=== PATIENT | female | born 1965 | race Caucasian/White ===

== ENCOUNTER → 2018-06-19 11:35 | Outpatient (CLI) | payer OTHER, SELFPAY ==
--- NOTE | 2018-06-19 | DI.MG.S_ITS ---
BILATERAL DIGITAL SCREENING MAMMOGRAM 3D/2D WITH CAD: 06/19/2018 CLINICAL: Routine screening. Comparison is made to exams dated: 01/18/2017 mammogram, 04/05/2014 mammogram, and 12/24/2006 mammogram - [facility]. The tissue of both breasts is heterogeneously dense. This may lower the sensitivity of mammography. Current study was also evaluated with a Computer Aided Detection (CAD) system. There are a grouped heterogeneous calcifications in the right breast at 12 o'clock middle depth. No other significant masses, calcifications, or other findings are seen in either breast. IMPRESSION: INCOMPLETE: NEEDS ADDITIONAL IMAGING EVALUATION The grouped heterogeneous calcifications in the right breast are indeterminate. Mediolateral and spot magnification views are recommended. This exam was interpreted at Station ID: [id number]. NOTE: For mammograms, a report in lay terms will be sent to the patient. Approximately 15% of breast malignancies will not be visualized mammographically. In the management of a palpable breast mass, a negative mammogram must not discourage biopsy of a clinically suspicious lesion. Electronically Signed By: Norris saab/faizan:06/19/2018 17:47:03 letter sent: Additional Imaging Needed ACR BI-RADS Category 0: Incomplete 3340F
== END ==
PROVIDERS: Family Provider Internal Medicine; PCP Internal Medicine; Visit Provider Internal Medicine
DX: Z12.31 Encounter for screening mammogram for malignant neoplasm of breast (principal)
CPT/HCPCS: 77063; 77067

== ENCOUNTER → 2018-06-25 14:35 | Outpatient (CLI) | payer OTHER, SELFPAY ==
--- NOTE | 2018-06-25 | DI.MG.S_ITS ---
UNILATERAL RIGHT DIGITAL DIAGNOSTIC MAMMOGRAM 3D/2D WITH ADDITIONAL VIEWS: 06/25/2018 CLINICAL: Additional evaluation requested from prior study. Comparison is made to exams dated: 06/19/2018 mammogram, 01/18/2017 mammogram, and 04/05/2014 mammogram - [facility]. The tissue of right breast is heterogeneously dense. This may lower the sensitivity of mammography. There are a grouped heterogeneous calcifications in the right breast at 11 o'clock middle depth. No other significant masses or calcifications are seen in the breast. IMPRESSION: SUSPICIOUS OF MALIGNANCY The grouped heterogeneous calcifications in the right breast are at a low suspicion for malignancy. A stereotactic biopsy is recommended. This result was discussed with the patient by Dr. Chong Caba at the time of the exam. This exam was interpreted at Station ID: [id number]. NOTE: For mammograms, a report in lay terms will be sent to the patient. Approximately 15% of breast malignancies will not be visualized mammographically. In the management of a palpable breast mass, a negative mammogram must not discourage biopsy of a clinically suspicious lesion. Electronically Signed By: Sunshine peter/:06/25/2018 15:11:05 letter sent: Biopsy Required ACR BI-RADS Category 4a: Suspicious abnormality - low suspicion for malignancy 3344F
== END ==
PROVIDERS: Family Provider Internal Medicine; PCP Internal Medicine; Visit Provider Internal Medicine
DX: R92.1 Mammographic calcification found on diagnostic imaging of breast (principal)
CPT/HCPCS: 77065; G0279

== ENCOUNTER → 2018-07-29 09:05 | Outpatient (CLI) | payer OTHER, SELFPAY ==
--- NOTE | 2018-07-29 09:09 | DI.MRI.S_ITS ---
BREAST MRI OF BOTH BREASTS: 07/29/2018 CLINICAL: Breast cancer. PROCEDURE: MR BREAST BI WO/W CON INDICATIONS: Biopsy proven breast cancer TECHNIQUE: The patient was placed prone in a dedicated breast imaging coil. Precontrast axial STIR and 3D FLASH without fat saturation sequences were obtained. Both before and after bolus injection of contrast, sequential 1-minute axial 3D FLASH with fat saturation sequences for 3 time points, with subtraction images and maximum intensity projections (MIP's) generated. Delayed sagittal FLASH images with fat saturation were also obtained. Computer-aided detection, including computer algorithm analysis of MRI image data for lesion detection and characterization, pharmacokinetic analysis, with further physician review for interpretation, was performed. COMPARISON: [facility], , MM SPECIAL VIEW RT, 06/25/2018, 15:04. FINDINGS: Image quality: Excellent. There is moderate background parenchymal enhancement. Right breast: There is a lobulated enhancing mass within the right breast at 11:00 at a middle depth which measures 1.5 x 1.5 x 1.4 cm in diameter and corresponds with the biopsy proven neoplasm. This mass demonstrates predominantly rapid initial rise and predominantly persistent and plateau delayed phase kinetics. An ill-defined area of non-masslike enhancement is present approximately 1 cm inferior and 1 cm lateral to the biopsy proven mass (series 14, image 49 and series 12, image 73). This area of non-masslike enhancement is subthreshold for kinetic analysis. An enhancing reniform mass is present within the right axilla which likely represents a small intramammary node (series 12, image 79 and series 14, image 41). Slightly superior to this at the level of the previously biopsied mass is an enhancing 4 mm diameter nodule which may represent a small node; however the expected fatty hilum is not visualized (series 12, image 88 and series 14, image 43). Left breast: No suspicious mass lesions or enhancement are visualized within the left breast. Miscellaneous: With the exception of the aforementioned questionable subcentimeter lymph nodes in the upper-outer quadrant of the right breast, there are no abnormal right or left axillary lymph nodes. No intramammary adenopathy. Limited visualization of the heart, lungs, mediastinum, and upper abdomen are unremarkable. IMPRESSION: KNOWN BIOPSY PROVEN MALIGNANCY 1. Biopsy proven mass at 11:00 at a middle depth as described above. 2. Questionable subcentimeter satellite lesion versus intramammary lymph node within the upper-outer quadrant of the right breast. The expected fatty hilum is not visualized which may be due to small size. If further characterization is warranted, second look ultrasound could be used. 3. Area of non-masslike enhancement approximately 1 cm inferior and 1 cm lateral to the index mass lesion as described above which is below threshold for kinetic analysis. This may represent the biopsy track of the stereotactic guided biopsy. Alternatively, this may represent mild enhancement of normal fibroglandular tissue. However, extension of the index lesion or satellite lesion could be considered in the differential diagnosis. This lesion is not conspicuous enough to biopsy under MR guidance. If further characterization is warranted, second look ultrasound could be used. Alterntively, 6 month follow-up could be used to ensure stability or resolution. m was interpreted at Station ID: [id number]. Electronically Signed By: Sunshine Kerr M.D. lk/:07/29/2018 16:02:31 ACR BI-RADS Category 6: Known biopsy proven malignancy 3346F
== END ==
PROVIDERS: PCP Internal Medicine; Visit Provider Surgery
DX: C50.411 Malignant neoplasm of upper-outer quadrant of right female breast (principal)
CPT/HCPCS: 77049; A9579

== ENCOUNTER 2018-08-05 06:41 | Day surgery (SDC) | payer OTHER, SELFPAY ==
[2018-07-30 14:48] VITALS: BMI 24.1
[2018-08-05] VITALS (12 sets, daily range): BP systolic 92–115; BP diastolic 47–72; PULSE 63–79; RESP 8–16; TEMP 36.3–37; O2SAT 97–99; BMI 23.1
--- NOTE | 2018-08-05 | DI.NM.S_ITS ---
PROCEDURE: NM SENTINEL NODE W IMAGING RADIOPHARMACEUTICAL: 0.5-1.0 mCi Millipore filtered Tc-99m sulfur colloid. INDICATIONS: RIGHT BREAST CANCER TECHNIQUE: The area around the nipple was prepped and draped in a sterile fashion. Tc-99m sulfur colloid was injected intra-dermally in the outer edge of the areola in the right breast. Images were obtained subsequently. A body contour outline was obtained. FINDINGS: There is/are multiple lymph node(s) in the ipsilateral axilla IMPRESSION: Administration of radiotracer into the right breast periareolar region for intra-operative sentinel lymph node localization. Dictated by: Dylan Matos M.D. on 08/05/2018 at 10:11 Approved by: Dylan Matos M.D. on 08/05/2018 at 10:12
--- NOTE | 2018-08-05 | PATH_ITS ---
[facility] Accession Number: [id number] . 01 Material submitted: . PART A: RIGHT SENTINEL NODE PART B: RIGHT BREAST . 01 Diagnosis: A. Right Gladys Lymph Node, Excisional Biopsy: 1 lymph node, negative for malignancy (0/1). . B. Right Breast, Mastectomy: Invasive (ductal) carcinoma, with micropapillary features, grade 3 of 3 (Cely combined histologic grade, total score 8/9): - Tumor size (invasive component): 1.8 cm, by gross measurement. - Nuclear pleomorphism: High. (3/3) - Mitotic rate: Intermediate. (2/3) - Tubular differentiation: Little or none. (3/3) - Ductal carcinoma in situ (DCIS): i. Present. - Nuclear grade: High. - Necrosis: Present (comedo). ii. Extent: Present within tissue slices 18-22, and slice 24, spanning approximately 2.8 cm. - Calcifications: Present (in association with invasive carcinoma, DCIS, and benign breast tissue). - Lymphatic invasion: Not identified. - Resection margins: i. Invasive carcinoma: Negative; 0.5 cm from the posterior margin, 0.9 cm from the anterior margin, and more than 1 cm from the remaining margins. ii. DCIS: Negative; 0.4 cm from the postero-superior margin, 0.9 cm from the anterior margin, and more than 1 cm from the remaining margins. - Prognostic markers repeated on this mastectomy specimen: i. Estrogen receptor: Negative (0% tumor cells positive, positive internal controls). Progesterone receptor: Negative (0% tumor cells positive, positive internal controls). HER-2: Equivocal for protein overexpression (2+) by immunohistochemistry; FISH is pending and results will be reported in an addendum. - Regional lymph node status: 1 intramammary lymph node, negative for malignancy (0/1). - Additional findings: i. Portion of skin and nipple/areola complex: Negative. Skeletal muscle: Not present. Biopsy site: Present. - Other findings: Fibrocystic change including usual ductal hyperplasia, columnar cell change/hyperplasia, adenosis and microcysts. - Pathologic stage: pT1c pN0(sn). - See comment. MRV/08/11/2018 . 01 Comment: Her-2 status by immunohistochemistry: Approximately 30 single-amplified carcinoma cells (staining intensity of 3+, <5%) are intermingled without clustering among non-amplified cells of tumor. These cells with strong (3+) Her2 positivity are histologically indistinguishable from the majority of surrounding Her2 negative cells. While this pattern may be considered Her2 heterogeneous by some, there is no clustering or 'mosaicism' that is typically described in heterogeneity for Her2, hence, we prefer to describe this pattern as equivocal. These areas will be assessed separately by FISH studies, and results will be reported in an addendum. . The intramammary lymph node is identified in slice 28 (out of 30, with slice 30 being the most lateral slice), measures about 5 mm, and likely corresponds to the subcentimeter lesion in the upper outer quadrant identified on MRI. . Stromal tumor infiltrating lymphocytes are less than 50% (about 10%). . 01 Electronically signed: . Cyn Edge MD, Pathologist NPI- [id number] . 01 Gross description: . (A) Received in formalin, labeled right sentinel node, is a piece of pale yellow adipose tissue (2.6 x 1.4 x 0.4 cm) containing one lymph node (1.1 x 0.6 x 0.3 cm). The lymph node is trisected and entirely submitted in cassette A1. (B) Received in formalin, labeled right breast, suture long lateral, short superior, is a right breast (346 grams, 3.2 cm AP, 14.8 cm SI, 13.7 cm ML) partially covered by the nipple areolar complex (4.9 cm SI, 3.3 cm ML). No obvious axillary tail is identified. The specimen is oriented with two black sutures (long-lateral, short-superior). No localization wire is present. The specimen is serially sectioned ML into 30 slices with the medial and lateral resection margins as slices #1 and #30, respectively. The breast tissue is fibrofatty and contains a martini-white, solid firm, irregular mass (1.8 x 1.5 x 1.5 cm) involving slices #18-#21. The exact dimensions of the mass are difficult to identify due to the surrounding dense fibrous tissue. The mass is 0.9 cm from the anterior, 1.0 cm from the posterior, 2.0 cm from the superior, 10.2 cm from the inferior, 7.5 cm from the medial, and 4.3 cm from the lateral resection margins. No other nodules, masses or lesions are identified. The nipple areolar complex is riley-pink and unremarkable. A portion of skin is present and is unremarkable. A biopsy marker was identified in slice #21 within the mass. Ink code: purple-anterior; black-posterior; blue-superior; green-inferior; yellow-medial; orange-lateral. Section code: (B1) nipple; (B2) skin, distribution sales representative; (B3) slice #1, medial resection margin, distribution sales representative perpendicular section; (B4, B5) slice #11, fibrous areas, distribution sales representative; (B6, B7) slice #12, fibrous areas, distribution sales representative; (B8, B9) slice #13, fibrous areas, distribution sales representative; (B10-B11) slice #14, fibrous areas, distribution sales representative; (B12, B13) slice #15, fibrous areas, distribution sales representative; (B14, B15) slice #16, fibrous areas, distribution sales representative; (B16-B18) slice #17, tissue adjacent to mass, distribution sales representative; (B19-B21) slice #18, mass, distribution sales representative submitted SI; (B22) slice #19, mass to anterior margin (B23) slice #19, mass, distribution sales representative, to posterior margin; (B24) slice #20, mass to anterior margin ; (B25) slice #21, mass to anterior margin, (B26) slice #21, mass, tissue involving the biopsy marker; (B27-B29) slice #22, tissue adjacent to mass, fibrous areas, distribution sales representative; (B30, B31) slice #23, fibrous areas, distribution sales representative; (B32, B33) slice #24, fibrous areas, distribution sales representative; (B34, B35) slice #25, fibrous areas, distribution sales representative; (B36, B37) slice #26, fibrous areas, distribution sales representative; (B38) slice #27, fibrous area, distribution sales representative; (B39) slice #28, firm tissue, distribution sales representative; (B40) slice #30, lateral resection margin, distribution sales representative perpendicular sections. Note: Approximate total fixation time in formalin - 30 hours 30 minutes calculated using a collection date of 08/05/2018 with no collection time given. ([id number]) /MRV . 01 Microscopic: . - Areas of concern for lymphovascular invasion on block B22 are present. A panel of immunostains is performed in order to exclude lymphovascular invasion. P63 and D2-40 immunostains with appropriately staining external controls are performed, and are negative around invasive carcinoma; only p63 is positive around the areas of concern, without co-staining of D2-40, in support of no evidence of lymphovascular invasion. . - Micropapillary features are present, and immunohistochemical stains are performed on blocks B22 and B25 in order to confirm these histopathologic features. RICHARD is performed on blocks B22 and B25 with appropriately staining external control; RICHARD variably stains the cytoplasm of the invasive carcinoma, without the inside-out pattern; despite this immunophenotype, the morphologic features (uniform size pink nests with retraction artifact and mild polarization of nuclei) support the presence of focal micropapillary features. . - Prognostic makers on the main tumor are repeated on block B23 given the small size of lesional tissue on the biopsy and the high-grade morphology of the tumor. The external controls stain appropriately. The invasive carcinoma stains as follows: * Estrogen receptor: Negative (0% tumor cells staining; internal controls are positive; DCIS is also negative). * Progesterone receptor: Negative (0% tumor cells staining; internal controls are positive; DCIS is also negative). * Her-2 status: 2+, equivocal for protein overexpression by immunohistochemistry. Approximately 30 single-amplified cells (staining intensity of 3+, <5%) are intermingled without clustering among non-amplified cells of tumor. (DCIS is strongly positive, 3+ staining). . - Within some slides of the case, tumor is seen touching wispy black-inked edges; after careful examination of these slides, review of the gross specimen, and discussion of the posterior margin and associated MRI findings with Dr. Ballard on 08/11/2018 at 10:30 am, it is concluded that these findings do not represent true margin, and that the final margin is negative for carcinoma and DCIS. . - For future testing, good distribution sales representative blocks of tumor: B22 and B23. . The scoring criteria for breast biomarkers by immunohistochemistry is based on the current ASCO/CAP guidelines (Leon et al, Arch Pathol Lab Med 2010: 134(6): 907-922 / Marilia Weller al, Arch Pathol Lab Med 2014: 138(2): 241-256). Deparaffinized sections of formalin fixed tissue (along with appropriate positive controls) are incubated with the above antibody(s). Using the automated Sweeny stainer, tissue is incubated with the designated antibody which is then localized by a non-biotin, dual polymer detection system. The external controls are reviewed for appropriate reactivity and found to be adequate. Results on the target cell population are indicated above. These tests have not been validated on decalcified tissue. * This test was developed and its performance characteristics determined by [employer]. It has not been cleared or approved by the U.S. Food and Drug Administration. The FDA has determined that such clearance or approval is not necessary. This test is used for clinical purposes. It should not be regarded as investigational or for research. . 01 Pathologist provided ICD-10: C50.411 . 01 CPT . 454863, N59168, V37499, 918193 Performed at: 01 [facility] [address] [place] [address], [place], [place] [id number] MD Edenilson Russell MD Phone: [phone]
--- NOTE | 2018-08-05 07:51 | SUR.PREOP ---
OR proceedure changed , spoke with Dr Ballard and radiology to confirm. Pt still to have the node mapping and then return to [facility].
[2018-08-05] MEDS: LACTATED RINGERS 1,000 ML 42 ML IV (08:55)
[2018-08-05] MEDS: SCOPOLAMINE 1 PATCH TOP (10:15)
[2018-08-05] MEDS: ACETAMINOPHEN IV 1,000 MG/100 ML VIAL 400 MG IV (11:15)
[2018-08-05] MEDS: CEFAZOLIN VIAL 3 GM in SODIUM CHLORIDE 0.9% 100 ML 200 ML IV (11:15)
[2018-08-05] MEDS: LIDOCAINE 1% W/EPI INJ 20 ML INJ (11:28)
[2018-08-05] MEDS: BUPIVACAINE 0.5% (PF) VIAL 30 ML INJ (11:31)
--- NOTE | 2018-08-05 12:27 | PM.PREOP ---
Pre-operative Note Interval Note History & Physical reviewed/Exam performed by Physician: Yes Changes to H&P: Yes H&P completed within 30 days and has changed as indicated here:: Patient has decided she would prefer to have a mastectomy. We discussed this at length. We will continue with plans for sentinel node biopsy and will cancel the lumpectomy in favor of a skin sparing right breast mastectomy.
--- NOTE | 2018-08-05 12:28 | PM.OP.1 ---
Operative Date/Time/Diagnoses Date of procedure: 08/05/18 Time of procedure: 12:28 Pre-op diagnosis: Right breast cancer Post-op diagnosis: same Procedure & Clinicians Procedure: Right breast skin sparing mastectomy and sentinel node biopsy Same procedure as scheduled: Yes Indications: Biopsy-proven right breast cancer Surgeon: Kacy Ballard Click Yes if Unassisted: Yes Anesthesia Type: General (Dr. Kam) Operative Notes Findings: 1. A single sentinel node with a 10 sec count greater than 11,900. 2. Background in the axilla approximately 10 3. Background in the room of 0 4. No visually close margins. All skin viable at the close of the case Closure Type: primary Specimen(s): other (1. Right axillary sentinel node, 2. Right breast marked for orientation) Applied: drain(s) (Nineteen Albanian Solomon drain in the inframammary pocket on the right) Estimated Blood Loss (mL): 100 Blood products transfused: none Procedure in detail: After obtaining informed consent, the patient was brought to the operating room and placed in the supine position on the operating table. Following successful induction of general endotracheal anesthesia, appropriate padding of all bony prominences, and placement of appropriate monitors, the right chest and axilla were prepped and draped in the standard surgical fashion. A timeout was held per SCOAP protocol. Following injection of a mixture of local anesthetics into the axillary fold on the right side, an incision was created and carried down through the skin and subcutaneous tissue to enter the axillary fat pad below. The sentinel node was identified with the help of the navigator. All afferent and efferent lymphatics and vasculature were ligated. The sentinel node was then liberated from the surrounding structures. It was noted to have a 10 second count of 11,992. The background in the axilla was less than 10 and background in the room was 0. The wound was carefully checked for hemostasis and aspirated free of all fluid and particulate matter. It was closed in 2 layers with Vicryl and Monocryl suture. An elliptical incision was fashioned to include only the nipple areola complex on the right side. Thin tissue flaps were then created superiorly, medially, inferiorly, and laterally by using traction and counter-traction to carefully define and then separate the subcutaneous tissue from the breast tissue on the left side. Judicious use of sharp dissection and Bovie cautery developed these planes. Dissection was continued superiorly to a level just inferior to the right clavicle, medially to the sternum, inferiorly to the inframammary fold, and laterally to the latissimus. The breast was then removed from the chest wall in a medial to lateral fashion. The wound was then checked for hemostasis and irrigated copiously with warm water. The breast was passed from the table after marking it with a short stitch superior and a long stitch lateral. A 19 Albanian Solomon drain was placed in the inferior pocket and brought out in the inferior medial position. This was sewn into place with a nylon suture. The remaining breast incision was closed in 2 layers with Vicryl and Monocryl sutures. Complications: none Condition: stable Disposition: PACU Plan for aftercare: 1. Discharge to home 2. Follow up with me in my office in 1 week
[2018-08-05] MEDS: fentaNYL 100 MCG/2 ML INJ 50 MCG IV ×2 (12:53→13:11)
--- NOTE | 2018-08-05 13:07 | SUR.PHASEI ---
Pt arrived to PACU, with oral airway, d/c'ed on arrival to unit by dr romo. VS remain stable site c/d/i, with ice and binder. Pain trweated with fentanyl.
--- NOTE | 2018-08-05 13:23 | SUR.PHASEI ---
Prescriptions x 3 given to to fill.
[2018-08-05] MEDS: OXYCODONE IR 5 MG TABLET PO (14:08)
--- NOTE | 2018-08-05 14:23 | SUR.PHASEII ---
and daughter brought in, d/c instructions discussed, pt medicated with oxycodone. Dressing and drain remained c/d/i.
--- NOTE | 2018-08-05 14:29 | SUR.PHASEII ---
Reported off to CAROLEE Daley
--- NOTE | 2018-08-05 14:48 | SUR.PHASEII ---
pt dressed self with sba from pt daughters. pt alert and orientated. pt denies any pain/discomfort at that time. pt drain secure and draining red blood. breast binder in place. pt taken out to car via wc and transferred herself into car without any difficultly.
== END 2018-08-05 14:42 | disposition home or self-care (01) ==
PROVIDERS: PCP Internal Medicine; Visit Provider Surgery
PROC: 0HTT0ZZ Resection of Right Breast, Open Approach (ICD-10-PCS; CPT 19303; principal; 2018-08-05 10:30)
DX: C50.411 Malignant neoplasm of upper-outer quadrant of right female breast (principal)
CPT/HCPCS: 19303; 38500; 78195; A9541; J0131; J0690; J1100; J2250; J2405; J2704; J3010

== ENCOUNTER 2018-08-26 08:12 | Day surgery (SDC) | payer OTHER, SELFPAY ==
[2018-08-21 11:39] VITALS: BMI 22.6
[2018-08-26] VITALS (8 sets, daily range): BP systolic 95–111; BP diastolic 47–72; PULSE 70–98; RESP 10–16; TEMP 36.4–36.8; O2SAT 97–100; BMI 22.6
--- NOTE | 2018-08-26 | DI.RAD.S_ITS ---
PROCEDURE: XR CHEST 1V INDICATIONS: PORT PLACEMENT TECHNIQUE: One view of the chest was acquired. COMPARISON: None. FINDINGS: Surgical changes and devices: Left chest wall Port-A-Cath tip is in SVC. Surgical clips are noted in right axilla. Lungs and pleura: Lungs are clear. No pleural effusions or pneumothorax. Mediastinum: Mediastinal contours appear normal. Heart size is mildly enlarged. Bones and chest wall: No suspicious bony lesions. Overlying soft tissues appear unremarkable. IMPRESSION: Left chest wall Port-A-Cath tip is in SVC. No acute cardiopulmonary pathology. Dictated by: Korey Redmond M.D. on 08/26/2018 at 10:57 Approved by: Korey Redmond M.D. on 08/26/2018 at 10:58
[2018-08-26] MEDS: LACTATED RINGERS 1,000 ML 42 ML IV ×2 (08:45→10:40)
[2018-08-26] MEDS: CEFAZOLIN 2 GM/100 ML FROZ.PIGGY IV (09:56)
[2018-08-26] MEDS: LIDOCAINE 1% W/EPI INJ 20 ML INJ (10:21)
[2018-08-26] MEDS: BUPIVACAINE 0.5% (PF) VIAL 30 ML INJ (10:21)
[2018-08-26] MEDS: SODIUM CHLORIDE 0.9% FLUSH 10 ML IV (10:22)
--- NOTE | 2018-08-26 10:24 | SUR.OPER ---
Supine on padded OR bed, head on pillow, left arm padded and tucked at side, legs uncrossed, safety belt at thigh, tape over blanket over lower legs .
--- NOTE | 2018-08-26 10:32 | PM.PREOP ---
Pre-operative Note Interval Note History & Physical reviewed/Exam performed by Physician: Yes Changes to H&P: No
--- NOTE | 2018-08-26 10:34 | P.OP_ITS ---
Operative Date/Time/Diagnoses Date of procedure: 08/26/18 Time of procedure: 10:32 Pre-op diagnosis: Right breast cancer Post-op diagnosis: same Procedure & Clinicians Procedure: Left subclavian PowerPort placement Same procedure as scheduled: Yes Indications: Right breast cancer Surgeon: Kacy Ballard Anesthesia Type: General (Dr. Tompkins) Operative Notes Findings: Power port in good position in the superior vena cava Closure Type: primary Specimen(s): none sent Prosthetic devices, grafts, tissues, transplants, or devices: Low-profile power port Estimated Blood Loss (mL): 5 Procedure in detail: After obtaining informed consent, the patient was brought to the operating room and placed in the supine position on the operating table. Following successful induction of general endotracheal anesthesia, appropriate padding of all bony prominences, and placement of appropriate monitors, the left chest was prepped and draped in a standard surgical fashion. A timeout was held per SCOAP protocol. A mixture of local anesthetics was infiltrated in the deltopectoral groove on the left side. The right subclavian vein was accessed via the Seldinger technique and a wire was gently placed into the vein. Fluoroscopy was used to verify position of the wire in the subclavian vein. We next created a pocket of approximately 2 cm inferior to the access site of the vein. This was checked for size and found to fit the port nicely. The included tunneling device was used to place the tubing and the pocket connecting it to the access site of the subclavian vein. The tubing was trimmed to an appropriate length and connected to the Port-A-Cath. The Port-A-Cath was sewn into place in the pocket using interrupted Prolene sutures. The pocket was closed in 2 layers. The dilator and introducer were then gently passed over the wire and into the subclavian vein. The wire and dilator were removed leaving only the introducer. The tubing was then placed in the introducer and the introducer removed per package dye stand loader's directions. The port was then flushed with saline solution and found to be functional and in good position. It was then hep-locked with 2000 units of heparin. The incision was closed in 2 layers with Vicryl and Monocryl sutures. Dermabond was applied to the skin. All sponge, needle, and instrument counts were correct at the conclusion of the case. Patient was allowed to awaken from anesthesia and taken to the post-anesthesia care unit in good condition. Complications: none Condition: stable Disposition: PACU Plan for aftercare: 1. Discharge to home 2. The port is ready for use
--- NOTE | 2018-08-26 10:53 | SUR.PHASEI ---
stable pacu stay. no nausea no pain, umb l arm, dr solano aware. +cms, extremety warm.
--- NOTE | 2018-08-26 11:33 | SUR.PHASEI ---
stable to opd.
--- NOTE | 2018-08-26 11:36 | SUR.PHASEII ---
awaiting dr solano to complete paperwork, d/c instructions discussed with both, both voiced an understanding.
--- NOTE | 2018-08-26 12:08 | SUR.PHASEII ---
pt left with paperwork, when ready and left in stable condition. l chest c/d/i.
== END 2018-08-26 11:50 | disposition home or self-care (01) ==
PROVIDERS: PCP Internal Medicine; Visit Provider Surgery
PROC: (CPT 36561; principal; 2018-08-26 09:15)
DX: C50.911 Malignant neoplasm of unspecified site of right female breast (principal); Z45.2 Encounter for adjustment and management of vascular access device
CPT/HCPCS: 36561; 71045; 76000; C1788; J0690; J1100; J1644; J2250; J2405; J2704; J3010

== ENCOUNTER → 2019-07-27 11:07 | Outpatient (CLI) | payer OTHER, SELFPAY ==
--- NOTE | 2019-07-27 | DI.MG.S_ITS ---
UNILATERAL LEFT DIGITAL SCREENING MAMMOGRAM 3D/2D WITH CAD POST MASTECTOMY: 07/27/2019 CLINICAL: Routine screening. Personal history of right breast cancer. Comparison is made to exams dated: 06/19/2018 mammogram and 01/18/2017 mammogram - [facility]. The tissue of left breast is heterogeneously dense. This may lower the sensitivity of mammography. Current study was also evaluated with a Computer Aided Detection (CAD) system. No significant masses, calcifications, or other findings are seen in the breast. There has been no significant interval change. IMPRESSION: NEGATIVE There is no mammographic evidence of malignancy. A 1 year screening mammogram is recommended. This exam was interpreted at Station ID: [id number]. NOTE: For mammograms, a report in lay terms will be sent to the patient. Approximately 15% of breast malignancies will not be visualized mammographically. In the management of a palpable breast mass, a negative mammogram must not discourage biopsy of a clinically suspicious lesion. Electronically Signed By: Norris saab/faizan:07/27/2019 18:59:26 copy to: Flaco Billy letter sent: Normal Exam ACR BI-RADS Category 1: Negative 3341F
== END ==
PROVIDERS: PCP Internal Medicine; Referring Provider Internal Medicine; Visit Provider Internal Medicine
DX: Z12.31 Encounter for screening mammogram for malignant neoplasm of breast (principal); Z85.3 Personal history of malignant neoplasm of breast
CPT/HCPCS: 77063; 77067

== ENCOUNTER → 2020-04-04 11:22 | Outpatient (CLI) | payer OTHER, SELFPAY ==
[2020-04-04 14:04] LABS: COVID19 -Nasal RAPID Negative (Negative)
== END ==
PROVIDERS: PCP Internal Medicine; Visit Provider Physician Assistant
DX: Z11.59 Encounter for screening for other viral diseases (principal)
CPT/HCPCS: 87635

== ENCOUNTER 2020-04-06 07:59 | Day surgery (SDC) | payer OTHER, SELFPAY ==
[2020-04-06] VITALS (8 sets, daily range): BP systolic 90–117; BP diastolic 52–78; PULSE 63–82; RESP 8–16; TEMP 36–36.8; O2SAT 97–100; BMI 22.8
--- NOTE | 2020-04-06 | PATH_ITS ---
[facility] Accession Number: [id number] . 01 Material submitted: . body - GASTRITIS . 01 Clinical history: . A: GASTRITIS R/O HP . 02 Diagnosis: Stomach, Biopsies: Gastric antral mucosa with minimal chronic inflammation. Negative for Helicobacter organisms by immunohistochemistry. Negative for intestinal metaplasia. Negative for dysplasia or malignancy. MRV 04/11/2020 1513 Local . 02 Electronically signed: . Maurizio Elizabeth MD, PhD, Pathologist NPI- [id number] . 01 Gross description: . GASTRITIS: Received in formalin are 2 fragment(s) of riley, soft tissue measuring 0.3 x 0.2 x 0.1 cm to 0.3 x 0.3 x 0.1 cm submitted entirely in 1 cassette(s) /QBJ 04/07/2020 0718 Local . 02 Microscopic: . An immunohistochemical stain was performed to evaluate for Helicobacter organisms and is negative. The control stain showed appropriate reactivity. . * This test was developed and its performance characteristics determined by [facility]. It has not been cleared or approved by the U.S. Food and Drug Administration. The FDA has determined that such clearance or approval is not necessary. This test is used for clinical purposes. It should not be regarded as investigational or for research. . . 02 Pathologist provided ICD-10: K29.70 . 02 CPT . 387558, A12189 Performed at: 01 [facility] [address] [facility], [place], [place] [id number] MD Edenilson Russell MD Phone: [phone] Performed at: 02 [facility] [place] [address] [place], [place] [id number] MD Chloe Jensen MD Phone: [phone]
[2020-04-06] MEDS: SODIUM CHLORIDE 0.9% 1,000 ML 200 ML IV (08:24)
--- NOTE | 2020-04-06 08:30 | PM.HP.1 ---
History of Present Illness History of Present Illness Date Patient Seen: 04/06/20 Chief complaint: SDC Narrative: GE reflux with nocturnal cough rule out esophagitis Patient History Medical History (Updated 08/20/18 @ 14:14 by Kacy Ballard MD) Breast cancer, right (~06/2018) Chicken pox Depression, (~1993) Eczema Surgical History (Updated 08/21/18 @ 11:46 by Migdalia Griggs RN) Anesthesia Hx of right mastectomy (08/05/18) Status post tubal ligation (~1995) Family & Social History Family History Brother Age: 77 Parkinson's disease Father Lung cancer Mother Brain cancer Sister No problems noted. Social History: household members spouse Tobacco & Substance use: Smoking Status Never smoker alcohol intake frequency holiday/special occasion Substance Use Type does not use Meds Home Medications and Allergies Home Medications Medication Instructions Recorded Confirmed Type sertaconazole 2 % topical cream 1 applictn TOP BID #60 gram 10/18/17 04/06/20 Rx meloxicam 15 mg tablet 15 mg PO DAILY #30 tab 02/10/18 04/06/20 Rx omeprazole 20 mg PO DAILY 04/06/20 04/06/20 History Allergies Allergy/AdvReac Type Severity Reaction Status Date / Time morphine AdvReac Severe Hypotension Verified 04/06/20 08:08 latex AdvReac Mild Rash Verified 04/06/20 08:08 narcotics Allergy Severe Hypotension Uncoded 04/06/20 08:08 Exam Vital Signs (past 8 hours): - 04/06/20 08:16 Temperature 97.2 F L Pulse Rate 82 Respiratory Rate 16 Blood Pressure 117/78 Pulse Oximetry 98 Oxygen Delivery Method Room Air Narrative Exam Narrative: Oropharynx free of lesions Chest clear to auscultation percussion Cardiac exam reveals no S3 or murmur Assessment & Plan Assessment & Plan narrative: Nocturnal cough associated with GE reflux. Rule out esophagitis. Risks, benefits, alternatives for EGD been explained. Further recommendations will follow the results of the study.
--- NOTE | 2020-04-06 09:01 | PM.OP.ENDO ---
Operative Date/Time/Diagnoses Date of procedure: 04/06/20 Pre-op diagnosis: See indication and findings Procedure & Clinicians Study performed: EGD Same procedure as scheduled: Yes Indications: Nocturnal cough and GE reflux rule out esophagitis Surgeon: Guera Mello Procedure Notes Procedure in detail: After informed consent was obtained the patient was placed in left lateral decubitus position. The video upper scope placed into the oropharynx and with the help swallowed in the esophagus. The esophagus stomach and duodenum were carefully examined. On withdrawal, retroflexed view the GE junction was performed. The scope was removed. The patient tolerated procedure well. Blood loss none Complications none Sedation Total sedation time 10 minutes Versed 4 mg fentanyl 100 micro g IV titration Findings 1. Normal esophagus with the exception of a somewhat gaping lower esophageal sphincter. 2. Streaky erythema in the pre-pyloric region biopsies taken to rule out Helicobacter 3. Normal duodenal bulb and sweep Patient will be set up for [employer] monitoring off medication at her convenience.
[2020-04-06] MEDS: fentaNYL 250 MCG/5 ML INJ IV (09:06)
[2020-04-06] MEDS: MIDAZOLAM 5 MG/5 ML VIAL IV (09:06)
== END 2020-04-06 10:20 | disposition home or self-care (01) ==
PROVIDERS: PCP Internal Medicine; Referring Provider Internal Medicine; Visit Provider Internal Medicine Gastroenterology
PROC: 0DJ08ZZ Inspection of Upper Intestinal Tract, Via Natural or Artificial Opening Endoscopic (ICD-10-PCS; CPT 43235; principal; 2020-04-06 09:00)
DX: K21.9 Gastro-esophageal reflux disease without esophagitis (principal); R05 Cough; K29.50 Unspecified chronic gastritis without bleeding
CPT/HCPCS: 43239; J2250; J3010

== ENCOUNTER → 2020-05-28 13:20 | Outpatient (CLI) | payer OTHER, SELFPAY ==
[2020-05-28 14:51] LABS: COVID19 -Nasal RAPID Negative (Negative)
== END ==
PROVIDERS: PCP Internal Medicine; Visit Provider Nurse Practitioner
DX: Z20.822 Contact with and (suspected) exposure to COVID-19 (principal)
CPT/HCPCS: 87635

== ENCOUNTER → 2020-09-06 10:45 | Outpatient (CLI) | payer OTHER, SELFPAY ==
--- NOTE | 2020-09-06 | DI.MG.S_ITS ---
UNILATERAL LEFT DIGITAL SCREENING MAMMOGRAM 3D/2D WITH CAD POST MASTECTOMY: 09/06/2020 CLINICAL: Routine screening. Personal history of right breast cancer. Comparison is made to exams dated: 07/27/2019 mammogram, 06/19/2018 mammogram, and 01/18/2017 mammogram - [facility]. The tissue of left breast is heterogeneously dense. This may lower the sensitivity of mammography. Current study was also evaluated with a Computer Aided Detection (CAD) system. No significant masses, calcifications, or other findings are seen in the breast. There has been no significant interval change. IMPRESSION: NEGATIVE There is no mammographic evidence of malignancy. A 1 year screening mammogram is recommended. This exam was interpreted at Station ID: [id number]. NOTE: For mammograms, a report in lay terms will be sent to the patient. Approximately 15% of breast malignancies will not be visualized mammographically. In the management of a palpable breast mass, a negative mammogram must not discourage biopsy of a clinically suspicious lesion. Electronically Signed By: Raul carrera/fazian:09/06/2020 11:18:57 copy to: Flaco Billy letter sent: Normal Exam ACR BI-RADS Category 1: Negative 3341F
== END ==
PROVIDERS: PCP Internal Medicine; Referring Provider Internal Medicine; Visit Provider Internal Medicine
DX: Z12.31 Encounter for screening mammogram for malignant neoplasm of breast (principal); Z85.3 Personal history of malignant neoplasm of breast
CPT/HCPCS: 77063; 77067

== ENCOUNTER → 2020-11-14 16:39 | Outpatient (CLI) | payer OTHER, SELFPAY ==
[2020-11-14 17:40] LABS: Add Manual Diff / Slide Review NO; Basophils Absolute Auto 100 /uL (0-100); Basophils Percent Auto 1.6 % (0-2); Eosinophils Absolute Auto 300 /uL (0-450); Eosinophils Percent Auto 5.5 % (2-4); Hemoglobin 12.7 g/dL (12.0-16.0); Lymphocytes Absolute Auto 1400 /uL (1100-4500); Lymphocytes Percent Auto 26.7 % (25-40); Mean Corpuscular HGB Conc 33.4 % (30-36); Mean Corpuscular Volume 95.9 fL (80-100); Monocytes Absolute Auto 600 /uL (0-900); Monocytes Percent Auto 11.7 % (3-14); Neutrophils Absolute Auto 2900 /uL (1500-7000); Neutrophils Percent Auto 54.5 % (50-75); Platelet Count 240 X10^3/uL (150-400); Red Blood Cell Count 3.97 X10^6/uL (4.0-5.2); Red Cell Distribution Width 14.5 % (11.6-14.8); White Blood Cell Count 5.3 X10^3/uL (4.5-11.0)
== END ==
PROVIDERS: PCP Internal Medicine; Referring Provider Internal Medicine; Visit Provider Internal Medicine
DX: R59.0 Localized enlarged lymph nodes (principal)
CPT/HCPCS: 36415; 85025

== ENCOUNTER → 2020-12-12 10:42 | Outpatient (CLI) | payer OTHER, SELFPAY ==
--- NOTE | 2020-12-12 | DI.US.S_ITS ---
PROCEDURE: US ABDOMEN LIMITED INDICATIONS: RIGHT GROIN LUMP TECHNIQUE: Real-time focused scanning was performed of the abdomen, with image documentation. COMPARISON: None. FINDINGS: 5.9 x 1.0 x 2.1 centimeter lymph node corresponds to palpable lump in the right groin. No fluid collections identified in the right groin. No soft tissue edema identified in the right groin. IMPRESSION: Enlarged right groin lymph node which could be reactive or neoplastic. Dictated by: Belkis Jackson MD, PhD on 12/12/2020 at 11:59 Approved by: Belkis Jackson MD, PhD on 12/12/2020 at 12:00
== END ==
PROVIDERS: PCP Internal Medicine; Referring Provider Internal Medicine; Visit Provider Internal Medicine
DX: R59.0 Localized enlarged lymph nodes (principal)
CPT/HCPCS: 76705

== ENCOUNTER → 2020-12-30 08:59 | Outpatient (CLI) | payer OTHER, SELFPAY ==
--- NOTE | 2020-12-30 | PATH_ITS ---
[facility] Accession Number: [id number] . 01 Material submitted: . lymph node - RIGHT GROIN LYMPHNODE . 01 Diagnosis: Lymph Node, Right Groin, Core Biopsies: Non-caseating granulomatous lymphadenitis, see Microscopic Description and comment. [facility] 01/06/2021 1451 Local . 01 Comment: While non-caseating granulomatous lymphadenitis is present, core biopsy tissue is a limited sample type. To completely rule out the possibility of a lymphoproliferative disorder, excisional biopsy tissue is needed. Please correlate with clinical and radiologic suspicion, if any, to determine a need for additional tissue procurement. . The clinical history of painful acute onset groin node was given. These findings do correlate. . As part of ongoing senior software quality engineer, this case was also reviewed by hematopathologist, Dr. Kianna Brito, who agrees with the interpretation. . 01 Electronically signed: . Pennie Stratton MD, Pathologist NPI- [id number] . 01 Gross description: . The specimen is received in formalin, labeled right lymph node, and consists of multiple riley-pink cores of soft tissue ranging from 0.2 cm to 0.6 cm in length by 0.1 cm in diameter. The specimen is entirely submitted in cassette A1. ([id number]) /[facility] 12/31/2020 1621 Local . 01 Microscopic: . H/E levels demonstrate fragments of core biopsy material comprising unremarkable soft tissue and lymphoid tissue. The lymphoid tissue demonstrates a somewhat follicular pattern without lars germinal centers noted. Focal loose non-caseating granulomata are seen with multinucleated giant cells. There is no evidence of a large, atypical or immature appearing lymphoid population. There is no evidence of increased apoptotic or mitotic activity, sclerosing banding, eosinophilia, pigmentation or non-lymphoid cells. There is no evidence of foreign bodies and no polarizable material is noted. In order to more fully characterize this process, special stains and immunohistochemical stains were indicated and were performed on block A1. The controls reacted appropriately. . FINDINGS: AFB special stain: No evidence of mycobacterial organisms. GMS special stain: No evidence of fungal elements. CD3: Small T lymphocytes scattered throughout. No large or atypical cells noted (membranous/strong). CD5: Small T lymphocytes scattered throughout. No large or atypical cells noted. Pattern mirrors CD3 (membranous/strong). CD10: Negative. CD20: B lymphocytes present (CD3 and CD20 staining pattern highlights normal lymphocyte distribution). CD21: Focally positive, highlighting follicular dendritic cells (cytoplasmic/strong). BCL2: No germinal center present to interpret. BCL6: No germinal center present to interpret. MACIE (panepithelial marker): Negative. This result supports the absence of metastatic carcinoma. Proliferation marker Ki-67: Positive, less than 10% (nuclear/strong). . INTERPRETATION: There is no evidence of mycobacteria or fungal elements. No evidence of aberrant T- or B-cell population. No evidence of metastatic carcinoma. . . * This test was developed and its performance characteristics determined by [facility]. It has not been cleared or approved by the U.S. Food and Drug Administration. The FDA has determined that such clearance or approval is not necessary. This test is used for clinical purposes. It should not be regarded as investigational or for research. . 01 Pathologist provided ICD-10: R59.0 . 01 CPT . 273186, 528586, 532994, Q14067, S55948 Performed at: 01 [facility] [address] [place] [address] [address], [place], [place] [id number] MD Edenilson Russell MD Phone: [phone]
--- NOTE | 2020-12-30 | DI.US.S_ITS ---
PROCEDURE: US BIOPSY LYMPH NODE INDICATIONS: RIGHT GROIN LYMPHADENOPATHY TECHNIQUE: The indications, alternatives, benefits, risks, and complications of the procedure were explained to the patient. Written informed consent was obtained and placed in the chart. Real-time sonography was utilized to choose the site for percutaneous lymph node sampling. The skin was prepped and draped in the usual sterile fashion. 1% lidocaine was infiltrated down to the site of interest. A coaxial needle was then advanced into the site of interest under direct sonographic visualization. A biopsy apparatus was then utilized, and core biopsies were obtained. The needle was then withdrawn; a bandage was applied to the biopsy site. COMPARISON: None. FINDINGS: Biopsy site(s): Enlarged right inguinal lymph node Needle: Visuu biopsy needle set. Number of passes: 6 Medications: 1% lidocaine for local anaesthesia. Complications: None. IMPRESSION: Successful ultrasound-guided right inguinal lymph node biopsy, with pathology results pending. Dictated by: Dylan Matos M.D. on 12/30/2020 at 11:06 Approved by: Dylan Matos M.D. on 12/30/2020 at 11:06
== END ==
PROVIDERS: PCP Internal Medicine; Referring Provider Internal Medicine; Visit Provider Internal Medicine
DX: I88.9 Nonspecific lymphadenitis, unspecified (principal)
CPT/HCPCS: 10005; 38505; 76942

== ENCOUNTER → 2021-05-01 10:54 | Outpatient (CLI) | payer OTHER, SELFPAY ==
[2021-05-01 15:05] LABS: COVID19 -Nasal RAPID Negative (Negative)
== END ==
PROVIDERS: PCP Internal Medicine; Visit Provider Nurse Practitioner Family
DX: Z20.822 Contact with and (suspected) exposure to COVID-19 (principal)
CPT/HCPCS: 87635

== ENCOUNTER → 2021-09-08 14:52 | Outpatient (CLI) | payer OTHER, SELFPAY ==
--- NOTE | 2021-09-08 | DI.MG.S_ITS ---
UNILATERAL LEFT DIGITAL SCREENING MAMMOGRAM 3D/2D WITH CAD: 09/08/2021 CLINICAL: Routine screening. Personal history of right breast cancer. Comparison is made to exams dated: 07/27/2019 mammogram, 06/25/2018 mammogram, 06/19/2018 mammogram, and 01/18/2017 mammogram - [facility]. The tissue of left breast is heterogeneously dense. This may lower the sensitivity of mammography. Current study was also evaluated with a Computer Aided Detection (CAD) system. There are new grouped fine punctate calcifications in the left breast at 11 o'clock middle depth. No other significant masses or calcifications are seen in the breast. IMPRESSION: INCOMPLETE: NEEDS ADDITIONAL IMAGING EVALUATION The new grouped fine punctate calcifications in the left breast are indeterminate. Mediolateral, spot magnification, and additional views are recommended. This exam was interpreted at Station ID: [id number]. NOTE: For mammograms, a report in lay terms will be sent to the patient. Approximately 15% of breast malignancies will not be visualized mammographically. In the management of a palpable breast mass, a negative mammogram must not discourage biopsy of a clinically suspicious lesion. Electronically Signed By: Edenilson thrasher/faizan:09/08/2021 16:40:50 copy to: Flaco Billy letter sent: Additional Imaging Needed ACR BI-RADS Category 0: Incomplete 3340F
== END ==
PROVIDERS: PCP Internal Medicine; Referring Provider Internal Medicine; Visit Provider Internal Medicine
DX: Z12.31 Encounter for screening mammogram for malignant neoplasm of breast (principal); Z85.3 Personal history of malignant neoplasm of breast
CPT/HCPCS: 77063; 77067

== ENCOUNTER → 2021-10-13 15:42 | Outpatient (CLI) | payer OTHER, SELFPAY ==
--- NOTE | 2021-10-13 | DI.MRI.S_ITS ---
PROCEDURE: MR HEAD/BRAIN WO/W CON INDICATIONS: 56-year-old female with breast cancer TECHNIQUE: Noncontrast axial T1 spin echo, axial T2 fast spin echo, sagittal and axial FLAIR, coronal T2 fast spin echo, axial gradient echo, axial diffusion and ADC through the brain. After the administration of contrast, axial and coronal 3D VIBE or T1 spin echo with fat saturation through the brain. COMPARISON: None. FINDINGS: Image quality: Excellent. CSF Spaces: Basal cisterns are patent. No extra-axial fluid collections. Ventricles are normal in size and shape. Brain: No midline shift. No intracranial bleeds or masses. No abnormal intracranial enhancement. The brainstem appears normal. Diffusion-weighted images demonstrate no acute ischemic insults. No chronic ischemic insults. Normal intravascular flow voids are present. Skull and face: Calvarial marrow is normal in signal. Orbits appear normal. Unilateral right intra-ocular lens replacement Sinuses: Small left maxillary sinus retention cyst. IMPRESSION: Unremarkable MRI of the brain without evidence metastatic disease Approved by: Jack Caraballo M.D. on 10/13/2021 at 16:54
== END ==
PROVIDERS: PCP Internal Medicine; Referring Provider Internal Medicine Hematology & Oncology; Visit Provider Internal Medicine Hematology & Oncology
DX: C50.619 Malignant neoplasm of axillary tail of unspecified female breast (principal)
CPT/HCPCS: 70553; A9579

== ENCOUNTER 2021-11-22 14:39 | Inpatient (IN) | payer OTHER, SELFPAY ==
[2021-11-22 14:47] VITALS: BP 115/57; PULSE 117; RESP 18; TEMP 38.9; O2SAT 96; BMI 21.9
--- NOTE | 2021-11-22 14:56 | DI.RAD.S_ITS ---
PROCEDURE: XR CHEST 1V INDICATIONS: suspected sepsis TECHNIQUE: One view of the chest was acquired. COMPARISON: [facility], CR, XR CHEST 1V, 08/26/2018, 10:33. FINDINGS: Surgical changes and devices: Left chest wall Port-A-Cath tip is in SVC. Surgical clips also noted in right breast and right axilla. Lungs and pleura: Lungs are clear. No pleural effusions or pneumothorax. Mediastinum: Mediastinal contours appear normal. Heart size is normal. Bones and chest wall: No suspicious bony lesions. Overlying soft tissues appear unremarkable. IMPRESSION: No acute cardiopulmonary pathology. Dictated by: Korey Redmond M.D. on 11/22/2021 at 16:03 Approved by: Korey Redmond M.D. on 11/22/2021 at 16:03
--- NOTE | 2021-11-22 16:04 | ED.FEVER ---
HPI - Fever General Chief Complaint: Fever Stated Complaint: Fever post chemo treatment, rash on face Time Seen by Provider: 11/22/21 15:33 Source: patient Mode of arrival: Wheelchair History of Present Illness HPI Narrative: Patient here for fever. Patient had chemotherapy November 15. Is on her 2nd cycle. No known sick contacts. Is COVID vaccinated. Home COVID negative. Denies any urinary complaints. Has diffuse lesions on the skin including around the nose and around the buttocks. Does have a med port. No cough cold or congestion. No vomiting or diarrhea. Took ibuprofen this afternoon. Took Tylenol this morning. Patient in no distress at this time. Related Data Home Medications Medication Instructions Recorded Confirmed lorazepam 0.5 mg tablet 1 tab PO PRN PRN Anxiety 11/22/21 11/22/21 ondansetron HCl 4 mg tablet 1 tab PO PRN PRN Nausea 11/22/21 11/22/21 Allergies Allergy/AdvReac Type Severity Reaction Status Date / Time latex Allergy Mild Rash Verified 11/25/21 11:03 morphine Allergy Mild Hypotension Verified 11/25/21 11:03 narcotics AdvReac Mild Hypotension Uncoded 11/25/21 11:03 Review of Systems Review of Systems Narrative: GENERAL: Positive for chills, fatigue, malaise, fever, negative for sweats. HEENT: Denies sinus pain, ear pain, sore throat RESPIRATORY: Denies dyspnea, cough CARDIOVASCULAR: Denies chest pain, palpitations GASTROINTESTINAL: Denies nausea, vomiting, abdominal pain : Denies dysuria, frequency, hematuria MUSCULOSKELETAL: denies muscle or bony pain SKIN: Positive for rash, positive for skin lesions NEUROLOGIC: Denies weakness, numbness ROS Unobtainable: All systems reviewed & are unremarkable except as noted in HPI and below Patient History Medical History Breast cancer, right (~06/2018) Chicken pox Depression, (~1993) Eczema Surgical History Anesthesia Hx of right mastectomy (08/05/18) Status post tubal ligation (~1995) Family History Brother Age: 78 Parkinson's disease Father Lung cancer Mother Brain cancer Sister No problems noted. Social History household members: spouse Smoking Status: Never smoker alcohol intake: current Smoking Status: Never smoker alcohol intake frequency: holidays/special occasions only Substance Use Type: does not use Exam Narrative Exam Narrative: GENERAL: in no distress, not toxic not dyspneic HEAD: Normocephalic. EYES: Pupils equal round No scleral icterus. ENT: Mucous membranes moist. NECK: Trachea midline. CARDIOVASCULAR: Regular rate and rhythm without murmurs RESPIRATORY: Clear to auscultation. Breath sounds equal bilaterally. No wheezes, rales, or rhonchi. GASTROINTESTINAL: Abdomen soft, non-tender EXTREMITIES: No gross deformities. BACK: No flank tenderness. NEURO: AOx4. SKIN: Warm and dry. Small punctate dried lesions on the left and right nostrils. No oozing. There is small surrounding erythema. Has central black core to them. PSYCH: Not anxious, is cooperative Initial Vital Signs Initial Vital Signs: Vital Signs Temperature 102.0 F H 11/22/21 14:47 Pulse Rate 117 H 11/22/21 14:47 Respiratory Rate 18 11/22/21 14:47 Blood Pressure 115/57 L 11/22/21 14:47 Pulse Oximetry 96 11/22/21 14:47 Oxygen Delivery Method 11/22/21 14:47 Course Course Course Narrative: EKG noted on arrival. However will repeat after fever control. There are no beds at [facility]. Patient's oncology group is there and they have not been able to transfer patients for over weeks. Due to post pandemic and labor shortages. There are no beds available at many hospitals. Will need to look for other hospital resources. Including [facility] Orders Ordered: Acetaminophen (Acetaminophen 325 Mg Tablet) 650 mg PO Q6HR DEION Last Admin: 11/30/21 00:06 Dose: 650 mg Documented By: Admin: 11/29/21 17:13 Dose: 650 mg Documented By: Admin: 11/29/21 11:28 Dose: 650 mg Documented By: Admin: 11/29/21 05:55 Dose: 650 mg Documented By: Admin: 11/28/21 23:57 Dose: 650 mg Documented By: Admin: 11/28/21 18:06 Dose: 650 mg Documented By: Admin: 11/28/21 12:12 Dose: 650 mg Documented By: Admin: 11/28/21 06:54 Dose: Not Given Documented By: MS(2) Admin: 11/27/21 23:39 Dose: Not Given Documented By: MS(2) Admin: 11/27/21 17:56 Dose: 650 mg Documented By: Admin: 11/27/21 11:35 Dose: 650 mg Documented By: Admin: 11/27/21 05:08 Dose: Not Given Documented By: MS(2) Admin: 11/27/21 02:06 Dose: Not Given Documented By: MS(2) Admin: 11/26/21 18:22 Dose: Not Given Documented By: Admin: 11/26/21 12:09 Dose: Not Given Documented By: Admin: 11/26/21 08:34 Dose: 650 mg Documented By: Admin: 11/26/21 05:56 Dose: 650 mg Documented By: Admin: 11/26/21 00:01 Dose: 650 mg Documented By: Admin: 11/25/21 18:03 Dose: 650 mg Documented By: Admin: 11/25/21 12:21 Dose: 650 mg Documented By: Admin: 11/25/21 05:57 Dose: 650 mg Documented By: Admin: 11/24/21 23:30 Dose: 650 mg Documented By: Admin: 11/24/21 18:33 Dose: 650 mg Documented By: Admin: 11/24/21 12:30 Dose: 650 mg Documented By: Admin: 11/24/21 06:16 Dose: 650 mg Documented By: Admin: 11/24/21 01:00 Dose: 650 mg Documented By: Admin: 11/23/21 17:43 Dose: 650 mg Documented By: Admin: 11/23/21 11:34 Dose: 650 mg Documented By: Admin: 11/23/21 06:40 Dose: 650 mg Documented By: Admin: 11/22/21 23:47 Dose: 650 mg Documented By: GARY Al Hydrox/Mg Hydrox/Simethicone (Mag Hydrox/Alum/Simeth 30 Ml Udc) 30 ml PO Q6HR PRN PRN Reason: Dyspepsia Benzocaine (Benzocaine/Menthol 1 Adriana Pkt) 1 each PO Q1HR PRN PRN Reason: Cough Benzonatate (Benzonatate 100 Mg Capsule) 100 mg PO TID PRN PRN Reason: Cough Last Admin: 11/29/21 19:43 Dose: 100 mg Documented By: Admin: 11/29/21 05:59 Dose: 100 mg Documented By: Admin: 11/28/21 16:13 Dose: 100 mg Documented By: Admin: 11/27/21 22:22 Dose: 100 mg Documented By: MS(2) Admin: 11/26/21 22:15 Dose: 100 mg Documented By: MS(2) Admin: 11/25/21 22:06 Dose: 100 mg Documented By: XIOMARA Bisacodyl (Bisacodyl 5 Mg Tablet) 10 mg PO BID COUNTS INCLUDE 234 BEDS AT THE [facility] Last Admin: 11/29/21 20:34 Dose: Not Given Documented By: Admin: 11/29/21 09:42 Dose: Not Given Documented By: Admin: 11/28/21 20:46 Dose: Not Given Documented By: Admin: 11/28/21 08:13 Dose: Not Given Documented By: Admin: 11/27/21 21:15 Dose: Not Given Documented By: MS(2) Admin: 11/27/21 09:42 Dose: Not Given Documented By: Admin: 11/26/21 20:35 Dose: Not Given Documented By: Admin: 11/26/21 12:01 Dose: Not Given Documented By: Admin: 11/25/21 20:06 Dose: Not Given Documented By: Admin: 11/25/21 08:22 Dose: Not Given Documented By: Admin: 11/24/21 20:39 Dose: 10 mg Documented By: GARY Enoxaparin Sodium (Enoxaparin 40 Mg/0.4 Ml Syringe) 40 mg SUBCUT DAILY COUNTS INCLUDE 234 BEDS AT THE [facility] Last Admin: 11/29/21 09:42 Dose: Not Given Documented By: Admin: 11/28/21 09:34 Dose: 40 mg Documented By: Guaifenesin (Guaifenesin Solution 100 Mg/5 Ml Udc) 100 mg PO Q2HR PRN PRN Reason: Cough Last Admin: 11/29/21 22:02 Dose: 100 mg Documented By: MONIQUE Heparin Sodium (Porcine) (Heparin 500 Unit/5 Ml Port Flush) 500 unit IV PRN PRN PRN Reason: Flush Heparin Sodium (Porcine) (Heparin 500 Unit/5 Ml Port Flush) 500 unit IV BID COUNTS INCLUDE 234 BEDS AT THE [facility] Last Admin: 11/25/21 09:13 Dose: Not Given Documented By: CEW Sodium Chloride (Normal Saline 0.9%) 250 mls @ 21 mls/hr IV Q24H PRN PRN Reason: Flush Last Admin: 11/26/21 18:25 Dose: 21 mls/hr Documented By: GÉNESIS Ibuprofen (Ibuprofen 600 Mg Tablet) 600 mg PO Q6HR PRN PRN Reason: Fever/Mild Pain (1-3) Ketorolac Tromethamine (Ketorolac 30 Mg/Ml Vial) 30 mg IV Q6H COUNTS INCLUDE 234 BEDS AT THE [facility] Stop: 12/03/21 15:41 Last Admin: 11/30/21 03:21 Dose: Not Given Documented By: Admin: 11/29/21 22:05 Dose: Not Given Documented By: Admin: 11/29/21 16:42 Dose: Not Given Documented By: Admin: 11/29/21 09:44 Dose: Not Given Documented By: Admin: 11/29/21 03:19 Dose: 30 mg Documented By: Admin: 11/28/21 21:38 Dose: 30 mg Documented By: Admin: 11/28/21 16:08 Dose: 30 mg Documented By: GÉNESIS Lorazepam (Lorazepam 0.5 Mg Tablet) 0.5 mg PO BEDTIME PRN PRN Reason: Sleep Last Admin: 11/27/21 22:22 Dose: 0.5 mg Documented By: MS(2) Admin: 11/27/21 00:06 Dose: 0.5 mg Documented By: MS(2) Magnesium Hydroxide (Magnesium Hydroxide 30 Ml Udc) 30 ml PO DAILY PRN PRN Reason: Constipation Nystatin (Nystatin Cream 30 Gm) 1 applic TOP BID COUNTS INCLUDE 234 BEDS AT THE [facility] Last Admin: 11/29/21 22:05 Dose: 1 applic Documented By: Admin: 11/29/21 09:42 Dose: 1 applic Documented By: Admin: 11/28/21 20:46 Dose: 1 applic Documented By: Admin: 11/28/21 08:13 Dose: Not Given Documented By: Admin: 11/27/21 22:44 Dose: Not Given Documented By: CHICA) Admin: 11/27/21 10:00 Dose: Not Given Documented By: Admin: 11/26/21 20:35 Dose: 1 applic Documented By: Admin: 11/26/21 08:33 Dose: 1 applic Documented By: Admin: 11/25/21 20:57 Dose: 1 applic Documented By: Admin: 11/25/21 10:12 Dose: 1 applic Documented By: Admin: 11/24/21 15:13 Dose: 1 applic Documented By: TRENT Ondansetron HCl (Ondansetron 4 Mg Odt) 4 mg PO Q8HR PRN PRN Reason: Nausea And Vomiting Last Admin: 11/23/21 19:59 Dose: 4 mg Documented By: Admin: 11/22/21 20:11 Dose: 4 mg Documented By: GARY Pantoprazole Sodium (Pantoprazole Dr 20 Mg Tablet) 20 mg PO 0600 DEION Last Admin: 11/29/21 05:58 Dose: 20 mg Documented By: Admin: 11/28/21 05:18 Dose: 20 mg Documented By: CHICA) Admin: 11/27/21 09:48 Dose: 20 mg Documented By: Admin: 11/26/21 08:33 Dose: 20 mg Documented By: Admin: 11/26/21 05:56 Dose: 20 mg Documented By: Admin: 11/25/21 05:57 Dose: 20 mg Documented By: Admin: 11/24/21 06:16 Dose: 20 mg Documented By: Admin: 11/23/21 06:40 Dose: 20 mg Documented By: GARY Phenyleph/Shark Oil/Min Oil/Petrol (Phenyleph/Mineral Oil/Petrolat 57 Gm Oint) 1 applic CA PRN PRN PRN Reason: anal pain Sodium Chloride (Sodium Chloride 0.9% Flush) 10 ml IV PRN PRN PRN Reason: Flush Last Admin: 11/29/21 03:20 Dose: 10 ml Documented By: Admin: 11/29/21 01:59 Dose: 10 ml Documented By: Admin: 11/28/21 21:38 Dose: 10 ml Documented By: Admin: 11/28/21 05:18 Dose: 10 ml Documented By: CHICA) Admin: 11/26/21 12:22 Dose: 10 ml Documented By: GÉNESIS Sodium Chloride (Sodium Chloride Nasal [place]) 1 spray NASAL PRN PRN PRN Reason: Congestion Last Admin: 11/24/21 15:13 Dose: 1 spray Documented By: TRENT Zolpidem Tartrate (Zolpidem 5 Mg Tablet) 5 mg PO BEDTIME PRN PRN Reason: Sleep Last Admin: 11/29/21 22:04 Dose: 5 mg Documented By: MONIQUE Discontinued Medications Acetaminophen (Acetaminophen 325 Mg Tablet) 650 mg PO NOW ONE Stop: 11/22/21 16:00 Last Admin: 11/22/21 16:08 Dose: 650 mg Documented By: JASMIN Albuterol (Albuterol 2.5 Mg/3 Ml Neb (Adult)) 2.5 mg INH [id number] COUNTS INCLUDE 234 BEDS AT THE [facility] Last Admin: 11/27/21 11:54 Dose: 2.5 mg Documented By: DEMETRIA Calcium Carbonate (Calcium Carbonate 600 Mg Tablet) 600 mg PO NOW ONE Stop: 11/24/21 14:57 Last Admin: 11/24/21 16:48 Dose: 600 mg Documented By: DELORIS Doxycycline Hyclate (Doxycycline Hyclate 100 Mg Tablet) 100 mg PO NOW ONE Stop: 11/29/21 13:51 Last Admin: 11/29/21 14:51 Dose: 100 mg Documented By: PILAR Fentanyl (Fentanyl 100 Mcg/2 Ml Inj) 5 mcg IV NOW ONE Stop: 11/29/21 14:16 Last Admin: 11/29/21 14:50 Dose: 5 mcg Documented By: PILAR Fentanyl (Fentanyl 100 Mcg/2 Ml Inj) 10 mcg IV 2000 ONE Stop: 11/29/21 20:01 Last Admin: 11/29/21 19:43 Dose: 10 mcg Documented By: MONIQUE Filgrastim (Filgrastim-Aafi 480 Mcg/0.8 Ml Syringe) 480 mcg SUBCUT NOW ONE Stop: 11/22/21 18:01 Last Admin: 11/22/21 18:17 Dose: 480 mcg Documented By: URSULA Filgrastim (Filgrastim-Aafi 480 Mcg/0.8 Ml Syringe) 480 mcg SUBCUT NOW ONE Stop: 11/23/21 18:01 Last Admin: 11/23/21 17:44 Dose: 480 mcg Documented By: JAVAD Filgrastim (Filgrastim-Aafi 300 Mcg/0.5 Ml Syringe) 300 mcg SUBCUT NOW ONE Stop: 11/24/21 16:16 Last Admin: 11/24/21 16:50 Dose: 300 mcg Documented By: DELORIS Filgrastim (Filgrastim-Aafi 300 Mcg/0.5 Ml Syringe) 300 mcg SUBCUT NOW ONE Stop: 11/25/21 14:01 Last Admin: 11/25/21 15:57 Dose: 300 mcg Documented By: TRENT Filgrastim (Filgrastim-Aafi 300 Mcg/0.5 Ml Syringe) 300 mcg SUBCUT NOW ONE Stop: 11/26/21 13:46 Last Admin: 11/26/21 13:51 Dose: 300 mcg Documented By: GÉNESIS Fluconazole (Fluconazole 100 Mg Tablet) 150 mg PO NOW ONE Stop: 11/24/21 14:56 Last Admin: 11/24/21 16:48 Dose: 150 mg Documented By: DELORIS Sodium Chloride (Normal Saline 0.9%) 1,000 mls @ 1,000 mls/hr IV BOLUS ONE Stop: 11/22/21 16:59 Last Infusion: 11/22/21 17:50 Dose: 0 mls/hr Documented By: Admin: 11/22/21 16:08 Dose: 1,000 mls/hr Documented By: JASMIN Cefepime HCl 2 gm/ Sodium (Chloride) 100 mls @ 200 mls/hr IV Q8H DEION Last Admin: 11/28/21 10:40 Dose: 200 mls/hr Documented By: Infusion: 11/28/21 01:59 Dose: 0 mls/hr Documented By: MS(2) Admin: 11/28/21 01:29 Dose: 200 mls/hr Documented By: MS(2) Infusion: 11/27/21 18:27 Dose: 0 mls/hr Documented By: MS(2) Admin: 11/27/21 17:57 Dose: 200 mls/hr Documented By: Infusion: 11/27/21 11:57 Dose: 200 mls/hr Documented By: Admin: 11/27/21 11:27 Dose: 200 mls/hr Documented By: Infusion: 11/27/21 02:37 Dose: 0 mls/hr Documented By: MS(2) Admin: 11/27/21 02:07 Dose: 200 mls/hr Documented By: MS(2) Infusion: 11/26/21 21:04 Dose: 200 mls/hr Documented By: MS(2) Admin: 11/26/21 20:34 Dose: 200 mls/hr Documented By: Infusion: 11/26/21 12:50 Dose: 200 mls/hr Documented By: Admin: 11/26/21 12:20 Dose: 200 mls/hr Documented By: Infusion: 11/26/21 02:35 Dose: 0 mls/hr Documented By: Admin: 11/26/21 02:05 Dose: 200 mls/hr Documented By: Infusion: 11/25/21 19:35 Dose: 0 mls/hr Documented By: Admin: 11/25/21 19:01 Dose: 200 mls/hr Documented By: Infusion: 11/25/21 11:50 Dose: 200 mls/hr Documented By: Admin: 11/25/21 11:18 Dose: 200 mls/hr Documented By: Infusion: 11/25/21 02:20 Dose: 200 mls/hr Documented By: Admin: 11/25/21 01:50 Dose: 200 mls/hr Documented By: Infusion: 11/24/21 19:16 Dose: 200 mls/hr Documented By: Admin: 11/24/21 18:46 Dose: 200 mls/hr Documented By: Infusion: 11/24/21 16:59 Dose: 0 mls/hr Documented By: Admin: 11/24/21 11:28 Dose: 200 mls/hr Documented By: Infusion: 11/24/21 01:30 Dose: 0 mls/hr Documented By: Admin: 11/24/21 01:00 Dose: 200 mls/hr Documented By: Infusion: 11/23/21 20:15 Dose: 0 mls/hr Documented By: Admin: 11/23/21 17:43 Dose: 200 mls/hr Documented By: Infusion: 11/23/21 11:34 Dose: 0 mls/hr Documented By: Admin: 11/23/21 10:44 Dose: 200 mls/hr Documented By: Infusion: 11/23/21 06:45 Dose: 0 mls/hr Documented By: Admin: 11/23/21 03:51 Dose: 200 mls/hr Documented By: Infusion: 11/22/21 18:38 Dose: 0 mls/hr Documented By: Infusion: 11/22/21 18:38 Dose: 0 mls/hr Documented By: Admin: 11/22/21 17:51 Dose: 200 mls/hr Documented By: JASMIN Vancomycin HCl/Dextrose (Vancomycin) 1,500 mg in 300 mls @ 200 mls/hr IV NOW ONE Stop: 11/22/21 19:44 Last Infusion: 11/22/21 23:07 Dose: 0 mls/hr Documented By: Admin: 11/22/21 20:10 Dose: 200 mls/hr Documented By: GARY Vancomycin HCl (Vancomycin) 1,250 mg in 250 mls @ 250 mls/hr IV Q12H COUNTS INCLUDE 234 BEDS AT THE [facility] Last Infusion: 11/23/21 10:00 Dose: 0 mls/hr Documented By: Admin: 11/23/21 08:32 Dose: 250 mls/hr Documented By: JAVAD Sodium Chloride (Normal Saline 0.9%) 1,000 mls @ 100 mls/hr IV BOLUS ONE Stop: 11/23/21 05:49 Last Infusion: 11/23/21 06:45 Dose: 0 mls/hr Documented By: Admin: 11/22/21 20:11 Dose: 100 mls/hr Documented By: GARY Vancomycin HCl (Vancomycin) 1,000 mg in 200 mls @ 200 mls/hr IV Q12H COUNTS INCLUDE 234 BEDS AT [facility] Last Admin: 11/24/21 09:38 Dose: 200 mls/hr Documented By: Infusion: 11/23/21 21:00 Dose: 0 mls/hr Documented By: Admin: 11/23/21 20:00 Dose: 200 mls/hr Documented By: XIOMARA Vancomycin HCl (Vancomycin) 1,000 mg in 200 mls @ 200 mls/hr IV Q8H COUNTS INCLUDE 234 BEDS AT [facility] Last Infusion: 11/25/21 10:35 Dose: 200 mls/hr Documented By: Admin: 11/25/21 09:34 Dose: 200 mls/hr Documented By: Infusion: 11/25/21 01:39 Dose: 200 mls/hr Documented By: Admin: 11/25/21 00:39 Dose: 200 mls/hr Documented By: Infusion: 11/24/21 18:31 Dose: 0 mls/hr Documented By: Admin: 11/24/21 16:49 Dose: 200 mls/hr Documented By: DELORIS Calcium Gluconate 4.65 meq/ (Sodium Chloride) 60 mls @ 180 mls/hr IV NOW ONE Stop: 11/25/21 11:19 Last Infusion: 11/25/21 12:45 Dose: 180 mls/hr Documented By: Infusion: 11/25/21 12:40 Dose: 180 mls/hr Documented By: Admin: 11/25/21 12:21 Dose: 180 mls/hr Documented By: TRENT Vancomycin HCl (Vancomycin) 1,250 mg in 250 mls @ 250 mls/hr IV Q8H DEION Last Infusion: 11/28/21 10:44 Dose: 0 mls/hr Documented By: Admin: 11/28/21 09:34 Dose: 250 mls/hr Documented By: Infusion: 11/28/21 01:18 Dose: 0 mls/hr Documented By: MS(2) Admin: 11/28/21 00:18 Dose: 250 mls/hr Documented By: MS(2) Infusion: 11/27/21 18:43 Dose: 0 mls/hr Documented By: MS(2) Admin: 11/27/21 17:43 Dose: 250 mls/hr Documented By: Infusion: 11/27/21 10:57 Dose: 250 mls/hr Documented By: Admin: 11/27/21 09:57 Dose: 250 mls/hr Documented By: Infusion: 11/27/21 01:54 Dose: 0 mls/hr Documented By: Admin: 11/27/21 00:06 Dose: 250 mls/hr Documented By: MS(2) Infusion: 11/26/21 19:13 Dose: 0 mls/hr Documented By: MS(2) Admin: 11/26/21 18:13 Dose: 250 mls/hr Documented By: Infusion: 11/26/21 09:32 Dose: 250 mls/hr Documented By: Admin: 11/26/21 08:32 Dose: 250 mls/hr Documented By: Infusion: 11/26/21 01:01 Dose: 0 mls/hr Documented By: Admin: 11/26/21 00:01 Dose: 250 mls/hr Documented By: Infusion: 11/25/21 19:05 Dose: 0 mls/hr Documented By: Admin: 11/25/21 18:04 Dose: 250 mls/hr Documented By: TRENT Calcium Gluconate 9.3 meq/ (Sodium Chloride) 70 mls @ 140 mls/hr IV NOW ONE Stop: 11/26/21 14:01 Last Admin: 11/26/21 13:50 Dose: 140 mls/hr Documented By: GÉNESIS Doxycycline Hyclate 100 mg/ (Sodium Chloride) 100 mls @ 100 mls/hr IV Q12H COUNTS INCLUDE 234 BEDS AT THE [facility] Last Infusion: 11/29/21 14:59 Dose: 100 mls/hr Documented By: Admin: 11/29/21 13:21 Dose: 100 mls/hr Documented By: Infusion: 11/29/21 03:20 Dose: 0 mls/hr Documented By: Admin: 11/29/21 01:58 Dose: 100 mls/hr Documented By: Infusion: 11/28/21 19:20 Dose: 0 mls/hr Documented By: Admin: 11/28/21 15:09 Dose: 100 mls/hr Documented By: Infusion: 11/28/21 03:06 Dose: 100 mls/hr Documented By: Admin: 11/28/21 02:06 Dose: 100 mls/hr Documented By: MS(2) Infusion: 11/27/21 15:31 Dose: 100 mls/hr Documented By: MS(2) Admin: 11/27/21 14:31 Dose: 100 mls/hr Documented By: JOY Ibuprofen (Ibuprofen 600 Mg Tablet) 600 mg PO Q6HR PRN PRN Reason: Fever/Mild Pain (1-3) Last Admin: 11/28/21 05:18 Dose: 600 mg Documented By: MS(2) Admin: 11/27/21 22:21 Dose: 600 mg Documented By: MS(2) Admin: 11/27/21 00:06 Dose: 600 mg Documented By: MS(2) Admin: 11/26/21 18:25 Dose: 600 mg Documented By: Admin: 11/26/21 12:21 Dose: 600 mg Documented By: GÉNESIS Potassium Chloride (Potassium Chloride 20 Meq Tab) 40 meq PO NOW ONE Stop: 11/26/21 08:19 Last Admin: 11/26/21 08:38 Dose: 40 meq Documented By: DAISY Potassium Chloride (Potassium Chloride 20 Meq Tab) 40 meq PO NOW ONE Stop: 11/27/21 08:48 Last Admin: 11/27/21 09:47 Dose: 40 meq Documented By: JOY Tramadol HCl (Tramadol 50 Mg Tablet) 50 mg PO Q4H PRN PRN Reason: Pain, Moderate (4-6) Last Admin: 11/25/21 22:02 Dose: 50 mg Documented By: Admin: 11/25/21 15:57 Dose: 50 mg Documented By: Admin: 11/24/21 23:34 Dose: 50 mg Documented By: Admin: 11/23/21 19:59 Dose: 50 mg Documented By: XIOMARA Vancomycin HCl (Vancomycin Trough) 1 request MISC 0730 ONE Stop: 11/24/21 07:31 Last Admin: 11/24/21 09:39 Dose: Not Given Documented By: TRENT Vancomycin HCl (Vancomycin Peak) 1 request MISC 1000 ONE Stop: 11/24/21 10:01 Last Admin: 11/24/21 12:31 Dose: Not Given Documented By: TRENT Vancomycin HCl (Vancomycin Trough) 1 request MISC NOW ONE Stop: 11/25/21 08:31 Last Admin: 11/25/21 09:13 Dose: Not Given Documented By: TRENT Vancomycin HCl (Vancomycin Peak) 1 request MISC NOW ONE Stop: 11/25/21 11:01 Last Admin: 11/25/21 12:21 Dose: Not Given Documented By: TRENT Vancomycin HCl (Vancomycin Trough) 1 request MISC 1630 DEION Stop: 11/26/21 16:31 Last Admin: 11/26/21 17:04 Dose: 1 request Documented By: GÉNESIS Vancomycin HCl (Vancomycin Peak) 1 request MISC 1800 DEION Stop: 11/26/21 19:01 Last Admin: 11/26/21 20:45 Dose: 1 request Documented By: (2) Reevaluation(s) Reevaluation #1: Updated patient and results of laboratory studies and needing admission for neutropenic fever. Time: 16:45 Consultations Consultation #1: Spoke with [facility] infectious Disease Dr. Caraballo, recommends starting cefepime 2 g every 8 hours as well as pharmacy dosing for vancomycin Time: 17:01 Consultation #2: Spoke with Dr. Welsh, [facility]. Patient can stay here provided we have Neupogen or equivalent to start. I did speak with inpatient pharmacy and they do have equivalent Time: 17:27 Consultation #3: Spoke with primary care mobile application development lead, Dr. Jo, he will admit patient Time: 17:55 Vital Signs Vital signs: Vital Signs - 8 hr 11/22/21 14:47 11/22/21 16:08 11/22/21 16:50 Temperature 102.0 F H 102 F H 99.0 F Pulse Rate 117 H Respiratory Rate 18 Blood Pressure 115/57 L Pulse Oximetry 96 Oxygen Delivery Method Room Air MDM - Fever Differential Diagnosis Differential diagnosis: Likely fever of unknown origin, community acquired pneumonia, pyelonephritis, viral infection, sepsis, influenza and other (Neutropenic fever) Lab Data Result diagrams: 11/29/21 05:30 11/28/21 07:15 Labs: Lab Results 11/22/21 11/22/21 11/22/21 Range/Units 15:50 15:50 15:50 WBC 0.0 L* (4.5-11.0) X10^3/uL RBC 3.87 L (4.0-5.2) X10^6/uL Hgb 12.2 (12.0-16.0) g/dL Hct 34.3 L (36-46) % MCV 88.6 (80-100) fL MCH 31.5 (26-34) PG MCHC 35.5 (30-36) % RDW 12.5 (11.6-14.8) % Plt Count 5 L* (150-400) X10^3/uL Neut % (Auto) Not Reportable Lymph % (Auto) Not Reportable [place] % (Auto) Not Reportable Eos % (Auto) Not Reportable Baso % (Auto) Not Reportable Lymph # (Auto) Not Reportable [place] # (Auto) Not Reportable Baso # (Auto) Not Reportable Total Counted Cancelled Seg Neutrophils % Cancelled Band Neutrophils % Cancelled Lymphocytes % (Manual) Cancelled Atypical Lymphs % Cancelled Monocytes % (Manual) Cancelled Eosinophils % (Manual) Cancelled Basophils % (Manual) Cancelled Metamyelocytes % Cancelled Myelocytes % Cancelled Promyelocytes % Cancelled Blast Cells % Cancelled Neutrophils # (Manual) Cancelled Differential Comment Cancelled Plasma Cells Cancelled WBC Morphology Comment RBC Morphology Normal morphology Sodium 134 L (137-145) mmol/L Potassium 3.8 (3.4-5.1) mmol/L Chloride 105 (98-107) mmol/L Carbon Dioxide 25 (22-32) mmol/L BUN 12 (7-17) mg/dL Creatinine 0.72 (0.52-1.04) mg/dL Estimated GFR > 60 (>60) mL/min BUN/Creatinine Ratio 16.7 (6-22) Glucose 132 H (70-100) mg/dL Lactate < 0.5 L (0.7-2.1) mmol/L Calcium 7.8 L (8.4-10.2) mg/dL Total Bilirubin 0.5 (0.2-1.3) mg/dL AST 49 H (14-36) IU/L ALT 45 H (<35) IU/L Alkaline Phosphatase 68 (38-126) U/L Total Protein 6.0 L (6.3-8.2) g/dL Albumin 3.4 L (3.5-5.0) g/dL Globulin 2.6 (1.7-4.1) g/dL Albumin/Globulin Ratio 1.3 (1.0-2.8) Lipase 42 (23-300) U/L Procalcitonin 0.32 (<0.5) ng/mL A. baumannii (PCR) (Not Detect) Chlamy pneumoniae PCR (Not Detect) Adenovirus (PCR) (Not Detect) B. pertussis DNA (PCR) (Not Detecte) B.parapertussis DNA PCR (Not Detecte) Lien albicans (PCR) (Not Detect) C. glabrata (PCR) (Not Detect) C. krusei (PCR) (Not Detect) C. parapsilosis (PCR) (Not Detect) C. tropicalis (PCR) (Not Detect) Coronavirus OC43 (PCR) (Not Detect) Coronavirus HKU1 (PCR) (Not Detect) Coronavirus 229E (PCR) (Not Detect) SARS-CoV-2 (PCR) (Not Detecte) Coronavirus NL63 (PCR) (Not Detect) Enterobacteriac sp PCR (Not Detect) E. cloacae complex PCR (Not Detect) Enterococcus sp PCR (Not Detect) E. coli (PCR) (Not Detect) H. influenzae (PCR) (Not Detect) Human Metapneumovir PCR (Not Detect) Influenza Type A (PCR) (Not Detect) Influenza Type B (PCR) (Not Detect) Klebsiella oxytoca PCR (Not Detect) Klebsiella pneumoniae (Not Detect) List. monocytogenes PCR (Not Detect) M. pneumoniae (PCR) (Not Detect) N. meningitidis (PCR) (Not Detect) Parainfluenza 1 (PCR) (Not Detect) Parainfluenza 2 (PCR) (Not Detect) Parainfluenza 3 (PCR) (Not Detect) Parainfluenza 4 (PCR) (Not Detect) Proteus species (PCR) (Not Detect) RSV (PCR) (Not Detect) Entero/Rhino (PCR) (Not Detect) Serratia marcescens PCR (Not Detect) Staphylococcus sp PCR (Not Detect) Staph aureus (PCR) (Not Detect) mecA-Methicil Res Gene (Not Detect) Streptococcus sp PCR (Not Detect) Group A Strep (PCR) (Not Detect) Strep agalactiae (PCR) (Not Detect) Strep pneumoniae (PCR) (Not Detect) P. aeruginosa (PCR) (Not Detect) Dave/B-Vanco Res Genes KPC-Carbap Res Gene PCR 11/22/21 11/22/21 Range/Units 15:50 15:55 WBC (4.5-11.0) X10^3/uL RBC (4.0-5.2) X10^6/uL Hgb (12.0-16.0) g/dL Hct (36-46) % MCV (80-100) fL MCH (26-34) PG MCHC (30-36) % RDW (11.6-14.8) % Plt Count (150-400) X10^3/uL Neut % (Auto) Lymph % (Auto) [place] % (Auto) Eos % (Auto) Baso % (Auto) Lymph # (Auto) [place] # (Auto) Baso # (Auto) Total Counted Seg Neutrophils % Band Neutrophils % Lymphocytes % (Manual) Atypical Lymphs % Monocytes % (Manual) Eosinophils % (Manual) Basophils % (Manual) Metamyelocytes % Myelocytes % Promyelocytes % Blast Cells % Neutrophils # (Manual) Differential Comment Plasma Cells WBC Morphology Comment RBC Morphology Sodium (137-145) mmol/L Potassium (3.4-5.1) mmol/L Chloride (98-107) mmol/L Carbon Dioxide (22-32) mmol/L BUN (7-17) mg/dL Creatinine (0.52-1.04) mg/dL Estimated GFR (>60) mL/min BUN/Creatinine Ratio (6-22) Glucose (70-100) mg/dL Lactate (0.7-2.1) mmol/L Calcium (8.4-10.2) mg/dL Total Bilirubin (0.2-1.3) mg/dL AST (14-36) IU/L ALT (<35) IU/L Alkaline Phosphatase (38-126) U/L Total Protein (6.3-8.2) g/dL Albumin (3.5-5.0) g/dL Globulin (1.7-4.1) g/dL Albumin/Globulin Ratio (1.0-2.8) Lipase (23-300) U/L Procalcitonin (<0.5) ng/mL A. baumannii (PCR) Not detected (Not Detect) Chlamy pneumoniae PCR Not detected (Not Detect) Adenovirus (PCR) Not detected (Not Detect) B. pertussis DNA (PCR) Not detected (Not Detecte) B.parapertussis DNA PCR Not detected (Not Detecte) Lien albicans (PCR) Not detected (Not Detect) C. glabrata (PCR) Not detected (Not Detect) C. krusei (PCR) Not detected (Not Detect) C. parapsilosis (PCR) Not detected (Not Detect) C. tropicalis (PCR) Not detected (Not Detect) Coronavirus OC43 (PCR) Not detected (Not Detect) Coronavirus HKU1 (PCR) Not detected (Not Detect) Coronavirus 229E (PCR) Not detected (Not Detect) SARS-CoV-2 (PCR) Not detected (Not Detecte) Coronavirus NL63 (PCR) Not detected (Not Detect) Enterobacteriac sp PCR Not detected (Not Detect) E. cloacae complex PCR Not detected (Not Detect) Enterococcus sp PCR Not detected (Not Detect) E. coli (PCR) Not detected (Not Detect) H. influenzae (PCR) Not detected (Not Detect) Human Metapneumovir PCR Not detected (Not Detect) Influenza Type A (PCR) Not detected (Not Detect) Influenza Type B (PCR) Not detected (Not Detect) Klebsiella oxytoca PCR Not detected (Not Detect) Klebsiella pneumoniae Not detected (Not Detect) List. monocytogenes PCR Not detected (Not Detect) M. pneumoniae (PCR) Not detected (Not Detect) N. meningitidis (PCR) Not detected (Not Detect) Parainfluenza 1 (PCR) Not detected (Not Detect) Parainfluenza 2 (PCR) Not detected (Not Detect) Parainfluenza 3 (PCR) Not detected (Not Detect) Parainfluenza 4 (PCR) Not detected (Not Detect) Proteus species (PCR) Not detected (Not Detect) RSV (PCR) Not detected (Not Detect) Entero/Rhino (PCR) Not detected (Not Detect) Serratia marcescens PCR Not detected (Not Detect) Staphylococcus sp PCR Detected H (Not Detect) Staph aureus (PCR) Detected H (Not Detect) mecA-Methicil Res Gene Not detected (Not Detect) Streptococcus sp PCR Not detected (Not Detect) Group A Strep (PCR) Not detected (Not Detect) Strep agalactiae (PCR) Not detected (Not Detect) Strep pneumoniae (PCR) Not detected (Not Detect) P. aeruginosa (PCR) Not detected (Not Detect) Dave/B-Vanco Res Genes Not Reportable KPC-Carbap Res Gene PCR Not Reportable Imaging Data Chest x-ray: Radiologist's Impression: [address] [address] XRay Report Signed Patient: Dorys Newell MR#: [id number] : 1965 Acct:[id number] Age/Sex: 56 / F Date of Service: 11/22/21 Loc: ED Accession Number: [id number] ?? Procedure: XR chest 1V Ordering Provider: Sandeep Kay MD PROCEDURE:? XR CHEST 1V ? INDICATIONS:? suspected sepsis ? TECHNIQUE:? One view of the chest was acquired.? ? COMPARISON:? [facility], CR, XR CHEST 1V, 08/26/2018, 10:33. ? FINDINGS:? ? Surgical changes and devices:? Left chest wall Port-A-Cath tip is in SVC.? Surgical clips also noted in right breast and right axilla. ? Lungs and pleura:? Lungs are clear.? No pleural effusions or pneumothorax.? ? Mediastinum:? Mediastinal contours appear normal.? Heart size is normal.? ? Bones and chest wall:? No suspicious bony lesions.? Overlying soft tissues appear unremarkable.? ? IMPRESSION:? No acute cardiopulmonary pathology. ? ? Dictated by: Korey Redmond M.D. on 11/22/2021 at 16:03 ? ? Approved by: Korey Redmond M.D. on 11/22/2021 at 16:03 ? ECG Data Interpretation: Atrial flutter versus sinus tach, rate 113. There are P-waves present. MDM Narrative Medical decision making narrative: Appropriate for admission for neutropenic fever. I have reviewed with oncology as well as Infectious Disease. Primary care provider admits here. Patient understands and agrees for admit. Pharmacy will do dosing for cefepime as well as vancomycin as well as Neupogen equivalent Discharge Plan Departure Patient Disposition: Admitted As Inpatient Clinical Impression: Fever and neutropenia Admit Date/Time: 11/22/21 18:32 Admit Provider: Maximilian Jo
[2021-11-22 16:08] VITALS: TEMP 38.8
[2021-11-22] MEDS: SODIUM CHLORIDE 0.9% 1,000 ML 1000 ML IV (16:08)
[2021-11-22] MEDS: ACETAMINOPHEN 325 MG TABLET 650 MG PO ×2 (16:08→23:47)
[2021-11-22 16:12] LABS: Hematocrit 34.3 % (36-46); Hemoglobin 12.2 g/dL (12.0-16.0); Mean Corpuscular HGB Conc 35.5 % (30-36); Mean Corpuscular Hemoglobin 31.5 PG (26-34); Mean Corpuscular Volume 88.6 fL (80-100); Red Blood Cell Count 3.87 X10^6/uL (4.0-5.2); Red Cell Distribution Width 12.5 % (11.6-14.8)
[2021-11-22 16:17] LABS: Platelet Count 5 X10^3/uL (150-400)
[2021-11-22 16:19] LABS: Add Manual Diff / Slide Review YES
[2021-11-22 16:23] LABS: Alanine Aminotransferase 45 IU/L (<35); Albumin 3.4 g/dL (3.5-5.0); Albumin Globulin Ratio 1.3 (1.0-2.8); Alkaline Phosphatase 68 U/L (38-126); Aspartate Aminotransferase 49 IU/L (14-36); BUN Creatinine Ratio 16.7 (6-22); Bilirubin Total 0.5 mg/dL (0.2-1.3); Blood Urea Nitrogen 12 mg/dL (7-17); Calcium 7.8 mg/dL (8.4-10.2); Carbon Dioxide 25 mmol/L (22-32); Chloride 105 mmol/L (98-107); Estimated Glomerular Filt Rate > 60 mL/min (>60); Globulin 2.6 g/dL (1.7-4.1); Glucose 132 mg/dL (70-100); HEMOLYSIS < 15 (0-50); Lactate (Lactic Acid) < 0.5 mmol/L (0.7-2.1); Lipase 42 U/L (23-300); Potassium 3.8 mmol/L (3.4-5.1); Sodium 134 mmol/L (137-145)
[2021-11-22 16:38] LABS: Procalcitonin 0.32 ng/mL (<0.5)
[2021-11-22 16:50] VITALS: TEMP 37.2
[2021-11-22 16:58] LABS: RBC Morphology Normal Morphology
[2021-11-22 17:25] LABS: Adenovirus Not Detected (Not Detect); B. parapertussis Not Detected (Not Detecte); Bordetella pertussis Not Detected (Not Detecte); Chlamydophila pneumoniae Not Detected (Not Detect); Coronavirus 229E Not Detected (Not Detect); Coronavirus HKU1 Not Detected (Not Detect); Coronavirus NL 63 Not Detected (Not Detect); Coronavirus OC43 Not Detected (Not Detect); Human Metapneumovirus Not Detected (Not Detect); Human Rhinovirus/Enterovirus Not Detected (Not Detect); Influenza A Not Detected (Not Detect); Influenza B Not Detected (Not Detect); Mycoplasma pneumoniae Not Detected (Not Detect); Parainfluenza Virus 1 Not Detected (Not Detect); Parainfluenza Virus 2 Not Detected (Not Detect); Parainfluenza Virus 3 Not Detected (Not Detect); Parainfluenza Virus 4 Not Detected (Not Detect); Respiratory Syncytial Virus Not Detected (Not Detect); SARS- CoV-2 Not Detected (Not Detecte)
[2021-11-22] MEDS: CEFEPIME 2 GM in SODIUM CHLORIDE 0.9% 100 ML IV (17:51)
[2021-11-22] MEDS: FILGRASTIM-AAFI 480 MCG/0.8 ML SYRINGE SUBCUT (18:17)
--- NOTE | 2021-11-22 19:29 | PM.HP.1 ---
History of Present Illness History of Present Illness Date Patient Seen: 11/22/21 Time Patient Seen: 19:31 Date of Onset of Symptoms: 11/20/21 Chief complaint: Fever post chemo treatment, rash on face Narrative: Patient is a 56-year-old female well known to our clinic patient of Barbara Jo. Patient was diagnosed previously with invasive ductal carcinoma right breast. She had treatment and recently had recurrence. Metastatic breast cancer. Patient has received her 2nd dose of treatment chemotherapy on the . Apparently she had a low white count at that time was given Neupogen or some equivalent. And had repeated the next day. She had been feeling tired but otherwise okay until 0 day before yesterday when she maybe had a little runny nose little cough nothing major than yesterday distant feel well and today woke up with fever. She has had no cough no shortness of breath no chest pain no headaches no visual symptoms she has been cold and shaky but otherwise no change in bowel movements or urinary complaints. Patient has noticed that her right nasal near ease has been erythematous shows those had a rash on the left side of her face and anal area. But no other changes. She is otherwise just feeling run down. Presented to the emergency room. Found to have white count of 0 and a low platelet count. Past medical history is significant for breast cancer invasive on right side status post treatment, GERD, stress reactions. Past surgical history right mastectomy 2018, tubal ligation 1995, Father 78 lung cancer, mother 68 brain cancer, 4 siblings 1 with suicide with 3 children nonsmoker occasional alcohol Patient History Medical History Breast cancer, right (~06/2018) Chicken pox Depression, (~1993) Eczema Surgical History Anesthesia Hx of right mastectomy (08/05/18) Status post tubal ligation (~1995) Family & Social History Family History Brother Age: 78 Parkinson's disease Father Lung cancer Mother Brain cancer Sister No problems noted. Social History: household members spouse Safety & Behavioral: Feels Safe in Current Yes Environment Been Physically Hurt or No Threatened By a Person Tobacco & Substance use: Smoking Status Never smoker alcohol intake frequency holiday/special occasion Substance Use Type does not use Meds Home Medications and Allergies Home Medications Medication Instructions Recorded Confirmed Type meloxicam 15 mg tablet 15 mg PO DAILY #30 tabs 02/10/18 04/06/20 Rx omeprazole 20 mg tablet,delayed 20 mg PO DAILY 04/06/20 04/06/20 History release Allergies Allergy/AdvReac Type Severity Reaction Status Date / Time morphine AdvReac Severe Hypotension Verified 11/22/21 14:57 latex AdvReac Mild Rash Verified 11/22/21 14:57 narcotics Allergy Severe Hypotension Uncoded 11/22/21 14:57 Review of Systems Review of Systems Narrative: See above pertinent negatives and positives as above Exam Vital Signs (past 8 hours): - 11/22/21 14:47 11/22/21 16:08 11/22/21 16:50 Temperature 102.0 F H 102 F H 99.0 F Pulse Rate 117 H Respiratory Rate 18 Blood Pressure 115/57 L Pulse Oximetry 96 Oxygen Delivery Method Room Air Oxygen Delivery Method Room Air Narrative Exam Narrative: Alert fatigued-appearing female in no acute distress. Mucous membranes moist. Neck supple without adenopathy lungs are clear. Heart is elevated rate rate at 110s but regular. Abdomen is benign. Extremities without cyanosis clubbing edema. Extremities without cyanosis clubbing edema. Skin shows right face right nares with a purplish 1 cm area along with the left facial area. Anal area is mildly erythematous but no mass. Mildly tender. No evidence of abscess Objective Labs Result Diagrams: 11/22/21 15:50 11/22/21 15:50 Labs: Laboratory Results - last 24 hr 11/22/21 11/22/21 11/22/21 15:50 15:50 15:50 WBC 0.0 L* RBC 3.87 L Hgb 12.2 Hct 34.3 L MCV 88.6 MCH 31.5 MCHC 35.5 RDW 12.5 Plt Count 5 L* Neut % (Auto) Not Reportable Lymph % (Auto) Not Reportable [place] % (Auto) Not Reportable Eos % (Auto) Not Reportable Baso % (Auto) Not Reportable Lymph # (Auto) Not Reportable [place] # (Auto) Not Reportable Baso # (Auto) Not Reportable Total Counted Cancelled Seg Neutrophils % Cancelled Band Neutrophils % Cancelled Lymphocytes % (Manual) Cancelled Atypical Lymphs % Cancelled Monocytes % (Manual) Cancelled Eosinophils % (Manual) Cancelled Basophils % (Manual) Cancelled Metamyelocytes % Cancelled Myelocytes % Cancelled Promyelocytes % Cancelled Blast Cells % Cancelled Neutrophils # (Manual) Cancelled Differential Comment Cancelled Plasma Cells Cancelled WBC Morphology Comment RBC Morphology Normal morphology Sodium 134 L Potassium 3.8 Chloride 105 Carbon Dioxide 25 BUN 12 Creatinine 0.72 Estimated GFR > 60 BUN/Creatinine Ratio 16.7 Glucose 132 H Lactate < 0.5 L Calcium 7.8 L Total Bilirubin 0.5 AST 49 H ALT 45 H Alkaline Phosphatase 68 Total Protein 6.0 L Albumin 3.4 L Globulin 2.6 Albumin/Globulin Ratio 1.3 Lipase 42 Procalcitonin 0.32 Chlamy pneumoniae PCR Adenovirus (PCR) B. pertussis DNA (PCR) B.parapertussis DNA PCR Coronavirus OC43 (PCR) Coronavirus HKU1 (PCR) Coronavirus 229E (PCR) SARS-CoV-2 (PCR) Coronavirus NL63 (PCR) Human Metapneumovir PCR Influenza Type A (PCR) Influenza Type B (PCR) M. pneumoniae (PCR) Parainfluenza 1 (PCR) Parainfluenza 2 (PCR) Parainfluenza 3 (PCR) Parainfluenza 4 (PCR) RSV (PCR) Entero/Rhino (PCR) 11/22/21 15:55 WBC RBC Hgb Hct MCV MCH MCHC RDW Plt Count Neut % (Auto) Lymph % (Auto) [place] % (Auto) Eos % (Auto) Baso % (Auto) Lymph # (Auto) [place] # (Auto) Baso # (Auto) Total Counted Seg Neutrophils % Band Neutrophils % Lymphocytes % (Manual) Atypical Lymphs % Monocytes % (Manual) Eosinophils % (Manual) Basophils % (Manual) Metamyelocytes % Myelocytes % Promyelocytes % Blast Cells % Neutrophils # (Manual) Differential Comment Plasma Cells WBC Morphology Comment RBC Morphology Sodium Potassium Chloride Carbon Dioxide BUN Creatinine Estimated GFR BUN/Creatinine Ratio Glucose Lactate Calcium Total Bilirubin AST ALT Alkaline Phosphatase Total Protein Albumin Globulin Albumin/Globulin Ratio Lipase Procalcitonin Chlamy pneumoniae PCR Not detected Adenovirus (PCR) Not detected B. pertussis DNA (PCR) Not detected B.parapertussis DNA PCR Not detected Coronavirus OC43 (PCR) Not detected Coronavirus HKU1 (PCR) Not detected Coronavirus 229E (PCR) Not detected SARS-CoV-2 (PCR) Not detected Coronavirus NL63 (PCR) Not detected Human Metapneumovir PCR Not detected Influenza Type A (PCR) Not detected Influenza Type B (PCR) Not detected M. pneumoniae (PCR) Not detected Parainfluenza 1 (PCR) Not detected Parainfluenza 2 (PCR) Not detected Parainfluenza 3 (PCR) Not detected Parainfluenza 4 (PCR) Not detected RSV (PCR) Not detected Entero/Rhino (PCR) Not detected Assessment & Plan Assessment & Plan narrative: Neutropenic fever. Discussed with Dr. Caraballo at [facility]. Will begin vancomycin and cefepime. Will watch closely but certainly clinically alone fever has no other evidence of sepsis. Seems to be stable. Will follow. No obvious source at this time. Except for skin. Neutropenia. Patient received 1st dose of Neupogen look like. Will be doing it every 24 hours. Reassess white count in the morning. Thrombocytopenia. Probably secondary to her chemo. Will replace tonight recheck tomorrow discussed with Dr. Welsh will keep platelets hopefully above 10,000. Metastatic breast cancer. Stable at this time. In treatment Code status full at this time. We discussed this still going to think it through. DVT prophylaxis. Mechanical. Low platelets not a candidate for Lovenox. GI prophylaxis on omeprazole. Disposition. Will be here until white count elevates hopefully that is soon. Will continue to address. Time Spent With Patient Critical Care time: I spent a total of [] minutes of critical care time on this patient's care today; this time is exclusive of procedural time.
[2021-11-22 19:50] VITALS: O2SAT 98
[2021-11-22 20:00] VITALS: BP 101/45; PULSE 130; RESP 17; TEMP 39.8; O2SAT 97
[2021-11-22 20:08] VITALS: BMI 21.9
[2021-11-22] MEDS: VANCOMYCIN 1,500 MG/300 ML PIGGYBACK 200 MG IV (20:10)
[2021-11-22] MEDS: SODIUM CHLORIDE 0.9% 1,000 ML 100 ML IV (20:11)
[2021-11-22] MEDS: ONDANSETRON 4 MG ODT PO (20:11)
[2021-11-22 23:50] VITALS: O2SAT 96
[2021-11-23] VITALS (11 sets, daily range): BP systolic 85–133; BP diastolic 40–61; PULSE 102–126; RESP 16–22; TEMP 37.7–39.8; O2SAT 93–98
[2021-11-23] MEDS: CEFEPIME 2 GM in SODIUM CHLORIDE 0.9% 100 ML IV ×3 (03:51→17:43)
[2021-11-23 04:13] LABS: Enterococcus species Not Detected (Not Detect); Listeria monocytogenes Not Detected (Not Detect); Staphylococcus species Detected (Not Detect)
[2021-11-23 04:14] LABS: Acinetobacter baumannii Not Detected (Not Detect); Candida albicans Not Detected (Not Detect); Candida glabrata Not Detected (Not Detect); Candida krusei Not Detected (Not Detect); Candida parapsilosis Not Detected (Not Detect); Candida tropicalis Not Detected (Not Detect); E. coli Not Detected (Not Detect); Enterobacter cloacae complex Not Detected (Not Detect); Enterobacteriaceae species Not Detected (Not Detect); Haemophilus influenzae Not Detected (Not Detect); Methicillin-resistant gene Not Detected (Not Detect); Neisseria meningitidis Not Detected (Not Detect); Proteus species Not Detected (Not Detect); Pseudomonas aeruginosa Not Detected (Not Detect); Serratia marcescens Not Detected (Not Detect); Streptococcus agalactiae (Gr B Not Detected (Not Detect); Streptococcus pneumonia Not Detected (Not Detect); Streptococcus pyogenes (Gr A) Not Detected (Not Detect); Streptococcus species Not Detected (Not Detect)
[2021-11-23 04:23] LABS: Alanine Aminotransferase 92 IU/L (<35); Albumin 2.9 g/dL (3.5-5.0); Albumin Globulin Ratio 1.2 (1.0-2.8); Alkaline Phosphatase 82 U/L (38-126); Aspartate Aminotransferase 121 IU/L (14-36); BUN Creatinine Ratio 16.7 (6-22); Bilirubin Total 0.7 mg/dL (0.2-1.3); Blood Urea Nitrogen 15 mg/dL (7-17); Calcium 6.8 mg/dL (8.4-10.2); Carbon Dioxide 21 mmol/L (22-32); Chloride 108 mmol/L (98-107); Estimated Glomerular Filt Rate > 60 mL/min (>60); Globulin 2.5 g/dL (1.7-4.1); Glucose 112 mg/dL (70-100); HEMOLYSIS < 15 (0-50); Potassium 3.7 mmol/L (3.4-5.1); Sodium 135 mmol/L (137-145); Total Protein 5.4 g/dL (6.3-8.2)
[2021-11-23 04:27] LABS: Hematocrit 22.8 % (36-46); Hemoglobin 8.1 g/dL (12.0-16.0); Mean Corpuscular HGB Conc 35.5 % (30-36); Mean Corpuscular Hemoglobin 31.3 PG (26-34); Red Blood Cell Count 2.58 X10^6/uL (4.0-5.2); Red Cell Distribution Width 12.2 % (11.6-14.8)
[2021-11-23 04:32] LABS: White Blood Cell Count 0.1 X10^3/uL (4.5-11.0)
[2021-11-23 04:33] LABS: Platelet Count 38 X10^3/uL (150-400)
[2021-11-23] MEDS: PANTOPRAZOLE DR 20 MG TABLET PO (06:40)
[2021-11-23] MEDS: ACETAMINOPHEN 325 MG TABLET 650 MG PO ×3 (06:40→17:43)
[2021-11-23] MEDS: VANCOMYCIN 1,250 MG/250 ML PIGGYBACK 250 MG IV (08:32)
[2021-11-23 10:28] LABS: Hemoglobin 7.7 g/dL (12.0-16.0); Mean Corpuscular HGB Conc 35.1 % (30-36); Mean Corpuscular Hemoglobin 31.3 PG (26-34); Red Blood Cell Count 2.47 X10^6/uL (4.0-5.2)
[2021-11-23 10:32] LABS: Platelet Count 31 X10^3/uL (150-400); White Blood Cell Count 0.1 X10^3/uL (4.5-11.0)
[2021-11-23 10:33] LABS: Add Manual Diff / Slide Review YES
[2021-11-23 10:38] LABS: Platelet Estimate Decreased on smear
--- NOTE | 2021-11-23 13:37 | PM.PN.1 ---
Subjective Subjective Date Patient Seen: 11/23/21 Time Patient Seen: 13:38 Interval history: Patient seen in follow-up of low white count. Fever. Maybe feeling slightly better today. Still very tired. Feels like her nose is better and her anal area is better. Has no new changes or complaints. Exam Vital Signs (past 8 hours): - 11/23/21 07:00 11/23/21 10:22 11/23/21 11:00 Temperature 100.7 F H Pulse Rate 108 H Respiratory Rate 22 Blood Pressure 99/51 L Pulse Oximetry 93 Oxygen Delivery Method Room Air Room Air Oxygen Flow Rate 0 Oxygen Delivery Method Room Air Oxygen Flow Rate 0 Narrative Exam Narrative: Alert female no acute distress. Nose with decreased erythema and decreased swelling. Left cheek with improved lesion. Objective Labs Result Diagrams: 11/23/21 09:45 11/23/21 03:50 Labs: Laboratory Results - last 24 hr 11/22/21 11/22/21 11/22/21 15:50 15:50 15:50 WBC 0.0 L* RBC 3.87 L Hgb 12.2 Hct 34.3 L MCV 88.6 MCH 31.5 MCHC 35.5 RDW 12.5 Plt Count 5 L* Neut % (Auto) Not Reportable Lymph % (Auto) Not Reportable [place] % (Auto) Not Reportable Eos % (Auto) Not Reportable Baso % (Auto) Not Reportable Neut # (Auto) Lymph # (Auto) Not Reportable [place] # (Auto) Not Reportable Eos # (Auto) Baso # (Auto) Not Reportable Total Counted Cancelled Seg Neutrophils % Cancelled Band Neutrophils % Cancelled Lymphocytes % (Manual) Cancelled Atypical Lymphs % Cancelled Monocytes % (Manual) Cancelled Eosinophils % (Manual) Cancelled Basophils % (Manual) Cancelled Metamyelocytes % Cancelled Myelocytes % Cancelled Promyelocytes % Cancelled Blast Cells % Cancelled Neutrophils # (Manual) Cancelled Differential Comment Cancelled Plasma Cells Cancelled WBC Morphology Comment Platelet Estimate RBC Morphology Normal morphology Sodium 134 L Potassium 3.8 Chloride 105 Carbon Dioxide 25 BUN 12 Creatinine 0.72 Estimated GFR > 60 BUN/Creatinine Ratio 16.7 Glucose 132 H Lactate < 0.5 L Calcium 7.8 L Total Bilirubin 0.5 AST 49 H ALT 45 H Alkaline Phosphatase 68 Total Protein 6.0 L Albumin 3.4 L Globulin 2.6 Albumin/Globulin Ratio 1.3 Lipase 42 Procalcitonin 0.32 A. baumannii (PCR) Chlamy pneumoniae PCR Adenovirus (PCR) B. pertussis DNA (PCR) B.parapertussis DNA PCR Lien albicans (PCR) C. glabrata (PCR) C. krusei (PCR) C. parapsilosis (PCR) C. tropicalis (PCR) Coronavirus OC43 (PCR) Coronavirus HKU1 (PCR) Coronavirus 229E (PCR) SARS-CoV-2 (PCR) Coronavirus NL63 (PCR) Enterobacteriac sp PCR E. cloacae complex PCR Enterococcus sp PCR E. coli (PCR) H. influenzae (PCR) Human Metapneumovir PCR Influenza Type A (PCR) Influenza Type B (PCR) Klebsiella oxytoca PCR Klebsiella pneumoniae List. monocytogenes PCR M. pneumoniae (PCR) N. meningitidis (PCR) Parainfluenza 1 (PCR) Parainfluenza 2 (PCR) Parainfluenza 3 (PCR) Parainfluenza 4 (PCR) Proteus species (PCR) RSV (PCR) Entero/Rhino (PCR) Serratia marcescens PCR Staphylococcus sp PCR Staph aureus (PCR) mecA-Methicil Res Gene Streptococcus sp PCR Group A Strep (PCR) Strep agalactiae (PCR) Strep pneumoniae (PCR) P. aeruginosa (PCR) Dave/B-Vanco Res Genes KPC-Carbap Res Gene PCR Blood Type 11/22/21 11/22/21 11/22/21 15:50 15:55 20:30 WBC RBC Hgb Hct MCV MCH MCHC RDW Plt Count Neut % (Auto) Lymph % (Auto) [place] % (Auto) Eos % (Auto) Baso % (Auto) Neut # (Auto) Lymph # (Auto) [place] # (Auto) Eos # (Auto) Baso # (Auto) Total Counted Seg Neutrophils % Band Neutrophils % Lymphocytes % (Manual) Atypical Lymphs % Monocytes % (Manual) Eosinophils % (Manual) Basophils % (Manual) Metamyelocytes % Myelocytes % Promyelocytes % Blast Cells % Neutrophils # (Manual) Differential Comment Plasma Cells WBC Morphology Comment Platelet Estimate RBC Morphology Sodium Potassium Chloride Carbon Dioxide BUN Creatinine Estimated GFR BUN/Creatinine Ratio Glucose Lactate Calcium Total Bilirubin AST ALT Alkaline Phosphatase Total Protein Albumin Globulin Albumin/Globulin Ratio Lipase Procalcitonin A. baumannii (PCR) Not detected Chlamy pneumoniae PCR Not detected Adenovirus (PCR) Not detected B. pertussis DNA (PCR) Not detected B.parapertussis DNA PCR Not detected Lien albicans (PCR) Not detected C. glabrata (PCR) Not detected C. krusei (PCR) Not detected C. parapsilosis (PCR) Not detected C. tropicalis (PCR) Not detected Coronavirus OC43 (PCR) Not detected Coronavirus HKU1 (PCR) Not detected Coronavirus 229E (PCR) Not detected SARS-CoV-2 (PCR) Not detected Coronavirus NL63 (PCR) Not detected Enterobacteriac sp PCR Not detected E. cloacae complex PCR Not detected Enterococcus sp PCR Not detected E. coli (PCR) Not detected H. influenzae (PCR) Not detected Human Metapneumovir PCR Not detected Influenza Type A (PCR) Not detected Influenza Type B (PCR) Not detected Klebsiella oxytoca PCR Not detected Klebsiella pneumoniae Not detected List. monocytogenes PCR Not detected M. pneumoniae (PCR) Not detected N. meningitidis (PCR) Not detected Parainfluenza 1 (PCR) Not detected Parainfluenza 2 (PCR) Not detected Parainfluenza 3 (PCR) Not detected Parainfluenza 4 (PCR) Not detected Proteus species (PCR) Not detected RSV (PCR) Not detected Entero/Rhino (PCR) Not detected Serratia marcescens PCR Not detected Staphylococcus sp PCR Detected H Staph aureus (PCR) Detected H mecA-Methicil Res Gene Not detected Streptococcus sp PCR Not detected Group A Strep (PCR) Not detected Strep agalactiae (PCR) Not detected Strep pneumoniae (PCR) Not detected P. aeruginosa (PCR) Not detected Dave/B-Vanco Res Genes Not Reportable KPC-Carbap Res Gene PCR Not Reportable Blood Type O Positive 11/23/21 11/23/21 11/23/21 03:50 03:50 09:45 WBC 0.1 L* D 0.1 L* RBC 2.58 L 2.47 L Hgb 8.1 L 7.7 L Hct 22.8 L 22.0 L MCV 88.0 89.0 MCH 31.3 31.3 MCHC 35.5 35.1 RDW 12.2 12.0 Plt Count 38 L 31 L* Neut % (Auto) Cancelled Not Reportable Lymph % (Auto) Cancelled Not Reportable [place] % (Auto) Cancelled Not Reportable Eos % (Auto) Cancelled Not Reportable Baso % (Auto) Cancelled Not Reportable Neut # (Auto) Cancelled Lymph # (Auto) Cancelled Not Reportable [place] # (Auto) Cancelled Not Reportable Eos # (Auto) Cancelled Baso # (Auto) Cancelled Not Reportable Total Counted Cancelled Seg Neutrophils % Cancelled Band Neutrophils % Cancelled Lymphocytes % (Manual) Cancelled Atypical Lymphs % Cancelled Monocytes % (Manual) Cancelled Eosinophils % (Manual) Cancelled Basophils % (Manual) Cancelled Metamyelocytes % Cancelled Myelocytes % Cancelled Promyelocytes % Cancelled Blast Cells % Cancelled Neutrophils # (Manual) Cancelled Differential Comment Cancelled Plasma Cells Cancelled WBC Morphology Comment Platelet Estimate Decreased on smear RBC Morphology Not Reportable Sodium 135 L Potassium 3.7 Chloride 108 H Carbon Dioxide 21 L BUN 15 Creatinine 0.90 Estimated GFR > 60 BUN/Creatinine Ratio 16.7 Glucose 112 H Lactate Calcium 6.8 L Total Bilirubin 0.7 AST 121 H ALT 92 H Alkaline Phosphatase 82 Total Protein 5.4 L Albumin 2.9 L Globulin 2.5 Albumin/Globulin Ratio 1.2 Lipase Procalcitonin A. baumannii (PCR) Chlamy pneumoniae PCR Adenovirus (PCR) B. pertussis DNA (PCR) B.parapertussis DNA PCR Lien albicans (PCR) C. glabrata (PCR) C. krusei (PCR) C. parapsilosis (PCR) C. tropicalis (PCR) Coronavirus OC43 (PCR) Coronavirus HKU1 (PCR) Coronavirus 229E (PCR) SARS-CoV-2 (PCR) Coronavirus NL63 (PCR) Enterobacteriac sp PCR E. cloacae complex PCR Enterococcus sp PCR E. coli (PCR) H. influenzae (PCR) Human Metapneumovir PCR Influenza Type A (PCR) Influenza Type B (PCR) Klebsiella oxytoca PCR Klebsiella pneumoniae List. monocytogenes PCR M. pneumoniae (PCR) N. meningitidis (PCR) Parainfluenza 1 (PCR) Parainfluenza 2 (PCR) Parainfluenza 3 (PCR) Parainfluenza 4 (PCR) Proteus species (PCR) RSV (PCR) Entero/Rhino (PCR) Serratia marcescens PCR Staphylococcus sp PCR Staph aureus (PCR) mecA-Methicil Res Gene Streptococcus sp PCR Group A Strep (PCR) Strep agalactiae (PCR) Strep pneumoniae (PCR) P. aeruginosa (PCR) Dave/B-Vanco Res Genes KPC-Carbap Res Gene PCR Blood Type [facility] Medical History Breast cancer, right (~06/2018) Chicken pox Depression, (~1993) Eczema Surgical History Anesthesia Hx of right mastectomy (08/05/18) Status post tubal ligation (~1995) Family History Brother Age: 78 Parkinson's disease Father Lung cancer Mother Brain cancer Sister No problems noted. Social History household members: spouse Smoking Status: Never smoker alcohol intake: current Assessment & Plan Assessment & Plan narrative: Neutropenic fever. Culture still pending. Continue vancomycin and cefepime. Clinically maybe slightly better. But otherwise not a lot of change. I think her nose and her cheeks show improved lesions. Otherwise no change follow-up CBC tomorrow. Hopefully fever curve continues to improve in cultures are negative. Neutropenia. Slightly better. Will continue Neupogen like medication and re-evaluate in a.m.. Hopefully we can get her above 1 in the next 48 hours. Thrombocytopenia status post chemo with improvement after replacement. Recheck tomorrow but no further need for treatment unless she gets below 10,000. Anemia. Secondary to bone marrow suppression. Significant decreased I think mostly because of dilution. But will continue fluids. She gets below 20 would give blood. Code status full. Metastatic breast cancer stable at this time. GI prophylaxis on pantoprazole. Disposition. Will continue to follow with antibiotics. Certainly I doubt will go home tomorrow. Discussed with . 30 minute spent with family her nurses Time Spent With Patient Critical Care time: I spent a total of [] minutes of critical care time on this patient's care today; this time is exclusive of procedural time. Quality VTE Deep Vein Thrombosis/Pulmonary Embolism Present on Admission: No
--- NOTE | 2021-11-23 13:50 | CM.DANOTE ---
DCP Assessment: Payor: [place] PCP: Barbara Jo MD PT is a 56 y.o. F who was admitted to the floor for neutropenia and fevers. Blood cultures are pending and pt is currently on abx. Pt is under Dr. Ann care. Pt has a history of breast cancer. Pt is currently on vancomycin and cefepime. MD anticipates pt could be discharged saturday 11/25. Pt is currently under treatment at [facility]. DCP met with pt this afternoon. Pt up in bed and watching TV. DCP introduced herself and role. Pt states that she is independent and currently lives with her spouse, Gabriel, in a two story house. Pt states that she currently drives POV and denies any DME use. Pt states that she is under the care of Flaco Billy MD Oncology @ [facility]. Pt states that she recieved her last chemo dose on 11/15. Pt states that the MD states she could potentially get discharged on Saturday. Pt denies any needs at this time. DCP identifies no needs at this time. White board updated and instructed to call with any questions. P: Pt to continue abx treatment. Anticipated discharge on saturday 11/25. Once patient is deemed medically stable, pt to discharge home via spouse POV. Mckenna Kapadia RN/SHA Discharge Planning/Care Management CM Discharge Assessment Start: 11/23/21 13:30 Freq: Status: Active Protocol: Document 11/23/21 13:31 TAMMY (Rec: 11/23/21 13:31 TAMMY [id number]) Discharge Planning Assessment Assigned [employer] Mckenna Kapadia RN/SHA Advance Directives? No History Provided By Patient,Medical Record Prior Living Arrangements House Household Members spouse Type of transporation used prior to Drives own vehicle admit Independent with ADL's Yes Is patient alert and oriented? Yes Discharge Plan Home Referrals Initiated None needed Additional Comment At this time Review Status In Process Please Provide Date Initial DC 11/23/21 Assessment Was Performed Next Review Type Continued Stay Review
[2021-11-23] MEDS: FILGRASTIM-AAFI 480 MCG/0.8 ML SYRINGE SUBCUT (17:44)
--- NOTE | 2021-11-23 18:58 | PC.NURSE ---
Dr. Jo updated on CBC this AM after results received. Also came in and assessed patient after this.
[2021-11-23] MEDS: ONDANSETRON 4 MG ODT PO (19:59)
[2021-11-23] MEDS: TRAMADOL 50 MG TABLET PO (19:59)
[2021-11-23] MEDS: VANCOMYCIN 1,000 MG/200 ML PIGGYBACK 200 MG IV (20:00)
[2021-11-24] VITALS (10 sets, daily range): BP systolic 95–110; BP diastolic 53–64; PULSE 98–114; RESP 17–22; TEMP 37.2–39.1; O2SAT 92–99
[2021-11-24] MEDS: ACETAMINOPHEN 325 MG TABLET 650 MG PO ×5 (01:00→23:30)
[2021-11-24] MEDS: CEFEPIME 2 GM in SODIUM CHLORIDE 0.9% 100 ML IV ×3 (01:00→18:46)
[2021-11-24 04:36] LABS: Hematocrit 22.3 % (36-46); Hemoglobin 7.9 g/dL (12.0-16.0); Mean Corpuscular HGB Conc 35.5 % (30-36); Mean Corpuscular Hemoglobin 31.4 PG (26-34); Mean Corpuscular Volume 88.3 fL (80-100); Red Blood Cell Count 2.52 X10^6/uL (4.0-5.2); Red Cell Distribution Width 12.3 % (11.6-14.8)
[2021-11-24 04:39] LABS: Blood Urea Nitrogen 18 mg/dL (7-17); Calcium 6.5 mg/dL (8.4-10.2); Carbon Dioxide 22 mmol/L (22-32); Chloride 109 mmol/L (98-107); Estimated Glomerular Filt Rate > 60 mL/min (>60); Glucose 99 mg/dL (70-100); HEMOLYSIS < 15 (0-50); Potassium 3.6 mmol/L (3.4-5.1); Sodium 135 mmol/L (137-145)
[2021-11-24 04:49] LABS: Add Manual Diff / Slide Review YES
[2021-11-24 04:50] LABS: White Blood Cell Count 0.2 X10^3/uL (4.5-11.0)
[2021-11-24 04:51] LABS: Platelet Count 24 X10^3/uL (150-400)
[2021-11-24 05:34] LABS: Platelet Estimate Decreased on smear
[2021-11-24 05:35] LABS: RBC Morphology Normal Morphology
[2021-11-24] MEDS: PANTOPRAZOLE DR 20 MG TABLET PO (06:16)
--- NOTE | 2021-11-24 08:41 | P.PN_ITS ---
Subjective Subjective Date Patient Seen: 11/24/21 Time Patient Seen: 08:45 Interval history: CC: fever feeling ok this morning fevers are coming down somewhat WBCs are coming up somewhat hgb is stable notes continued perianal rash it is more burning than itching very annoying stay the course Exam Vital Signs (past 8 hours): - 11/24/21 01:00 11/24/21 04:00 11/24/21 04:00 Temperature 100.3 F H 100.5 F H Pulse Rate 106 H Respiratory Rate 22 Blood Pressure 95/57 L Pulse Oximetry 92 92 Oxygen Delivery Method Room Air Oxygen Flow Rate 0 0 Oxygen Delivery Method Room Air Oxygen Flow Rate 0 Narrative Exam Narrative: slender laying in bed Const General: cooperative, comfortable and well developed HENME Head: normal to inspection, normocephalic and atraumatic Resp Auscultation: clear to auscultation bilaterally Cardio Rate: regular rate Rhythm: regular rhythm GI Other: soft nontender nondistended Back/Spine/Pelvis Other: beefy perianal rash looks like could be fungal Neuro General: patient alert, patient awake, patient oriented x3 and CN's II-XI intact bilaterally Extrem General: normal to inspection, full ROM and no pedal edema Psych Appearance: grossly normal Mental Status: mental status grossly normal Objective Labs Result Diagrams: 11/24/21 04:10 11/24/21 04:10 Labs: Laboratory Results - last 24 hr 11/23/21 11/24/21 11/24/21 09:45 04:10 04:10 WBC 0.1 L* 0.2 L* D RBC 2.47 L 2.52 L Hgb 7.7 L 7.9 L Hct 22.0 L 22.3 L MCV 89.0 88.3 MCH 31.3 31.4 MCHC 35.1 35.5 RDW 12.0 12.3 Plt Count 31 L* 24 L* Neut % (Auto) Not Reportable [employer] Ac[employer] Manager Lymph % (Auto) Not Reportable Not Reportable [place] % (Auto) Not Reportable Not Reportable Eos % (Auto) Not Reportable Not Reportable Baso % (Auto) Not Reportable Not Reportable Lymph # (Auto) Not Reportable Not Reportable [place] # (Auto) Not Reportable Not Reportable Baso # (Auto) Not Reportable Not Reportable Total Counted Cancelled Not Reportable Seg Neutrophils % Cancelled Band Neutrophils % Cancelled Lymphocytes % (Manual) Cancelled Atypical Lymphs % Cancelled Monocytes % (Manual) Cancelled Eosinophils % (Manual) Cancelled Basophils % (Manual) Cancelled Metamyelocytes % Cancelled Myelocytes % Cancelled Promyelocytes % Cancelled Blast Cells % Cancelled Neutrophils # (Manual) Cancelled Differential Comment Cancelled Plasma Cells Cancelled WBC Morphology Comment Platelet Estimate Decreased on smear Decreased on smear RBC Morphology Not Reportable Normal morphology Sodium 135 L Potassium 3.6 Chloride 109 H Carbon Dioxide 22 BUN 18 H Creatinine 0.90 Estimated GFR > 60 BUN/Creatinine Ratio 20.0 Glucose 99 Calcium 6.5 L PFSH Medical History Breast cancer, right (~06/2018) Chicken pox Depression, (~1993) Eczema Surgical History Anesthesia Hx of right mastectomy (08/05/18) Status post tubal ligation (~1995) Family History Brother Age: 78 Parkinson's disease Father Lung cancer Mother Brain cancer Sister No problems noted. Social History household members: spouse Smoking Status: Never smoker alcohol intake: current Assessment & Plan Assessment & Plan narrative: #Neutropenic fever:? preliminary blood culture growing staph aureus, se nsitivities still pending.? Continue vancomycin and cefepime.? Fever curve looking like improvement, trend and follow cultures #Neutropenia:? Continue Neupogen, goal WBC is 1k #Thrombocytopenia: s/p chemo with improvement after transfusion. Continue to trend, goal is to keep above 10k. scheduled dulcolax. #Anemia:? 2/2 bone marrow suppression and dilution.? trend and transfuse for h&h below 7 or 20. #Metastatic breast cancer, recurrent: s/p completion of 2 rounds of chemo on this recurrence, once recovered from this she plans to return and resume chemo at half dose. stable at this time.? #hypocalcemia: replete po and recheck in am #perianal rash: suspect fungal, will tx with topical and systemic GI prophylaxis: pantoprazole.? PCP: Barbara Jo Dispo: continue abx for neutropenic fever Time Spent With Patient Critical Care time: I spent a total of [] minutes of critical care time on this patient's care today ; this time is exclusive of procedural time. Quality VTE Deep Vein Thrombosis/Pulmonary Embolism Present on Admission: No
[2021-11-24] MEDS: VANCOMYCIN 1,000 MG/200 ML PIGGYBACK 200 MG IV ×2 (09:38→16:49)
[2021-11-24 10:00] LABS: Vancomycin Trough 5.6 ug/mL (10-20)
[2021-11-24 12:26] LABS: Vancomycin Peak 21.1 ug/mL (20-40)
[2021-11-24] MEDS: SODIUM CHLORIDE NASAL SPRAY 1 SPRAY NASAL (15:13)
[2021-11-24] MEDS: NYSTATIN CREAM 30 GM 1 APPLIC TOP (15:13)
[2021-11-24] MEDS: FLUCONAZOLE 100 MG TABLET 150 MG PO (16:48)
[2021-11-24] MEDS: CALCIUM CARBONATE 600 MG TABLET PO (16:48)
[2021-11-24] MEDS: FILGRASTIM-AAFI 300 MCG/0.5 ML SYRINGE SUBCUT (16:50)
[2021-11-24] MEDS: BISACODYL 5 MG TABLET 10 MG PO (20:39)
[2021-11-24] MEDS: TRAMADOL 50 MG TABLET PO (23:34)
[2021-11-25] VITALS (10 sets, daily range): BP systolic 99–126; BP diastolic 59–75; PULSE 93–115; RESP 18–20; TEMP 36.2–37.8; O2SAT 91–96
[2021-11-25] MEDS: VANCOMYCIN 1,000 MG/200 ML PIGGYBACK 200 MG IV ×2 (00:39→09:34)
[2021-11-25] MEDS: CEFEPIME 2 GM in SODIUM CHLORIDE 0.9% 100 ML IV ×3 (01:50→19:01)
[2021-11-25] MEDS: PANTOPRAZOLE DR 20 MG TABLET PO (05:57)
[2021-11-25] MEDS: ACETAMINOPHEN 325 MG TABLET 650 MG PO ×3 (05:57→18:03)
[2021-11-25 06:17] LABS: Hematocrit 23.5 % (36-46); Hemoglobin 8.3 g/dL (12.0-16.0); Mean Corpuscular HGB Conc 35.5 % (30-36); Mean Corpuscular Hemoglobin 31.3 PG (26-34); Mean Corpuscular Volume 88.2 fL (80-100); Red Blood Cell Count 2.66 X10^6/uL (4.0-5.2); Red Cell Distribution Width 12.5 % (11.6-14.8)
[2021-11-25 06:22] LABS: Alanine Aminotransferase 73 IU/L (<35); Alkaline Phosphatase 125 U/L (38-126); Aspartate Aminotransferase 50 IU/L (14-36); BUN Creatinine Ratio 22.7 (6-22); Bilirubin Total 0.9 mg/dL (0.2-1.3); Blood Urea Nitrogen 17 mg/dL (7-17); Calcium 6.7 mg/dL (8.4-10.2); Carbon Dioxide 21 mmol/L (22-32); Chloride 108 mmol/L (98-107); Estimated Glomerular Filt Rate > 60 mL/min (>60); Globulin 3.1 g/dL (1.7-4.1); Glucose 108 mg/dL (70-100); HEMOLYSIS < 15 (0-50); Sodium 135 mmol/L (137-145); Total Protein 6.1 g/dL (6.3-8.2)
[2021-11-25 06:23] LABS: Platelet Count 23 X10^3/uL (150-400); White Blood Cell Count 0.3 X10^3/uL (4.5-11.0)
[2021-11-25 06:24] LABS: Add Manual Diff / Slide Review YES
[2021-11-25 06:34] LABS: Platelet Estimate Decreased on smear
[2021-11-25 06:56] LABS: RBC Morphology Normal Morphology
[2021-11-25 09:09] LABS: Vancomycin Trough 10.6 ug/mL (10-20)
[2021-11-25] MEDS: NYSTATIN CREAM 30 GM 1 APPLIC TOP ×2 (10:12→20:57)
--- NOTE | 2021-11-25 10:43 | DI.RAD.S_ITS ---
PROCEDURE: XR CHEST 1V INDICATIONS: increased WOB in neutropenic TECHNIQUE: One view of the chest was acquired. COMPARISON: [facility], CR, XR CHEST 1V, 11/22/2021, 15:11. FINDINGS: Surgical changes and devices: Left chest wall port is seen with intact leads. Lungs and pleura: Diffuse bilateral perihilar airspace opacities with patchy areas of consolidation. No pneumothorax or pleural effusion. Mediastinum: Mediastinal contours appear normal. Heart size is normal. Bones and chest wall: No suspicious bony lesions. Overlying soft tissues appear unremarkable. IMPRESSION: Diffuse bilateral perihilar airspace opacities with patchy areas of consolidation most consistent with a diffuse atypical infectious process. Dictated by: Rob Todd M.D. on 11/25/2021 at 10:07 Approved by: Rob Todd M.D. on 11/25/2021 at 10:08
--- NOTE | 2021-11-25 11:13 | PM.PN.1 ---
Subjective Subjective Date Patient Seen: 11/25/21 Time Patient Seen: 11:00 Interval history: new increased WOB and tachycardia, CXR shows possible nonspecific/atypical infectious process fever curve overall improving appetite still so-so checking flu/covid replacing Ca and continuing daily dosing of filgrastim, WBC numbers slowly improving Exam Vital Signs (past 8 hours): - 11/25/21 05:00 11/25/21 06:00 11/25/21 08:00 Temperature 98.1 F 98.9 F Pulse Rate 93 H 109 H Respiratory Rate 18 18 Blood Pressure 99/59 L 102/60 Pulse Oximetry 92 96 92 Oxygen Delivery Method Room Air Oxygen Flow Rate 2 2 11/25/21 08:30 Temperature Pulse Rate Respiratory Rate Blood Pressure Pulse Oximetry 93 Oxygen Delivery Method Nasal Cannula Oxygen Flow Rate 2 Oxygen Delivery Method Nasal Cannula Oxygen Flow Rate 2 Narrative Exam Narrative: laying in bed breathing hard Const General: cooperative, in distress and ill appearing HENMT Nose: other (stable lesion on R side) Eyes General: appearance normal, both eyes and all related structures Resp Other: breathing heavy and fast, grossly clear to auscultation Cardio Other: tachycardic, S1/S2 GI Other: soft nontender nondistended Skin Other: scattered bruising evident not spreading Neuro General: patient alert, patient awake, patient oriented x3, moves all extremities and no focal motor deficits Extrem General: normal to inspection and full ROM Psych Appearance: grossly normal Mental Status: mental status grossly normal Speech and Movement: speech and movement normal Mood: congruent mood Objective Labs Result Diagrams: 11/25/21 06:00 11/25/21 06:00 Labs: Laboratory Results - last 24 hr 11/22/21 11/24/21 11/25/21 15:50 10:00 06:00 WBC 0.3 L* RBC 2.66 L Hgb 8.3 L Hct 23.5 L MCV 88.2 MCH 31.3 MCHC 35.5 RDW 12.5 Plt Count 23 L* Neut % (Auto) Not Reportable Lymph % (Auto) Not Reportable [place] % (Auto) Not Reportable Eos % (Auto) Not Reportable Baso % (Auto) Not Reportable Lymph # (Auto) Not Reportable [place] # (Auto) Not Reportable Baso # (Auto) Not Reportable Total Counted Not Reportable WBC Morphology Comment Platelet Estimate Decreased on smear RBC Morphology Normal morphology Sodium Potassium Chloride Carbon Dioxide BUN Creatinine Estimated GFR BUN/Creatinine Ratio Glucose Calcium Total Bilirubin AST ALT Alkaline Phosphatase Total Protein Albumin Globulin Albumin/Globulin Ratio Vancomycin Peak 21.1 Vancomycin Trough A. baumannii (PCR) Not detected Lien albicans (PCR) Not detected C. glabrata (PCR) Not detected C. krusei (PCR) Not detected C. parapsilosis (PCR) Not detected C. tropicalis (PCR) Not detected Enterobacteriac sp PCR Not detected E. cloacae complex PCR Not detected Enterococcus sp PCR Not detected E. coli (PCR) Not detected H. influenzae (PCR) Not detected Klebsiella oxytoca PCR Not detected Klebsiella pneumoniae Not detected List. monocytogenes PCR Not detected N. meningitidis (PCR) Not detected Proteus species (PCR) Not detected Serratia marcescens PCR Not detected Staphylococcus sp PCR Detected H Staph aureus (PCR) Detected H mecA-Methicil Res Gene Not detected Streptococcus sp PCR Not detected Group A Strep (PCR) Not detected Strep agalactiae (PCR) Not detected Strep pneumoniae (PCR) Not detected P. aeruginosa (PCR) Not detected 11/25/21 11/25/21 06:00 08:05 WBC RBC Hgb Hct MCV MCH MCHC RDW Plt Count Neut % (Auto) Lymph % (Auto) [place] % (Auto) Eos % (Auto) Baso % (Auto) Lymph # (Auto) [place] # (Auto) Baso # (Auto) Total Counted WBC Morphology Comment Platelet Estimate RBC Morphology Sodium 135 L Potassium 4.0 Chloride 108 H Carbon Dioxide 21 L BUN 17 Creatinine 0.75 Estimated GFR > 60 BUN/Creatinine Ratio 22.7 H Glucose 108 H Calcium 6.7 L Total Bilirubin 0.9 AST 50 H ALT 73 H Alkaline Phosphatase 125 Total Protein 6.1 L Albumin 3.0 L Globulin 3.1 Albumin/Globulin Ratio 1.0 Vancomycin Peak Vancomycin Trough 10.6 A. baumannii (PCR) Lien albicans (PCR) C. glabrata (PCR) C. krusei (PCR) C. parapsilosis (PCR) C. tropicalis (PCR) Enterobacteriac sp PCR E. cloacae complex PCR Enterococcus sp PCR E. coli (PCR) H. influenzae (PCR) Klebsiella oxytoca PCR Klebsiella pneumoniae List. monocytogenes PCR N. meningitidis (PCR) Proteus species (PCR) Serratia marcescens PCR Staphylococcus sp PCR Staph aureus (PCR) mecA-Methicil Res Gene Streptococcus sp PCR Group A Strep (PCR) Strep agalactiae (PCR) Strep pneumoniae (PCR) P. aeruginosa (PCR) PFSH Medical History Breast cancer, right (~06/2018) Chicken pox Depression, (~1993) Eczema Surgical History Anesthesia Hx of right mastectomy (08/05/18) Status post tubal ligation (~1995) Family History Brother Age: 78 Parkinson's disease Father Lung cancer Mother Brain cancer Sister No problems noted. Social History household members: spouse Smoking Status: Never smoker alcohol intake: current Assessment & Plan Assessment & Plan narrative: #Neutropenic fever:? preliminary blood culture growing staph aureus, matta sensitive.? Continue vancomycin and cefepime.? Fever curve looking like improvement, trend and follow cultures #New SOB: suspect viral process, pt has been getting abx and even antifungals, checking CXR/swabs for Covid/flu #Neutropenia:? slow improvement 0.1/day, continue filgrastim, goal WBC is 1k #Thrombocytopenia: s/p chemo with improvement after transfusion. Continue to trend, goal is to keep above 10k. schedule dulcolax avoid straining. #Anemia:? 2/2 bone marrow suppression and dilution.? trend and transfuse for h&h below 7 or 20. #Metastatic breast cancer, recurrent: s/p completion of 2 rounds of chemo on this recurrence, once recovered from this she plans to return and resume chemo at half dose. stable at this time.? #hypocalcemia: still low s/p po repletion, will replete IV today #perianal rash: suspect fungal, continue tx with topical and systemic GI prophylaxis: pantoprazole.? PCP: Barbara Jo Dispo: continue abx for neutropenic fever, checking viral swabs will f/u accordingly Time Spent With Patient Critical Care time: I spent a total of [] minutes of critical care time on this patient's care today; this time is exclusive of procedural time. Quality VTE Deep Vein Thrombosis/Pulmonary Embolism Present on Admission: No
[2021-11-25] MEDS: CALCIUM GLUCONATE 4.65 MEQ in SODIUM CHLORIDE 0.9% 50 ML 180 MEQ IV (12:21)
[2021-11-25 13:14] LABS: Influenza A - CEPHEID Flu A NEGATIVE (NEGATIVE); Influenza B - CEPHEID Flu B NEGATIVE (NEGATIVE)
[2021-11-25 13:19] LABS: COVID-19 CEPHEID PCR (VTM/NP) Negative (Negative)
[2021-11-25 13:36] LABS: Vancomycin Peak 27.6 ug/mL (20-40)
[2021-11-25] MEDS: FILGRASTIM-AAFI 300 MCG/0.5 ML SYRINGE SUBCUT (15:57)
[2021-11-25] MEDS: TRAMADOL 50 MG TABLET PO ×2 (15:57→22:02)
[2021-11-25] MEDS: VANCOMYCIN 1,250 MG/250 ML PIGGYBACK 250 MG IV (18:04)
[2021-11-25] MEDS: BENZONATATE 100 MG CAPSULE PO (22:06)
[2021-11-26] VITALS (7 sets, daily range): BP systolic 95–109; BP diastolic 57–74; PULSE 94–116; RESP 21–28; TEMP 36.3–38.3; O2SAT 90–98
[2021-11-26] MEDS: ACETAMINOPHEN 325 MG TABLET 650 MG PO ×3 (00:01→08:34)
[2021-11-26] MEDS: VANCOMYCIN 1,250 MG/250 ML PIGGYBACK 250 MG IV ×3 (00:01→18:13)
[2021-11-26] MEDS: CEFEPIME 2 GM in SODIUM CHLORIDE 0.9% 100 ML IV ×3 (02:05→20:34)
--- NOTE | 2021-11-26 03:15 | PC.NURSE ---
~0300 patient woke up to use restroom. Patient pale, diaphoretic, and had labored breathing. Sheet Cutter checked temperature and it was 97.3, however her SPO2 was 87% on 4L NC. Sheet Cutter suggested patient to cough and deep breathe. Saturations came up to 89%. Lungs sound slightly coarse, overall clear on auscultation. RN placed patient on 5L NC with humidification. Educated patient on incentive spirometry use and focusing on slow deep breaths.
[2021-11-26] MEDS: PANTOPRAZOLE DR 20 MG TABLET PO ×2 (05:56→08:33)
[2021-11-26 06:20] LABS: Hematocrit 21.8 % (36-46); Hemoglobin 7.8 g/dL (12.0-16.0); Mean Corpuscular Hemoglobin 31.4 PG (26-34); Mean Corpuscular Volume 87.4 fL (80-100); Platelet Count 43 X10^3/uL (150-400); Red Blood Cell Count 2.49 X10^6/uL (4.0-5.2); Red Cell Distribution Width 12.8 % (11.6-14.8)
[2021-11-26 06:26] LABS: Alanine Aminotransferase 56 IU/L (<35); Albumin 2.6 g/dL (3.5-5.0); Albumin Globulin Ratio 0.9 (1.0-2.8); Alkaline Phosphatase 123 U/L (38-126); Aspartate Aminotransferase 39 IU/L (14-36); Blood Urea Nitrogen 15 mg/dL (7-17); Calcium 6.6 mg/dL (8.4-10.2); Carbon Dioxide 21 mmol/L (22-32); Chloride 108 mmol/L (98-107); Estimated Glomerular Filt Rate > 60 mL/min (>60); Globulin 2.8 g/dL (1.7-4.1); Glucose 109 mg/dL (70-100); HEMOLYSIS < 15 (0-50); Potassium 3.4 mmol/L (3.4-5.1); Sodium 134 mmol/L (137-145); Total Protein 5.4 g/dL (6.3-8.2)
[2021-11-26 06:30] LABS: Add Manual Diff / Slide Review YES
[2021-11-26 06:32] LABS: White Blood Cell Count 0.8 X10^3/uL (4.5-11.0)
[2021-11-26 07:31] LABS: Neutrophils Absolute Manual 320 /uL (3000-5900); Total Cells Counted 50
[2021-11-26 07:32] LABS: Platelet Estimate Decreased on smear
[2021-11-26] MEDS: NYSTATIN CREAM 30 GM 1 APPLIC TOP ×2 (08:33→20:35)
[2021-11-26] MEDS: POTASSIUM CHLORIDE 20 MEQ TAB 40 MEQ PO (08:38)
--- NOTE | 2021-11-26 10:54 | PM.PN.1 ---
Subjective Subjective Date Patient Seen: 11/26/21 Time Patient Seen: 10:54 Interval history: CC: shortness of breath WBCs picking up Calcium still low despite supplementation IV breathing still a problem Exam Vital Signs (past 8 hours): - 11/26/21 03:11 11/26/21 04:00 11/26/21 04:00 Temperature 97.3 F L 98.1 F Pulse Rate 116 H 104 H Respiratory Rate 22 22 Blood Pressure 95/57 L Pulse Oximetry 90 L 92 92 Oxygen Delivery Method Nasal Cannula Humidification Oxygen Flow Rate 5 5 5 11/26/21 09:00 11/26/21 09:00 11/26/21 09:00 Temperature 99.0 F Pulse Rate 101 H Respiratory Rate 28 H Blood Pressure 101/58 L Pulse Oximetry 98 98 Oxygen Delivery Method Nasal Cannula Nasal Cannula Oxygen Flow Rate 4 4 Oxygen Delivery Method Nasal Cannula Oxygen Flow Rate 4 Narrative Exam Narrative: tired laying in bed Const General: cooperative, comfortable, well developed and ill appearing HENME Head: normal to inspection Chest Other: port in place Resp Other: shallow breaths easily triggered dry coughing jags sounds mostly clear on auscultation some mild bibasilar crackles Cardio Other: regular rate S1/S2 GI Other: soft nontender nondistended Skin General: ecchymosis Other: stable R nasal lesion Neuro General: patient alert, patient awake and patient oriented x3 Extrem General: full ROM and no pedal edema Psych Appearance: grossly normal Objective Labs Result Diagrams: 11/26/21 06:00 11/26/21 06:00 Labs: Laboratory Results - last 24 hr 11/25/21 11/25/21 11/26/21 11:35 11:42 06:00 WBC 0.8 L* D RBC 2.49 L Hgb 7.8 L Hct 21.8 L MCV 87.4 MCH 31.4 MCHC 36.0 RDW 12.8 Plt Count 43 L Neut % (Auto) Not Reportable Lymph % (Auto) Not Reportable [place] % (Auto) Not Reportable Eos % (Auto) Not Reportable Baso % (Auto) Not Reportable Lymph # (Auto) Not Reportable [place] # (Auto) Not Reportable Baso # (Auto) Not Reportable Total Counted 50 Seg Neutrophils % 14.0 L Band Neutrophils % 26.0 H Lymphocytes % (Manual) 54.0 H Monocytes % (Manual) 4.0 Eosinophils % (Manual) 2.0 Neutrophils # (Manual) 320 L Platelet Estimate Decreased on smear RBC Morphology See below Sodium Potassium Chloride Carbon Dioxide BUN Creatinine Estimated GFR BUN/Creatinine Ratio Glucose Calcium Total Bilirubin AST ALT Alkaline Phosphatase Total Protein Albumin Globulin Albumin/Globulin Ratio Vancomycin Peak 27.6 SARS-CoV-2 (PCR) Negative Influenza A (RT-PCR) Flu a negative Influenza B (RT-PCR) Flu b negative 11/26/21 06:00 WBC RBC Hgb Hct MCV MCH MCHC RDW Plt Count Neut % (Auto) Lymph % (Auto) [place] % (Auto) Eos % (Auto) Baso % (Auto) Lymph # (Auto) [place] # (Auto) Baso # (Auto) Total Counted Seg Neutrophils % Band Neutrophils % Lymphocytes % (Manual) Monocytes % (Manual) Eosinophils % (Manual) Neutrophils # (Manual) Platelet Estimate RBC Morphology Sodium 134 L Potassium 3.4 Chloride 108 H Carbon Dioxide 21 L BUN 15 Creatinine 0.75 Estimated GFR > 60 BUN/Creatinine Ratio 20.0 Glucose 109 H Calcium 6.6 L Total Bilirubin 1.0 AST 39 H ALT 56 H Alkaline Phosphatase 123 Total Protein 5.4 L Albumin 2.6 L Globulin 2.8 Albumin/Globulin Ratio 0.9 L Vancomycin Peak SARS-CoV-2 (PCR) Influenza A (RT-PCR) Influenza B (RT-PCR) [facility] Medical History Breast cancer, right (~06/2018) Chicken pox Depression, (~1993) Eczema Surgical History Anesthesia Hx of right mastectomy (08/05/18) Status post tubal ligation (~1995) Family History Brother Age: 78 Parkinson's disease Father Lung cancer Mother Brain cancer Sister No problems noted. Social History household members: spouse Smoking Status: Never smoker alcohol intake: current Assessment & Plan Assessment & Plan narrative: #Neutropenic fever:? preliminary blood culture growing staph aureus, matta sensitive.? Continue vancomycin and cefepime for broad coverage. #staph aureus becteremia, pansensitive - as above #SOB: suspect viral process, pt has been getting abx and even antifungals, CXR wnl, covid/flu negative #Neutropenia:? up to 0.8 today, good progress, continue filgrastim, goal WBC is 1k for discharge #Thrombocytopenia: s/p chemo with improvement after transfusion. Continue to trend, goal is to keep above 10k. schedule dulcolax avoid straining. good improvement in numbers noted today #Anemia:? 2/2 bone marrow suppression and dilution.?stable but low. trend and transfuse for h&h below 7 or 20. #Metastatic breast cancer, recurrent: s/p completion of 2 rounds of chemo on this recurrence, once recovered from this she plans to return and resume chemo at half dose. stable at this time.? #hypocalcemia: still low s/p po and iv repletion, will replete IV today #perianal rash: suspect fungal, continue tx with topical and systemic GI prophylaxis: pantoprazole.? PCP: Barbara Jo Dispo: continue abx for neutropenic fever, checking viral swabs will f/u accordingly Time Spent With Patient Critical Care time: I spent a total of [] minutes of critical care time on this patient's care today; this time is exclusive of procedural time. Quality VTE Deep Vein Thrombosis/Pulmonary Embolism Present on Admission: No
[2021-11-26] MEDS: IBUPROFEN 600 MG TABLET PO ×2 (12:21→18:25)
[2021-11-26] MEDS: SODIUM CHLORIDE 0.9% FLUSH 10 ML IV (12:22)
--- NOTE | 2021-11-26 12:32 | CM.DPC ---
DCP Cont: Pt currently on vancomycin and cefepime for treatment of staph bacteria. Pt has been increasingly having shortness of breath. CXR was ordered and is WNL. Pt still neutropenic and the goal is for her WBC to reach 1k at discharge. Pt struggling with hypocalcemia and replacements are on board. Pt currently on neutropenic precautions. No needs identified for discharge planning at this time. DCP will continue to monitor. Mckenna Kapadia RN/KERRYP
[2021-11-26] MEDS: CALCIUM GLUCONATE 9.3 MEQ in SODIUM CHLORIDE 0.9% 50 ML 140 MEQ IV (13:50)
[2021-11-26] MEDS: FILGRASTIM-AAFI 300 MCG/0.5 ML SYRINGE SUBCUT (13:51)
[2021-11-26] MEDS: VANCOMYCIN TROUGH 1 REQUEST MISC (17:04)
[2021-11-26 17:33] LABS: Vancomycin Trough 14.9 ug/mL (10-20)
[2021-11-26] MEDS: SODIUM CHLORIDE 0.9% 250 ML 21 ML IV (18:25)
[2021-11-26] MEDS: VANCOMYCIN PEAK 1 REQUEST MISC (20:45)
[2021-11-26 21:33] LABS: Vancomycin Peak 30.6 ug/mL (20-40)
[2021-11-26] MEDS: BENZONATATE 100 MG CAPSULE PO (22:15)
[2021-11-27] VITALS (13 sets, daily range): BP systolic 97–117; BP diastolic 57–68; PULSE 94–106; RESP 18–26; TEMP 36.2–37.2; O2SAT 92–96
[2021-11-27] MEDS: LORazepam 0.5 MG TABLET PO ×2 (00:06→22:22)
[2021-11-27] MEDS: VANCOMYCIN 1,250 MG/250 ML PIGGYBACK 250 MG IV ×3 (00:06→17:43)
[2021-11-27] MEDS: IBUPROFEN 600 MG TABLET PO ×2 (00:06→22:21)
[2021-11-27] MEDS: CEFEPIME 2 GM in SODIUM CHLORIDE 0.9% 100 ML IV ×3 (02:07→17:57)
--- NOTE | 2021-11-27 03:18 | PC.NURSE ---
Pt still having difficulty clearing her secretions, yanci she was seating on the side of the bed c/o sob, lungs are diminished throughout, pt desating to the upper 80's. pt takes lorazepam 0.5 mg po as needed at home. Called Dr. Claude pete and received an order for it. pt also received Tesalon pearls to help with cough. Pt has been resting since then. Pt decline histopathology technician consult however she would benefit from counseling due to current situation.
[2021-11-27 05:52] LABS: Alanine Aminotransferase 38 IU/L (<35); Albumin 2.4 g/dL (3.5-5.0); Albumin Globulin Ratio 0.9 (1.0-2.8); Alkaline Phosphatase 150 U/L (38-126); Aspartate Aminotransferase 31 IU/L (14-36); BUN Creatinine Ratio 22.1 (6-22); Bilirubin Total 0.8 mg/dL (0.2-1.3); Blood Urea Nitrogen 17 mg/dL (7-17); Calcium 7.2 mg/dL (8.4-10.2); Carbon Dioxide 22 mmol/L (22-32); Chloride 108 mmol/L (98-107); Estimated Glomerular Filt Rate > 60 mL/min (>60); Globulin 2.7 g/dL (1.7-4.1); Glucose 121 mg/dL (70-100); HEMOLYSIS < 15 (0-50); Potassium 3.5 mmol/L (3.4-5.1); Sodium 135 mmol/L (137-145); Total Protein 5.1 g/dL (6.3-8.2)
[2021-11-27 06:42] LABS: Add Manual Diff / Slide Review NO; Basophils Absolute Auto 0 /uL (0-100); Basophils Percent Auto 0.2 % (0-2); Eosinophils Absolute Auto 0 /uL (0-450); Eosinophils Percent Auto 0.7 % (2-4); Hematocrit 23.6 % (36-46); Hemoglobin 8.4 g/dL (12.0-16.0); Lymphocytes Absolute Auto 600 /uL (1100-4500); Lymphocytes Percent Auto 18.3 % (25-40); Mean Corpuscular HGB Conc 35.6 % (30-36); Mean Corpuscular Hemoglobin 31.1 PG (26-34); Mean Corpuscular Volume 87.5 fL (80-100); Monocytes Absolute Auto 200 /uL (0-900); Monocytes Percent Auto 6.5 % (3-14); Neutrophils Absolute Auto 2300 /uL (1500-7000); Neutrophils Percent Auto 74.3 % (50-75); Platelet Count 69 X10^3/uL (150-400); Red Blood Cell Count 2.69 X10^6/uL (4.0-5.2); White Blood Cell Count 3.1 X10^3/uL (4.5-11.0)
--- NOTE | 2021-11-27 08:26 | P.PN_ITS ---
Subjective Subjective Date Patient Seen: 11/27/21 Time Patient Seen: 08:27 Interval history: Patient overall still quite fatigued. Really not feeling a ton better. Still having heaviness with her breathing. No other change. No on 2 L of oxygen. Exam Vital Signs (past 8 hours): - 11/27/21 05:31 11/27/21 05:33 11/27/21 08:22 Temperature 98 F Pulse Rate 101 H Respiratory Rate 26 H Blood Pressure 97/57 L Pulse Oximetry 93 93 93 Oxygen Delivery Method Nasal Cannula Nasal Cannula Oxygen Flow Rate 1.5 1.5 3 Oxygen Delivery Method Nasal Cannula Oxygen Flow Rate 3 Narrative Exam Narrative: Alert fatigued female in no acute distress Mucous membranes moist. Neck supple without adenopathy. Lungs with basilar crackles right side with rhonchi and crackles diffuse Objective Labs Result Diagrams: 11/27/21 05:25 11/27/21 05:25 Labs: Laboratory Results - last 24 hr 11/26/21 11/26/21 11/27/21 16:40 20:56 05:25 WBC 3.1 L D RBC 2.69 L Hgb 8.4 L Hct 23.6 L MCV 87.5 MCH 31.1 MCHC 35.6 RDW 13.0 Plt Count 69 L Neut % (Auto) 74.3 Lymph % (Auto) 18.3 L [place] % (Auto) 6.5 Eos % (Auto) 0.7 L Baso % (Auto) 0.2 Neut # (Auto) 2300 Lymph # (Auto) 600 L [place] # (Auto) 200 Eos # (Auto) 0 Baso # (Auto) 0 Sodium Potassium Chloride Carbon Dioxide BUN Creatinine Estimated GFR BUN/Creatinine Ratio Glucose Calcium Total Bilirubin AST ALT Alkaline Phosphatase Total Protein Albumin Globulin Albumin/Globulin Ratio Vancomycin Peak 30.6 Vancomycin Trough 14.9 11/27/21 05:25 WBC RBC Hgb Hct MCV MCH MCHC RDW Plt Count Neut % (Auto) Lymph % (Auto) [place] % (Auto) Eos % (Auto) Baso % (Auto) Neut # (Auto) Lymph # (Auto) [place] # (Auto) Eos # (Auto) Baso # (Auto) Sodium 135 L Potassium 3.5 Chloride 108 H Carbon Dioxide 22 BUN 17 Creatinine 0.77 Estimated GFR > 60 BUN/Creatinine Ratio 22.1 H Glucose 121 H Calcium 7.2 L Total Bilirubin 0.8 AST 31 ALT 38 H Alkaline Phosphatase 150 H Total Protein 5.1 L Albumin 2.4 L Globulin 2.7 Albumin/Globulin Ratio 0.9 L Vancomycin Peak Vancomycin Trough PFSH Medical History Breast cancer, right (~06/2018) Chicken pox Depression, (~1993) Eczema Surgical History Anesthesia Hx of right mastectomy (08/05/18) Status post tubal ligation (~1995) Family History Brother Age: 78 Parkinson's disease Father Lung cancer Mother Brain cancer Sister No problems noted. Social History household members: spouse Smoking Status: Never smoker alcohol intake: current Assessment & Plan Assessment & Plan narrative: Respiratory failure. Acute. Hypoxic now on 2 L. exam seems like right-sided pneumonia. Chest x-ray was negative will obtain CT scan to make sure we are not missing something else. CT scan shows consolidation and opacities probably pneumonia. Possibly atypical. Will follow. Antibiotics will be changed Hypoxia. Probably secondary to pneumonia. Will try treating with albuterol and re-evaluate. Question is whether not she needs to be transfused to improve her oxygen carrying capacity. Will see how things go Pneumonia. Coverage for everything except atypical should be adequate. Will add doxycycline will discuss with Infectious Disease and re-evaluate from there. Staph aureus bacteremia. Should have good coverage. Bacteria was pansensitive. Question is whether not we can discontinue no all treatment other than doxycycline. She continues to have fevers and question is whether that would be adequate coverage discussed with Infectious Disease. Neutropenic fever continuing to have some fever. White count is improved will follow. Discontinue Neupogen Thrombocytopenia much improved. No other changes. Probably secondary to her chemotherapy currently discontinued Anemia patient continues to be anemic. Hypocalcemia stable somewhat improved recheck tomorrow continue oral replacement Perianal rash improved. Disposition. Currently not in position to discharge. Hopefully will happen over the next few days. Time Spent With Patient Critical Care time: I spent a total of [] minutes of critical care time on this patient's care today; this time is exclusive of procedural time. Quality VTE Deep Vein Thrombosis/Pulmonary Embolism Present on Admission: No
--- NOTE | 2021-11-27 09:07 | DI.CT.S_ITS ---
PROCEDURE: CT CHEST WO CON INDICATIONS: Shortness of breath TECHNIQUE: Noncontrast 5 mm thick sections acquired from the pulmonary apices to the posterior costophrenic angles. 1 mm lung window, 5 mm thick coronal and sagittal and 7 mm axial MIP reformats were then acquired. For radiation dose reduction, the following was used: automated exposure control, adjustment of mA and/or kV according to patient size. COMPARISON: None. FINDINGS: Image quality: Excellent. Lungs and pleura: Multifocal patchy pulmonary opacities are present bilaterally throughout both lungs which are most confluent at the posterior right lung base. There is diffuse interlobular septal thickening. Multiple nodular radiodensities are present with surrounding ground-glass radiopacities and interlobular septal thickening. It is unclear whether these represent true pulmonary nodules or focal regions of airspace consolidation. There are small bilateral low-density pleural effusions. No pneumothorax. Mediastinum: Heart size is enlarged. There is a small low-density pericardial effusion. No mediastinal adenopathy by size criteria. Thoracic aorta and central pulmonary arteries are normal in size. Esophagus is normal in caliber. No hiatal hernia. Bones and chest wall: Patient is status post right mastectomy. No suspicious bony lesions. No vertebral body compression fractures. No axillary or supraclavicular adenopathy by size criteria. Thyroid gland is unremarkable. There is a left Port-A-Cath, the tip of which is at the cavoatrial junction. Abdomen: Visualized upper abdominal solid organs and bowel loops appear normal in the absence of contrast. IMPRESSION: 1. Multifocal patchy pulmonary opacities, interlobular septal thickening, and dense consolidation at the right lung base. Findings suggest multifocal pneumonia. If clinically appropriate, COVID-19 could be considered in the differential diagnosis. 2. Multiple nodular radiodensities as described above. It is unclear whether these represent focal regions of patchy consolidation or may represent true pulmonary nodules which could be suspicious for pulmonary metastasis. Short interval follow-up with resolution of the pulmonary infection is recommended to evaluate for underlying pulmonary metastatic disease. Dictated by: Sunshine Kerr M.D. on 11/27/2021 at 10:43 Approved by: Sunshine Kerr M.D. on 11/27/2021 at 10:50
[2021-11-27] MEDS: POTASSIUM CHLORIDE 20 MEQ TAB 40 MEQ PO (09:47)
[2021-11-27] MEDS: PANTOPRAZOLE DR 20 MG TABLET PO (09:48)
[2021-11-27] MEDS: ACETAMINOPHEN 325 MG TABLET 650 MG PO ×2 (11:35→17:56)
[2021-11-27] MEDS: ALBUTEROL 2.5 MG/3 ML NEB (ADULT) INH (11:54)
[2021-11-27] MEDS: DOXYCYCLINE 100 MG in SODIUM CHLORIDE 0.9% 100 ML IV (14:31)
[2021-11-27] MEDS: BENZONATATE 100 MG CAPSULE PO (22:22)
[2021-11-28] VITALS (11 sets, daily range): BP systolic 119–125; BP diastolic 65–73; PULSE 88–101; RESP 18–24; TEMP 36–37.1; O2SAT 92–97
[2021-11-28] MEDS: VANCOMYCIN 1,250 MG/250 ML PIGGYBACK 250 MG IV ×2 (00:18→09:34)
[2021-11-28] MEDS: CEFEPIME 2 GM in SODIUM CHLORIDE 0.9% 100 ML IV ×2 (01:29→10:40)
[2021-11-28] MEDS: DOXYCYCLINE 100 MG in SODIUM CHLORIDE 0.9% 100 ML IV ×2 (02:06→15:09)
[2021-11-28] MEDS: PANTOPRAZOLE DR 20 MG TABLET PO (05:18)
[2021-11-28] MEDS: IBUPROFEN 600 MG TABLET PO (05:18)
[2021-11-28] MEDS: SODIUM CHLORIDE 0.9% FLUSH 10 ML IV ×2 (05:18→21:38)
[2021-11-28 07:29] LABS: Hematocrit 25.2 % (36-46); Mean Corpuscular HGB Conc 35.5 % (30-36); Mean Corpuscular Hemoglobin 30.9 PG (26-34); Mean Corpuscular Volume 87.1 fL (80-100); Platelet Count 108 X10^3/uL (150-400); Red Cell Distribution Width 13.2 % (11.6-14.8); White Blood Cell Count 12.8 X10^3/uL (4.5-11.0)
[2021-11-28 07:30] LABS: Add Manual Diff / Slide Review YES
[2021-11-28 07:34] LABS: Alanine Aminotransferase 37 IU/L (<35); Albumin 2.5 g/dL (3.5-5.0); Albumin Globulin Ratio 0.9 (1.0-2.8); Alkaline Phosphatase 182 U/L (38-126); Aspartate Aminotransferase 39 IU/L (14-36); BUN Creatinine Ratio 19.3 (6-22); Bilirubin Total 0.9 mg/dL (0.2-1.3); Blood Urea Nitrogen 16 mg/dL (7-17); Calcium 7.7 mg/dL (8.4-10.2); Carbon Dioxide 20 mmol/L (22-32); Chloride 110 mmol/L (98-107); Estimated Glomerular Filt Rate > 60 mL/min (>60); Globulin 2.8 g/dL (1.7-4.1); Glucose 93 mg/dL (70-100); HEMOLYSIS < 15 (0-50); Potassium 3.4 mmol/L (3.4-5.1); Sodium 136 mmol/L (137-145); Total Protein 5.3 g/dL (6.3-8.2)
[2021-11-28 07:56] LABS: Neutrophils Absolute Manual 9088 /uL (3000-5900); Nucleated Red Blood Cells 1 #/Diff; Total Cells Counted 100
[2021-11-28 07:57] LABS: Anisocytosis 1+
--- NOTE | 2021-11-28 08:37 | P.PN_ITS ---
Subjective Subjective Date Patient Seen: 11/28/21 Time Patient Seen: 08:37 Interval history: Patient feeling slightly better today. Otherwise still feeling slightly short of breath. No chest pain. No leg pain. No other complaint. Did not sleep real well last night Exam Vital Signs (past 8 hours): - 11/28/21 01:41 11/28/21 05:25 11/28/21 08:07 Temperature 98.5 F 96.8 F L Pulse Rate 101 H 100 H Respiratory Rate 24 18 Blood Pressure 123/72 Pulse Oximetry 92 94 94 Oxygen Delivery Method Nasal Cannula Oxygen Flow Rate 2.5 2.5 2 Oxygen Delivery Method Nasal Cannula Oxygen Flow Rate 2 Narrative Exam Narrative: Alert female less fatigued no acute distress Lung exam continued right-sided crackles and rhonchi bilateral crackles. Heart regular rate and rhythm. Extremities without edema Objective Labs Result Diagrams: 11/28/21 07:15 11/28/21 07:15 Labs: Laboratory Results - last 24 hr 11/28/21 11/28/21 07:15 07:15 WBC 12.8 H D RBC 2.90 L Hgb 9.0 L Hct 25.2 L MCV 87.1 MCH 30.9 MCHC 35.5 RDW 13.2 Plt Count 108 L Neut % (Auto) Not Reportable Lymph % (Auto) Not Reportable [place] % (Auto) Not Reportable Eos % (Auto) Not Reportable Baso % (Auto) Not Reportable Lymph # (Auto) Not Reportable [place] # (Auto) Not Reportable Baso # (Auto) Not Reportable Total Counted 100 Seg Neutrophils % 43.0 Band Neutrophils % 28.0 H Lymphocytes % (Manual) 20.0 L Monocytes % (Manual) 6.0 Metamyelocytes % 3.0 H Neutrophils # (Manual) 9088 H Nucleated RBCs 1 H RBC Morphology See below Anisocytosis 1+ H Sodium 136 L Potassium 3.4 Chloride 110 H Carbon Dioxide 20 L BUN 16 Creatinine 0.83 Estimated GFR > 60 BUN/Creatinine Ratio 19.3 Glucose 93 Calcium 7.7 L Total Bilirubin 0.9 AST 39 H ALT 37 H Alkaline Phosphatase 182 H Total Protein 5.3 L Albumin 2.5 L Globulin 2.8 Albumin/Globulin Ratio 0.9 L PFSH Medical History Breast cancer, right (~06/2018) Chicken pox Depression, (~1993) Eczema Surgical History Anesthesia Hx of right mastectomy (08/05/18) Status post tubal ligation (~1995) Family History Brother Age: 78 Parkinson's disease Father Lung cancer Mother Brain cancer Sister No problems noted. Social History household members: spouse Smoking Status: Never smoker alcohol intake: current Assessment & Plan Assessment & Plan narrative: Respiratory failure acute probably secondary to pneumonia. Seems to be improved. Probable cause of infection and fever. Shows infection and dense consolidation of the right lung base which is consistent with exam and probable cause. Will continue antibiotics continue O2 support. Re-evaluate tomorrow. Pneumonia. Seems to be responding to doxycycline. One more day of full antibiotics and then switch to orals tomorrow. Fever curve is much improved. O2 requirement am hoping with mobilization will improve. Probable cause of fevers. Neutropenia. Essentially resolved. White count is 12 today. Much improved. Will follow tomorrow. Hypoxia. Still present probably secondary to moan pneumonia. At this point will continue support hopefully will was resolved but may have to go home for short time on O2. Staph aureus bacteremia. Stable. Will continue IV antibiotics today switch to oral tomorrow follow from there. Neutropenic fever resolved probably secondary to pneumonia. Thrombocytopenia. Much improved. Anemia. Recovering. All secondary to bone marrow suppression with chemotherapy. Hypocalcemia. Stable. Perianal rash. Improved. Disposition. Hoping home on . Will see how things go. Mobilized today. Physical therapy and see if we can get her to walk. Discontinue neutropenic precautions Time Spent With Patient Critical Care time: I spent a total of [] minutes of critical care time on this patient's care t jarad; this time is exclusive of procedural time. Quality VTE Deep Vein Thrombosis/Pulmonary Embolism Present on Admission: No
[2021-11-28] MEDS: ENOXAPARIN 40 MG/0.4 ML SYRINGE SUBCUT (09:34)
--- NOTE | 2021-11-28 10:51 | PT.IIE ---
Current Diagnoses Neutropenia, unspecified (11/22/21) Surgical History (Last Reviewed 11/22/21 @ 19:36 by Maximilian Jo MD) Anesthesia Hx of right mastectomy (08/05/18) Status post tubal ligation (~1995) Medical History (Last Reviewed 11/22/21 @ 19:36 by Maximilian Jo MD) Breast cancer, right (~06/2018) Chicken pox Depression, (~1993) Eczema Physical Therapy Inpatient Evaluation/Re-Eval M1 PT/OT-IP Prior Functional Status Start: 11/28/21 13:30 Freq: NEEDED Status: Active Protocol: Document 11/28/21 10:51 AB (Rec: 11/28/21 13:42 AB [email or web address]) Medical Review Prior Functional Status Medical History Reviewed Yes Communication able to make needs known Mobility and Gait pt stated that she is independent with all mobilities and ambulation without AD Social History Household Members spouse Living Arrangements House Number of Floors (Floors) Two Floors Number of Stairs To Enter/Railing? pt stays on main level of the house no steps to enter Home Environment Standard Height Toilet,Walk in Shower M2 PT-IP Current Condition Start: 11/28/21 13:30 Freq: NEEDED Status: Active Protocol: Document 11/28/21 10:51 AB (Rec: 11/28/21 13:42 AB [email or web address]) Physical Therapy Current Condition Current Condition Evaluation Date 11/28/21 Treatment Diagnosis R breast CA with mets; PNA; difficulty in walking Onset Date 11/22/21 M3 PT-IP Subjective Start: 11/28/21 13:30 Freq: NEEDED Status: Active Protocol: Document 11/28/21 10:51 AB (Rec: 11/28/21 13:42 AB [id number]) Subjective Physical Therapy Visit Type Type Initial Evaluation Visit Start Time 10:51 Visit Stop Time 11:30 Total Visit Minutes 39 Number of CRUDE OIL TREATER Visits 0 Physical Therapy Visit Comments Patient Comments agreeable to do PT M4 PT-IP Mobility and Gait Start: 11/28/21 13:30 Freq: NEEDED Status: Active Protocol: Document 11/28/21 10:51 AB (Rec: 11/28/21 13:42 AB [email or web address]) PT-Bed Mobility Assessment Supine to Sit Supine to Sit Standby Assistance PT-Transfer Assessment Sit to and From Stand Sit to and from Stand Contact Guard Assistance,1 Person Assistance,Use of Upper Extremities Equipment Transfer Assistive Device Gait Belt,Front Wheeled Walker Orthotic/Prosthetic Devices or Brace: No Transfers Transfer Destination Chair Transfer Technique ambulated Transfer Ability Level of Assist Contact Guard Assistance, Minimal Assistance,1 Person Assistance,Use of Upper Extremities Comments Mobility Comments BP supine: 112/71 O2 sat at 2L/min 94% . completed supine to sit SBA. (+) SOB. O2 sat: 93% c/o slight dizziness. BP : 112/65. pt stated that she does not need a walker. completed sit to stand CGA. ambulated in room ~ 7 ft without AD CGA to min A. very unsteady gait and pt tends to hold on to wall/counter for support. pt sat back on EOB. educated on safety. pt agreed to use FWW at this time . completed sit to stand CGA. ambulated in the hallway using FWW ~ 150 ft CGA to min A midway during ambulation. presents with unsteady gait and narrow FELICITY. increasing assistance midway with ambulation with slower pace and increase unsteadiness. pt walked back to her room and sat on EOB. O2 sat: 97-98%. pt wants to sit up on the chair. completed step transfer to chair CGA. positioned pt on the chair. call light and table placed within reach. Gait Assessment Gait Gait Assistance Required: Contact Guard Assist,Minimum Assistance,1 Person Assist Distance (Feet) 150 Able to Maintain Weight Bearing Status Yes During Gait Assistive Devices Assistive Device Gait Belt,Front Wheeled Walker Orthotic/Prosthetic Devices or Brace: No Gait Deviations General Gait Pattern Decreased Stride Length, Decreased Feet Clearance, Narrow Based Gait Factors Limiting Gait Function Factors Limiting Gait Function Decreased Activity Tolerance, Decreased Strength,Poor Balance,Poor Safety Awareness, Respiratory Distress PT-Balance Assessment Sitting Balance and Reactions Static Sitting Balance Ability Normal Dynamic Sitting Balance Ability Good Standing Balance and Reactions Static Standing Balance Ability Poor Dynamic Standing Balance Ability Poor Device Used without AD M5 PT-IP Objective Assessments Start: 11/28/21 13:30 Freq: NEEDED Status: Active Protocol: Document 11/28/21 10:51 AB (Rec: 11/28/21 13:42 AB [id number]) Orientation Orientation/Cognition Level of Alertness Alert Orientation Name,Place,Situation Language Function Ability No Deficits Noted Safety Awareness Decreased Safety Awareness Memory Description No Deficits Noted Gross Range of Motion Lower Extremity ROM Assessment Within Functional Limits Strength Lower Extremity Strength Assessment Within Functional Limits Muscle Tone Muscle Tone WNL Yes M6 PT-IP Treatment Start: 11/28/21 13:30 Freq: NEEDED Status: Active Protocol: Document 11/28/21 10:51 AB (Rec: 11/28/21 13:42 AB [email or web address]) Physical Therapy Treatment Education Education Provided Safety M7 PT-IP Assessment and Plan Start: 11/28/21 13:30 Freq: NEEDED Status: Active Protocol: Document 11/28/21 10:51 AB (Rec: 11/28/21 13:42 AB [email or web address]) PT Summary Assessment and Plan Potential Rehabilitation Potential Fair Status of Condition at Evaluation Evolving Summary Impairments Pain,ROM,Strength,Balance, Coordination,Sensation,Tone, Cognition,Bed Mobility, Transfers,Gait,Activity Tolerance Assessment Summary pt initially requiring CGA with ambulation using FWW but min A midway with ambulation using FWW. recommending using of FWW at this time. pt presents with decrease activity tolerance affecting mobility and level of assistance. spouse in room and stated that he already initiated getting and FWW for pt. will continue to assess progress. Goals Bed Mobility Goal Independent Transfer Goal Independent,Front Wheeled Walker Gait Goal Independent,Front Wheel Walker Gait Distance 200 Other Goals improve ambulation withotu AD 150 ft SBA Days to Meet Goals 10 Frequency of Treatment Frequency Of Treatment Once a Day Treatment Plan Physical Therapy Treatment Plan Bed Mobility Training,Transfer Training,Gait Training, Therapeutic Exercise,Balance Retraining,Discharge Planning, Hot or Cold Pack,Neuromuscular Re-ed,Coordination Retraining Precautions Other Precautions O2 sat Recommendations To Nursing Amount of Assist Needed 1 Person Assist Discharge Recommendations PT Discharge Recommendations Home with 24/ Assist Available,Home Health Equipment Needed for Home Before FWW Discharge Transportation Needs at Discharge Private Vehicle,Wheelchair/ Cabulance
[2021-11-28] MEDS: ACETAMINOPHEN 325 MG TABLET 650 MG PO ×3 (12:12→23:57)
--- NOTE | 2021-11-28 15:10 | DIET.CONS2 ---
Dietary Inpatient Consultation Note Admission Date: 11/22/2021 18:32 56y F admitted c neutopenia after chemo treatment for metastatic breast cancer reviewed by RD for low POs while hospitalized. Pt within range of UBW for past 8y, however no recent weight hx. Pt has been sleeping much of hospitalization. Pts POs over 5d 0-50%. Initiating high pro [place] smoothie today at lunch to support nutrition status. Pt is high risk for malnutrition due to current normal BMI, metastatic breast cancer involving bones, and poor POs over 5d. Recc daily weights. Diet: 11/22/21 Breakfast General (Regular) Diet Diet Modifications: [place] pro smoothies c meals Nutrition Percent Meal Consumed 25% 11/27/21 19:04 Percent Meal Consumed 15 11/27/21 18:00 Percent Meal Consumed 0% 11/27/21 08:00 Electronically Signed by: Thuy Garza 11/28/21 15:10 Clinical Dietitian [address] [id number]
[2021-11-28] MEDS: KETOROLAC 30 MG/ML VIAL IV ×2 (16:08→21:38)
[2021-11-28] MEDS: BENZONATATE 100 MG CAPSULE PO (16:13)
[2021-11-28] MEDS: NYSTATIN CREAM 30 GM 1 APPLIC TOP (20:46)
--- NOTE | 2021-11-28 23:21 | PC.NURSE ---
Addendum entered by Michell Joshi R.N. 11/29/21 01:10: Patient's O2 sat was 95% on RA so removed oxygen but when asleep drops back down to 87% so placed back on oxygen for the night. Original Note: Patient is alert and oriented. Breath sounds with crackles in anterior left upper lobe and bilateral bases. On oxygen at 2L/min per NC with sat of 96%. HRR. Denied nausea. BT present and is passing flatus; abdomen is soft and mildly distended. Denied dysuria with urination. Is able to turn herself in bed. Up to bathroom with SBA. Refuses SCD's so reminded to ankle wave when awake. Complains of pain in chest, back, neck and head; is receiving scheduled Toradol and Tylenol and states pain is tolerable. Fall risk score is moderate; patient verbalizes agreement to call for staff assistance when getting out of bed so alarm is currently not in use.
[2021-11-29] VITALS (11 sets, daily range): BP systolic 104–130; BP diastolic 65–78; PULSE 72–104; RESP 16–18; TEMP 36.5–37; O2SAT 93–99
[2021-11-29] MEDS: DOXYCYCLINE 100 MG in SODIUM CHLORIDE 0.9% 100 ML IV ×2 (01:58→13:21)
[2021-11-29] MEDS: SODIUM CHLORIDE 0.9% FLUSH 10 ML IV ×2 (01:59→03:20)
[2021-11-29] MEDS: KETOROLAC 30 MG/ML VIAL IV (03:19)
[2021-11-29] MEDS: ACETAMINOPHEN 325 MG TABLET 650 MG PO ×3 (05:55→17:13)
[2021-11-29] MEDS: PANTOPRAZOLE DR 20 MG TABLET PO (05:58)
[2021-11-29] MEDS: BENZONATATE 100 MG CAPSULE PO ×2 (05:59→19:43)
[2021-11-29 06:02] LABS: Basophils Absolute Auto 0 /uL (0-100); Basophils Percent Auto 0.3 % (0-2); Eosinophils Absolute Auto 100 /uL (0-450); Eosinophils Percent Auto 0.4 % (2-4); Hematocrit 23.1 % (36-46); Hemoglobin 8.2 g/dL (12.0-16.0); Lymphocytes Absolute Auto 1400 /uL (1100-4500); Mean Corpuscular HGB Conc 35.7 % (30-36); Mean Corpuscular Hemoglobin 30.9 PG (26-34); Mean Corpuscular Volume 86.7 fL (80-100); Monocytes Absolute Auto 300 /uL (0-900); Monocytes Percent Auto 1.8 % (3-14); Neutrophils Absolute Auto 15400 /uL (1500-7000); Neutrophils Percent Auto 89.5 % (50-75); Platelet Count 130 X10^3/uL (150-400); Red Blood Cell Count 2.67 X10^6/uL (4.0-5.2); Red Cell Distribution Width 13.4 % (11.6-14.8); White Blood Cell Count 17.2 X10^3/uL (4.5-11.0)
[2021-11-29 07:05] LABS: Add Manual Diff / Slide Review NO
[2021-11-29] MEDS: NYSTATIN CREAM 30 GM 1 APPLIC TOP ×2 (09:42→22:05)
--- NOTE | 2021-11-29 11:34 | PT-IP ANOTE ---
checked on pt and pt is asleep. spouse in room and wants pt to rest for now. checked back on pt after ~ 1 hour and pt is awake. pt stated that she is going home this afternoon and refused PT. stated that she does not want to get too tired before she goes home.
--- NOTE | 2021-11-29 13:49 | P.PN_ITS ---
Subjective Subjective Date Patient Seen: 11/29/21 Time Patient Seen: 13:53 Interval history: Patient still tired. No other changes. Maybe slightly feeling better but much. Otherwise no changes. Exam Vital Signs (past 8 hours): - 11/29/21 08:20 11/29/21 09:30 11/29/21 10:00 Temperature 97.9 F Pulse Rate 93 H Respiratory Rate 18 Blood Pressure 121/67 Pulse Oximetry 97 97 Oxygen Delivery Method Nasal Cannula Nasal Cannula Oxygen Flow Rate 0 2 11/29/21 12:00 Temperature 97.7 F Pulse Rate 87 Respiratory Rate 18 Blood Pressure 120/70 Pulse Oximetry 99 Oxygen Delivery Method Oxygen Flow Rate 2 Oxygen Delivery Method Nasal Cannula Oxygen Flow Rate 2 Narrative Exam Narrative: Alert female less fatigued no acute risk to her distress Lungs no change heart regular rate and rhythm Objective Labs Result Diagrams: 11/29/21 05:30 11/28/21 07:15 Labs: Laboratory Results - last 24 hr 11/29/21 05:30 WBC 17.2 H RBC 2.67 L Hgb 8.2 L Hct 23.1 L MCV 86.7 MCH 30.9 MCHC 35.7 RDW 13.4 Plt Count 130 L Neut % (Auto) 89.5 H Lymph % (Auto) 8.0 L [place] % (Auto) 1.8 L Eos % (Auto) 0.4 L Baso % (Auto) 0.3 Neut # (Auto) 33523 H Lymph # (Auto) 1400 [place] # (Auto) 300 Eos # (Auto) 100 Baso # (Auto) 0 PFSH Medical History Breast cancer, right (~06/2018) Chicken pox Depression, (~1993) Eczema Surgical History Anesthesia Hx of right mastectomy (08/05/18) Status post tubal ligation (~1995) Family History Brother Age: 78 Parkinson's disease Father Lung cancer Mother Brain cancer Sister No problems noted. Social History household members: spouse Smoking Status: Never smoker alcohol intake: current Assessment & Plan Assessment & Plan narrative: Acute respiratory failure secondary to pneumonia. Seems to be improved. O2 requirement is decreasing. May need to go home on oxygen. Plan on discharge tomorrow. Pneumonia. White count is elevated but no fever. Discussed with oncologist. He feels comfortable that either the white count is elevated secondary to pneumonia or secondary to 4 days of Neupogen medication. Feels like otherwise things are progressing well and at this point will switch to oral medication if stable will discharge home tomorrow. Certainly most likely secondary to Staph aureus but possibly also addition atypical. Doxycycline should cover both. Neutropenia. Certainly not an issue at this point with elevation in white count to 17. Secondary to chemotherapy. Oncology is updated. Will send records. Narcotics sensitivity. Discussed with oncologist and pharmacist. Would be nice to have a pain medicine that is tolerated by patient given her diagnosis. More likely than not going to require pain medicines. Discussed with both and elected for trial of fentanyl. Patient understands. We are going to try a little medication today and see if she has blood pressure problem. Better here than in home. Patient understands. And agrees. Will try low-dose here. Hypoxia see respiratory failure. Staph aureus bacteremia. Sensitivities shows doxycycline should cover. Will continue. Fever. Resolved. Probably secondary to pneumonia. Question whether all secondary to Staph bacteremia and pneumonia or whether she has atypical p neumonia also. Should be covered by both doxycycline and currently has no fever. Thrombocytopenia. Resolved. Anemia. Recovering. All secondary to bone marrow suppression. Hypocalcemia. Will recheck tomorrow. Rash. Improved. Disposition. Patient would like to be sure no fever on oral antibiotics will start today. Discharge tomorrow if stable. 40 minute spent with patient and coordinating care. Dictating orders. Time Spent With Patient Critical Care time: I spent a total of [] minutes of critical care time on this patient's care today; this time is exclusive of procedural time. Quality VTE Deep Vein Thrombosis/Pulmonary Embolism Present on Admission: No
[2021-11-29] MEDS: fentaNYL 100 MCG/2 ML INJ IV (14:50)
[2021-11-29] MEDS: DOXYCYCLINE HYCLATE 100 MG TABLET PO (14:51)
--- NOTE | 2021-11-29 16:05 | PT.IIE ---
Current Diagnoses Neutropenia, unspecified (11/22/21) Surgical History (Last Reviewed 11/22/21 @ 19:36 by Maximilian Jo MD) Anesthesia Hx of right mastectomy (08/05/18) Status post tubal ligation (~1995) Medical History (Last Reviewed 11/22/21 @ 19:36 by Maximilian Jo MD) Breast cancer, right (~06/2018) Chicken pox Depression, (~1993) Eczema Physical Therapy Inpatient Evaluation/Re-Eval M1 PT/OT-IP Prior Functional Status Start: 11/28/21 13:30 Freq: NEEDED Status: Active Protocol: Document 11/28/21 10:51 AB (Rec: 11/28/21 13:42 AB [id number]) Medical Review Prior Functional Status Medical History Reviewed Yes Communication able to make needs known Mobility and Gait pt stated that she is independent with all mobilities and ambulation without AD Social History Household Members spouse Living Arrangements House Number of Floors (Floors) Two Floors Number of Stairs To Enter/Railing? pt stays on main level of the house no steps to enter Home Environment Standard Height Toilet,Walk in Shower M2 PT-IP Current Condition Start: 11/28/21 13:30 Freq: NEEDED Status: Active Protocol: Document 11/28/21 10:51 AB (Rec: 11/28/21 13:42 AB [id number]) Physical Therapy Current Condition Current Condition Evaluation Date 11/28/21 Treatment Diagnosis R breast CA with mets; PNA; difficulty in walking Onset Date 11/22/21 M3 PT-IP Subjective Start: 11/28/21 13:30 Freq: NEEDED Status: Active Protocol: Document 11/29/21 16:05 AB (Rec: 11/29/21 16:40 AB [id number]) Subjective Physical Therapy Visit Type Type Treatment Note Visit Start Time 16:05 Visit Stop Time 16:25 Total Visit Minutes 20 Notes checked with nurse and stated that pt is not going home today. Number of [employer] Visits 0 Physical Therapy Visit Comments Patient Comments agreeable to do PT M4 PT-IP Mobility and Gait Start: 11/28/21 13:30 Freq: NEEDED Status: Active Protocol: Document 11/29/21 16:05 AB (Rec: 11/29/21 16:40 AB [id number]) PT-Bed Mobility Assessment Supine to Sit Supine to Sit Independent,Head of Bed Elevated PT-Transfer Assessment Sit to and From Stand Sit to and from Stand Standby Assistance,1 Person Assistance,Use of Upper Extremities Equipment Transfer Assistive Device Gait Belt,Front Wheeled Walker Orthotic/Prosthetic Devices or Brace: No Transfers Transfer Destination Toilet Transfer Technique ambulated Transfer Ability Level of Assist Standby Assistance,Contact Guard Assistance,1 Person Assistance,Use of Upper Extremities Comments Mobility Comments pt agreeable to do PT. completed supine to sit with HOB elevated mod I. requested to use the toilet. completed sit to stand sBA and ambulated to the toilet using fWW SBA to CGA. completed toileting without assist and ambulated towards the sink using FWW SBA . able to maintain standing sBA using FWW for support while completing handwashing. ambulated out in the hallway using FWW ~ 200 ft SBA to CGA. pt continues to have a tendency to cross RLE over midline and slightly tripping on herself. ambulated to her room and sat on chair. set up with call light and table placed within reach. O2 sat at 2L/min and O2 sat at rest 94% but decreases wot 82 -84% during ambulation. O2 increased to 3L/min but continues to have 82-82% O2 using portable oximeter but with in room oximeter, O2 sat after ambulation sitting on chair: 97% at 2L/min. informed nurse Gait Assessment Gait Gait Assistance Required: Standby Assistance,Contact Guard Assist Distance (Feet) 200 Able to Maintain Weight Bearing Status Yes During Gait Assistive Devices Assistive Device Gait Belt,Front Wheeled Walker Orthotic/Prosthetic Devices or Brace: No Gait Deviations General Gait Pattern Narrow Based Gait Factors Limiting Gait Function Factors Limiting Gait Function Decreased Activity Tolerance, Poor Balance,Poor Safety Awareness,Respiratory Distress M5 PT-IP Objective Assessments Start: 11/28/21 13:30 Freq: NEEDED Status: Active Protocol: Document 11/28/21 10:51 AB (Rec: 11/28/21 13:42 AB [id number]) Orientation Orientation/Cognition Level of Alertness Alert Orientation Name,Place,Situation Language Function Ability No Deficits Noted Safety Awareness Decreased Safety Awareness Memory Description No Deficits Noted Gross Range of Motion Lower Extremity ROM Assessment Within Functional Limits Strength Lower Extremity Strength Assessment Within Functional Limits Muscle Tone Muscle Tone WNL Yes M6 PT-IP Treatment Start: 11/28/21 13:30 Freq: NEEDED Status: Active Protocol: Document 11/29/21 16:05 AB (Rec: 11/29/21 16:40 AB [id number]) Physical Therapy Treatment Education Education Provided Safety M7 PT-IP Assessment and Plan Start: 11/28/21 13:30 Freq: NEEDED Status: Active Protocol: Document 11/29/21 16:05 AB (Rec: 11/29/21 16:40 AB [id number]) PT Summary Assessment and Plan Potential Rehabilitation Potential Fair Summary Impairments Pain,ROM,Strength,Balance, Coordination,Sensation,Tone, Cognition,Bed Mobility, Transfers,Gait,Activity Tolerance Progress Towards Goals Slow Progress due to Medical Issues,Slow Progress due to Activity Tolerance Assessment Summary pt requiring SBA to CGA with mobility and seems steadier today than yesterdays but continue to have decrease O2 sat with activity. pt plans to go home and spouse to assist her. Pt will benefit from HHPT . Goals Bed Mobility Goal Independent Transfer Goal Independent,Front Wheeled Walker Gait Goal Independent,Front Wheel Walker Gait Distance 200 Other Goals improve ambulation withotu AD 150 ft SBA Days to Meet Goals 10 Frequency of Treatment Frequency Of Treatment Once a Day Treatment Plan Physical Therapy Treatment Plan Bed Mobility Training,Transfer Training,Gait Training, Therapeutic Exercise,Balance Retraining,Discharge Planning, Hot or Cold Pack,Neuromuscular Re-ed,Coordination Retraining Precautions Other Precautions O2 sat Recommendations To Nursing Amount of Assist Needed 1 Person Assist Discharge Recommendations PT Discharge Recommendations Home with 10/12 Assist Available,Home Health Equipment Needed for Home Before FWW Discharge Transportation Needs at Discharge Private Vehicle,Wheelchair/ Cabulance
[2021-11-29] MEDS: fentaNYL 100 MCG/2 ML INJ 10 MCG IV (19:43)
--- NOTE | 2021-11-29 21:45 | PC.NURSE ---
Patient is alert and oriented. Breath sounds still with crackles at bilateral bases and remains on oxygen at 2L/min per NC with sat of 97%. HRR. Denies nausea. BT present; patient reports she has been having loose stools for several days. Denies dysuria, frequency or urgency with urination. Moves self in bed and gets up to bathroom with SBA; generalized weakness. Complains of pain in chest, back, neck and head and was given Fentanyl earlier with no noted change in BP following administration. Refusing SCD's so reminded to ankle wave. Does complain of dry, nonproductive, persistent cough and was medicated earlier with Tessalon but states it had no effect so Dr. Arce called and new orders received for throat lozenges and Robitussin. Fall risk score is moderate; patient calls for assistance appropriately.
[2021-11-29] MEDS: guaiFENesin Solution 100 MG/5 ML UDC PO (22:02)
[2021-11-29] MEDS: ZOLPIDEM 5 MG TABLET PO (22:04)
[2021-11-30] MEDS: ACETAMINOPHEN 325 MG TABLET 650 MG PO ×2 (00:06→06:15)
[2021-11-30 00:08] VITALS: BP 143/76; PULSE 102; RESP 19; TEMP 36.7; O2SAT 95
[2021-11-30 04:25] VITALS: BP 126/74; PULSE 101; RESP 20; TEMP 36.7; O2SAT 95
[2021-11-30] MEDS: guaiFENesin Solution 100 MG/5 ML UDC PO (04:31)
[2021-11-30 05:53] LABS: Calcium 7.2 mg/dL (8.4-10.2)
[2021-11-30 05:55] LABS: Hematocrit 24.9 % (36-46); Hemoglobin 8.8 g/dL (12.0-16.0); Mean Corpuscular HGB Conc 35.3 % (30-36); Mean Corpuscular Hemoglobin 30.6 PG (26-34); Mean Corpuscular Volume 86.6 fL (80-100); Platelet Count 137 X10^3/uL (150-400); Red Blood Cell Count 2.88 X10^6/uL (4.0-5.2); Red Cell Distribution Width 13.5 % (11.6-14.8)
[2021-11-30 05:58] LABS: Add Manual Diff / Slide Review YES
[2021-11-30] MEDS: PANTOPRAZOLE DR 20 MG TABLET PO (06:15)
[2021-11-30 07:48] LABS: Anisocytosis 1+; Neutrophils Absolute Manual 18720 /uL (3000-5900); Nucleated Red Blood Cells 1 #/Diff; Total Cells Counted 100
[2021-11-30 08:00] VITALS: BP 124/63; PULSE 89; RESP 16; TEMP 36.7; O2SAT 98
--- NOTE | 2021-11-30 09:08 | P.DS_ITS ---
History of Present Illness History of Present Illness Date Patient Seen: 11/30/21 Time Patient Seen: 08:50 Chief complaint: Fever post chemo treatment, rash on face Narrative: Pt with hx of recurrent metastatic breast cancer just completed second treatment in second round of chemo presents with high fever and undetectable WBCs. Admitted for IV abx and filgrastim. Discharge Providers Provider Date of admission: 11/22/21 18:32 Discharge Date: 11/30/21 Primary care physician: ALLA Mauro Consults: 11/26/21 11:56 Consult to Respiratory Therapy Evaluate & Treat Comment: increase SOB at rest/excertion, on o2. Physician Instructions: Evaluate and treat 11/28/21 08:36 Consult to Physical Therapy Evaluate & Treat Comment: Physician Instructions: Evaluate and Treat Discharge provider: Khalif Arce MD Summary Hospital Course Discharge Diagnosis: Acute respiratory failure secondary to pneumonia.? Pneumonia, acute, new Neutropenia? Narcotics sensitivity Hypoxia Staph aureus bacteremia Fever Thrombocytopenia Anemia Hypocalcemia tinea metastatic breast cancer, recurrent, receiving chemo Status at Discharge Cognitive/behavioral status at discharge: at baseline, oriented Functional status at discharge: independent ambulation Overall status at discharge: patient is progressing back to baseline Exam Vital Signs (past 8 hours): - 11/30/21 04:25 11/30/21 04:25 Temperature 98.1 F Pulse Rate 101 H Respiratory Rate 20 Blood Pressure 126/74 Pulse Oximetry 95 95 Oxygen Delivery Method Nasal Cannula Oxygen Flow Rate 2 2 Oxygen Delivery Method Nasal Cannula Oxygen Flow Rate 2 Narrative Exam Narrative: tired laying in bed with at bedside Const General: cooperative, comfortable and ill appearing [facility] Head: atraumatic Eyes General: appearance normal, both eyes and all related structures Chest Other: s/p R mastectomy, R chest port Resp Other: moving air well clear to auscultation bilaterally on 1L via NC Cardio Other: regular rate and rhythm GI Other: soft nontender nondistended Neuro General: patient alert, patient awake, patient oriented x3, moves all extremities, CN's II-XI intact bilaterally and deep tendon reflexes 2+ bilaterally Psych Appearance: grossly normal Mental Status: mental status grossly normal Speech and Movement: speech and movement normal Objective Labs Result Diagrams: 11/30/21 05:18 11/28/21 07:15 Labs: Laboratory Results - last 24 hr 07/14/22 07/14/22 05:18 05:18 WBC 26.0 H D RBC 2.88 L Hgb 8.8 L Hct 24.9 L MCV 86.6 MCH 30.6 MCHC 35.3 RDW 13.5 Plt Count 137 L Neut % (Auto) Not Reportable Lymph % (Auto) Not Reportable Potter % (Auto) Not Reportable Eos % (Auto) Not Reportable Baso % (Auto) Not Reportable Lymph # (Auto) Not Reportable Potter # (Auto) Not Reportable Baso # (Auto) Not Reportable Total Counted 100 Seg Neutrophils % 44.0 Band Neutrophils % 28.0 H Lymphocytes % (Manual) 10.0 L Atypical Lymphs % 2.0 H Monocytes % (Manual) 10.0 Metamyelocytes % 5.0 H Myelocytes % 1.0 H Neutrophils # (Manual) 16685 H Nucleated RBCs 1 H RBC Morphology Not Reportable Anisocytosis 1+ H Calcium 7.2 L PFSH Medical History Breast cancer, right (~06/2018) Chicken pox Depression, (~1993) Eczema Surgical History Anesthesia Hx of right mastectomy (08/05/18) Status post tubal ligation (~1995) Family History Brother Age: 78 Parkinson's disease Father Lung cancer Mother Brain cancer Sister No problems noted. Social History household members: spouse Smoking Status: Never smoker alcohol intake: current Discharge Assessment & Plan Assessment and Plan Assessment: #Acute respiratory failure secondary to pneumonia.? Seems to be improving.? O2 requirement is decreasing.? May need to go home on oxygen today. #Pneumonia.? elevated WBCs may be partly due to this - suspect atypical pna based on XR findings, sandrinephilip SHAMA, hopefullt his willr esolve with restored WBCs, finish out doxy course #Neutropenia - exuberantly resolved s/p filgrastim monitor #Narcotics sensitivity: did well with trial of fentanyl, seems like she can tolerate that well, will keep in mind for future #Hypoxia see respiratory failure.? #Staph aureus bacteremia.? Sensitivities shows doxycycline should cover.? Will continue.? #Fever.? Resolved.? Probably secondary to pneumonia.? Question whether all secondary to Staph bacteremia and pneumonia or whether she has atypical pneumonia also.? Should be covered by both doxycycline and currently has no fever.? #Thrombocytopenia.? Resolved.?likely 2/2 BM suppression #Anemia.? Recovering.? All secondary to bone marrow suppression.? #Hypocalcemia.? Will recheck tomorrow.? #Tinea corporis.? Improved continue nystatin cream #Metastatic recurrent breast cancer stable, to f/u with oncology, likely will be able to resume chemo at half strength doses Disposition:? d/c home on oral abx to f/u with PCP and oncology as outpt. Discharge Plan Discharge Plan Patient Disposition: Home Discharge orders & Medications Prescriptions: New doxycycline hyclate 100 mg capsule 100 mg PO BID 10 Days Qty: 20 0RF Continued lorazepam 0.5 mg tablet 1 tab PO PRN PRN (Reason: Anxiety) ondansetron HCl 4 mg tablet 1 tab PO PRN PRN (Reason: Nausea) Follow up/Referrals: Barbara Jo ARNP [Primary Care Provider] - Visit Report/Discharge Packet Instructions: Pneumonia-Adult, Sepsis, Staph Infection Discharge Data Primary Care Provider: Barbara Jo Quality VTE Deep Vein Thrombosis/Pulmonary Embolism Present on Admission: No
--- NOTE | 2021-11-30 09:36 | CM.DPC ---
Addendum entered by OLIVIER Santos 11/30/21 10:50: ADD; SW confirmed with RN that RT had completed assess for home oxygen yesterday in anticipation of d/c to home and set up pt with new home O2 and RN about to provide pt with d/c instructions and no further needs at this time and pt to d/c home soon. BF Original Note: DCP Discharge Home SW spoke to MD this morning and pt medically stable to d/c home on oral abx today and pain medications and no identified barriers to discharge. Per RN, no concerns at this time. Plan: Patient to d/c home via spouse POV and outpt ongoing f/u with [facility] Oncologist. No further SW needs at this time. OLIVIER Santos
[2021-11-30 10:00] VITALS: O2SAT 95
[2021-11-30] MEDS: NYSTATIN CREAM 30 GM 1 APPLIC TOP (10:01)
== END 2021-11-30 11:18 | disposition home or self-care (01) | DRG 177 ==
LOC: ED 17:58 → AC 18:34
PROVIDERS: Family Medicine; Admitting Provider Family Medicine; Emergency Provider Emergency Medicine; PCP Internal Medicine; Referring Provider Emergency Medicine; Visit Provider Family Medicine
DX: J15.211 Pneumonia due to Methicillin susceptible Staphylococcus aureus (principal); D61.89 Other specified aplastic anemias and other bone marrow failure syndromes; J96.01 Acute respiratory failure with hypoxia; C79.9 Secondary malignant neoplasm of unspecified site; R78.81 Bacteremia; D70.9 Neutropenia, unspecified; J18.9 Pneumonia, unspecified organism; D69.59 Other secondary thrombocytopenia; C50.911 Malignant neoplasm of unspecified site of right female breast; B95.61 Methicillin susceptible Staphylococcus aureus infection as the cause of diseases classified elsewhere; E83.51 Hypocalcemia; B35.4 Tinea corporis; F41.9 Anxiety disorder, unspecified; Z20.822 Contact with and (suspected) exposure to COVID-19
CPT/HCPCS: 36415; 36430; 36591; 71045; 71250; 80048; 80053; 80202; 82310; 83605; 83690; 84145; 85007; 85025; 85027; 86900; 86901; 87040; 87147; 87150; 87186; 87633; 87635; 93005; 93010; 94618; 94640; 94760; 96372; 97116; 97162; 99284; C9803; J0610; J0692; J1650; J1885; J3010; J7613; P9035; Q5110

== ENCOUNTER → 2022-01-17 15:02 | Outpatient (CLI) | payer OTHER, SELFPAY ==
--- NOTE | 2022-01-17 15:04 | DI.CT.S_ITS ---
PROCEDURE: CT CHEST WO CON INDICATIONS: BILATERAL PLEURAL EFFUSION TECHNIQUE: Noncontrast 5 mm thick sections acquired from the pulmonary apices to the posterior costophrenic angles. 1 mm lung window, 5 mm thick coronal and sagittal and 7 mm axial MIP reformats were then acquired. For radiation dose reduction, the following was used: automated exposure control, adjustment of mA and/or kV according to patient size. COMPARISON: [facility], [place], [place] FUSION SKULL 2 THIGH, 10/25/2021, 8:52. [facility], CT, CT CHEST WO CON, 11/27/2021, 9:39. FINDINGS: Image quality: Excellent. Lungs and pleura: Loculated appearing pleural effusion at the left lung base measuring 7.9 x 4.2 x 3.6 cm, (45 and 11/06), estimated volume of 62 cc. Small adjacent consolidation. Otherwise near resolution of the previously seen patchy airspace opacities. There is minimal opacity at the right middle lobe. Minimal streaky opacity in the right lower lobe at site of prior consolidation. Right lower lobe pulmonary nodule measuring 0.5 cm, (3/180), previously 0.6 cm. A few additional small pulmonary nodules. Trace right pleural effusion. No pneumothorax. There are a few small pulmonary nodules. The central airways are clear. Mediastinum: Heart size is normal. Small pericardial effusion. No mediastinal adenopathy by size criteria. Thoracic aorta and central pulmonary arteries are normal in size. Esophagus is normal in caliber. No hiatal hernia. Bones and chest wall: Increased sclerosis at T4. FDG avidity on prior PET/CT. No vertebral body compression fractures. Small sclerotic focus right anterior 3rd rib is unchanged. Subtle heterogeneity at the right anterior 5th rib at site of prior FDG avidity. Right axillary clips. Small right inferior axillary node measuring 0.9 cm which presumably contains a biopsy clip. This was FDG avid on 10/25/2021 PET/CT where it measured 1.1 cm in size. A few shotty appearing right axillary nodes. No supraclavicular or left axillary nodes identified. Small calcified left thyroid nodule. Left-sided port with the catheter tip at the cavoatrial junction. Right mastectomy. Abdomen: Visualized upper abdominal solid organs and bowel loops appear normal in the absence of contrast. IMPRESSION: 1. Loculated appearing left basilar pleural effusion measuring 7.9 cm in length and approximately 62 cc. Small adjacent consolidation. 2. Other opacities with scattered throughout the lungs are nearly resolved. Trace right pleural effusion. 3. A few small pulmonary nodules are indeterminate but suspicious. Right lower lobe pulmonary nodule measuring 0.5 cm may be slightly decreased in size. 4. Prominent right axillary node is decreased in size. Right mastectomy. 5. Increased sclerosis at T4. Likely treated metastasis. Likely additional osseous lesions. Dictated by: Luke Philip M.D. on 01/17/2022 at 18:26 Approved by: Luke Philip M.D. on 01/17/2022 at 18:42
== END ==
PROVIDERS: PCP Internal Medicine; Referring Provider Surgery; Visit Provider Surgery
DX: J90 Pleural effusion, not elsewhere classified (principal); R91.8 Other nonspecific abnormal finding of lung field
CPT/HCPCS: 71250

== ENCOUNTER 2022-11-30 11:24 | Emergency (ER) | payer OTHER, SELFPAY ==
[2022-11-30] VITALS (18 sets, daily range): BP systolic 108–147; BP diastolic 55–77; PULSE 76–99; RESP 17–35; TEMP 36.6; O2SAT 92–98; BMI 22.5
--- NOTE | 2022-11-30 11:34 | DI.RAD.S_ITS ---
PROCEDURE: XR CHEST 1V INDICATIONS: Shortness of breath TECHNIQUE: One view of the chest was acquired. COMPARISON: [facility], [place], XR CHEST 1V, 11/25/2021, 10:44. [facility], [place], XR CHEST 1V, 11/22/2021, 15:11. [facility], CT, CT CHEST WO CON, 11/27/2021, 9:39. [facility], CT, CT CHEST WO CON, 01/17/2022, 15:17. FINDINGS: Surgical changes and devices: Right mastectomy change and right axillary clips are seen. There is a stable left-sided chest port. Lungs and pleura: There is mild blunting of the right costophrenic angle. The left costophrenic angle is within normal limits. No focal infiltrates are seen. No pneumothorax. Mediastinum: Mediastinal contours appear normal. Heart size is normal. Bones and chest wall: No suspicious bony lesions. Age-appropriate bony degenerative changes are seen. Mild levoconvex scoliotic curvature is noted. Overlying soft tissues appear unremarkable. IMPRESSION: Mild blunting of the right costophrenic angle is seen, which is attributed to a small pleural effusion. Postoperative and degenerative changes are seen. Dictated by: Lucho Delgado M.D. on 11/30/2022 at 10:57 Approved by: Lucho Delgado M.D. on 11/30/2022 at 10:58
[2022-11-30 13:04] LABS: INR 1.1 (0.9-1.3); Prothrombin Time 12.6 SECONDS (10.1-12.7)
[2022-11-30 13:08] LABS: Hematocrit 27.5 % (36-46); Hemoglobin 9.5 g/dL (12.0-16.0); Lactate (Lactic Acid) 1.3 mmol/L (0.7-2.1); Mean Corpuscular HGB Conc 34.7 % (30-36); Mean Corpuscular Hemoglobin 35.4 PG (26-34); Mean Corpuscular Volume 102.1 fL (80-100); Red Blood Cell Count 2.69 X10^6/uL (4.0-5.2); Red Cell Distribution Width 15.5 % (11.6-14.8); White Blood Cell Count 6.8 X10^3/uL (4.5-11.0)
[2022-11-30 13:09] LABS: Alanine Aminotransferase 145 IU/L (<35); Albumin 3.9 g/dL (3.5-5.0); Albumin Globulin Ratio 1.6 (1.0-2.8); Alkaline Phosphatase 307 U/L (38-126); Aspartate Aminotransferase 281 IU/L (14-36); BUN Creatinine Ratio 21.6 (6-22); Bilirubin Total 0.7 mg/dL (0.2-1.3); Blood Urea Nitrogen 27 mg/dL (7-17); Calcium 9.8 mg/dL (8.4-10.2); Carbon Dioxide 25 mmol/L (22-32); Chloride 105 mmol/L (98-107); Estimated Glomerular Filt Rate 50 mL/min (>60); Globulin 2.5 g/dL (1.7-4.1); Glucose 101 mg/dL (70-100); HEMOLYSIS < 15 (0-50); Potassium 4.4 mmol/L (3.4-5.1); Sodium 137 mmol/L (137-145); Total Protein 6.4 g/dL (6.3-8.2)
[2022-11-30 13:10] LABS: Platelet Count 31 X10^3/uL (150-400)
[2022-11-30 13:20] LABS: NT-proBNP (BNP-Adult 18+) 2600 pg/mL (<125); Troponin I < 0.012 ng/mL (0.01-0.034)
[2022-11-30 13:21] LABS: PTT Partial Thromboplastin Tim 46 SECONDS (26-36)
[2022-11-30 13:28] LABS: Macrocytosis 1+; Nucleated Red Blood Cells 2 #/Diff
[2022-11-30 13:29] LABS: Add Manual Diff / Slide Review YES
[2022-11-30 14:46] LABS: Macrocytosis 1+; Neutrophils Absolute Manual 0 /uL (3000-5900); Total Cells Counted 100
[2022-11-30] MEDS: ACETAMINOPHEN 325 MG TABLET 975 MG PO (15:31)
--- NOTE | 2022-11-30 16:02 | PC.NURSE ---
Provided food, beverage, warm blanket for comfort.
[2022-11-30 16:42] LABS: Lipase 120 U/L (23-300)
--- NOTE | 2022-11-30 16:45 | DI.CT.S_ITS ---
PROCEDURE: CT ANGIO CHEST PE PROTOCOL INDICATIONS: left lung pain, increased SOB, metastatic lung ca TECHNIQUE: After the administration of intravenous contrast, 2 mm thick sections acquired from the pulmonary apices to the posterior costophrenic angles. 3-dimensional maximum intensity projection (MIP) coronal and sagittal reformats were then acquired through the thorax. For radiation dose reduction, the following was used: automated exposure control, adjustment of mA and/or kV according to patient size. COMPARISON: [facility], CT, CT CHEST WO CON, 01/17/2022, 15:17. FINDINGS: Image quality: Excellent. Pulmonary arteries: Pulmonary arteries are normal in size, and demonstrate no intraluminal filling defects to suggest central pulmonary embolism. Lungs and pleura: There is small right greater than left bilateral pleural effusion with adjacent compressive atelectasis in posterior aspect of bilateral lower lobes. Mild centrilobular emphysema is seen. Patient's known 5 mm right lower lobe nodule is unchanged in size and appearance series 5, image 179. No gross new pulmonary nodule is noted. No pneumothorax. Central and peripheral airways are patent. Mediastinum: Heart size is enlarged, without pericardial effusion. Subcentimeter lymph nodes are seen scattered in mediastinum and bilateral hilar region measures up to 8 mm in size. Thoracic aorta is normal in caliber and enhancement. Esophagus is normal in caliber, without hiatal hernia. Bones and chest wall: Right chest wall Port-A-Cath tip is in SVC. Previously described sclerotic area involving right anterior 3rd rib is again seen and unchanged series 4, image 69. There is also ill-defined increased sclerosis involving right anterior 5th rib not definitely seen on previous study series 4, image 106. Sclerotic lesions involving T12, T11, T5, T4, T3 and T2 vertebral bodies are noted suggestive of extensive bony metastasis progressed since previous study. Sclerotic lesion involving mid to inferior sternum is also seen series 8 image 28. Asymmetrically enlarged left thyroid lobe with a 6 mm hypodense left thyroid lobe nodule is noted. No axillary or supraclavicular adenopathy. Abdomen: Visualized upper abdominal solid organs appear normal in the early arterial phase of enhancement. IMPRESSION: 1. No evidence of pulmonary emboli. No thoracic aortic aneurysm or dissection. 2. Suggestion of bony metastasis involving multiple thoracic spine vertebral bodies as well as right anterior 3rd and 5th ribs. Likely sclerotic lesion involving mid sternum is also seen. No pathologic fracture. 3. Right greater than left bilateral small pleural effusion with patchy infiltrate/atelectasis at bilateral lung bases. Stable 5 mm right lower lobe nodule. No definite new pulmonary nodule is seen. No pneumothorax. 4. No lymphadenopathy in chest by size criteria. Dictated by: Korey Redmond M.D. on 11/30/2022 at 17:09 Approved by: Korey Redmond M.D. on 11/30/2022 at 17:17
--- NOTE | 2022-11-30 16:51 | ED.SOB ---
HPI - SOB/Dyspnea General Chief Complaint: Shortness of Breath/Dyspnea Stated Complaint: Stage 4 breast cancer, SOB, sent from oncology Time Seen by Provider: 11/30/22 12:21 Source: patient Mode of arrival: Ambulatory Limitations: no limitations History of Present Illness HPI Narrative: This is a 57-year-old female with known metastatic stage IV breast cancer with increasing shortness of breath over the past several weeks and increasing left rib back pain. Patient states over the past 4 days she is noticed a big change. She states a couple weeks ago she could walk 4 miles, yesterday she tried to walk a mi and a half and had to take multiple breaks. She denies any anterior chest pain. She states she is having pain on the sort of left side of her ribs. She has some known metastatic lesions in that area she attributed the discomfort too. She did have large effusion last summer and required chest tubes x2. She states this feel a little bit similar. She denies fevers chills, no nausea or vomiting GI or urinary symptoms no new swelling in extremities. Her last chemotherapy was October 30. Her tumor markers were increasing dramatically so they decided to change her chemotherapy but she is not started her new infusion because her platelets were 31 at her last visit. She does note they have been trying to get a PET scan for some time and they he had been canceled so she has not outpatient CT chest abdomen pelvis ordered as well as EKG with her oncology team. Patient states no daily medication she does have some PRN medications for anxiety and nausea. Very sensitive to narcotics. Denies any other allergies. No tobacco, occasional alcohol but rare, no illicit. Dr. Barbara Jo is her PCP. She follows with Oncology through [facility]. Related Data Home Medications Medication Instructions Recorded Confirmed lorazepam 0.5 mg tablet 1 tab PO PRN PRN Anxiety 11/22/21 11/22/21 ondansetron HCl 4 mg tablet 1 tab PO PRN PRN Nausea 11/22/21 11/22/21 Previous Rx's Medication Instructions Recorded furosemide 40 mg tablet (Lasix) 40 mg PO DAILY #7 tabs 11/30/22 Allergies Allergy/AdvReac Type Severity Reaction Status Date / Time latex Allergy Mild Rash Verified 11/30/22 11:33 morphine Allergy Mild Hypotension Verified 11/30/22 11:33 narcotics AdvReac Mild Hypotension Uncoded 11/25/21 11:03 Review of Systems Review of Systems ROS Unobtainable: All systems reviewed & are unremarkable except as noted in HPI and below Patient History Medical History Breast cancer, right (~06/2018) Chicken pox Depression, (~1993) Eczema Surgical History Anesthesia Hx of right mastectomy (08/05/18) Status post tubal ligation (~1995) Family History Brother Age: 79 Parkinson's disease Father Lung cancer Mother Brain cancer Sister No problems noted. Social History household members: spouse Smoking Status: Never smoker alcohol intake: current Smoking Status: Never smoker alcohol intake frequency: holidays/special occasions only Substance Use Type: does not use Exam Narrative Exam Narrative: GENERAL: Alert and oriented x three, well-appearing female in [place] distress. HEENT: Head normocephalic, atraumatic, EOMI, pupils reactive, face symmetric, moist mucous membranes NECK: Supple, full range of motion CARDIOVASCULAR: Regular rate and rhythm without murmurs, rubs or gallops. No obvious JVD. No swelling bilateral lower extremities. RESPIRATORY: Breath sounds equal bilaterally, no wheezes rales or rhonchi. No tachypnea. No accessory muscle use. Speaks in full sentences. ABDOMEN: Soft, nontender. Normoactive bowel sounds all 4 quadrants. No guarding or rebound, rigidity, no mass : No CVA tenderness EXTREMITIES: Normal range of motion, no clubbing or edema. Neurovascularly intact NEUROLOGICAL: Cranial nerves II through XII grossly intact. Moving all extremities SKIN: Warm, dry, no petechiae, no rashes or lesions. Initial Vital Signs Initial Vital Signs: Vital Signs Temperature 97.8 F 11/30/22 11:27 Pulse Rate 92 H 11/30/22 11:27 Respiratory Rate 18 11/30/22 11:27 Blood Pressure 142/71 H 11/30/22 11:27 Pulse Oximetry 97 11/30/22 11:27 Oxygen Delivery Method Room Air 11/30/22 11:27 Course Orders Ordered: ED Orders 11/30/22 11:34 XR chest 1V Stat EKG-12 Lead Stat Measure peak expiratory flow ONCE RT Consult Eval and Treat NOW 11/30/22 12:40 Complete Blood Count AUTO DIFF Stat Comprehensive Metabolic Panel Stat Lactate (Lactic Acid) Stat Lipase Stat NT-proBNP (BNP-Adult 18+) Stat PTT Partial Thromboplastin Luisito Stat Prothrombin Time INR Stat Troponin I Stat 11/30/22 16:45 CT angio chest PE protocol Stat 11/30/22 16:49 Trop I [Troponin I] Stat 11/30/22 17:05 CT abdomen pelvis w con Stat Discontinued Medications Acetaminophen (Acetaminophen 325 Mg Tablet) 975 mg PO NOW ONE Stop: 11/30/22 15:09 Last Admin: 11/30/22 15:31 Dose: 975 mg Documented By: Lidocaine/Prilocaine (Lidocaine/Prilocaine 5 Gm) 5 gm TOP NOW ONE Stop: 11/30/22 12:22 Last Admin: 11/30/22 13:10 Dose: Not Given Documented By: Vital Signs Vital signs: Vital Signs - 8 hr 11/30/22 11:27 11/30/22 11:51 11/30/22 11:52 Temperature 97.8 F Pulse Rate 92 H 78 Respiratory Rate 18 33 H Blood Pressure 142/71 H 135/69 Pulse Oximetry 97 98 Oxygen Delivery Method Room Air Room Air 11/30/22 11:52 11/30/22 12:00 11/30/22 12:00 Temperature Pulse Rate 79 80 Respiratory Rate 31 H 26 H Blood Pressure 133/71 Pulse Oximetry 98 96 Oxygen Delivery Method Room Air Room Air 11/30/22 12:30 11/30/22 12:30 11/30/22 13:00 Temperature Pulse Rate 80 Respiratory Rate 22 Blood Pressure 128/77 133/70 Pulse Oximetry 96 Oxygen Delivery Method 11/30/22 13:00 11/30/22 13:30 11/30/22 14:00 Temperature Pulse Rate 78 79 79 Respiratory Rate 25 H 19 Blood Pressure Pulse Oximetry 96 94 94 Oxygen Delivery Method 11/30/22 14:30 11/30/22 15:00 11/30/22 15:00 Temperature Pulse Rate 79 80 Respiratory Rate 20 19 Blood Pressure 132/74 Pulse Oximetry 95 95 Oxygen Delivery Method Room Air 11/30/22 15:30 11/30/22 15:30 11/30/22 16:00 Temperature Pulse Rate 76 Respiratory Rate 21 Blood Pressure 147/71 H 137/73 Pulse Oximetry 92 Oxygen Delivery Method 11/30/22 16:00 11/30/22 16:30 11/30/22 16:30 Temperature Pulse Rate 83 83 Respiratory Rate 17 25 H Blood Pressure 125/67 Pulse Oximetry 95 94 Oxygen Delivery Method 11/30/22 17:04 11/30/22 17:05 11/30/22 17:05 Temperature Pulse Rate 99 H 86 Respiratory Rate 33 H Blood Pressure 141/69 H Pulse Oximetry 93 Oxygen Delivery Method 11/30/22 17:30 11/30/22 17:30 11/30/22 18:00 Temperature Pulse Rate 82 Respiratory Rate 24 Blood Pressure 121/65 108/55 L Pulse Oximetry 94 Oxygen Delivery Method 11/30/22 18:00 11/30/22 18:30 Temperature Pulse Rate 85 86 Respiratory Rate 27 H 35 H Blood Pressure Pulse Oximetry 94 96 Oxygen Delivery Method Room Air MDM - SOB/Dyspnea Lab Data 11/30/22 12:40 11/30/22 12:40 Labs: Lab Results 11/30/22 11/30/22 11/30/22 Range/Units 12:40 12:40 12:40 WBC 6.8 (4.5-11.0) X10^3/uL RBC 2.69 L (4.0-5.2) X10^6/uL Hgb 9.5 L (12.0-16.0) g/dL Hct 27.5 L (36-46) % MCV 102.1 H (80-100) fL MCH 35.4 H (26-34) PG MCHC 34.7 (30-36) % RDW 15.5 H (11.6-14.8) % Plt Count 31 L* (150-400) X10^3/uL Neut % (Auto) Surgical Assistant Lymph % (Auto) Surgical Assistant Stanly % (Auto) Surgical Assistant Eos % (Auto) Surgical Assistant Baso % (Auto) Surgical Assistant Neut # (Auto) Surgical Assistant Lymph # (Auto) Surgical Assistant Stanly # (Auto) Surgical Assistant Eos # (Auto) Surgical Assistant Baso # (Auto) Surgical Assistant Total Counted Cancelled Seg Neutrophils % Cancelled Band Neutrophils % Cancelled Lymphocytes % (Manual) Cancelled Atypical Lymphs % Cancelled Monocytes % (Manual) Cancelled Eosinophils % (Manual) Cancelled Basophils % (Manual) Cancelled Metamyelocytes % Cancelled Myelocytes % Cancelled Promyelocytes % Cancelled Blast Cells % Cancelled Neutrophils # (Manual) Cancelled Nucleated RBCs 2 H ( - 0) #/Diff Differential Comment Cancelled Plasma Cells Cancelled RBC Morphology Not Reportable Macrocytosis 1+ H PT 12.6 (10.1-12.7) SECONDS INR 1.1 (0.9-1.3) APTT (26-36) SECONDS Sodium 137 (137-145) mmol/L Potassium 4.4 (3.4-5.1) mmol/L Chloride 105 (98-107) mmol/L Carbon Dioxide 25 (22-32) mmol/L BUN 27 H (7-17) mg/dL Creatinine 1.25 H (0.52-1.04) mg/dL Estimated GFR 50 L (>60) mL/min BUN/Creatinine Ratio 21.6 (6-22) Glucose 101 H (70-100) mg/dL Lactate (0.7-2.1) mmol/L Calcium 9.8 (8.4-10.2) mg/dL Total Bilirubin 0.7 (0.2-1.3) mg/dL AST 281 H (14-36) IU/L ALT 145 H (<35) IU/L Alkaline Phosphatase 307 H (38-126) U/L Troponin I < 0.012 (0.01-0.034) ng/mL NT-Pro-B Natriuret Pep 2600 H (<125) pg/mL Total Protein 6.4 (6.3-8.2) g/dL Albumin 3.9 (3.5-5.0) g/dL Globulin 2.5 (1.7-4.1) g/dL Albumin/Globulin Ratio 1.6 (1.0-2.8) Lipase (23-300) U/L 11/30/22 11/30/22 11/30/22 Range/Units 12:40 12:40 12:40 WBC (4.5-11.0) X10^3/uL RBC (4.0-5.2) X10^6/uL Hgb (12.0-16.0) g/dL Hct (36-46) % MCV (80-100) fL MCH (26-34) PG MCHC (30-36) % RDW (11.6-14.8) % Plt Count (150-400) X10^3/uL Neut % (Auto) Lymph % (Auto) Stanly % (Auto) Eos % (Auto) Baso % (Auto) Neut # (Auto) Lymph # (Auto) Stanly # (Auto) Eos # (Auto) Baso # (Auto) Total Counted 100 Seg Neutrophils % 57.0 Band Neutrophils % 7.0 Lymphocytes % (Manual) 18.0 L Atypical Lymphs % Monocytes % (Manual) 15.0 H Eosinophils % (Manual) Basophils % (Manual) Metamyelocytes % 3.0 H Myelocytes % Promyelocytes % Blast Cells % Neutrophils # (Manual) 0 L Nucleated RBCs ( - 0) #/Diff Differential Comment Plasma Cells RBC Morphology Not Reportable Macrocytosis 1+ H PT (10.1-12.7) SECONDS INR (0.9-1.3) APTT 46 H (26-36) SECONDS Sodium (137-145) mmol/L Potassium (3.4-5.1) mmol/L Chloride (98-107) mmol/L Carbon Dioxide (22-32) mmol/L BUN (7-17) mg/dL Creatinine (0.52-1.04) mg/dL Estimated GFR (>60) mL/min BUN/Creatinine Ratio (6-22) Glucose (70-100) mg/dL Lactate 1.3 (0.7-2.1) mmol/L Calcium (8.4-10.2) mg/dL Total Bilirubin (0.2-1.3) mg/dL AST (14-36) IU/L ALT (<35) IU/L Alkaline Phosphatase (38-126) U/L Troponin I (0.01-0.034) ng/mL NT-Pro-B Natriuret Pep (<125) pg/mL Total Protein (6.3-8.2) g/dL Albumin (3.5-5.0) g/dL Globulin (1.7-4.1) g/dL Albumin/Globulin Ratio (1.0-2.8) Lipase (23-300) U/L 11/30/22 11/30/22 Range/Units 12:40 16:49 WBC (4.5-11.0) X10^3/uL RBC (4.0-5.2) X10^6/uL Hgb (12.0-16.0) g/dL Hct (36-46) % MCV (80-100) fL MCH (26-34) PG MCHC (30-36) % RDW (11.6-14.8) % Plt Count (150-400) X10^3/uL Neut % (Auto) Lymph % (Auto) Stanly % (Auto) Eos % (Auto) Baso % (Auto) Neut # (Auto) Lymph # (Auto) Stanly # (Auto) Eos # (Auto) Baso # (Auto) Total Counted Seg Neutrophils % Band Neutrophils % Lymphocytes % (Manual) Atypical Lymphs % Monocytes % (Manual) Eosinophils % (Manual) Basophils % (Manual) Metamyelocytes % Myelocytes % Promyelocytes % Blast Cells % Neutrophils # (Manual) Nucleated RBCs ( - 0) #/Diff Differential Comment Plasma Cells RBC Morphology Macrocytosis PT (10.1-12.7) SECONDS INR (0.9-1.3) APTT (26-36) SECONDS Sodium (137-145) mmol/L Potassium (3.4-5.1) mmol/L Chloride (98-107) mmol/L Carbon Dioxide (22-32) mmol/L BUN (7-17) mg/dL Creatinine (0.52-1.04) mg/dL Estimated GFR (>60) mL/min BUN/Creatinine Ratio (6-22) Glucose (70-100) mg/dL Lactate (0.7-2.1) mmol/L Calcium (8.4-10.2) mg/dL Total Bilirubin (0.2-1.3) mg/dL AST (14-36) IU/L ALT (<35) IU/L Alkaline Phosphatase (38-126) U/L Troponin I < 0.012 (0.01-0.034) ng/mL NT-Pro-B Natriuret Pep (<125) pg/mL Total Protein (6.3-8.2) g/dL Albumin (3.5-5.0) g/dL Globulin (1.7-4.1) g/dL Albumin/Globulin Ratio (1.0-2.8) Lipase 120 (23-300) U/L Imaging Data Chest x-ray: Radiologist's Impression: Dorys Newell??57??F??1965 ? Allergy/Adv: latex, morphine, [narcotics] (More??) Close Chest X-Ray (Signed) Lucho Delgado - 11/30/[address] (Signed) Luke Philip - 01/17/22 DI Result CC 01/05/22 DI Result CC 12/24/21 DI Result 12/21/[address] (Signed) Sunshine Kerr - 11/27/21 Chest X-Ray (Signed) PeytonRob - 11/25/21 Chest X-Ray (Signed) Korey Redmond - 11/22/21 PET, Tumor Imaging Skull-Mid Thigh (Signed) Patricia Doan - 10/25/21 Brain MRI (Signed) Jack Caraballo - 10/13/21 Mammogram Screening (Signed) Edenilson North - 09/08/21 Lymph Node Biopsy Ultrasound (Signed) Dylan Matos - 12/30/20 Abdomen Ultrasound (Signed) Belkis Jackson - 12/12/20 Mammogram Screening (Signed) Raul Montejo - 09/06/20 Telemetry Strips 04/06/20 Mammogram Screening (Signed) Norris Larson - 07/27/19 Chest X-Ray (Signed) Korey Redmond - 08/26/18 [place] Node Imaging Nuclear Med (Signed) Dylan Matos - 08/05/18 Breast MRI (Signed) Sunshine Kerr - 07/29/18 Mammogram, Additional Views (Signed) Sunshine Kerr - 06/25/18 Mammogram Screening (Signed) Norris Larson - 06/19/18 Launch?[address] [address] XRay Report Signed Patient: Dorys Newell MR#: [id number] : 1965 Acct:[id number] Age/Sex: 57 / F Date of Service: 11/30/22 Loc: ED Accession Number: [id number] ?? Procedure: XR chest 1V Ordering Provider: Sonia Vale D.O. PROCEDURE:? XR CHEST 1V ? INDICATIONS:? Shortness of breath ? TECHNIQUE:? One view of the chest was acquired.? ? COMPARISON:? [facility], CR, XR CHEST 1V, 11/25/2021, 10:44.? [facility], CR, XR CHEST 1V, 11/22/2021, 15:11.? [facility], CT, CT CHEST WO CON, 11/27/2021, 9:39.? [facility], CT, CT CHEST WO CON, 01/17/2022, 15:17. ? FINDINGS:? ? Surgical changes and devices:? Right mastectomy change and right axillary clips are seen. ?There is a stable left-sided chest port. ? Lungs and pleura:? There is mild blunting of the right costophrenic angle.? The left costophrenic angle is within normal limits.? No focal infiltrates are seen.? No pneumothorax. ? Mediastinum:? Mediastinal contours appear normal.? Heart size is normal.? ? Bones and chest wall:? No suspicious bony lesions.? Age-appropriate bony degenerative changes are seen.? Mild levoconvex scoliotic curvature is noted. ? ? Overlying soft tissues appear unremarkable.? IMPRESSION:? Mild blunting of the right costophrenic angle is seen, which is attributed to a small pleural effusion. ? Postoperative and degenerative changes are seen.? ? ? Dictated by: Lucho Delgado M.D. on 11/30/2022 at 10:57 ? ? Approved by: Lucho Delgado M.D. on 11/30/2022 at 10:58?? ECG Data Attestation: I personally reviewed and interpreted this ECG as follows: Interpretation: Normal rhythm, rate 81 KS 140 QRS is 76 QTC 418, no acute ST elevation. No acute changes appreciated. MDM Narrative Medical decision making narrative: This is a 57-year-old female with known stage IV metastatic breast cancer who has had increasing shortness of breath and discomfort on the left side of her lower chest. Patient states they have attempted to get PET scans but had difficulty secondary to technical issues she states they have been canceled several times. They have noted that her tumor markers have been increasing and that she is supposed to switch chemotherapies but was held before the newest infusion because platelets were 31 last week. Patient describes dyspnea on exertion, and left chest discomfort. She has had prior thoracic chest tubes for effusion a year ago. She is feels a little bit similar. Chest x-ray shows possible small effusion with some blunting of costophrenic angle but not clear cause of her symptoms, labs show white count of 6.8 hemoglobin appears stable at 9.5 platelets are low at 31 today she reports being 31 last week. So has not had a decrease in the past week, does have elevated metamyelocytes and monocytes. No bandemia. Electrolytes show BUN 27 creatinine of 1.25, otherwise normal electrolytes, glucose 101 lactate negative bilirubin is normal range at 0.7 but AST ALT and alk-phos are elevated at 281, 145 and 307 past visits alk-phos has been in the 150-180 range with 30s for the AST ALT. Troponin was negative, this was repeated and is negative. BNP is 2600. Based on patient's history, metastatic breast cancer with increasing shortness of breath CT angio was obtained, patient was supposed to have outpatient imaging with CT chest abdomen pelvis with contrast so this was included today as well as her bump in LFTs to evaluate for any other metastatic lesions to the liver. CT shows no pulmonary emboli, no aneurysm or dissection, bone metastases multiple thoracic spinal vertebral bodies anterior right 3rd and 5th ribs. Likely lesion mid sternum. No fracture. Right greater than left bilateral small pleural effusion patchy infiltrate/atelectasis at bases, stable 5 mm right lower lobe nodule, no lymphadenopathy. CT abdomen pelvis shows lesions in the liver. Reviewed findings with patient. She elects to not have a dose of Lasix here in the department will start in the morning. She does not appear to have sepsis or infection at this time. She is not had any hypoxia, she feels that her breathing is appropriate. Patient feels comfortable with discharge home with short-term follow up with her oncology team. Discussed return precautions and low threshold to return. Discharge Plan Departure Patient Disposition: Home Clinical Impression: Dyspnea, CHF (congestive heart failure) Activity Restrictions/Additional Instructions: Your imaging today shows small pleural effusions bilaterally, no pulmonary nodules seen that are new there is a stable right lower lobe nodule seen on old imaging. Your imaging does show some new spots in the liver. Please share the CT reports from your chest and abdomen with your oncology team. Take Lasix once daily until gone. Prescription sent to [facility] in [place]. Please return for increasing or worsening chest pain, shortness of breath, lightheadedness or passing out, new swelling in your extremities or other new or concerning changes. Prescriptions: New furosemide [Lasix] 40 mg tablet 40 mg PO DAILY Qty: 7 0RF No Action lorazepam 0.5 mg tablet 1 tab PO PRN PRN (Reason: Anxiety) ondansetron HCl 4 mg tablet 1 tab PO PRN PRN (Reason: Nausea) Referrals: Barbara Jo ARNP [Primary Care Provider] - Stand Alone Forms: Patient Portal/API
--- NOTE | 2022-11-30 17:05 | DI.CT.S_ITS ---
PROCEDURE: CT ABDOMEN PELVIS W CON INDICATIONS: left lung pain, increased SOB, metastatic lung ca TECHNIQUE: After the administration of intravenous contrast, axial sections acquired from the lung bases to the pubic symphysis. Coronal and sagittal reformats were performed. For radiation dose reduction, the following was used: automated exposure control, adjustment of mA and/or kV according to patient size. COMPARISON: [place], [place], [place] PET CT FUSION SKULL 2 THIGH, 10/25/2021, 8:52. FINDINGS: Image quality: Excellent. Lung bases: Please correlate with CT angiogram of chest findings from the same day. Heart: Heart size is enlarged, no significant pericardial effusion. ABDOMEN: Liver: Innumerable hypodense lesions are seen scattered in liver parenchyma and measures up to 1.6 cm in size in posterior right hepatic lobe series 2, image 23 and 8 mm in size in left hepatic lobe series 2, image 19. Finding is highly suggestive of extensive hepatic metastatic disease. Gallbladder: Gallbladder is surgically absent. Biliary ducts: Unremarkable. Pancreas: Unremarkable. Spleen: Unremarkable. Adrenal Glands: Unremarkable. Kidneys and Ureters: Unremarkable. Stomach and Bowel: There is no bowel obstruction. No gastric or small bowel wall thickening. No mesenteric fat stranding. No abscess collection. Peritoneum: No abnormal intraperitoneal fluid. No free air. Ventral Wall: No hernias. Abdominal Nodes: No retroperitoneal or mesenteric adenopathy by size criteria. Vessels: Aorta and inferior vena cava are normal in size. PELVIS: Pelvic Organs: Unremarkable. Bladder: Unremarkable. Pelvic Nodes: No enlarged lymph nodes. Miscellaneous: No hernias are seen. Bones: Sclerotic lesions are seen in right inferior sacrum, bilateral iliac bones. Bilateral superior and inferior pubic rami, T10, T12 and L4 vertebral bodies suggestive of extensive bony metastasis. IMPRESSION: 1. Interval development of innumerable hypodense lesions scattered in liver parenchyma suggestive of extensive liver metastasis. 2. Bony metastases as described above, no pathologic fracture is seen. 3. No bowel obstruction or abnormal bowel wall thickening. No free fluid or free air. 4. No abdominal or pelvic lymphadenopathy by size criteria. Dictated by: Korey Redmond M.D. on 11/30/2022 at 17:17 Approved by: Korey Redmond M.D. on 11/30/2022 at 17:22
[2022-11-30 17:21] LABS: Troponin I < 0.012 ng/mL (0.01-0.034)
== END 2022-11-30 18:52 | disposition home or self-care (01) ==
PROVIDERS: Emergency Provider Emergency Medicine; PCP Internal Medicine
DX: R06.00 Dyspnea, unspecified (principal); I50.9 Heart failure, unspecified; C50.911 Malignant neoplasm of unspecified site of right female breast
CPT/HCPCS: 36415; 71045; 71275; 74177; 80053; 83605; 83690; 83880; 84484; 85007; 85025; 85610; 85730; 93005; 99284; 99285; J1642

== ENCOUNTER → 2023-02-04 12:14 | Outpatient (CLI) | payer OTHER, SELFPAY ==
[2023-02-04 13:38] LABS: Alanine Aminotransferase 22 IU/L (<35); Albumin Globulin Ratio 1.6 (1.0-2.8); Alkaline Phosphatase 380 U/L (38-126); Aspartate Aminotransferase 41 IU/L (14-36); BUN Creatinine Ratio 19.7 (6-22); Bilirubin Total 0.5 mg/dL (0.2-1.3); Blood Urea Nitrogen 13 mg/dL (7-17); Calcium 8.3 mg/dL (8.4-10.2); Carbon Dioxide 22 mmol/L (22-32); Chloride 110 mmol/L (98-107); Estimated Glomerular Filt Rate > 60 mL/min (>60); Globulin 2.5 g/dL (1.7-4.1); Glucose 114 mg/dL (80-110); HEMOLYSIS < 15 (0-50); Potassium 4.2 mmol/L (3.4-5.1); Sodium 135 mmol/L (137-145); Total Protein 6.5 g/dL (6.3-8.2)
[2023-02-04 13:44] LABS: Hemoglobin 10.1 g/dL (12.0-16.0); Mean Corpuscular HGB Conc 34.8 % (30-36); Mean Corpuscular Hemoglobin 35.7 PG (26-34); Mean Corpuscular Volume 102.5 fL (80-100); Platelet Count 56 X10^3/uL (150-400); Red Blood Cell Count 2.83 X10^6/uL (4.0-5.2); Red Cell Distribution Width 25.8 % (11.6-14.8); White Blood Cell Count 3.2 X10^3/uL (4.5-11.0)
[2023-02-04 13:52] LABS: Anisocytosis 3+; Neutrophils Absolute Manual 2304 /uL (3000-5900); Total Cells Counted 100
[2023-02-04 13:53] LABS: Macrocytosis 2+
[2023-02-04 13:55] LABS: Schistocytes 1+
[2023-02-04 13:56] LABS: Toxic Granulation Present
[2023-02-05 06:08] LABS: CA 15-3 37.4 U/mL (0.0-25.0)
== END ==
PROVIDERS: Radiology Diagnostic Radiology; PCP Internal Medicine; Referring Provider Internal Medicine Hematology & Oncology; Visit Provider Internal Medicine Hematology & Oncology
DX: C50.911 Malignant neoplasm of unspecified site of right female breast (principal)
CPT/HCPCS: 36415; 80053; 85025; 86300

== ENCOUNTER → 2023-02-04 12:33 | Outpatient (CLI) | payer OTHER, SELFPAY ==
--- NOTE | 2023-02-04 | DI.CT.S_ITS ---
PROCEDURE: CT CHEST W CON INDICATIONS: BREAST CANCER TECHNIQUE: After the administration of intravenous contrast, 5 mm thick sections acquired from the pulmonary apices to the posterior costophrenic angles. 1 mm axial lung, 5 mm thick coronal and sagittal reformats and 7 mm axial MIP were acquired. For radiation dose reduction, the following was used: automated exposure control, adjustment of mA and/or kV according to patient size. COMPARISON: [facility], [place], [place] FUSION SKULL 2 THIGH, 10/25/2021, 8:52. [facility], CT, CT ABDOMEN PELVIS W CON, 11/30/2022, 16:56. [facility], CT, CT ANGIO CHEST PE PROTOCOL, 11/30/2022, 16:56. [facility], CT, CT CHEST WO CON, 01/17/2022, 15:17. FINDINGS: Lungs and pleura: Resolution of bilateral pleural effusions. No consolidation. 4 mm right lower lobe nodule (3/181), unchanged. Mediastinum: . No pericardial effusion. No mediastinal or hilar adenopathy by size criteria. Thoracic aorta and central pulmonary arteries are normal in size. Esophagus is normal in caliber. No hiatal hernia. Bones and chest wall: Left chest port present with tip of the catheter terminating near the superior cavoatrial junction. Right mastectomy. No axillary or supraclavicular adenopathy by size criteria. Multiple sclerotic lesions present throughout the imaged skeleton as before. Some appear increased in size/sclerosis, for example at the manubrium. Possible increase in superior endplate compression of T4 with associated sclerotic lesion. Abdomen: Innumerable liver lesions present as seen previously. The liver is incompletely imaged. IMPRESSION: 1. Resolution of bilateral pleural effusions. 2. Multifocal osseous metastatic disease present as before. At least 1 lesion appears increased in size/sclerosis, which could represent flare phenomenon/response to therapy but worsening disease cannot be excluded. Attention on follow-up recommended. 3. Multiple liver lesions present as before. Dictated by: Raul Alvarado M.D. on 02/04/2023 at 16:20 Approved by: Raul Alvarado M.D. on 02/04/2023 at 17:00
== END ==
PROVIDERS: PCP Internal Medicine; Referring Provider Internal Medicine Hematology & Oncology; Visit Provider Internal Medicine Hematology & Oncology
DX: C50.911 Malignant neoplasm of unspecified site of right female breast (principal); C79.51 Secondary malignant neoplasm of bone; K76.9 Liver disease, unspecified
CPT/HCPCS: 36415; 71260; 80053; 85025; 86300; Q9967

== ENCOUNTER → 2023-03-28 07:01 | Outpatient (CLI) | payer OTHER, SELFPAY ==
--- NOTE | 2023-03-28 | DI.ECHO.S_ITS ---
[facility] +---------+ : : [address] : [place] : : : : [id number] : : : : Phone: [phone]---------+ Echocardiogram Report + + :Name: CARISSA LANDAVERDE Study Date: 03/28/2023 Height: 68 in : :[facility] ReadingLocation: Weight: 135 lb : : Gender: Female BSA: 1.7 m2 : :: 1965 Age: 58 yrs BP: 113/70 mmHg: :Reason For Study: BREAST CANCER : :Ordering Physician: ERIN IBARRAPerformed By: Anita Bliss : :Referring: ERIN IBARRA : + + Interpretation Summary 1) Mildly enlarged left ventricle with low normal sysotlic function (EF 50- 55%). Left ventricular global longitudinal strain average is -17.2%. 2) Normal right ventricular size and function. 3) No significant valvular abnormalities. 4) No prior Echo available for comparison. Procedure: A two-dimensional transthoracic echocardiogram with color flow and Doppler was performed. The study quality was technically adequate. There is no prior echocardiogram noted for this patient. The patient was in sinus rhythm with heart rates between 78-87 bpm during the exam. Left Ventricle: The left ventricle is mildly dilated. There is normal left ventricular wall thickness. The ejection fraction is estimated to be 50-55%. Left ventricular global longitudinal strain average is -17.2%. There are no focal wall motion abnormalities. Right Ventricle: The right ventricle is normal in size and function. Atria: The left atrial size is normal. Right atrial size is normal. There is no Doppler evidence for an interatrial shunt. Mitral Valve: The mitral valve is normal in structure and function. There is mild mitral regurgitation. Aortic Valve: The aortic valve is trileaflet. The aortic valve opens well. There is no aortic valve stenosis. There is trace aortic regurgitation. Tricuspid Valve: The tricuspid valve is normal in structure and function. There is a trace or physiologic amount of tricuspid regurgitation. Pulmonary artery pressures cannot be estimated because of the lack of a measurable TR jet velocity. Pulmonic Valve: The pulmonic valve leaflets are thin and pliable; valve motion is normal. There is trace pulmonic regurgitation. Great Vessels: The aortic root is normal size. The dimensions of the ascending aorta are normal. The IVC is dilated (diameter is greater than 2.1 cm) yet it collapses greater than 50% with a sniff. This suggests a right atrial pressure of 8 mm Hg. Pericardium/ Pleura There is no pericardial effusion. There has been no significant change since the previous study. MMode/2D Measurements & Calculations LVIDd: 5.6 cm LVOT diam: 2.1 cm LVIDs: 4.1 cm Ao root diam: 3.8 cm FS: 27.0 % asc Aorta Diam: 3.1 cm EPSS: 0.99 cm Ao Arch Diam (Prox Trans): 3.0 cm IVSd: 0.72 cm LVPWd: 0.69 cm LV hathaway. diameter/BSA (cm/m^2): 3.3 LV sys. diameter/BSA (cm/m^2): 2.4 LA A2 area: 15.2 cm2 RA long axis: 5.1 cm LA A4 area: 20.1 cm2 RA area: 17.6 cm2 LA length (vol): 5.2 cm RA vol: 51.7 ml LA vol: 50.1 ml RA : 29.9 ml/m2 LA vol index: 29.0 ml/m2 IVC diam: 2.8 cm RVD1 (basal): 3.4 cm RVD2 (mid): 2.3 cm TAPSE: 1.7 cm Doppler Measurements & Calculations Ao V2 max: 105.9 cm/sec LVOT Max Aren: 84.1 cm/sec Ao V2 mean: 80.5 cm/sec LV V1 max P.8 mmHg Ao max P.5 mmHg LV V1 VTI: 17.0 cm Ao mean P.8 mmHg BARRIE(I,D): 2.3 cm2 Ao V2 VTI: 24.4 cm BARRIE(V,D): 2.7 cm2 sev ratio: 0.70 BARRIE indexed to BSA (cm^2/m^2): 1.3 MV E max aren: 38.9 cm/sec PA V2 max: 89.9 cm/sec MV A max aren: 48.0 cm/sec PA V2 mean: 64.3 cm/sec MV E/A: 0.81 PA mean P.8 mmHg Med Peak E' Aren: 5.9 cm/sec PA pr(Accel): 31.0 mmHg E/E' med: 6.6 Lat Peak E' Aren: 7.4 cm/sec E/E' lat: 5.3 E/e' average: 6.0 MV dec time: 0.17 sec SV(LVOT): 56.7 ml Reading Physician:10:56 AM
== END ==
PROVIDERS: PCP Internal Medicine; Referring Provider Internal Medicine Hematology & Oncology; Visit Provider Internal Medicine Hematology & Oncology
DX: C50.611 Malignant neoplasm of axillary tail of right female breast (principal); C77.3 Secondary and unspecified malignant neoplasm of axilla and upper limb lymph nodes; C79.51 Secondary malignant neoplasm of bone; Z17.1 Estrogen receptor negative status [ER-]
CPT/HCPCS: 93306; 93356

== ENCOUNTER → 2023-03-29 08:00 | Outpatient (CLI) | payer OTHER, SELFPAY ==
--- NOTE | 2023-03-29 | DI.CT.S_ITS ---
PROCEDURE: CT CHEST ABD PEL W CON INDICATIONS: BREAST CANCER TECHNIQUE: After the administration of oral and intravenous contrast, axial sections acquired from the supraclavicular neck to the pubic symphysis. Coronal and sagittal reformats were performed. For radiation dose reduction, the following was used: automated exposure control, adjustment of mA and/or kV according to patient size. COMPARISON: [facility], CT, CT CHEST WO CON, 01/17/2022, 15:17. [facility], NM, NM PET CT FUSION SKULL 2 THIGH, 10/25/2021, 8:52. [facility], CT, CT ANGIO CHEST PE PROTOCOL, 11/30/2022, 16:56. [facility], CT, CT CHEST W CON, 02/04/2023, 13:52. [facility], CT, CT ABDOMEN PELVIS W CON, 11/30/2022, 16:56. FINDINGS: Image quality: Excellent. CHEST: Lower Neck: No enlarged lymph nodes. Thyroid: Within normal limits. Axillae: No enlarged lymph nodes. Chest Wall: Right mastectomy. There is a kate cath in the left anterior chest. Lungs and Airways: Stable 3 mm nodule in the anterior medial aspect of right upper lobe (series 6, image 48). Subpleural densities in right middle lobe, lingula, and both lower lobes are most likely scars and atelectasis. No consolidation or suspicious nodules. Pleura: No pneumothorax or pleural effusions. Heart: Heart size is normal. No pericardial effusion. Thoracic Vessels: The aorta and pulmonary arteries demonstrate normal size. Mediastinum and Ofelia: No enlarged lymph nodes. Esophagus: No wall thickening. Small hiatal hernia. ABDOMEN: Liver: Innumerable hepatic masses are less conspicuous. There are 2 enhancing nodules in the peripheral aspect of the right hepatic lobe measuring 0.9 cm (series 2, image 56 and 1.2 cm (series 2, image 57). Gallbladder: Unremarkable. Biliary ducts: Unremarkable. Pancreas: Unremarkable. Spleen: Unremarkable. Adrenal Glands: Unremarkable. Kidneys and Ureters: Unremarkable. Stomach and Bowel: Stomach, small bowel loops, and colon are unremarkable. There is diffuse colonic wall thickening, suggesting mild colitis. Peritoneum: No abnormal intraperitoneal fluid. No free air. Ventral Wall: No hernia. Abdominal Nodes: No retroperitoneal or mesenteric adenopathy by size criteria. Vessels: Aorta and inferior vena cava are normal in size. PELVIS: Pelvic Organs: Unremarkable. Bladder: Unremarkable. Pelvic Nodes: No enlarged lymph nodes. Miscellaneous: No inguinal hernias are seen. Bones: There are innumerable sclerotic bone lesions consistent with osseous metastasis. Compared with the previous CTs, there is increased osseous sclerosis. Mild pathological fracture is noted in T 4, T7, and L4. IMPRESSION: 1. Right mastectomy. No findings to suggest local recurrence of breast cancer. 2. No lymphadenopathy in thorax, abdomen or pelvis. 3. Innumerable hepatic lesions seen on previous CTs are less conspicuous. There are 2 new enhancing nodules in the right hepatic lobe. The CT findings may be related to slight differences in timing of contrast enhancement, rather than worsening or improvement of hepatic metastasis. 4. Extensive osseous metastatic disease. There is increased osseous sclerosis compared to the last exam. 5. Mild diffuse colonic wall thickening suggesting mild colitis. Dictated by: Pratibha Doan M.D. on 03/29/2023 at 11:59 Approved by: Pratibha Doan M.D. on 03/29/2023 at 12:40
[2023-03-29 08:34] LABS: Estimated Glomerular Filt Rate > 60 mL/min (>60)
== END ==
PROVIDERS: Radiology Diagnostic Radiology; PCP Internal Medicine; Referring Provider Internal Medicine Hematology & Oncology; Visit Provider Internal Medicine Hematology & Oncology
DX: C50.611 Malignant neoplasm of axillary tail of right female breast (principal); C79.51 Secondary malignant neoplasm of bone; K76.9 Liver disease, unspecified; Z90.11 Acquired absence of right breast and nipple
CPT/HCPCS: 36415; 71260; 74177; 82565; Q9967

== ENCOUNTER → 2023-05-07 09:59 | Outpatient (CLI) | payer OTHER, SELFPAY ==
--- NOTE | 2023-05-07 | DI.CT.S_ITS ---
PROCEDURE: CT ABDOMEN PELVIS W CON INDICATIONS: MET BREAST CANCER / LAB EO TECHNIQUE: After the administration of oral and intravenous contrast, axial sections were acquired from the lung bases to the pubic symphysis. Coronal and sagittal reformats were performed. For radiation dose reduction, the following was used: automated exposure control, adjustment of mA and/or kV according to patient size. COMPARISON:[facility], CT, CT ABDOMEN PELVIS W CON, 11/30/2022, 16:56. [facility], CT, CT CHEST ABD PEL W CON, 03/29/2023, 9:17. FINDINGS: Image quality: Good Lower chest: Right mastectomy changes. Scattered scarring and atelectasis at the lung bases. No drainable pleural effusion. Partially seen central catheter. No hiatal hernia. Heart size is at the upper limit of normal. Solid organs: Compared to November, significantly decreased conspicuity of numerous liver lesions. These were previously hypoattenuating. However, there is increased conspicuity of hypervascular lesions in the liver, for example in segment 7 measuring 1.2 centimeters (2/23). Gallbladder is under distended. No pathologic dilation of the biliary system or pancreatic duct. Borderline splenomegaly at about 13 centimeters. No adrenal nodules. Mild bilateral pelviectasis without hydronephrosis. No suspicious enhancing solid renal mass. Vessels and lymph nodes: The main portal vein appears patent. No abdominal aortic aneurysm. No pathologic lymph nodes by size criteria. Bowel and peritoneum: No evidence of small bowel obstruction. No pathologic ascites. There is nonspecific trace fat stranding in the omentum and peritoneum, for example along the right pericolic gutter. Body wall: Tiny fat containing umbilical hernia. Pelvis: Bladder is unremarkable. Reproductive organs appear unremarkable on limited CT evaluation. Bones: Sclerotic confluent metastases, overall similar compared to March, more sclerotic compared to November IMPRESSION: Continued increased prominence of hypervascular liver lesions that do not have the same imaging characteristics as the hypovascular metastatic disease seen in November 2022, which have significantly decreased. Liver MRI is suggested for further evaluation. Sclerotic bone lesions have increased compared to November, which may be an effect of treatment. Nonspecific mild fat stranding in the peritoneum and omentum, for example in the right paracolic gutter. Attention on follow-up in the setting of malignancy history. Other findings as above. Dictated by: Trace Pappas M.D. on 05/07/2023 at 12:40 Approved by: Trace Pappas M.D. on 05/07/2023 at 12:49
[2023-05-07 10:45] LABS: Estimated Glomerular Filt Rate > 60 mL/min (>60)
== END ==
PROVIDERS: Radiology Diagnostic Radiology; PCP Internal Medicine; Referring Provider Internal Medicine Hematology & Oncology; Visit Provider Internal Medicine Hematology & Oncology
DX: C50.911 Malignant neoplasm of unspecified site of right female breast (principal); C77.3 Secondary and unspecified malignant neoplasm of axilla and upper limb lymph nodes; C79.51 Secondary malignant neoplasm of bone; C78.7 Secondary malignant neoplasm of liver and intrahepatic bile duct
CPT/HCPCS: 36415; 74177; 82565; Q9967

== ENCOUNTER → 2023-05-17 10:11 | Outpatient (CLI) | payer OTHER, SELFPAY ==
--- NOTE | 2023-05-17 10:13 | DI.CT.S_ITS ---
PROCEDURE: CT CHEST W CON INDICATIONS: BREAST CANCER/RT SHOULDER PAIN TECHNIQUE: After the administration of intravenous contrast, 5 mm thick sections acquired from the pulmonary apices to the posterior costophrenic angles. 1 mm axial lung, 5 mm thick coronal and sagittal reformats and 7 mm axial MIP were acquired. For radiation dose reduction, the following was used: automated exposure control, adjustment of mA and/or kV according to patient size. COMPARISON: [facility], CT, CT CHEST ABD PEL W CON, 03/29/2023, 9:17. [facility], CT, CT CHEST W CON, 02/04/2023, 13:52. FINDINGS: Image quality: Diagnostic. Lower Neck: No enlarged lymph nodes. Thyroid: No thyroid nodules which require sonographic follow up, per consensus guidelines. Axillae: No enlarged lymph nodes. Chest Wall: Unremarkable. Bones: Extensive sclerotic bony metastatic disease is similar in appearance to the most recent prior study, progressed since the January 2023 study a pathologic inferior endplate compression of T7 had progressed between the prior 2 studies. There is no further progression of this compression fracture. Mild pathologic superior endplate compressions of T2 and T4 are stable. No obvious extension of soft tissue mass into the spinal canal. Right scapula is involves in sclerotic metastatic disease, as are most bones. There is no pathologic scapular fracture noted. Lungs and Pleura: No pneumothorax or pleural effusions. Stable ill-defined 3 mm nodular density at the anterior medial left upper lobe on current image 52/3 and previous image 48/6. No additional pulmonary nodules. Heart: Heart size is normal. No pericardial effusion. Thoracic Vessels: The aorta and pulmonary arteries demonstrate normal size. Mediastinum and Ofelia: No enlarged lymph nodes. Esophagus: No wall thickening. No hiatal hernia. Upper Abdomen: Visualized upper abdomen solid organs and bowel loops appear normal. IMPRESSION: 1. Extensive sclerotic metastatic disease is stable since the most recent previous study. Multiple mild stable pathologic compression fractures. No pathologic compression fracture of the right scapula noted. This bone is involved in bony metastatic disease. 2. Findings are otherwise stable. No evidence of acute pulmonary process. 3 mm it ill-defined indeterminate stable left apical pulmonary nodule. Dictated by: Blayne Lujan M.D. on 05/17/2023 at 13:08 Approved by: Blayne Lujan M.D. on 05/17/2023 at 13:28
== END ==
LOC: CT 10:12
PROVIDERS: PCP Internal Medicine; Referring Provider Internal Medicine Hematology & Oncology; Visit Provider Internal Medicine Hematology & Oncology
DX: C50.611 Malignant neoplasm of axillary tail of right female breast (principal); C79.51 Secondary malignant neoplasm of bone; M84.58XA Pathological fracture in neoplastic disease, other specified site, initial encounter for fracture; M25.511 Pain in right shoulder
CPT/HCPCS: 71260; Q9967

== ENCOUNTER → 2023-06-18 12:23 | Outpatient (CLI) | payer OTHER, SELFPAY ==
--- NOTE | 2023-06-18 12:25 | DI.CT.S_ITS ---
PROCEDURE: CT ABDOMEN LIVER PROTOCOL INDICATIONS: Breast cancer TECHNIQUE: 4 phase scanning was performed. Non-contrast 5 mm axial sections acquired from the diaphragm to the iliac crests. Following the administration of intravenous contrast, 5 mm thick arterial-phase, portal venous-phase, and 5-minute delayed phase images were acquired through the liver. 5 mm thick coronal and sagittal reformats were performed. For radiation dose reduction, the following was used: automated exposure control, adjustment of mA and/or kV according to patient size. COMPARISON: [facility], CT, CT CHEST W CON, 05/17/2023, 10:46. FINDINGS: Image quality: Excellent. Lower chest: Mild atelectasis. No pleural effusion heart size is prominent. Trace pericardial effusion. Right mastectomy. ABDOMEN: Liver: Multiple small rim enhancing hepatic metastases. For example: -Left lobe 0.7 cm, (3/15), increased. -Right segment 7 mid 1.3 x 1.2 cm, (3/15), increased. -Right segment 7 lateral 1.3 x 1.2 cm, (3/15), previously 1.3 x 1.3 cm. Gallbladder: No radiopaque gallstones or wall thickening. Biliary ducts: No biliary dilation. Pancreas: No ductal dilation. Spleen: Measures 13.8 cm, (6/35), previously 13.1 cm. Mild splenomegaly. Adrenal Glands: No adrenal nodules. Kidneys and Ureters: No hydronephrosis. No solid mass. No complex renal cystic lesion which requires follow up. Stomach and Bowel: Normal colonic caliber, without significant wall thickening. The appendix is not dilated. Peritoneum: No abnormal intraperitoneal fluid. No free air. Ventral Wall: No hernia. Abdominal Nodes: No retroperitoneal or mesenteric adenopathy by size criteria. Vessels: Aorta and inferior vena cava are normal in size. PELVIS: Pelvic Organs: Unremarkable. Bladder: Unremarkable. Pelvic Nodes: No enlarged lymph nodes. Miscellaneous: No inguinal hernias are seen. Bones: Diffuse sclerotic osseous metastatic disease. A few lytic lesions. Appears unchanged. No compression fracture. IMPRESSION: 1. Enlarging rim enhancing hepatic metastases. 2. Mild splenomegaly. 3. No adenopathy. 4. Diffuse osseous metastatic disease is similar. Dictated by: Luke Philip M.D. on 06/18/2023 at 17:20 Approved by: Luke Philip M.D. on 06/18/2023 at 17:33
[2023-06-18 12:56] LABS: Estimated Glomerular Filt Rate 54 mL/min (>60)
== END ==
LOC: CT 12:24
PROVIDERS: Radiology Diagnostic Radiology; PCP Internal Medicine; Referring Provider Internal Medicine Hematology & Oncology; Visit Provider Internal Medicine Hematology & Oncology
DX: C50.911 Malignant neoplasm of unspecified site of right female breast (principal); C78.7 Secondary malignant neoplasm of liver and intrahepatic bile duct; C79.51 Secondary malignant neoplasm of bone; R16.1 Splenomegaly, not elsewhere classified
CPT/HCPCS: 36415; 74170; 82565; Q9967

== ENCOUNTER → 2023-07-03 16:31 | Outpatient (CLI) | payer OTHER, SELFPAY ==
--- NOTE | 2023-07-03 | DI.MRI.S_ITS ---
PROCEDURE: MR HEAD/BRAIN WO/W CON INDICATIONS: BREAST CANCER TECHNIQUE: Noncontrast axial T1 spin echo, axial T2 fast spin echo, sagittal and axial FLAIR, coronal T2 fast spin echo, axial gradient echo, axial diffusion and ADC through the brain. After the administration of contrast, axial and coronal and sagittal T1 spin echo with fat saturation through the brain. COMPARISON: [facility], MR, MR HEAD/BRAIN WO/W CON, 10/13/2021, 15:54. FINDINGS: Image quality: Excellent. CSF spaces: Basal cisterns are patent. No extra-axial fluid collections. Ventricles are normal in size and shape. Brain: No midline shift. No intracranial bleeds or masses. No abnormal intracranial enhancement. There is cerebral volume loss for age. There is periventricular white matter chronic small vessel ischemic change. The brainstem appears normal. Diffusion-weighted images demonstrate no acute infarct. No chronic ischemic insults. Normal intravascular flow voids are present. Skull and face: Calvarial marrow is normal in signal. Orbits appear normal. There is a right lens replacement. Sinuses: Mucous retention cysts can be seen involving the maxillary sinuses. Mild abnormal fluid can be seen within the mastoid air cells. IMPRESSION: No masses or abnormal enhancement can be seen. Dictated by: Lucho Delgado M.D. on 07/03/2023 at 16:43 Approved by: Lucho Delgado M.D. on 07/03/2023 at 16:45
== END ==
PROVIDERS: PCP Internal Medicine; Referring Provider Internal Medicine Hematology & Oncology; Visit Provider Internal Medicine Hematology & Oncology
DX: C50.911 Malignant neoplasm of unspecified site of right female breast (principal); Z17.1 Estrogen receptor negative status [ER-]
CPT/HCPCS: 70553; A9579

== ENCOUNTER 2023-07-05 10:07 | Emergency (ER) | payer OTHER, SELFPAY ==
[2023-07-05] VITALS (29 sets, daily range): BP systolic 101–117; BP diastolic 53–67; PULSE 86–107; RESP 13–26; TEMP 36.3; O2SAT 94–99; BMI 19.3
--- NOTE | 2023-07-05 10:29 | DI.RAD.S_ITS ---
PROCEDURE: XR CHEST 1V INDICATIONS: cough TECHNIQUE: One view of the chest was acquired. COMPARISON: [facility], CR, XR CHEST 1V, 11/30/2022, 11:33. FINDINGS: Surgical changes and devices: There is a Port-A-Cath on the left with the tip projecting to the area of SVC. Right mastectomy. Surgical clips are seen in the right axilla. Lungs and pleura: Lungs are clear. No pleural effusions or pneumothorax. Mediastinum: Mediastinal contours appear normal. Heart size is normal. Bones and chest wall: No suspicious bony lesions. Overlying soft tissues appear unremarkable. IMPRESSION: No acute cardiopulmonary abnormality is seen. Dictated by: Pratibha Doan M.D. on 07/05/2023 at 11:53 Approved by: Pratibha Doan M.D. on 07/05/2023 at 11:54
--- NOTE | 2023-07-05 10:59 | ED.WEAKNESS ---
HPI - Weakness General Chief complaint: Weakness Stated complaint: new chemo meds/bleeding/ not appetite/ confusion Time Seen by Provider: 07/05/23 10:28 History of Present Illness HPI Narrative: Patient here with and daughter. Patient in the past week has had weakness somnolence confusion no appetite. Patient is receiving a new chemotherapy regimen this past Saturday. Patient has been on multiple cycles of chemotherapy for recurrent breast cancer with extensive metastasis. states she sees Dr. Welsh with oncology and ever it. At this time, states there is no cure for her stage but they are trying chemotherapy to suppress the growth essentially. No fever or chills. noted some blood in the stool with recent bowel movement. No hematochezia or melena. Patient does have history of thrombocytopenia with chemotherapy. This is not new. Patient appears very cachectic and dehydrated. She does answer appropriately but is forgetful on some topics during discussion with family. No fall or injury. No known sick contacts. Has had decreased oral intake and urine output. Patient does see Barbara Jo for primary care. Admitted last year for neutropenic fever Related Data Previous Rx's Medication Instructions Recorded ondansetron 4 mg disintegrating 4 mg PO Q4-5H PRN nausea and 07/08/23 tablet vomiting #90 tabs pantoprazole 40 mg granules 40 mg PO DAILY #30 packets 07/08/23 delayed-release for susp in packet lactulose 20 gram oral packet 20 g PO TID #30 ea 07/22/23 lactulose 20 gram/30 mL oral 20 ml PO TID #900 mL 07/22/23 solution Allergies Allergy/AdvReac Type Severity Reaction Status Date / Time latex Allergy Mild Rash Verified 11/30/22 11:33 morphine Allergy Mild Hypotension Verified 11/30/22 11:33 narcotics AdvReac Mild Hypotension Uncoded 11/25/21 11:03 Review of Systems Review of Systems Narrative: GENERAL: negative chills, positive fatigue, malaise, negative fever, sweats., positive weight loss positive appetite change HEENT: negative sinus pain, ear pain, sore throat RESPIRATORY: negative dyspnea, cough CARDIOVASCULAR: negative chest pain, palpitations GASTROINTESTINAL: negative nausea, vomiting, abdominal pain : negative dysuria, frequency, hematuria MUSCULOSKELETAL: negative muscle or bony pain SKIN: negative rash, skin lesions NEUROLOGIC: negative weakness, numbness ROS Unobtainable: All systems reviewed & are unremarkable except as noted in HPI and below Patient History Medical History Breast cancer, right (~06/2018) Depression, (~1993) Eczema Chicken pox Surgical History Hx of right mastectomy (08/05/18) Anesthesia Status post tubal ligation (~1995) Family History Brother Age: 80 Parkinson's disease Father Lung cancer Mother Brain cancer Sister No problems noted. Social History household members: spouse Smoking Status: Never smoker alcohol intake: former Smoking Status: Never smoker alcohol intake frequency: holidays/special occasions only Substance Use Type: does not use Exam Narrative Exam Narrative: GENERAL: in no distress, not toxic not dyspneic, is cachectic appearing/dehydrated appearing HEAD: Normocephalic. EYES: Pupils equal round ENT: Mucous membranes dry in the mouth and lips NECK: Trachea midline. CARDIOVASCULAR: Regular rate and rhythm RESPIRATORY: Clear to auscultation. Breath sounds equal bilaterally. No wheezes, rales, or rhonchi. GASTROINTESTINAL: Abdomen soft, non-tender EXTREMITIES: No gross deformities. BACK: No flank tenderness. NEURO: AOx3. Does have clear speech. Answers appropriately. SKIN: Warm and dry PSYCH: Not anxious, is cooperative Initial Vital Signs Initial Vital Signs: Vital Signs Pulse Rate 92 H 07/05/23 10:18 Pulse Oximetry 97 07/05/23 10:18 Course Orders Ordered: Discontinued Medications Acetaminophen (Acetaminophen 325 Mg Tablet) 650 mg PO NOW ONE Stop: 07/05/23 13:39 Last Admin: 07/05/23 13:55 Dose: 650 mg Documented By: KF Heparin Sodium (Porcine) (Heparin 500 Unit/5 Ml Port Flush) 500 unit IV PRN PRN PRN Reason: Flush Last Admin: 07/05/23 17:17 Dose: 500 unit Documented By: SPF Sodium Chloride (Normal Saline 0.9%) 1,000 mls @ 1,000 mls/hr IV BOLUS ONE Stop: 07/05/23 12:24 Last Infusion: 07/05/23 13:32 Dose: Infused Documented By: Admin: 07/05/23 11:42 Dose: 1,000 mls/hr Documented By: MICHAEL Sodium Chloride (Normal Saline 0.9%) 1,000 mls @ 1,000 mls/hr IV BOLUS ONE Stop: 07/05/23 14:42 Last Infusion: 07/05/23 16:00 Dose: Infused Documented By: Admin: 07/05/23 13:56 Dose: 1,000 mls/hr Documented By: SHANNA Ondansetron HCl (Ondansetron 4 Mg/2 Ml Inj) 4 mg IV NOW ONE Stop: 07/05/23 11:26 Last Admin: 07/05/23 11:58 Dose: 4 mg Documented By: REED Ondansetron HCl (Ondansetron 4 Mg/2 Ml Inj) 4 mg IV NOW ONE Stop: 07/05/23 16:21 Last Admin: 07/05/23 16:25 Dose: 4 mg Documented By: MICHAEL Vital Signs Vital signs: Vital Signs - 8 hr 07/05/23 10:18 07/05/23 10:23 07/05/23 10:23 Temperature Pulse Rate 92 H 93 H Respiratory Rate 19 Blood Pressure 111/56 L Pulse Oximetry 97 97 Oxygen Delivery Method Room Air 07/05/23 10:25 07/05/23 10:30 07/05/23 10:30 Temperature 97.4 F L Pulse Rate 94 H 91 H Respiratory Rate 18 22 Blood Pressure 111/57 L 110/56 L Pulse Oximetry 97 97 Oxygen Delivery Method Room Air Room Air 07/05/23 11:00 07/05/23 11:00 07/05/23 11:30 Temperature Pulse Rate 92 H 94 H Respiratory Rate 21 21 Blood Pressure 109/56 L Pulse Oximetry 96 94 Oxygen Delivery Method Room Air Room Air 07/05/23 11:30 07/05/23 11:45 07/05/23 12:00 Temperature Pulse Rate 93 H 107 H Respiratory Rate Blood Pressure 101/53 L Pulse Oximetry 98 Oxygen Delivery Method Room Air 07/05/23 12:15 07/05/23 12:30 07/05/23 12:45 Temperature Pulse Rate 89 92 H 92 H Respiratory Rate 22 23 24 Blood Pressure Pulse Oximetry 97 98 96 Oxygen Delivery Method Room Air 07/05/23 13:00 07/05/23 13:15 07/05/23 13:30 Temperature Pulse Rate 90 93 H 97 H Respiratory Rate 13 19 24 Blood Pressure Pulse Oximetry 98 97 97 Oxygen Delivery Method 07/05/23 13:45 07/05/23 14:00 07/05/23 14:15 Temperature Pulse Rate 95 H 94 H 92 H Respiratory Rate 26 H 24 21 Blood Pressure Pulse Oximetry 96 96 96 Oxygen Delivery Method Room Air Room Air 07/05/23 14:30 07/05/23 14:45 07/05/23 15:00 Temperature Pulse Rate 90 88 92 H Respiratory Rate 18 25 H 17 Blood Pressure Pulse Oximetry 97 97 96 Oxygen Delivery Method Room Air 07/05/23 15:15 07/05/23 15:30 07/05/23 15:45 Temperature Pulse Rate 91 H 91 H 92 H Respiratory Rate 15 22 24 Blood Pressure Pulse Oximetry 96 95 96 Oxygen Delivery Method 07/05/23 16:10 07/05/23 16:10 Temperature Pulse Rate 87 Respiratory Rate 22 Blood Pressure 117/58 L Pulse Oximetry 98 Oxygen Delivery Method MDM - Weakness Lab Data 07/05/23 11:15 07/05/23 11:15 Labs: Lab Results 07/05/23 07/05/23 07/05/23 Range/Units 10:49 11:15 16:05 WBC 2.5 L (4.5-11.0) X10^3/uL RBC 2.85 L (4.0-5.2) X10^6/uL Hgb 10.5 L (12.0-16.0) g/dL Hct 29.7 L (36-46) % MCV 104.1 H (80-100) fL MCH 36.6 H (26-34) PG MCHC 35.2 (30-36) % RDW 16.6 H (11.6-14.8) % Plt Count 39 L (150-400) X10^3/uL Neut % (Auto) 81.4 H (50-75) % Lymph % (Auto) 12.5 L (25-40) % Bartholomew % (Auto) 4.7 (3-14) % Eos % (Auto) 1.2 L (2-4) % Baso % (Auto) 0.2 (0-2) % Neut # (Auto) 2000 (8675-7034) /uL Lymph # (Auto) 300 L (6967-8334) /uL Bartholomew # (Auto) 100 (0-900) /uL Eos # (Auto) 0 (0-450) /uL Baso # (Auto) 0 (0-100) /uL Platelet Estimate Decreased on smear RBC Morphology See below Anisocytosis 1+ H Macrocytosis 1+ H PT 13.1 H (9.4-12.5) SECONDS INR 1.1 (0.9-1.3) APTT 40 H (25.1-36.5) SECONDS Sodium 137 (137-145) mmol/L Potassium 4.4 (3.4-5.1) mmol/L Chloride 104 (98-107) mmol/L Carbon Dioxide 25 (22-32) mmol/L BUN 27 H (7-17) mg/dL Creatinine 0.77 (0.52-1.04) mg/dL Estimated GFR > 60 (>60) mL/min BUN/Creatinine Ratio 35.1 H (6-22) Glucose 99 (80-110) mg/dL Lactate 1.3 (0.7-2.1) mmol/L Calcium 9.4 (8.4-10.2) mg/dL Total Bilirubin 1.3 (0.2-1.3) mg/dL AST 237 H (14-36) IU/L ALT 45 H (<35) IU/L Alkaline Phosphatase 144 H (38-126) U/L Total Protein 6.3 (6.3-8.2) g/dL Albumin 3.9 (3.5-5.0) g/dL Globulin 2.4 (1.7-4.1) g/dL Albumin/Globulin Ratio 1.6 (1.0-2.8) Procalcitonin 0.15 (<0.5) ng/mL Urine Color Yellow Urine Appearance Clear Urine pH 5.5 (4.5-8.0) Ur Specific Spencer >=1.030 H (1.000-1.035) Urine Protein Negative (Negative) Urine Glucose (UA) Negative (Negative) g/dL Urine Ketones 1+ H (NEGATIVE) Urine Occult Blood Trace-intact (Negative) Urine Nitrate Negative (Negative) Urine Bilirubin Negative (NEGATIVE) Urine Urobilinogen 1.0 (0.2) E.U./dL Ur Leukocyte Esterase Negative (NEGATIVE) Urine RBC 1-5/hpf (0-5/HPF) Urine WBC 0-1/hpf (0-5/HPF) Ur Squamous Epith Cells 0-1 /hpf (0-5/HPF) Urine Bacteria Occasional (0-1) (None) Urine Mucus 1+ H (Negative) Ur Culture Indicated? Cult not indicated Vol Urine Centrifuged 10ml (spun) Chlamy pneumoniae PCR Not detected (Not Detect) Adenovirus (PCR) Not detected (Not Detect) B.parapertussis DNA PCR Not detected (Not Detecte) Coronavirus OC43 (PCR) Not detected (Not Detect) Coronavirus HKU1 (PCR) Not detected (Not Detect) Coronavirus 229E (PCR) Not detected (Not Detect) SARS-CoV-2 (PCR) Not detected (Not Detecte) Coronavirus NL63 (PCR) Not detected (Not Detect) Human Metapneumovir PCR Not detected (Not Detect) Influenza Type A (PCR) Not detected (Not Detect) Influenza Type B (PCR) Not detected (Not Detect) M. pneumoniae (PCR) Not detected (Not Detect) Parainfluenza 1 (PCR) Not detected (Not Detect) Parainfluenza 2 (PCR) Not detected (Not Detect) Parainfluenza 3 (PCR) Not detected (Not Detect) Parainfluenza 4 (PCR) Not detected (Not Detect) RSV (PCR) Not detected (Not Detect) Entero/Rhino (PCR) Not detected (Not Detect) Blood Type O Positive Antibody Screen Negative Urine Dip Bedside Urine Glucose Negative Bedside Urine Bilirubin - Negative Bedside Urine Ketone ++ 40 Urine Specific Spencer 1.030 Bedside Urine Occult Blood + Bedside Urine pH 6.0 Bedside Urine Protein - Negative Bedside Urine Urobilinogen - Negative Bedside Urine Nitrite - Negative Bedside Urine Leukocytes - Negative Esterase Imaging Data Chest x-ray: Radiologist Impression: [address] [address] XRay Report Signed Patient: Dorys Newell MR#: [id number] : 1965 Acct:[id number] Age/Sex: 58 / F Date of Service: 07/05/23 Loc: ED Accession Number: [id number] Procedure: XR chest 1V Ordering Provider: Sandeep Kay MD PROCEDURE: XR CHEST 1V INDICATIONS: cough TECHNIQUE: One view of the chest was acquired. COMPARISON: [facility], CR, XR CHEST 1V, 11/30/2022, 11:33. FINDINGS: Surgical changes and devices: There is a Port-A-Cath on the left with the tip projecting to the area of SVC. Right mastectomy. Surgical clips are seen in the right axilla. Lungs and pleura: Lungs are clear. No pleural effusions or pneumothorax. Mediastinum: Mediastinal contours appear normal. Heart size is normal. Bones and chest wall: No suspicious bony lesions. Overlying soft tissues appear unremarkable. IMPRESSION: No acute cardiopulmonary abnormality is seen. Dictated by: Pratibha Doan M.D. on 07/05/2023 at 11:53 Approved by: Pratibha Doan M.D. on 07/05/2023 at 11:54 CT scan - head: Radiologist Impression: [place] [address] CT Scan Report Signed Patient: Dorys Newell MR#: [id number] : 1965 Acct:[id number] Age/Sex: 58 / F Date of Service: 07/05/23 Loc: ED Accession Number: [id number] Procedure: CT head/brain wo con Ordering Provider: Sandeep Kay MD PROCEDURE: CT HEAD/BRAIN WO CON INDICATIONS: Altered mental status TECHNIQUE: Noncontrast 4.5 mm thick angled axial sections acquired from the foramen magnum to the vertex, with coronal and sagittal reformats. For radiation dose reduction, the following was used: automated exposure control, adjustment of mA and/or kV according to patient size. COMPARISON: None. FINDINGS: Image quality: Diagnostic. CSF spaces: Basal cisterns are patent. No extra-axial fluid collections. The ventricles are symmetric in size and shape. Brain: No intracranial bleeds or masses. There is mild cerebral volume loss for age, with resultant ventricular and sulcal prominence. There are mild periventricular and deep white matter chronic small vessel ischemic changes. There is intracranial internal carotid artery atherosclerosis. Skull and face: Calvarium and visualized facial bones appear intact, without suspicious lesions. Sinuses: Visualized sinuses and mastoids are clear. IMPRESSION: No acute intracranial pathology. Dictated by: Pratibha Doan M.D. on 07/05/2023 at 12:01 Approved by: Pratibha Doan M.D. on 07/05/2023 at 12:02 [facility] Narrative Medical decision making narrative: Patient here with and daughter. Patient in the past week has had weakness somnolence confusion no appetite. Patient is receiving a new chemotherapy regimen this past Saturday. Patient has been on multiple cycles of chemotherapy for recurrent breast cancer with extensive metastasis. states she sees Dr. Welsh with oncology and ever it. At this time, states there is no cure for her stage but they are trying chemotherapy to suppress the growth essentially. No fever or chills. noted some blood in the stool with recent bowel movement. No hematochezia or melena. Patient does have history of thrombocytopenia with chemotherapy. This is not new. Patient appears very cachectic and dehydrated. She does answer appropriately but is forgetful on some topics during discussion with family. No fall or injury. No known sick contacts. Has had decreased oral intake and urine output. Patient does see Barbara Jo for primary care. Admitted last year for neutropenic fever After history and exam CBC CMP IV fluids chest x-ray respiratory panel urinalysis [facility] CC: Weakness fatigue Complicating co-morbidities: Recent new chemotherapy for breast cancer Data collected from: Patient and family Medical records reviewed: Admission records from last year Differential considered: Includes but not limited to dehydration anemia viral syndrome pneumonia, chemo effect Exam documented above, pertinent findings include: Dehydrated appearing Lab Test results independently reviewed as above. Pertinent findings: WBC 2.5 hemoglobin 10.5 platelets 39 INR 1.1 sodium 137 potassium 4.4 BUN 27 creatinine 0.77 GFR greater than 60 AST 237 ALT 45 procalcitonin 0.15 lactic acid 1.3 respiratory panel negative Urinalysis negative leukocyte negative nitrate, positive ketones Imaging studies independently reviewed: Chest x-ray CT head no acute finding Consultations: None indicated at this time Treatments: Normal saline Tylenol Zofran Re-evaluations: 1:44 p.m.. Updated patient and family results so far. Still not being able to provide urine. Another L normal saline has been ordered. Has mild headache and Tylenol has been ordered. So far results are reassuring. Platelets are slightly low but she has been lower than this before. Regarding blood in stool was mild according to . At this time appropriate for observation at home. No hematochezia or melena. No transfusion for platelets indicated at this time. 4:50 p.m.. Patient feeling better after IV fluids 2 L normal saline and Zofran and Tylenol. She has been able to eat a little bit and drank a little bit while here. She is feeling much better than arrival. Did review with patient and family results and platelet levels. No transfusion indicated this time, although there was small amount of blood in stools at this time hemoglobin is stable and vital signs are reassuring. No transfusions or admission indicated at this time. No imaging of the abdomen indicated this time. No abdominal pain. No bleeding rectally here. They feel comfortable discharge home and return precautions reviewed. Hydration instructions reviewed with patient and family as well. Patient does have Zofran at home. Discussion: Appropriate for discharge home. Exam and laboratory studies otherwise reassuring. Patient feeling much better after IV hydration and Zofran. Laboratory studies and imaging are reassuring at this time. Patient able tolerate a little bit of p.o. here. Return precautions reviewed. They desire discharge home. Otherwise patient's laboratory studies are essentially at baseline. Liver enzymes may be due to chemotherapy. Abdomen is soft and flat. Nontender. Diagnosis: Dehydration/medication reaction Discharge Plan Departure Patient Disposition: Home Clinical Impression: Dehydration Medication reaction Qualifiers: Encounter type: initial encounter Qualified Code(s): T50.905A - Adverse effect of unspecified drugs, medicaments and biological substances, initial encounter Instructions: DI for Dehydration -- Adult, Gastrointestinal Bleeding Activity Restrictions/Additional Instructions: Please see family doctor and your oncology team next week for re-evaluation. Please try to keep well hydrated. Zofran can be taken 4 mg every 6 hours as needed for nausea. Please continue this at home. Please continue observing for any blood in the stool. Return immediately if worsening. The new chemotherapy may cause adverse reaction and appetite suppression and nausea which can lead to dehydration. This may have happened to you today/this week. Return if worse if any questions or concerns. Prescriptions: No Action lactulose 20 gram packet 20 g PO TID Qty: 30 0RF Rx Instructions: Goal is 2-3 soft stools per day lactulose 20 gram/30 mL solution 20 ml PO TID Qty: 900 0RF pantoprazole [address] for susp in packet 40 mg PO DAILY Qty: 30 1RF ondansetron 4 mg tablet,disintegrating 4 mg PO Q4-5H PRN (Reason: nausea and vomiting) Qty: 90 3RF Referrals: Barbara Jo ARNP [Primary Care Provider] - Stand Alone Forms: Patient Portal/API
[2023-07-05] MEDS: SODIUM CHLORIDE 0.9% 1,000 ML 1000 ML IV ×2 (11:42→13:56)
[2023-07-05 11:43] LABS: Add Manual Diff / Slide Review NO; Basophils Absolute Auto 0 /uL (0-100); Basophils Percent Auto 0.2 % (0-2); Eosinophils Absolute Auto 0 /uL (0-450); Eosinophils Percent Auto 1.2 % (2-4); Hematocrit 29.7 % (36-46); Hemoglobin 10.5 g/dL (12.0-16.0); Lymphocytes Absolute Auto 300 /uL (1100-4500); Lymphocytes Percent Auto 12.5 % (25-40); Mean Corpuscular HGB Conc 35.2 % (30-36); Mean Corpuscular Hemoglobin 36.6 PG (26-34); Mean Corpuscular Volume 104.1 fL (80-100); Monocytes Absolute Auto 100 /uL (0-900); Monocytes Percent Auto 4.7 % (3-14); Neutrophils Absolute Auto 2000 /uL (1500-7000); Neutrophils Percent Auto 81.4 % (50-75); Platelet Count 39 X10^3/uL (150-400); Red Blood Cell Count 2.85 X10^6/uL (4.0-5.2); Red Cell Distribution Width 16.6 % (11.6-14.8); White Blood Cell Count 2.5 X10^3/uL (4.5-11.0)
[2023-07-05 11:47] LABS: Lactate (Lactic Acid) 1.3 mmol/L (0.7-2.1)
[2023-07-05 11:48] LABS: Alanine Aminotransferase 45 IU/L (<35); Albumin 3.9 g/dL (3.5-5.0); Albumin Globulin Ratio 1.6 (1.0-2.8); Alkaline Phosphatase 144 U/L (38-126); Aspartate Aminotransferase 237 IU/L (14-36); BUN Creatinine Ratio 35.1 (6-22); Bilirubin Total 1.3 mg/dL (0.2-1.3); Blood Urea Nitrogen 27 mg/dL (7-17); Calcium 9.4 mg/dL (8.4-10.2); Carbon Dioxide 25 mmol/L (22-32); Chloride 104 mmol/L (98-107); Estimated Glomerular Filt Rate > 60 mL/min (>60); Globulin 2.4 g/dL (1.7-4.1); Glucose 99 mg/dL (80-110); HEMOLYSIS < 15 (0-50); Potassium 4.4 mmol/L (3.4-5.1); Sodium 137 mmol/L (137-145); Total Protein 6.3 g/dL (6.3-8.2)
[2023-07-05 11:49] LABS: INR 1.1 (0.9-1.3); Prothrombin Time 13.1 SECONDS (9.4-12.5)
[2023-07-05 11:51] LABS: Adenovirus Not Detected (Not Detect); B. parapertussis Not Detected (Not Detecte); Bordetella pertussis Not Detected (Not Detect); Chlamydophila pneumoniae Not Detected (Not Detect); Coronavirus 229E Not Detected (Not Detect); Coronavirus HKU1 Not Detected (Not Detect); Coronavirus NL 63 Not Detected (Not Detect); Coronavirus OC43 Not Detected (Not Detect); Human Metapneumovirus Not Detected (Not Detect); Human Rhinovirus/Enterovirus Not Detected (Not Detect); Influenza A Not Detected (Not Detect); Influenza B Not Detected (Not Detect); Mycoplasma pneumoniae Not Detected (Not Detect); Parainfluenza Virus 1 Not Detected (Not Detect); Parainfluenza Virus 2 Not Detected (Not Detect); Parainfluenza Virus 3 Not Detected (Not Detect); Parainfluenza Virus 4 Not Detected (Not Detect); Respiratory Syncytial Virus Not Detected (Not Detect); SARS- CoV-2 Not Detected (Not Detecte)
[2023-07-05 11:52] LABS: PTT Partial Thromboplastin Tim 40 SECONDS (25.1-36.5)
[2023-07-05] MEDS: ONDANSETRON 4 MG/2 ML INJ IV ×2 (11:58→16:25)
[2023-07-05 12:00] LABS: Anisocytosis 1+; Macrocytosis 1+
[2023-07-05 12:01] LABS: Platelet Estimate Decreased on smear
[2023-07-05 12:03] LABS: Procalcitonin 0.15 ng/mL (<0.5)
[2023-07-05] MEDS: ACETAMINOPHEN 325 MG TABLET 650 MG PO (13:55)
[2023-07-05 16:22] LABS: Appearance Urine UA CLEAR; Bilirubin Urine UA NEGATIVE (NEGATIVE); Color Urine UA YELLOW; Glucose Urine UA NEGATIVE (Negative); Ketones Urine UA 1+ (NEGATIVE); Leukocyte Esterase Urine UA NEGATIVE (NEGATIVE); Nitrite Urine UA NEGATIVE (Negative); Occult Blood Urine UA TRACE-INTACT (Negative); Protein Urine UA NEGATIVE (Negative); Specific Gravity Urine UA >=1.030 (1.000-1.035)
[2023-07-05 16:27] LABS: pH Urine UA 5.5 (4.5-8.0)
[2023-07-05 16:30] LABS: Bacteria Urine Occasional (0-1); Culture Indicated Urine Cult Not Indicated; Mucus Urine 1+ (Negative); RBC Urine 1-5/HPF (0-5/HPF); Squamous Epithelial Cell Urine 0-1 /HPF (0-5/HPF); Urine Volume 10mL (spun); WBC Urine 0-1/HPF (0-5/HPF)
== END 2023-07-05 17:37 | disposition home or self-care (01) ==
PROVIDERS: Emergency Provider Emergency Medicine; PCP Internal Medicine
DX: R11.2 Nausea with vomiting, unspecified (principal); E86.0 Dehydration; R05.9 Cough, unspecified; R41.82 Altered mental status, unspecified; T45.1X5A Adverse effect of antineoplastic and immunosuppressive drugs, initial encounter; Z20.822 Contact with and (suspected) exposure to COVID-19
CPT/HCPCS: 36415; 70450; 71045; 80053; 81001; 81003; 83605; 84145; 85025; 85610; 85730; 86850; 86900; 86901; 87040; 87633; 99284; J1642; J2405

== ENCOUNTER 2023-07-06 19:28 | Inpatient (IN) | payer OTHER, SELFPAY ==
[2023-07-06] VITALS (17 sets, daily range): BP systolic 109–148; BP diastolic 56–79; PULSE 86–122; RESP 13–28; TEMP 36.6; O2SAT 94–99; BMI 20.6
--- NOTE | 2023-07-06 19:38 | DI.RAD.S_ITS ---
PROCEDURE: XR CHEST 1V INDICATIONS: AMS/EMESIS TECHNIQUE: One view of the chest was acquired. COMPARISON: [facility], , XR CHEST 1V, 07/05/2023, 10:36. [facility], CR, XR CHEST 1V, 11/30/2022, 11:33. FINDINGS: Surgical changes and devices: Port-A-Cath positioning normal.. Lungs and pleura: Lungs are clear. No pleural effusions or pneumothorax. Mediastinum: Mediastinal contours appear normal. Heart size is normal. Bones and chest wall: No suspicious bony lesions. Overlying soft tissues appear unremarkable. IMPRESSION: No acute cardiopulmonary abnormality is seen. Dictated by: Chong Caba M.D. on 07/06/2023 at 20:46 Approved by: Chong Caba M.D. on 07/06/2023 at 20:46
--- NOTE | 2023-07-06 19:56 | ED_ITS ---
HPI - GI Bleed General Chief complaint: GI Bleed Stated complaint: GI bleed Time Seen by Provider: 07/06/23 19:29 Source: EMS Mode of arrival: EMS History of Present Illness HPI Narrative: 58-year-old female with history of metastatic breast cancer on Keytruda and Paclitaxel presents by EMS from home for nausea, vomiting, possible GI bleed. Patient seen here yesterday for nausea and vomiting with intermittently bloody stools. Patient was given IV fluids and discharged home after hemoglobin found to be stable Tonight patient noted by family to not be eating or drinking much, but she did have a red popsicle earlier in the evening. Prior to arrival patient reported to have nausea with dark reddish/brown material. They initially attributed the color to the red popsicle, but she continued to vomit and they became concerned that there may be blood in the emesis. Patient also had a small bowel movement with the vomiting and there appeared to be reddish blood in her stool, so they called 911. EMS medics report that they are familiar with the patient and she seems slightly more confused than normal. Related Data Home Medications Medication Instructions Recorded Confirmed lorazepam 0.5 mg tablet 1 tab PO PRN PRN Anxiety 11/22/21 11/22/21 ondansetron HCl 4 mg tablet 1 tab PO PRN PRN Nausea 11/22/21 11/22/21 Previous Rx's Medication Instructions Recorded furosemide 40 mg tablet (Lasix) 40 mg PO DAILY #7 tabs 11/30/22 Allergies Allergy/AdvReac Type Severity Reaction Status Date / Time latex Allergy Mild Rash Verified 11/30/22 11:33 morphine Allergy Mild Hypotension Verified 11/30/22 11:33 narcotics AdvReac Mild Hypotension Uncoded 11/25/21 11:03 Review of Systems Review of Systems Narrative: Otherwise negative Patient History Medical History Breast cancer, right (~06/2018) Depression, (~1993) Eczema Chicken pox Surgical History Hx of right mastectomy (08/05/18) Anesthesia Status post tubal ligation (~1995) Family History Brother Age: 80 Parkinson's disease Father Lung cancer Mother Brain cancer Sister No problems noted. Social History household members: spouse Smoking Status: Never smoker alcohol intake: former Smoking Status: Never smoker alcohol intake frequency: holidays/special occasions only Substance Use Type: does not use Exam Initial Vital Signs Initial Vital Signs: Vital Signs Temperature 97.9 F 07/06/23 19:32 Pulse Rate 89 07/06/23 19:32 Respiratory Rate 16 07/06/23 19:32 Blood Pressure 117/58 L 07/06/23 19:32 Pulse Oximetry 99 07/06/23 19:32 Oxygen Delivery Method Room Air 07/06/23 19:32 Const: Awake, eyes open, mildly confused, appears chronically unwell Cardiac: regular rate, regular rhythm RESP: unlabored, clear bilaterally, no wheezing GI: Atraumatic, soft, nontender Rectal: Commercial Estimator present, maroon-colored stool on exam, rectal tone intact Skin: Warm, Dry, intact, no rashes Neuro: AO x2, CN II-XII grossly intact, moves all extremities Course Orders Ordered: Acetaminophen (Acetaminophen 325 Mg Tablet) 650 mg PO Q6H PRN PRN Reason: Fever/Mild Pain (1-3) Calcium Carbonate (Calcium Carbonate 500 Mg Tab) 1,000 mg PO Q4HR PRN PRN Reason: Dyspepsia Heparin Sodium (Porcine) (Heparin 500 Unit/5 Ml Port Flush) 500 unit IV BID DEION Sodium Chloride (Normal Saline 0.9%) 1,000 mls @ 100 mls/hr IV CONT DEION Last Admin: 07/07/23 18:24 Dose: 100 mls/hr Documented By: Infusion: 07/07/23 18:18 Dose: Infused Documented By: Infusion: 07/07/23 14:06 Dose: 100 mls/hr Documented By: Infusion: 07/07/23 13:48 Dose: 0 mls/hr Documented By: SB(2) Admin: 07/07/23 08:00 Dose: 100 mls/hr Documented By: RB Lorazepam (Lorazepam 0.5 Mg Tablet) 0.5 mg PO Q6H PRN PRN Reason: Anxiety Naloxone HCl (Naloxone 0.4 Mg/Ml Vial) 0.2 mg IV Q2MIN PRN PRN Reason: Opiate Reversal Ondansetron HCl (Ondansetron 4 Mg/2 Ml Inj) 4 mg IV Q8HR PRN PRN Reason: Nausea And Vomiting Last Admin: 07/07/23 14:24 Dose: 4 mg Documented By: Admin: 07/07/23 00:41 Dose: 4 mg Documented By: SHANNA Pantoprazole Sodium (Pantoprazole 40 Mg Vial) 40 mg IV BID [facility] Last Admin: 07/07/23 08:07 Dose: 40 mg Documented By: RB Discontinued Medications Lactated Ringer's (Lactated Ringers) 1,917 mls @ 639 mls/hr 30 ml/kg infuse over 3 hr (1917 ml) IV NOW ONE Stop: 07/06/23 22:37 Last Infusion: 07/06/23 23:10 Dose: Infused Documented By: SB(3) Admin: 07/06/23 20:05 Dose: 639 mls/hr Documented By: SB(3) Ceftriaxone Sodium 2,000 mg/ (Sodium Chloride) 100 mls @ 200 mls/hr IV NOW ONE Stop: 07/06/23 19:39 Last Infusion: 07/06/23 21:04 Dose: Infused Documented By: SB(3) Admin: 07/06/23 20:25 Dose: 200 mls/hr Documented By: SB(3) Sodium Chloride (Normal Saline 0.9%) 1,000 mls @ 100 mls/hr IV CONT [facility] Last Admin: 07/07/23 00:45 Dose: 100 mls/hr Documented By: SB(3) Magnesium Sulfate (Magnesium Sulfate) 2 gm in 50 mls @ 25 mls/hr IV NOW ONE Stop: 07/07/23 12:27 Last Infusion: 07/07/23 12:39 Dose: Infused Documented By: RB Co-signed By: ANGELI Admin: 07/07/23 10:47 Dose: 25 mls/hr Documented By: RB Co-signed By: KORI Lactulose (Lactulose 20 Gm/30 Ml Solution) 20 gm PO NOW ONE Stop: 07/06/23 21:01 Last Admin: 07/06/23 21:34 Dose: 20 gm Documented By: SB(3) Lorazepam (Lorazepam 0.5 Mg Tablet) 0.5 mg PO PRN PRN PRN Reason: Anxiety Metoclopramide HCl (Metoclopramide 10 Mg/2 Ml Inj) 10 mg IV NOW ONE Stop: 07/06/23 22:18 Last Admin: 07/06/23 22:25 Dose: 10 mg Documented By: SB(3) Morphine Sulfate (Morphine 4 Mg/Ml Inj) 3 mg IV Q2HR [facility] Last Admin: 07/07/23 08:41 Dose: Not Given Documented By: Admin: 07/07/23 07:25 Dose: Not Given Documented By: Admin: 07/07/23 05:19 Dose: Not Given Documented By: SB(3) Admin: 07/07/23 04:22 Dose: Not Given Documented By: SB(3) Admin: 07/07/23 00:42 Dose: Not Given Documented By: SHANNA Pantoprazole Sodium (Pantoprazole 40 Mg Vial) 80 mg IV NOW ONE Stop: 07/06/23 22:18 Last Admin: 07/06/23 22:25 Dose: 80 mg Documented By: SB(3) Pantoprazole Sodium (Pantoprazole Dr 20 Mg Tablet) 40 mg PO BID [facility] Last Admin: 07/07/23 00:37 Dose: Not Given Documented By: SB(3) Vital Signs Vital signs: Vital Signs - 8 hr 07/06/23 20:00 07/06/23 20:08 07/06/23 20:30 Temperature Pulse Rate 93 H 92 H Respiratory Rate 18 17 Blood Pressure 111/56 L Pulse Oximetry 99 98 Oxygen Delivery Method Room Air Room Air 07/06/23 20:30 07/06/23 20:45 07/06/23 20:45 Temperature Pulse Rate 94 H Respiratory Rate 13 Blood Pressure 113/62 112/64 Pulse Oximetry 98 Oxygen Delivery Method Room Air 07/06/23 21:00 07/06/23 21:00 07/06/23 21:15 Temperature Pulse Rate 92 H 92 H Respiratory Rate 17 17 Blood Pressure 115/64 Pulse Oximetry 97 95 Oxygen Delivery Method Room Air Room Air 07/06/23 21:15 07/06/23 21:30 07/06/23 21:30 Temperature Pulse Rate 96 H Respiratory Rate 28 H Blood Pressure 109/68 113/68 Pulse Oximetry 97 Oxygen Delivery Method Room Air 07/06/23 21:33 07/06/23 22:00 07/06/23 22:00 Temperature 97.9 F Pulse Rate 97 H Respiratory Rate 25 H Blood Pressure 117/65 Pulse Oximetry 98 Oxygen Delivery Method Room Air 07/06/23 22:31 07/06/23 22:32 07/06/23 22:32 Temperature Pulse Rate 118 H 112 H Respiratory Rate 26 H Blood Pressure 148/78 H Pulse Oximetry 98 Oxygen Delivery Method Room Air 07/06/23 23:00 07/06/23 23:00 07/06/23 23:30 Temperature Pulse Rate 98 H 122 H Respiratory Rate 16 20 Blood Pressure 117/65 Pulse Oximetry 94 Oxygen Delivery Method 07/06/23 23:31 07/06/23 23:31 Temperature Pulse Rate 111 H Respiratory Rate 20 Blood Pressure 111/79 Pulse Oximetry Oxygen Delivery Method MDM - GI Bleed Differential Diagnosis Differential diagnosis: Likely hemorrhoids, infectious diarrhea and esophageal varices Lab Data 07/07/23 17:40 07/07/23 04:12 Labs: Lab Results 07/06/23 07/06/23 07/06/23 Range/Units 20:01 20:08 22:44 WBC 2.0 L (4.5-11.0) X10^3/uL RBC 2.64 L (4.0-5.2) X10^6/uL Hgb 9.6 L (12.0-16.0) g/dL Hct 27.3 L (36-46) % MCV 103.5 H (80-100) fL MCH 36.3 H (26-34) PG MCHC 35.1 (30-36) % RDW 16.6 H (11.6-14.8) % Plt Count 35 L* (150-400) X10^3/uL Neut % (Auto) 78.4 H (50-75) % Lymph % (Auto) 16.2 L (25-40) % [place] % (Auto) 3.5 (3-14) % Eos % (Auto) 1.6 L (2-4) % Baso % (Auto) 0.3 (0-2) % Neut # (Auto) 1500 (1105-2834) /uL Lymph # (Auto) 300 L (7409-5269) /uL [place] # (Auto) 100 (0-900) /uL Eos # (Auto) 0 (0-450) /uL Baso # (Auto) 0 (0-100) /uL Platelet Estimate Decreased on smear RBC Morphology Normal morphology PT 14.9 H (9.4-12.5) SECONDS INR 1.3 (0.9-1.3) APTT 40 H (25.1-36.5) SECONDS ABG Sample Site Right radial ABG pH 7.40 (7.35-7.45) ABG pCO2 33.3 L (35-45) mmHg ABG pO2 82 (80-100) mmHg ABG HCO3 21 L (23-27) mmol/L ABG Total CO2 22 L (23-27) mmol/L ABG O2 Saturation 96 (95-100) % ABG Base Excess -4.0 L (-2-3) mmol/L FiO2 21 Sodium 137 (137-145) mmol/L Potassium 3.8 (3.4-5.1) mmol/L Chloride 106 (98-107) mmol/L Carbon Dioxide 21 L (22-32) mmol/L BUN 21 H (7-17) mg/dL Creatinine 0.64 (0.52-1.04) mg/dL Estimated GFR > 60 (>60) mL/min BUN/Creatinine Ratio 32.8 H (6-22) Glucose 119 H (80-110) mg/dL Lactate 1.5 (0.7-2.1) mmol/L Calcium 9.1 (8.4-10.2) mg/dL Total Bilirubin 1.4 H (0.2-1.3) mg/dL AST 173 H (14-36) IU/L ALT 42 H (<35) IU/L Alkaline Phosphatase 139 H (38-126) U/L Ammonia 50 H (9-30) umol/L Total Creatine Kinase 215 H (30-135) U/L Troponin I < 0.012 (0.01-0.034) ng/mL Total Protein 5.8 L (6.3-8.2) g/dL Albumin 3.5 (3.5-5.0) g/dL Globulin 2.3 (1.7-4.1) g/dL Albumin/Globulin Ratio 1.5 (1.0-2.8) Procalcitonin 0.25 (<0.5) ng/mL Urine Color Yellow Urine Appearance Clear Urine pH 5.5 (4.5-8.0) Ur Specific [place] >=1.030 H (1.000-1.035) Urine Protein Negative (Negative) Urine Glucose (UA) Negative (Negative) g/dL Urine Ketones 2+ H (NEGATIVE) Urine Occult Blood 2+ H (Negative) Urine Nitrate Negative (Negative) Urine Bilirubin Negative (NEGATIVE) Urine Urobilinogen 1.0 (0.2) E.U./dL Ur Leukocyte Esterase Negative (NEGATIVE) Urine RBC 1-5/hpf (0-5/HPF) Urine WBC 1-5/hpf (0-5/HPF) Ur Squamous Epith Cells 1-5 /hpf (0-5/HPF) Ur Transition Epith Cell 0-1/hpf (0-5/HPF) Urine Bacteria Moderate (10-30) H (None) Urine Mucus 1+ H (Negative) Ur Culture Indicated? Cult not indicated Vol Urine Centrifuged 10ml (spun) SARS-CoV-2 (PCR) Negative (Negative) Blood Type O Positive Antibody Screen Negative Crossmatch See Detail 07/06/23 Range/Units 22:55 WBC (4.5-11.0) X10^3/uL RBC (4.0-5.2) X10^6/uL Hgb 9.0 L (12.0-16.0) g/dL Hct 25.8 L (36-46) % MCV (80-100) fL MCH (26-34) PG MCHC (30-36) % RDW (11.6-14.8) % Plt Count (150-400) X10^3/uL Neut % (Auto) (50-75) % Lymph % (Auto) (25-40) % [place] % (Auto) (3-14) % Eos % (Auto) (2-4) % Baso % (Auto) (0-2) % Neut # (Auto) (9626-5767) /uL Lymph # (Auto) (9494-1355) /uL [place] # (Auto) (0-900) /uL Eos # (Auto) (0-450) /uL Baso # (Auto) (0-100) /uL Platelet Estimate RBC Morphology PT (9.4-12.5) SECONDS INR (0.9-1.3) APTT (25.1-36.5) SECONDS ABG Sample Site ABG pH (7.35-7.45) ABG pCO2 (35-45) mmHg ABG pO2 (80-100) mmHg ABG HCO3 (23-27) mmol/L ABG Total CO2 (23-27) mmol/L ABG O2 Saturation (95-100) % ABG Base Excess (-2-3) mmol/L FiO2 Sodium (137-145) mmol/L Potassium (3.4-5.1) mmol/L Chloride (98-107) mmol/L Carbon Dioxide (22-32) mmol/L BUN (7-17) mg/dL Creatinine (0.52-1.04) mg/dL Estimated GFR (>60) mL/min BUN/Creatinine Ratio (6-22) Glucose (80-110) mg/dL Lactate (0.7-2.1) mmol/L Calcium (8.4-10.2) mg/dL Total Bilirubin (0.2-1.3) mg/dL AST (14-36) IU/L ALT (<35) IU/L Alkaline Phosphatase (38-126) U/L Ammonia (9-30) umol/L Total Creatine Kinase (30-135) U/L Troponin I (0.01-0.034) ng/mL Total Protein (6.3-8.2) g/dL Albumin (3.5-5.0) g/dL Globulin (1.7-4.1) g/dL Albumin/Globulin Ratio (1.0-2.8) Procalcitonin (<0.5) ng/mL Urine Color Urine Appearance Urine pH (4.5-8.0) Ur Specific [place] (1.000-1.035) Urine Protein (Negative) Urine Glucose (UA) (Negative) g/dL Urine Ketones (NEGATIVE) Urine Occult Blood (Negative) Urine Nitrate (Negative) Urine Bilirubin (NEGATIVE) Urine Urobilinogen (0.2) E.U./dL Ur Leukocyte Esterase (NEGATIVE) Urine RBC (0-5/HPF) Urine WBC (0-5/HPF) Ur Squamous Epith Cells (0-5/HPF) Ur Transition Epith Cell (0-5/HPF) Urine Bacteria (None) Urine Mucus (Negative) Ur Culture Indicated? Vol Urine Centrifuged SARS-CoV-2 (PCR) (Negative) Blood Type Antibody Screen Crossmatch MDM Narrative Medical decision making narrative: Vomiting with possible bloody contents. Patient has known metastatic breast cancer with liver metastases. Most recent imaging is from 06/18/2023. Abdomen is soft, no reproducible tenderness to palpation. Patient has no active bleeding on exam, no blood around or in mouth, but does appear to have dark reddish stool around the rectum. Could possibly be related to red food coloring eaten earlier in the day, however patient has a history of thrombocytopenia and family reports blood in her stools for several days now. Laboratory work is reviewed, hemoglobin 9.6, down from 10.5 yesterday. Platelets 35, yesterday 39. Patient has had chronic thrombocytopenia since November of last year that family states is related to her chemotherapy. There have been no episodes of emesis since patient has arrived in the emergency department. Additionally patient noted to have ammonia level 50. T bili 1.4 (from 1.3), AST 173 (from 237), ALT 42 (from 45). No other changes noted. Patient given Rocephin, IV fluids, Protonix, Reglan for symptoms. Due to thrombocytopenia with ongoing bloody stools and possible hematemesis plan to admit for closer hemoglobin monitoring. Critical Care Time Critical Care Time Critical Care Time: Yes Total Critical Care Time: 36 Attestation: Presumed upper GI bleed with thrombocytopenia, anemia, history of breast cancer on chemotherapy. Discharge Plan Departure Patient Disposition: Admitted as Observation Clinical Impression: Stage IV breast cancer in female, Thrombocytopenia Nausea & vomiting Qualifiers: Vomiting type: hematemesis Qualified Code(s): K92.0 - Hematemesis Admit Date/Time: 07/06/23 23:41 Admit Provider: Melvin Vasquez
[2023-07-06] MEDS: LACTATED RINGERS 639 ML IV (20:05)
[2023-07-06] MEDS: cefTRIAXone 2,000 MG in SODIUM CHLORIDE 0.9% 100 ML 200 MG IV (20:25)
[2023-07-06 20:28] LABS: Allen Test for ABG Passed? Yes, Passed; Blood Gas Collection Site Right Radial; Fractionated Inspired Oxygen 21; HCO3 ABG 21 mmol/L (23-27); Oxygen Saturation ABG 96 % (95-100); PCO2 ABG 33.3 mmHg (35-45); PO2 ABG 82 mmHg (80-100); TCO2 ABG 22 mmol/L (23-27)
[2023-07-06 20:32] LABS: Basophils Absolute Auto 0 /uL (0-100); Basophils Percent Auto 0.3 % (0-2); Eosinophils Absolute Auto 0 /uL (0-450); Eosinophils Percent Auto 1.6 % (2-4); Hematocrit 27.3 % (36-46); Hemoglobin 9.6 g/dL (12.0-16.0); Lymphocytes Absolute Auto 300 /uL (1100-4500); Lymphocytes Percent Auto 16.2 % (25-40); Mean Corpuscular HGB Conc 35.1 % (30-36); Mean Corpuscular Hemoglobin 36.3 PG (26-34); Mean Corpuscular Volume 103.5 fL (80-100); Monocytes Absolute Auto 100 /uL (0-900); Monocytes Percent Auto 3.5 % (3-14); Neutrophils Absolute Auto 1500 /uL (1500-7000); Neutrophils Percent Auto 78.4 % (50-75); Red Blood Cell Count 2.64 X10^6/uL (4.0-5.2); Red Cell Distribution Width 16.6 % (11.6-14.8)
[2023-07-06 20:35] LABS: Add Manual Diff / Slide Review SLIDE REVIEW; INR 1.3 (0.9-1.3); Platelet Count 35 X10^3/uL (150-400); Prothrombin Time 14.9 SECONDS (9.4-12.5)
[2023-07-06 20:48] LABS: Ammonia (NH3) 50 umol/L (9-30)
[2023-07-06 20:49] LABS: Alanine Aminotransferase 42 IU/L (<35); Albumin 3.5 g/dL (3.5-5.0); Albumin Globulin Ratio 1.5 (1.0-2.8); Alkaline Phosphatase 139 U/L (38-126); Aspartate Aminotransferase 173 IU/L (14-36); BUN Creatinine Ratio 32.8 (6-22); Bilirubin Total 1.4 mg/dL (0.2-1.3); Blood Urea Nitrogen 21 mg/dL (7-17); Calcium 9.1 mg/dL (8.4-10.2); Carbon Dioxide 21 mmol/L (22-32); Chloride 106 mmol/L (98-107); Creatine Kinase 215 U/L (30-135); Estimated Glomerular Filt Rate > 60 mL/min (>60); Globulin 2.3 g/dL (1.7-4.1); Glucose 119 mg/dL (80-110); HEMOLYSIS < 15 (0-50); Lactate (Lactic Acid) 1.5 mmol/L (0.7-2.1); Potassium 3.8 mmol/L (3.4-5.1); Sodium 137 mmol/L (137-145); Total Protein 5.8 g/dL (6.3-8.2)
[2023-07-06 20:50] LABS: PTT Partial Thromboplastin Tim 40 SECONDS (25.1-36.5)
[2023-07-06 20:55] LABS: COVID19 -Nasal RAPID Negative (Negative)
[2023-07-06 21:01] LABS: Troponin I < 0.012 ng/mL (0.01-0.034)
[2023-07-06 21:05] LABS: Procalcitonin 0.25 ng/mL (<0.5)
[2023-07-06] MEDS: LACTULOSE 20 GM/30 ML SOLUTION PO (21:34)
--- NOTE | 2023-07-06 21:37 | PC.NURSE ---
Pt passed PO challenege with water. No difficulties swallowing. Pt resting in bed. Pt is somnolent w/ a flat affect. Family says she has been slightly confused the last few days. Family states pt started new Chemo on saturday and after infusion she was confused and had to be wheeled out to the car, which has never happened before. Family states she has been spacing out more and had some shakiness that was not normal for her. Pt is oriented and alert but is slow to respond at times and it is hard for her to get words out at times. Family is at bedside at this time.
[2023-07-06 21:53] LABS: Platelet Estimate Decreased on smear; RBC Morphology Normal Morphology
[2023-07-06] MEDS: METOCLOPRAMIDE 10 MG/2 ML INJ IV (22:25)
[2023-07-06] MEDS: PANTOPRAZOLE 40 MG VIAL 80 MG IV (22:25)
--- NOTE | 2023-07-06 22:45 | PC.NURSE ---
Pt had a large loose bowel movement. Dark in color but still brown. Pt was able to get on bed side commode with assistance of two people. Pt is shaky when standing. Pt cleaned and placed back into bed. No distress at this time. Given warm blankets. No complaints at this time.
[2023-07-06 22:53] LABS: Appearance Urine UA CLEAR; Bilirubin Urine UA NEGATIVE (NEGATIVE); Color Urine UA YELLOW; Glucose Urine UA NEGATIVE (Negative); Ketones Urine UA 2+ (NEGATIVE); Leukocyte Esterase Urine UA NEGATIVE (NEGATIVE); Nitrite Urine UA NEGATIVE (Negative); Occult Blood Urine UA 2+ (Negative); Protein Urine UA NEGATIVE (Negative); Specific Gravity Urine UA >=1.030 (1.000-1.035)
[2023-07-06 22:57] LABS: pH Urine UA 5.5 (4.5-8.0)
[2023-07-06 23:01] LABS: RBC Urine 1-5/HPF (0-5/HPF); Urine Volume 10mL (spun)
[2023-07-06 23:02] LABS: Bacteria Urine Moderate (10-30); Mucus Urine 1+ (Negative); Squamous Epithelial Cell Urine 1-5 /HPF (0-5/HPF)
[2023-07-06 23:03] LABS: Culture Indicated Urine Cult Not Indicated; Transitional Epi Cells Urine 0-1/HPF (0-5/HPF); WBC Urine 1-5/HPF (0-5/HPF)
[2023-07-06 23:06] LABS: Hematocrit 25.8 % (36-46)
[2023-07-07] VITALS (46 sets, daily range): BP systolic 95–122; BP diastolic 54–67; PULSE 83–110; RESP 12–34; TEMP 36.4–37.2; O2SAT 93–99; BMI 20.6
[2023-07-07] MEDS: ONDANSETRON 4 MG/2 ML INJ IV ×2 (00:41→14:24)
[2023-07-07] MEDS: SODIUM CHLORIDE 0.9% 1,000 ML 100 ML IV ×3 (00:45→18:24)
--- NOTE | 2023-07-07 01:40 | PC.NURSE ---
Pt moved from trauma room to ED11. Pt was moved to a hospital bed and was given a recliner and pillow, declined need for blankets. Pt was given more warm blankets.
[2023-07-07 04:31] LABS: Add Manual Diff / Slide Review NO; Basophils Absolute Auto 0 /uL (0-100); Basophils Percent Auto 0.3 % (0-2); Eosinophils Absolute Auto 0 /uL (0-450); Hematocrit 22.6 % (36-46); Lymphocytes Absolute Auto 400 /uL (1100-4500); Lymphocytes Percent Auto 24.5 % (25-40); Mean Corpuscular HGB Conc 35.4 % (30-36); Mean Corpuscular Hemoglobin 36.1 PG (26-34); Mean Corpuscular Volume 101.9 fL (80-100); Monocytes Absolute Auto 100 /uL (0-900); Neutrophils Absolute Auto 1200 /uL (1500-7000); Neutrophils Percent Auto 69.2 % (50-75); Red Blood Cell Count 2.22 X10^6/uL (4.0-5.2); Red Cell Distribution Width 16.5 % (11.6-14.8)
[2023-07-07 04:33] LABS: Platelet Count 31 X10^3/uL (150-400); White Blood Cell Count 1.8 X10^3/uL (4.5-11.0)
[2023-07-07 04:34] LABS: Alanine Aminotransferase 34 IU/L (<35); Albumin 3.1 g/dL (3.5-5.0); Albumin Globulin Ratio 1.4 (1.0-2.8); Alkaline Phosphatase 116 U/L (38-126); Aspartate Aminotransferase 140 IU/L (14-36); BUN Creatinine Ratio 23.9 (6-22); Bilirubin Total 0.9 mg/dL (0.2-1.3); Blood Urea Nitrogen 17 mg/dL (7-17); Carbon Dioxide 24 mmol/L (22-32); Chloride 106 mmol/L (98-107); Estimated Glomerular Filt Rate > 60 mL/min (>60); Globulin 2.2 g/dL (1.7-4.1); Glucose 94 mg/dL (80-110); HEMOLYSIS < 15 (0-50); Potassium 3.9 mmol/L (3.4-5.1); Sodium 137 mmol/L (137-145); Total Protein 5.3 g/dL (6.3-8.2)
[2023-07-07 04:41] LABS: Platelet Estimate Decreased on smear
[2023-07-07 04:42] LABS: Anisocytosis 1+; Macrocytosis 1+
--- NOTE | 2023-07-07 06:15 | PM.HP.1 ---
History of Present Illness History of Present Illness Date Patient Seen: 07/07/23 Time Patient Seen: 06:15 Chief complaint: GI bleed Narrative: The pt is a 58 yo female with stage IV breast cancer for the past 5 years who is currently recieving Kytruda and Taxol who has been very confused over the past week and 3 days ago started having extreme weakness to the point she can't walk, having nausea and vomiting, several episodes daily. Tonight she ate a red Popsicle and an hour later vomited a large amount of bloody emesis. She was brought to the ER for evaluation and has not had any emesis for the past 12 hours. All information came from the at bedside, the pt was not able to answer any of my questions. There has been no diarrhea, melana, BRBPR, fevers, chills but she has had a tremendous weight loss over the past month. [facility] Medical History Breast cancer, right (~06/2018) Depression, (~1993) Eczema Chicken pox Surgical History Hx of right mastectomy (08/05/18) Anesthesia Status post tubal ligation (~1995) Family History Brother Age: 80 Parkinson's disease Father Lung cancer Mother Brain cancer Sister No problems noted. Social History household members: spouse Smoking Status: Never smoker alcohol intake: current Meds Home Medications and Allergies Home Medications Medication Instructions Recorded Confirmed Type lorazepam 0.5 mg tablet 1 tab PO PRN PRN Anxiety 11/22/21 11/22/21 History ondansetron HCl 4 mg tablet 1 tab PO PRN PRN Nausea 11/22/21 11/22/21 History furosemide 40 mg tablet (Lasix) 40 mg PO DAILY #7 tabs 11/30/22 Rx Allergies Allergy/AdvReac Type Severity Reaction Status Date / Time latex Allergy Mild Rash Verified 11/30/22 11:33 morphine Allergy Mild Hypotension Verified 11/30/22 11:33 narcotics AdvReac Mild Hypotension Uncoded 11/25/21 11:03 Exam Vital Signs (past 8 hours): - 07/06/23 22:31 07/06/23 22:32 07/06/23 22:32 Pulse Rate 118 H 112 H Respiratory Rate 26 H Blood Pressure 148/78 H Pulse Oximetry 98 Oxygen Delivery Method Room Air 07/06/23 23:00 07/06/23 23:00 07/06/23 23:30 Pulse Rate 98 H 122 H Respiratory Rate 16 20 Blood Pressure 117/65 Pulse Oximetry 94 Oxygen Delivery Method 07/06/23 23:31 07/06/23 23:31 07/07/23 00:00 Pulse Rate 111 H 100 H Respiratory Rate 20 26 H Blood Pressure 111/79 Pulse Oximetry 95 Oxygen Delivery Method Room Air 07/07/23 00:01 07/07/23 00:01 07/07/23 00:30 Pulse Rate 107 H 97 H Respiratory Rate 26 H 34 H Blood Pressure 100/58 L Pulse Oximetry 96 95 Oxygen Delivery Method Room Air Room Air 07/07/23 00:30 07/07/23 00:44 07/07/23 01:00 Pulse Rate 94 H 101 H Respiratory Rate 20 18 Blood Pressure 106/54 L 104/58 L Pulse Oximetry 93 97 Oxygen Delivery Method Room Air 07/07/23 01:30 07/07/23 02:00 07/07/23 02:00 Pulse Rate 97 H 89 Respiratory Rate 21 23 Blood Pressure 105/55 L Pulse Oximetry 96 Oxygen Delivery Method Room Air 07/07/23 02:30 07/07/23 02:30 07/07/23 03:00 Pulse Rate 88 88 Respiratory Rate 16 15 Blood Pressure 107/56 L Pulse Oximetry 96 95 Oxygen Delivery Method Room Air Room Air 07/07/23 03:00 07/07/23 03:30 07/07/23 03:30 Pulse Rate 90 Respiratory Rate 17 Blood Pressure 105/57 L 95/54 L Pulse Oximetry 94 Oxygen Delivery Method Room Air 07/07/23 04:00 07/07/23 04:00 07/07/23 04:30 Pulse Rate 90 92 H Respiratory Rate 15 20 Blood Pressure 107/58 L Pulse Oximetry 96 95 Oxygen Delivery Method Room Air Room Air 07/07/23 04:31 07/07/23 04:31 07/07/23 05:00 Pulse Rate 95 H Respiratory Rate 26 H Blood Pressure 108/58 L 109/57 L Pulse Oximetry 96 Oxygen Delivery Method Room Air 07/07/23 05:00 07/07/23 05:30 07/07/23 05:30 Pulse Rate 93 H 89 Respiratory Rate 15 16 Blood Pressure 101/58 L Pulse Oximetry 93 Oxygen Delivery Method Room Air Oxygen Delivery Method Room Air Const General: frail appearing and ill appearing Resp Auscultation: clear to auscultation bilaterally Cardio Rate: regular rate Rhythm: regular rhythm GI Auscultation: normal bowel sounds Objective Labs 07/07/23 04:12 07/07/23 04:12 Labs: Laboratory Results - last 24 hr 07/06/23 07/06/23 07/06/23 20:01 20:08 22:44 WBC 2.0 L RBC 2.64 L Hgb 9.6 L Hct 27.3 L MCV 103.5 H MCH 36.3 H MCHC 35.1 RDW 16.6 H Plt Count 35 L* Neut % (Auto) 78.4 H Lymph % (Auto) 16.2 L [place] % (Auto) 3.5 Eos % (Auto) 1.6 L Baso % (Auto) 0.3 Neut # (Auto) 1500 Lymph # (Auto) 300 L [place] # (Auto) 100 Eos # (Auto) 0 Baso # (Auto) 0 Platelet Estimate Decreased on smear RBC Morphology Normal morphology Anisocytosis Macrocytosis PT 14.9 H INR 1.3 APTT 40 H ABG Sample Site Right radial ABG pH 7.40 ABG pCO2 33.3 L ABG pO2 82 ABG HCO3 21 L ABG Total CO2 22 L ABG O2 Saturation 96 ABG Base Excess -4.0 L FiO2 21 Sodium 137 Potassium 3.8 Chloride 106 Carbon Dioxide 21 L BUN 21 H Creatinine 0.64 Estimated GFR > 60 BUN/Creatinine Ratio 32.8 H Glucose 119 H Lactate 1.5 Calcium 9.1 Total Bilirubin 1.4 H AST 173 H ALT 42 H Alkaline Phosphatase 139 H Ammonia 50 H Total Creatine Kinase 215 H Troponin I < 0.012 Total Protein 5.8 L Albumin 3.5 Globulin 2.3 Albumin/Globulin Ratio 1.5 Procalcitonin 0.25 Urine Color Yellow Urine Appearance Clear Urine pH 5.5 Ur Specific [place] >=1.030 H Urine Protein Negative Urine Glucose (UA) Negative Urine Ketones 2+ H Urine Occult Blood 2+ H Urine Nitrate Negative Urine Bilirubin Negative Urine Urobilinogen 1.0 Ur Leukocyte Esterase Negative Urine RBC 1-5/hpf Urine WBC 1-5/hpf Ur Squamous Epith Cells 1-5 /hpf Ur Transition Epith Cell 0-1/hpf Urine Bacteria Moderate (10-30) H Urine Mucus 1+ H Ur Culture Indicated? Cult not indicated Vol Urine Centrifuged 10ml (spun) SARS-CoV-2 (PCR) Negative Blood Type O Positive Antibody Screen Negative 07/06/23 07/07/23 22:55 04:12 WBC 1.8 L* RBC 2.22 L Hgb 9.0 L 8.0 L Hct 25.8 L 22.6 L MCV 101.9 H MCH 36.1 H MCHC 35.4 RDW 16.5 H Plt Count 31 L* Neut % (Auto) 69.2 Lymph % (Auto) 24.5 L [place] % (Auto) 5.0 Eos % (Auto) 1.0 L Baso % (Auto) 0.3 Neut # (Auto) 1200 L Lymph # (Auto) 400 L [place] # (Auto) 100 Eos # (Auto) 0 Baso # (Auto) 0 Platelet Estimate Decreased on smear RBC Morphology See below Anisocytosis 1+ H Macrocytosis 1+ H PT INR APTT ABG Sample Site ABG pH ABG pCO2 ABG pO2 ABG HCO3 ABG Total CO2 ABG O2 Saturation ABG Base Excess FiO2 Sodium 137 Potassium 3.9 Chloride 106 Carbon Dioxide 24 BUN 17 Creatinine 0.71 Estimated GFR > 60 BUN/Creatinine Ratio 23.9 H Glucose 94 Lactate Calcium 9.0 Total Bilirubin 0.9 AST 140 H ALT 34 Alkaline Phosphatase 116 Ammonia Total Creatine Kinase Troponin I Total Protein 5.3 L Albumin 3.1 L Globulin 2.2 Albumin/Globulin Ratio 1.4 Procalcitonin Urine Color Urine Appearance Urine pH Ur Specific [place] Urine Protein Urine Glucose (UA) Urine Ketones Urine Occult Blood Urine Nitrate Urine Bilirubin Urine Urobilinogen Ur Leukocyte Esterase Urine RBC Urine WBC Ur Squamous Epith Cells Ur Transition Epith Cell Urine Bacteria Urine Mucus Ur Culture Indicated? Vol Urine Centrifuged SARS-CoV-2 (PCR) Blood Type Antibody Screen Assessment & Plan Assessment & Plan narrative: 1. GI bleed 2. chemotherapy induced pancyctopenia 3. metabolic encephalopathy 4. Stage IV metastati breast cancer 5. Nausea/ Vomiting Will admit the pt for monitoring due to her possible GI bleed. Her hgb has dropped one gram since coming to the ER. I have discussed the pt's condition and tx plan with the ER provider and agree with admission. We are checking the hgb Q6 hours, started IVF, antiemetics, pain meds. The pt was given lactulose for her elevated ammonia, will need to recheck level in am. General surgery has been consulted and will see today for possible EGD. The had many quesitons regarding goals of care which I will defer to the [facility] hospitalist.
--- NOTE | 2023-07-07 07:17 | P.HP_ITS ---
History of Present Illness History of Present Illness Date Patient Seen: 07/07/23 Chief complaint: GI bleed Narrative: From overnight provider: The pt is a 58 yo female with stage IV breast cancer for the past 5 years who is currently recieving Kytruda and Taxol who has been very confused over the past week and 3 days ago started having extreme weakness to the point she can't walk, having nausea and vomiting, several episodes daily. Tonight she ate a red Popsicle and an hour later vomited a large amount of bloody emesis. She was brought to the ER for evaluation and has not had any emesis for the past 12 hours. All information came from the at bedside, the pt was not able to answer any of my questions. There has been no diarrhea, melana, BRBPR, fevers, chills but she has had a tremendous weight loss over the past month. [facility] Medical History Breast cancer, right (~06/2018) Depression, (~1993) Eczema Chicken pox Surgical History Hx of right mastectomy (08/05/18) Anesthesia Status post tubal ligation (~1995) Family History Brother Age: 80 Parkinson's disease Father Lung cancer Mother Brain cancer Sister No problems noted. Social History household members: spouse Smoking Status: Never smoker alcohol intake: current Meds Home Medications and Allergies Home Medications Medication Instructions Recorded Confirmed Type lorazepam 0.5 mg tablet 1 tab PO PRN PRN Anxiety 11/22/21 11/22/21 History ondansetron HCl 4 mg tablet 1 tab PO PRN PRN Nausea 11/22/21 11/22/21 History furosemide 40 mg tablet (Lasix) 40 mg PO DAILY #7 tabs 11/30/22 Rx Allergies Allergy/AdvReac Type Severity Reaction Status Date / Time latex Allergy Mild Rash Verified 11/30/22 11:33 morphine Allergy Mild Hypotension Verified 11/30/22 11:33 narcotics AdvReac Mild Hypotension Uncoded 11/25/21 11:03 Review of Systems Review of Systems Narrative: All other systems reviewed with the patient and are negative unless otherwise stated. Exam Vital Signs (past 8 hours): - 07/06/23 23:30 07/06/23 23:31 07/06/23 23:31 Pulse Rate 122 H 111 H Respiratory Rate 20 20 Blood Pressure 111/79 Pulse Oximetry Oxygen Delivery Method 07/07/23 00:00 07/07/23 00:01 07/07/23 00:01 Pulse Rate 100 H 107 H Respiratory Rate 26 H 26 H Blood Pressure 100/58 L Pulse Oximetry 95 96 Oxygen Delivery Method Room Air Room Air 07/07/23 00:30 07/07/23 00:30 07/07/23 00:44 Pulse Rate 97 H 94 H Respiratory Rate 34 H 20 Blood Pressure 106/54 L 104/58 L Pulse Oximetry 95 93 Oxygen Delivery Method Room Air Room Air 07/07/23 01:00 07/07/23 01:30 07/07/23 02:00 Pulse Rate 101 H 97 H 89 Respiratory Rate 18 21 23 Blood Pressure Pulse Oximetry 97 96 Oxygen Delivery Method Room Air 07/07/23 02:00 07/07/23 02:30 07/07/23 02:30 Pulse Rate 88 Respiratory Rate 16 Blood Pressure 105/55 L 107/56 L Pulse Oximetry 96 Oxygen Delivery Method Room Air 07/07/23 03:00 07/07/23 03:00 07/07/23 03:30 Pulse Rate 88 Respiratory Rate 15 Blood Pressure 105/57 L 95/54 L Pulse Oximetry 95 Oxygen Delivery Method Room Air 07/07/23 03:30 07/07/23 04:00 07/07/23 04:00 Pulse Rate 90 90 Respiratory Rate 17 15 Blood Pressure 107/58 L Pulse Oximetry 94 96 Oxygen Delivery Method Room Air Room Air 07/07/23 04:30 07/07/23 04:31 07/07/23 04:31 Pulse Rate 92 H 95 H Respiratory Rate 20 26 H Blood Pressure 108/58 L Pulse Oximetry 95 96 Oxygen Delivery Method Room Air Room Air 07/07/23 05:00 07/07/23 05:00 07/07/23 05:30 Pulse Rate 93 H 89 Respiratory Rate 15 16 Blood Pressure 109/57 L Pulse Oximetry 93 Oxygen Delivery Method Room Air 07/07/23 05:30 Pulse Rate Respiratory Rate Blood Pressure 101/58 L Pulse Oximetry Oxygen Delivery Method Oxygen Delivery Method Room Air Narrative Exam Narrative: GEN: no acute distress, frail and ill-appearing HEENT: moist mucous membranes, PERRL NECK: trachea midline, no JVD CV: regular rate and rhythm, no murmurs PULM: clear bilaterally ABD: soft, nontender, nondistended, no organomegaly EXT: warm and well perfused with no edema NEURO: awake, alert, oriented, no focal deficits Objective Labs 07/07/23 04:12 07/07/23 04:12 Labs: Laboratory Results - last 24 hr 07/06/23 07/06/23 07/06/23 20:01 20:08 22:44 WBC 2.0 L RBC 2.64 L Hgb 9.6 L Hct 27.3 L MCV 103.5 H MCH 36.3 H MCHC 35.1 RDW 16.6 H Plt Count 35 L* Neut % (Auto) 78.4 H Lymph % (Auto) 16.2 L [place] % (Auto) 3.5 Eos % (Auto) 1.6 L Baso % (Auto) 0.3 Neut # (Auto) 1500 Lymph # (Auto) 300 L [place] # (Auto) 100 Eos # (Auto) 0 Baso # (Auto) 0 Platelet Estimate Decreased on smear RBC Morphology Normal morphology Anisocytosis Macrocytosis PT 14.9 H INR 1.3 APTT 40 H ABG Sample Site Right radial ABG pH 7.40 ABG pCO2 33.3 L ABG pO2 82 ABG HCO3 21 L ABG Total CO2 22 L ABG O2 Saturation 96 ABG Base Excess -4.0 L FiO2 21 Sodium 137 Potassium 3.8 Chloride 106 Carbon Dioxide 21 L BUN 21 H Creatinine 0.64 Estimated GFR > 60 BUN/Creatinine Ratio 32.8 H Glucose 119 H Lactate 1.5 Calcium 9.1 Total Bilirubin 1.4 H AST 173 H ALT 42 H Alkaline Phosphatase 139 H Ammonia 50 H Total Creatine Kinase 215 H Troponin I < 0.012 Total Protein 5.8 L Albumin 3.5 Globulin 2.3 Albumin/Globulin Ratio 1.5 Procalcitonin 0.25 Urine Color Yellow Urine Appearance Clear Urine pH 5.5 Ur Specific [place] >=1.030 H Urine Protein Negative Urine Glucose (UA) Negative Urine Ketones 2+ H Urine Occult Blood 2+ H Urine Nitrate Negative Urine Bilirubin Negative Urine Urobilinogen 1.0 Ur Leukocyte Esterase Negative Urine RBC 1-5/hpf Urine WBC 1-5/hpf Ur Squamous Epith Cells 1-5 /hpf Ur Transition Epith Cell 0-1/hpf Urine Bacteria Moderate (10-30) H Urine Mucus 1+ H Ur Culture Indicated? Cult not indicated Vol Urine Centrifuged 10ml (spun) SARS-CoV-2 (PCR) Negative Blood Type O Positive Antibody Screen Negative 07/06/23 07/07/23 22:55 04:12 WBC 1.8 L* RBC 2.22 L Hgb 9.0 L 8.0 L Hct 25.8 L 22.6 L MCV 101.9 H MCH 36.1 H MCHC 35.4 RDW 16.5 H Plt Count 31 L* Neut % (Auto) 69.2 Lymph % (Auto) 24.5 L [place] % (Auto) 5.0 Eos % (Auto) 1.0 L Baso % (Auto) 0.3 Neut # (Auto) 1200 L Lymph # (Auto) 400 L [place] # (Auto) 100 Eos # (Auto) 0 Baso # (Auto) 0 Platelet Estimate Decreased on smear RBC Morphology See below Anisocytosis 1+ H Macrocytosis 1+ H PT INR APTT ABG Sample Site ABG pH ABG pCO2 ABG pO2 ABG HCO3 ABG Total CO2 ABG O2 Saturation ABG Base Excess FiO2 Sodium 137 Potassium 3.9 Chloride 106 Carbon Dioxide 24 BUN 17 Creatinine 0.71 Estimated GFR > 60 BUN/Creatinine Ratio 23.9 H Glucose 94 Lactate Calcium 9.0 Total Bilirubin 0.9 AST 140 H ALT 34 Alkaline Phosphatase 116 Ammonia Total Creatine Kinase Troponin I Total Protein 5.3 L Albumin 3.1 L Globulin 2.2 Albumin/Globulin Ratio 1.4 Procalcitonin Urine Color Urine Appearance Urine pH Ur Specific [place] Urine Protein Urine Glucose (UA) Urine Ketones Urine Occult Blood Urine Nitrate Urine Bilirubin Urine Urobilinogen Ur Leukocyte Esterase Urine RBC Urine WBC Ur Squamous Epith Cells Ur Transition Epith Cell Urine Bacteria Urine Mucus Ur Culture Indicated? Vol Urine Centrifuged SARS-CoV-2 (PCR) Blood Type Antibody Screen Assessment & Plan Assessment & Plan narrative: 1. GI bleed 2. chemotherapy induced pancyctopenia 3. metabolic encephalopathy 4. Stage IV metastati breast cancer 5. Nausea/ Vomiting Will admit the pt for monitoring due to her possible GI bleed. Her hgb has dropped one gram since coming to the ER. I have discussed the pt's condition and tx plan with the ER provider and agree with admission. We are checking the hgb Q6 hours, started IVF, antiemetics, pain meds. The pt was given lactulose for her elevated ammonia, will need to recheck level in am. General surgery has been consulted and will see today for possible EGD. The had many quesitons regarding goals of care which I will defer to the critical access hospital hospitalist.
--- NOTE | 2023-07-07 07:58 | PC.NURSE ---
When this RN went into the patient room there was no IV pole, pump or normal saline infusion in the room. There is a current order for 100ml normal saline continuously. This RN informed charge nurse and hospitalist. There is no way to accurately record if and when this patient received these fluid by any RN on shift. This RN started new bag at 8am. New order placed to accurately record this new bag infusion. Existing order left open as no way to accurately record.
[2023-07-07] MEDS: PANTOPRAZOLE 40 MG VIAL IV ×2 (08:07→20:20)
--- NOTE | 2023-07-07 09:21 | PC.NURSE ---
Platelets were ordered on this patient and Maddy from the lab called and asked if the provider wanted radiated or non radiated platelets for this patient due to the patient having chemo. This RN called on call pharmacy technician provider Dr. Cueto and provider responded that he would prefer radiated platelets for this patient. This RN called Maddy from the lab and informed her of the providers preference.
--- NOTE | 2023-07-07 10:01 | PC.NURSE ---
Dr. Verdin at patient bedside with family also at bedside.
--- NOTE | 2023-07-07 10:44 | P.PN_ITS ---
Subjective Subjective Date Patient Seen: 07/07/23 Time Patient Seen: 13:15 Interval history: Dorys is resting in bed accompanied by family. She feels fatigued but appears more perky than she has over the past week according to family members. No further episodes of hematemesis or blood in stool since her admission. Patient and family of questions about what interventions may or may not be planned and indicate they are in the process of making final decisions about ultimate goals of care given her metastatic disease. Exam Vital Signs (past 8 hours): - 07/07/23 03:00 07/07/23 03:00 07/07/23 03:30 Temperature Pulse Rate 88 Respiratory Rate 15 Blood Pressure 105/57 L 95/54 L Pulse Oximetry 95 Oxygen Delivery Method Room Air 07/07/23 03:30 07/07/23 04:00 07/07/23 04:00 Temperature Pulse Rate 90 90 Respiratory Rate 17 15 Blood Pressure 107/58 L Pulse Oximetry 94 96 Oxygen Delivery Method Room Air Room Air 07/07/23 04:30 07/07/23 04:31 07/07/23 04:31 Temperature Pulse Rate 92 H 95 H Respiratory Rate 20 26 H Blood Pressure 108/58 L Pulse Oximetry 95 96 Oxygen Delivery Method Room Air Room Air 07/07/23 05:00 07/07/23 05:00 07/07/23 05:30 Temperature Pulse Rate 93 H 89 Respiratory Rate 15 16 Blood Pressure 109/57 L Pulse Oximetry 93 Oxygen Delivery Method Room Air 07/07/23 05:30 07/07/23 06:00 07/07/23 06:00 Temperature Pulse Rate 92 H Respiratory Rate 18 Blood Pressure 101/58 L 102/59 L Pulse Oximetry 93 Oxygen Delivery Method 07/07/23 06:30 07/07/23 07:00 07/07/23 07:00 Temperature Pulse Rate 94 H 85 Respiratory Rate 17 16 Blood Pressure 105/54 L Pulse Oximetry 96 97 Oxygen Delivery Method 07/07/23 07:30 07/07/23 08:00 07/07/23 08:00 Temperature Pulse Rate 92 H 99 H Respiratory Rate 13 23 Blood Pressure 106/56 L Pulse Oximetry 97 96 Oxygen Delivery Method 07/07/23 08:30 07/07/23 09:00 07/07/23 09:00 Temperature Pulse Rate 88 101 H Respiratory Rate 12 23 Blood Pressure 110/67 Pulse Oximetry 94 99 Oxygen Delivery Method 07/07/23 09:30 07/07/23 09:48 07/07/23 10:00 Temperature 97.6 F Pulse Rate 91 H 110 H 93 H Respiratory Rate 20 18 21 Blood Pressure 110/67 Pulse Oximetry 97 96 Oxygen Delivery Method 07/07/23 10:00 07/07/23 10:08 07/07/23 10:15 Temperature 98.1 F Pulse Rate 93 H 93 H Respiratory Rate 18 21 Blood Pressure 117/59 L 117/59 L Pulse Oximetry 97 Oxygen Delivery Method 07/07/23 10:15 07/07/23 10:30 07/07/23 10:30 Temperature Pulse Rate 90 Respiratory Rate 12 Blood Pressure 118/60 120/60 Pulse Oximetry 97 Oxygen Delivery Method 07/07/23 10:32 Temperature 98.2 F Pulse Rate 90 Respiratory Rate 18 Blood Pressure 120/60 Pulse Oximetry Oxygen Delivery Method Oxygen Delivery Method Room Air Narrative Exam Narrative: General: Fatigued, frail and ill-appearing HEENT: NC/TA, EOMI, pale conjunctiva, moist mucous membranes CV: Borderline tachycardia, regular rhythm, normal S1-S2, no murmur auscultated Resp: CTAB, comfortable work of breathing Abdomen: Soft, NTND, BS+ Skin: No rash or lesions on limited exam Neuro: A&O x3, normal cognition Objective Labs 07/07/23 04:12 07/07/23 04:12 Labs: Laboratory Results - last 24 hr 07/06/23 07/06/23 07/06/23 20:01 20:08 22:44 WBC 2.0 L RBC 2.64 L Hgb 9.6 L Hct 27.3 L MCV 103.5 H MCH 36.3 H MCHC 35.1 RDW 16.6 H Plt Count 35 L* Neut % (Auto) 78.4 H Lymph % (Auto) 16.2 L [place] % (Auto) 3.5 Eos % (Auto) 1.6 L Baso % (Auto) 0.3 Neut # (Auto) 1500 Lymph # (Auto) 300 L [place] # (Auto) 100 Eos # (Auto) 0 Baso # (Auto) 0 Platelet Estimate Decreased on smear RBC Morphology Normal morphology Anisocytosis Macrocytosis PT 14.9 H INR 1.3 APTT 40 H ABG Sample Site Right radial ABG pH 7.40 ABG pCO2 33.3 L ABG pO2 82 ABG HCO3 21 L ABG Total CO2 22 L ABG O2 Saturation 96 ABG Base Excess -4.0 L FiO2 21 Sodium 137 Potassium 3.8 Chloride 106 Carbon Dioxide 21 L BUN 21 H Creatinine 0.64 Estimated GFR > 60 BUN/Creatinine Ratio 32.8 H Glucose 119 H Lactate 1.5 Calcium 9.1 Total Bilirubin 1.4 H AST 173 H ALT 42 H Alkaline Phosphatase 139 H Ammonia 50 H Total Creatine Kinase 215 H Troponin I < 0.012 Total Protein 5.8 L Albumin 3.5 Globulin 2.3 Albumin/Globulin Ratio 1.5 Procalcitonin 0.25 Urine Color Yellow Urine Appearance Clear Urine pH 5.5 Ur Specific [place] >=1.030 H Urine Protein Negative Urine Glucose (UA) Negative Urine Ketones 2+ H Urine Occult Blood 2+ H Urine Nitrate Negative Urine Bilirubin Negative Urine Urobilinogen 1.0 Ur Leukocyte Esterase Negative Urine RBC 1-5/hpf Urine WBC 1-5/hpf Ur Squamous Epith Cells 1-5 /hpf Ur Transition Epith Cell 0-1/hpf Urine Bacteria Moderate (10-30) H Urine Mucus 1+ H Ur Culture Indicated? Cult not indicated Vol Urine Centrifuged 10ml (spun) SARS-CoV-2 (PCR) Negative Blood Type O Positive Antibody Screen Negative Crossmatch See Detail 07/06/23 07/07/23 22:55 04:12 WBC 1.8 L* RBC 2.22 L Hgb 9.0 L 8.0 L Hct 25.8 L 22.6 L MCV 101.9 H MCH 36.1 H MCHC 35.4 RDW 16.5 H Plt Count 31 L* Neut % (Auto) 69.2 Lymph % (Auto) 24.5 L [place] % (Auto) 5.0 Eos % (Auto) 1.0 L Baso % (Auto) 0.3 Neut # (Auto) 1200 L Lymph # (Auto) 400 L [place] # (Auto) 100 Eos # (Auto) 0 Baso # (Auto) 0 Platelet Estimate Decreased on smear RBC Morphology See below Anisocytosis 1+ H Macrocytosis 1+ H PT INR APTT ABG Sample Site ABG pH ABG pCO2 ABG pO2 ABG HCO3 ABG Total CO2 ABG O2 Saturation ABG Base Excess FiO2 Sodium 137 Potassium 3.9 Chloride 106 Carbon Dioxide 24 BUN 17 Creatinine 0.71 Estimated GFR > 60 BUN/Creatinine Ratio 23.9 H Glucose 94 Lactate Calcium 9.0 Total Bilirubin 0.9 AST 140 H ALT 34 Alkaline Phosphatase 116 Ammonia Total Creatine Kinase Troponin I Total Protein 5.3 L Albumin 3.1 L Globulin 2.2 Albumin/Globulin Ratio 1.4 Procalcitonin Urine Color Urine Appearance Urine pH Ur Specific [place] Urine Protein Urine Glucose (UA) Urine Ketones Urine Occult Blood Urine Nitrate Urine Bilirubin Urine Urobilinogen Ur Leukocyte Esterase Urine RBC Urine WBC Ur Squamous Epith Cells Ur Transition Epith Cell Urine Bacteria Urine Mucus Ur Culture Indicated? Vol Urine Centrifuged SARS-CoV-2 (PCR) Blood Type Antibody Screen Crossmatch [facility] Medical History Breast cancer, right (~06/2018) Depression, (~1993) Eczema Chicken pox Surgical History Hx of right mastectomy (08/05/18) Anesthesia Status post tubal ligation (~1995) Family History Brother Age: 80 Parkinson's disease Father Lung cancer Mother Brain cancer Sister No problems noted. Social History household members: spouse Smoking Status: Never smoker alcohol intake: former Assessment & Plan Assessment and plan (1) GI bleed: Qualifiers: GI bleed type/associated pathology: gastrointestinal hemorrhage with hematemesis Qualified Code(s): K92.0 - Hematemesis Status: Acute (2) Pancytopenia due to chemotherapy: Status: Acute (3) Stage IV breast cancer in female: Status: Acute (4) Nausea & vomiting: Qualifiers: Vomiting type: hematemesis Qualified Code(s): K92.0 - Hematemesis Status: Acute (5) Metabolic encephalopathy: Status: Acute (6) Dehydration: Status: Acute Assessment & Plan narrative: 58-year-old female with metastatic breast cancer admitted for GI bleed in the setting of chemo induced pancytopenia. #GI bleed #Pancytopenia #Metastatic breast cancer #Nausea/vomiting #Dehydration Unclear if perceived hematemesis due to red popsicle changing color of otherwise normal-appearing vomit, however maroon-colored stool on rectal exam by ED physician. -s/p 1u PRBC and irradiated platelets, MgSO4 2g IV x1 -hgb q.6h -IV PPI b.i.d. -IVF NS 100 cc/hr -antiemetics -lorazepam q.6h as needed for anxiety -surgery (Dr. Verdin) consulting, appreciate recs: no EGD due to pancytopenia and infection risk unless life saving and desired by patient after TXA failure #Metabolic encephalopathy Likely due to poor liver function from metastatic disease. Seems to be improving based on report of family members. -s/p lactulose 20mg -monitor for improvement Diet: Clear liquid DVT ppx: SCDs, no AC due to bleeding risk Code: Full Dispo: Home pending stabilization of bleeding Time Spent With Patient Time with patient: 30 to 49 minutes with 50% spent counseling/coordinating care
[2023-07-07] MEDS: MAGNESIUM SULFATE 2 GM/50 ML PIGGYBACK IV (10:47)
--- NOTE | 2023-07-07 11:14 | PC.NURSE ---
pt said she needed to have a bm. This PET COUNSELOR helped pt onto bed matta and waited at bedside. pt was unable to have a bm at this time. RN Oliver aware.
--- NOTE | 2023-07-07 11:16 | PM.CN ---
History of Present Illness Consult details Date Patient Seen: 07/07/23 Time Patient Seen: 11:16 Chief complaint: GI bleed Reason for consult: GI bleed Requesting provider: Maurizio Chavez Narrative: Dark emesis, nausea, fatigue, anorexia. Active treatment for breast cancer (5 years running). Last dose of chemo on Saturday. No pain. Labs confirm critical anemia, neutropenia, thrombocytopenia. Meds Home Medications and Allergies Home Medications Medication Instructions Recorded Confirmed Type lorazepam 0.5 mg tablet 1 tab PO PRN PRN Anxiety 11/22/21 11/22/21 History ondansetron HCl 4 mg tablet 1 tab PO PRN PRN Nausea 11/22/21 11/22/21 History furosemide 40 mg tablet (Lasix) 40 mg PO DAILY #7 tabs 11/30/22 Rx Allergies Allergy/AdvReac Type Severity Reaction Status Date / Time latex Allergy Mild Rash Verified 11/30/22 11:33 morphine Allergy Mild Hypotension Verified 11/30/22 11:33 narcotics AdvReac Mild Hypotension Uncoded 11/25/21 11:03 Review of Systems Review of Systems ROS: Yes All systems reviewed with the patient and are negative except as otherwise documented Exam Vital Signs (past 8 hours): - 07/07/23 03:30 07/07/23 03:30 07/07/23 04:00 Temperature Pulse Rate 90 90 Respiratory Rate 17 15 Blood Pressure 95/54 L Pulse Oximetry 94 96 Oxygen Delivery Method Room Air Room Air 07/07/23 04:00 07/07/23 04:30 07/07/23 04:31 Temperature Pulse Rate 92 H Respiratory Rate 20 Blood Pressure 107/58 L 108/58 L Pulse Oximetry 95 Oxygen Delivery Method Room Air 07/07/23 04:31 07/07/23 05:00 07/07/23 05:00 Temperature Pulse Rate 95 H 93 H Respiratory Rate 26 H 15 Blood Pressure 109/57 L Pulse Oximetry 96 93 Oxygen Delivery Method Room Air Room Air 07/07/23 05:30 07/07/23 05:30 07/07/23 06:00 Temperature Pulse Rate 89 92 H Respiratory Rate 16 18 Blood Pressure 101/58 L Pulse Oximetry 93 Oxygen Delivery Method 07/07/23 06:00 07/07/23 06:30 07/07/23 07:00 Temperature Pulse Rate 94 H Respiratory Rate 17 Blood Pressure 102/59 L 105/54 L Pulse Oximetry 96 Oxygen Delivery Method 07/07/23 07:00 07/07/23 07:30 07/07/23 08:00 Temperature Pulse Rate 85 92 H 99 H Respiratory Rate 16 13 23 Blood Pressure Pulse Oximetry 97 97 96 Oxygen Delivery Method 07/07/23 08:00 07/07/23 08:30 07/07/23 09:00 Temperature Pulse Rate 88 101 H Respiratory Rate 12 23 Blood Pressure 106/56 L Pulse Oximetry 94 99 Oxygen Delivery Method 07/07/23 09:00 07/07/23 09:30 07/07/23 09:48 Temperature 97.6 F Pulse Rate 91 H 110 H Respiratory Rate 20 18 Blood Pressure 110/67 110/67 Pulse Oximetry 97 Oxygen Delivery Method 07/07/23 10:00 07/07/23 10:00 07/07/23 10:08 Temperature 98.1 F Pulse Rate 93 H 93 H Respiratory Rate 21 18 Blood Pressure 117/59 L 117/59 L Pulse Oximetry 96 Oxygen Delivery Method 07/07/23 10:15 07/07/23 10:15 07/07/23 10:30 Temperature Pulse Rate 93 H 90 Respiratory Rate 21 12 Blood Pressure 118/60 Pulse Oximetry 97 97 Oxygen Delivery Method 07/07/23 10:30 07/07/23 10:32 07/07/23 10:45 Temperature 98.2 F Pulse Rate 90 93 H Respiratory Rate 18 12 Blood Pressure 120/60 120/60 Pulse Oximetry 96 Oxygen Delivery Method 07/07/23 10:45 07/07/23 10:49 Temperature 98.4 F Pulse Rate 93 H Respiratory Rate 18 Blood Pressure 118/60 118/60 Pulse Oximetry Oxygen Delivery Method Oxygen Delivery Method Room Air Const General: acute distress, frail appearing, ill appearing and lethargic Nutritional Appearance: thin Orientation: awake and oriented x3 HENVA Head: normocephalic and atraumatic Ears: hearing grossly normal bilaterally Eyes General: appearance normal, both eyes and all related structures Neck Neck: trachea midline and No JVD Resp Effort & Inspection: normal respiratory effort and able to speak in complete sentences Cardio Rate: tachycardic Rhythm: regular rhythm GI Inspection: normal to inspection Palpation: soft Skin General: No turgor normal, atrophy and dry skin Neuro General: patient awake and patient oriented x3 Cognition: normal cognition Psych Mental Status: mental status grossly normal Affect: sad and indifferent Judgment: judgment good Objective Labs 07/07/23 04:12 07/07/23 04:12 Labs: Laboratory Results - last 24 hr 07/06/23 07/06/23 07/06/23 20:01 20:08 22:44 WBC 2.0 L RBC 2.64 L Hgb 9.6 L Hct 27.3 L MCV 103.5 H MCH 36.3 H MCHC 35.1 RDW 16.6 H Plt Count 35 L* Neut % (Auto) 78.4 H Lymph % (Auto) 16.2 L [place] % (Auto) 3.5 Eos % (Auto) 1.6 L Baso % (Auto) 0.3 Neut # (Auto) 1500 Lymph # (Auto) 300 L [place] # (Auto) 100 Eos # (Auto) 0 Baso # (Auto) 0 Platelet Estimate Decreased on smear RBC Morphology Normal morphology Anisocytosis Macrocytosis PT 14.9 H INR 1.3 APTT 40 H ABG Sample Site Right radial ABG pH 7.40 ABG pCO2 33.3 L ABG pO2 82 ABG HCO3 21 L ABG Total CO2 22 L ABG O2 Saturation 96 ABG Base Excess -4.0 L FiO2 21 Sodium 137 Potassium 3.8 Chloride 106 Carbon Dioxide 21 L BUN 21 H Creatinine 0.64 Estimated GFR > 60 BUN/Creatinine Ratio 32.8 H Glucose 119 H Lactate 1.5 Calcium 9.1 Total Bilirubin 1.4 H AST 173 H ALT 42 H Alkaline Phosphatase 139 H Ammonia 50 H Total Creatine Kinase 215 H Troponin I < 0.012 Total Protein 5.8 L Albumin 3.5 Globulin 2.3 Albumin/Globulin Ratio 1.5 Procalcitonin 0.25 Urine Color Yellow Urine Appearance Clear Urine pH 5.5 Ur Specific [place] [employer] >=1.030 H Urine Protein Negative Urine Glucose (UA) Negative Urine Ketones 2+ H Urine Occult Blood 2+ H Urine Nitrate Negative Urine Bilirubin Negative Urine Urobilinogen 1.0 Ur Leukocyte Esterase Negative Urine RBC 1-5/hpf Urine WBC 1-5/hpf Ur Squamous Epith Cells 1-5 /hpf Ur Transition Epith Cell 0-1/hpf Urine Bacteria Moderate (10-30) H Urine Mucus 1+ H Ur Culture Indicated? Cult not indicated Vol Urine Centrifuged 10ml (spun) SARS-CoV-2 (PCR) Negative Blood Type O Positive Antibody Screen Negative Crossmatch See Detail 07/06/23 07/07/23 22:55 04:12 WBC 1.8 L* RBC 2.22 L Hgb 9.0 L 8.0 L Hct 25.8 L 22.6 L MCV 101.9 H MCH 36.1 H MCHC 35.4 RDW 16.5 H Plt Count 31 L* Neut % (Auto) 69.2 Lymph % (Auto) 24.5 L [place] % (Auto) 5.0 Eos % (Auto) 1.0 L Baso % (Auto) 0.3 Neut # (Auto) 1200 L Lymph # (Auto) 400 L [place] # (Auto) 100 Eos # (Auto) 0 Baso # (Auto) 0 Platelet Estimate Decreased on smear RBC Morphology See below Anisocytosis 1+ H Macrocytosis 1+ H PT INR APTT ABG Sample Site ABG pH ABG pCO2 ABG pO2 ABG HCO3 ABG Total CO2 ABG O2 Saturation ABG Base Excess FiO2 Sodium 137 Potassium 3.9 Chloride 106 Carbon Dioxide 24 BUN 17 Creatinine 0.71 Estimated GFR > 60 BUN/Creatinine Ratio 23.9 H Glucose 94 Lactate Calcium 9.0 Total Bilirubin 0.9 AST 140 H ALT 34 Alkaline Phosphatase 116 Ammonia Total Creatine Kinase Troponin I Total Protein 5.3 L Albumin 3.1 L Globulin 2.2 Albumin/Globulin Ratio 1.4 Procalcitonin Urine Color Urine Appearance Urine pH Ur Specific [place] [employer] Urine Protein Urine Glucose (UA) Urine Ketones Urine Occult Blood Urine Nitrate Urine Bilirubin Urine Urobilinogen Ur Leukocyte Esterase Urine RBC Urine WBC Ur Squamous Epith Cells Ur Transition Epith Cell Urine Bacteria Urine Mucus Ur Culture Indicated? Vol Urine Centrifuged SARS-CoV-2 (PCR) Blood Type Antibody Screen Crossmatch [facility] Medical History Breast cancer, right (~06/2018) Depression, (~1993) Eczema Chicken pox Surgical History Hx of right mastectomy (08/05/18) Anesthesia Status post tubal ligation (~1995) Family History Brother Age: 80 Parkinson's disease Father Lung cancer Mother Brain cancer Sister No problems noted. Social History household members: spouse Tobacco & Substance Use Smoking Status: Never smoker alcohol intake: current Assessment & Plan Assessment & Plan narrative: Long standing todd with breast cancer Upper GI bleed pancytopenia Plan: Agree with IV BID PPI Transfusion of RBC and Platelet underway Clear liquid diet and IV hydration No EGD due to pancytopenia unless life saving. And after TXA failure Time Spent With Patient Time with patient: 30 to 49 minutes with 50% spent counseling/coordinating care
[2023-07-07 17:59] LABS: Hemoglobin 8.5 g/dL (12.0-16.0); Mean Corpuscular HGB Conc 35.3 % (30-36); Mean Corpuscular Hemoglobin 35.6 PG (26-34); Mean Corpuscular Volume 100.8 fL (80-100); Platelet Count 61 X10^3/uL (150-400); Red Blood Cell Count 2.38 X10^6/uL (4.0-5.2); Red Cell Distribution Width 18.2 % (11.6-14.8)
[2023-07-07 18:10] LABS: Add Manual Diff / Slide Review YES; White Blood Cell Count 1.6 X10^3/uL (4.5-11.0)
--- NOTE | 2023-07-07 18:41 | PC.NURSE ---
Day shift: Pt arrived from ED Boarding this afternoon. Platelets weren't hung in ED, given in acute care. H&H and platelets improved after platelets given. No emesis or stool this shift. Bladder scanned this evening for 461 as it is unclear the last time patient has voided. Patient states she feels like I will need to pee soon. Helped patient sit all the way up and try to void (she has purewic in). Notified MD Cueto of low WBC and he ordered repeat CBCs and IV nausea medications. Will continue to monitor.
[2023-07-07 18:53] LABS: Neutrophils Absolute Manual 864 /uL (3000-5900); RBC Morphology Normal Morphology; Total Cells Counted 100
[2023-07-07] MEDS: METOCLOPRAMIDE 10 MG/2 ML INJ 5 MG IV (23:54)
[2023-07-08] VITALS: BP 106/49; PULSE 91; RESP 16; TEMP 36.6; O2SAT 97
[2023-07-08 02:08] LABS: Hematocrit 23.8 % (36-46); Hemoglobin 8.5 g/dL (12.0-16.0); Mean Corpuscular HGB Conc 35.6 % (30-36); Mean Corpuscular Hemoglobin 35.9 PG (26-34); Mean Corpuscular Volume 100.8 fL (80-100); Platelet Count 47 X10^3/uL (150-400); Red Blood Cell Count 2.36 X10^6/uL (4.0-5.2); Red Cell Distribution Width 17.6 % (11.6-14.8)
[2023-07-08 02:10] LABS: Add Manual Diff / Slide Review YES
[2023-07-08 02:15] LABS: White Blood Cell Count 1.5 X10^3/uL (4.5-11.0)
[2023-07-08 02:36] LABS: Neutrophils Absolute Manual 1095 /uL (3000-5900); Total Cells Counted 100
[2023-07-08 02:37] LABS: RBC Morphology Normal Morphology
[2023-07-08] MEDS: SODIUM CHLORIDE 0.9% 1,000 ML 100 ML IV ×3 (03:59→23:29)
[2023-07-08] MEDS: METOCLOPRAMIDE 10 MG/2 ML INJ 5 MG IV ×4 (06:23→23:29)
[2023-07-08 06:47] LABS: Hematocrit 25.2 % (36-46); Hemoglobin 8.7 g/dL (12.0-16.0); Mean Corpuscular HGB Conc 34.5 % (30-36); Mean Corpuscular Hemoglobin 35.1 PG (26-34); Mean Corpuscular Volume 101.8 fL (80-100); Platelet Count 45 X10^3/uL (150-400); Red Blood Cell Count 2.48 X10^6/uL (4.0-5.2); Red Cell Distribution Width 17.5 % (11.6-14.8)
[2023-07-08 07:05] LABS: Add Manual Diff / Slide Review YES; White Blood Cell Count 1.6 X10^3/uL (4.5-11.0)
[2023-07-08 07:14] LABS: Anisocytosis 2+; Neutrophils Absolute Manual 1072 /uL (3000-5900); Total Cells Counted 100
[2023-07-08] MEDS: PANTOPRAZOLE 40 MG VIAL IV ×2 (08:19→20:57)
[2023-07-08] MEDS: ONDANSETRON 4 MG/2 ML INJ IV (08:27)
[2023-07-08 09:00] VITALS: BP 99/52; PULSE 94; TEMP 37.5; O2SAT 96
--- NOTE | 2023-07-08 11:38 | CM.DANOTE ---
Patient is a 58 yo female who was admitted on 07/06/23 for GI Bleed. Pt has [employer] for insurance and her PCP is Barbara Jo. EMR was reviewed. Per MD, pt with a hx of stage IV breast cancer and receiving chemo from Oncology at baseline and admitted with n/v and fatigue and determined GI bleed. Per Surgeon, blood transfusion and no surgical intervention at this time and pt risk due to pancytopenia. Per MD, pt's encephalopathy seems to be resolving and medically stable to d/c home as likely reaction to new chemo started this week. PT/OT ordered due to pt's fatigue and weakness and below baseline. SW spoke to pt's spouse as pt resting to save up her strength for home and spouse confirms they live in [place] with local supportive family and friends. Pt is typically independent with ADLs and last week was able to walk 3 miles with spouse and currently shaky and weak with FWW. Spouse denies any hx of HH or SNF but feels pt would benefit from PT/OT/RN at d/c but feels she will make progress quickly. [facility]ouse preference [facility]. Spouse states they have 3 adult children and pt continuing to actively receive chemo treatment for her breast cancer. Pt's Oncologist is Dr. Rupinder Welsh from [facility] in [place] and pt typically gets quite ill when she starts new chemo. Spouse quite supportive and involved in patient's care and friends have also been bedside. Spouse agreeable with pt d/c home today and he plans to transport and will remain in communication with their Oncologist to provide update on pt's admission. SW made initial referral to [facility] and emailed referral along with completed F2F to review. Plan: SW to follow for plan of pt d/c home today via spouse POV after lunch time with new [facility] referral made and will send d/c summ and HH orders when available. OLIVIER Santos Discharge Planning/Care Management CM Discharge Assessment Start: 07/08/23 11:34 Freq: Status: Active Protocol: Document 07/08/23 11:35 BF (Rec: 07/08/23 11:37 BF [id number]) Discharge Planning Assessment Assigned Cellular Phone Repairer OLIVIER Montero DPOA/Assigned Designee Name Spouse Gabriel Contact Information [phone] Advance Directives? No Advance Directives on File No History Provided By Patient,Friend,Significant Other,Medical Record Has Patient been admitted in last 30 No days? Prior Living Arrangements House Household Members spouse Type of transporation used prior to Relies on Others admit Independent with ADL's Yes Is patient alert and oriented? Yes Caregiver for Another No DME Already Rented / Owned FWW / Walker Patient/Family Preference Home with Home Health Barriers to Discharge No Discharge Plan Home with Home Health Community Services Physical Therapy,Occupational Therapy,Home Health Nurse Transportation Arrangement Spouse confirms he can provide transport home today Referrals Initiated Home Health Additional Comment [facility] referral made If patient plan is home with home health Yes : Has signed face to face form been completed? Medicare Choice List Provided Yes Medicare choice list reviewed on family electronic tablet with SNF/HH Preference [facility] Whiteboard Updated in Patient Room with Yes name and ext. # of Cellular Phone Repairer Review Status In Process Please Provide Date Initial DC 07/08/23 Assessment Was Performed Next Review Type Continued Stay Review
--- NOTE | 2023-07-08 12:56 | PM.CALLCOV.1 ---
Call Coverage Note Note Date of Patient Contact: 07/08/23 Time of Patient Contact: 12:56 Narrative of Care Provided: Chart check No active bleeding, source likely gastritis. Plan: advance to general diet, PPI BID for 8 weeks.
--- NOTE | 2023-07-08 13:07 | PM.DS.1 ---
History of Present Illness History of Present Illness Date Patient Seen: 07/08/23 Time Patient Seen: 08:00 Date of Onset of Symptoms: 07/03/23 Chief complaint: GI bleed Narrative: See admission history and physical dictated by Dr. Chavez Discharge Providers Provider Date of admission: 07/06/23 23:41 Discharge Date: 07/08/23 Primary care physician: ALLA Mauro Consults: 07/06/23 23:45 Consult to General Surgery Routine Comment: Consulting Provider: Ivonne Verdin Reason for consultation: GI bleed Has provider been notified: No 07/07/23 10:26 Consult to Dietitian, Adult Routine Comment: Reason For Exam: malnutrition, cancer pt, order clear ensure. 07/08/23 10:35 Consult to Occupational Therapy Evaluate & Treat Comment: Physician Instructions: Evaluate and treat Consult to Physical Therapy Evaluate & Treat Comment: Physician Instructions: Evaluate and Treat 07/08/23 11:50 Consult to Home Health Routine Comment: Encephalopathy, stage IV breast cancer, GI Bleed Reason For Exam: Set up RN/PT/OT for discharge to home Discharge provider: Maximilian Jo MD Summary Hospital Course Discharge Diagnosis: GI bleed Pancytopenia Metastatic breast cancer Nausea and vomiting Dehydration Metabolic encephalopathy Hospital Course: GI bleed. Patient was admitted to the hospital. Had no further black or tarry stools. And no further vomiting of any bloody substance. She was given 1 unit of packed red blood cells. Surgeons were consulted. And felt that due to her other issues in her pancytopenia she had prefer not to do EGD until that had improved. And if it stopped on its own then no further intervention until things were more stable. Patient blood counts were stable over the next 24 hours and due to the fact that she was feeling well and on PPI was elected for her to go home. She will continue on PPI. Follow up with her primary roof assembler in 2 weeks. Will repeat blood work at that time. Pancytopenia. Her neutrophils were greater than a 1000. And she had no evidence of fevers. She will be discharged home and be followed by her oncologist. Dehydration. Patient was given blood and aggressively hydrated she was feeling better not great. Hopefully we can keep her nausea under control. And will follow. I think she is euvolemic at this time. Stage IV breast cancer. Most of this probably is related to her cancer treatment. Seem to be starting after that. is thinking they should hold on and weight a little bit and give her breasts before they restart and he will discuss with oncologist. Will see how things go. He can call us if he has any questions. Patient has been increasingly weak and will set up with home health and home PT. Hopefully that will improve. Nausea and vomiting. Probably secondary to medication. We discussed this. There has been no other change. Seems to be improved although I am not sure where completely where we want to be. We discussed this. We are going to continue the Zofran and see how things go. If she has not able to take p.o. they will call. Metabolic encephalopathy. Apparently this has been going on for awhile. She did have a mildly elevated ammonia level although she was not giving any thing for that. She cleared and I think it was a combination of the medicines and hurt he dehydration. Was more likely causing this than anything else. Good news is she is feeling better and is more normal. But certainly could be some related to her metastatic disease and will have to see how things go. She is more normal today. Greater than 45 minutes spent dictation discussion with family orders discussion with social service Exam Vital Signs (past 8 hours): - 07/08/23 09:00 Temperature 99.5 F Pulse Rate 94 H Blood Pressure 99/52 L Pulse Oximetry 96 Oxygen Flow Rate 0 Oxygen Delivery Method Room Air Oxygen Flow Rate 0 Narrative Exam Narrative: Alert female lying in bed no acute distress breathing comfortably. Interacting and answering questions appropriately Objective Labs 07/08/23 06:28 07/07/23 04:12 Labs: Laboratory Results - last 24 hr 07/06/23 07/07/23 07/08/23 20:01 17:40 00:05 WBC 1.6 L* 1.5 L* RBC 2.38 L 2.36 L Hgb 8.5 L 8.5 L Hct 24.0 L 23.8 L MCV 100.8 H 100.8 H MCH 35.6 H 35.9 H MCHC 35.3 35.6 RDW 18.2 H 17.6 H Plt Count 61 L 47 L Neut % (Auto) Not Reportable Not Reportable Lymph % (Auto) Not Reportable Not Reportable [place] % (Auto) Not Reportable Not Reportable Eos % (Auto) Not Reportable Not Reportable Baso % (Auto) Not Reportable Not Reportable Lymph # (Auto) Not Reportable Not Reportable [place] # (Auto) Not Reportable Not Reportable Baso # (Auto) Not Reportable Not Reportable Total Counted 100 100 Seg Neutrophils % 53.0 71.0 H Band Neutrophils % 1.0 L 2.0 L Lymphocytes % (Manual) 37.0 22.0 L Monocytes % (Manual) 4.0 3.0 Eosinophils % (Manual) 5.0 H 2.0 Neutrophils # (Manual) 864 L 1095 L RBC Morphology Normal morphology Normal morphology Anisocytosis Blood Type O Positive Antibody Screen Negative Crossmatch See Detail 07/08/23 06:28 WBC 1.6 L* RBC 2.48 L Hgb 8.7 L Hct 25.2 L MCV 101.8 H MCH 35.1 H MCHC 34.5 RDW 17.5 H Plt Count 45 L Neut % (Auto) Not Reportable Lymph % (Auto) Not Reportable [place] % (Auto) Not Reportable Eos % (Auto) Not Reportable Baso % (Auto) Not Reportable Lymph # (Auto) Not Reportable [place] # (Auto) Not Reportable Baso # (Auto) Not Reportable Total Counted 100 Seg Neutrophils % 67.0 Band Neutrophils % Lymphocytes % (Manual) 33.0 Monocytes % (Manual) Eosinophils % (Manual) Neutrophils # (Manual) 1072 L RBC Morphology Not Reportable Anisocytosis 2+ H Blood Type Antibody Screen Crossmatch [facility] Medical History Breast cancer, right (~06/2018) Depression, (~1993) Eczema Chicken pox Surgical History Hx of right mastectomy (08/05/18) Anesthesia Status post tubal ligation (~1995) Family History Brother Age: 80 Parkinson's disease Father Lung cancer Mother Brain cancer Sister No problems noted. Social History household members: spouse Smoking Status: Never smoker alcohol intake: former Discharge Assessment & Plan Assessment and Plan Assessment: Improved Plan of Treatment: Discharge home Discharge Plan Discharge Plan Patient Disposition: Home Discharge orders & Medications Prescriptions: New pantoprazole [address] for susp in packet 40 mg PO DAILY Qty: 30 1RF ondansetron 4 mg tablet,disintegrating 4 mg PO Q4-5H PRN (Reason: nausea and vomiting) Qty: 90 3RF Discontinued ondansetron HCl 4 mg tablet 1 tab PO PRN PRN (Reason: Nausea) Follow up/Referrals: Barbara Jo ARNP [Primary Care Provider] - 2 Weeks (follow up with oncologist as scheduled) Activity Restrictions/Additional Instructions: as tolerated Discharge Health Status Multidrug resistant organism: No MDRO Diet/Activity/Treatments Diet: Diet as Tolerated Skin/Wound/Dressing Care Report to your healthcare provider any signs of infection, such as:: chills, fever, night sweats and increased pain Visit Report/Discharge Packet Instructions: Eating Well While Receiving Chemotherapy, How to Prevent Falls Stand Alone Forms: Patient Portal/API, Stroke Signs & Symptoms Discharge Data Primary Care Provider: Barbara Jo
--- NOTE | 2023-07-08 13:07 | PT-IP ANOTE ---
PT and OT orders received before pt d/c. OT initiated evaluation and pt refuses OOB. Family communicates that they knew pt would not want therapy inpatient and that they were requesting HH services. OT spoke with SW and PT. Will d/c PT order.
--- NOTE | 2023-07-08 13:39 | OT.IP.EVAL ---
Current Diagnoses Malignant neoplasm of unspecified site of unspecified female breast (07/06/23) Antineoplastic chemotherapy induced pancytopenia (07/06/23) Dehydration (07/06/23) Metabolic encephalopathy (07/06/23) Hematemesis (07/06/23) Nausea with vomiting, unspecified (07/06/23) Past Medical History (Last Reviewed 07/07/23 @ 11:18 by Ivonne Verdin MD) Breast cancer, right (~06/2018) Chicken pox Depression, (~1993) Eczema Surgical History (Last Reviewed 07/07/23 @ 11:18 by Ivonne Verdin MD) Anesthesia Hx of right mastectomy (08/05/18) Status post tubal ligation (~1995) Occupational Therapy Inpatient Evaluation/Re-Eval M1 PT/OT-IP Prior Functional Status Start: 07/08/23 13:17 Freq: NEEDED Status: Active Protocol: Document 07/08/23 11:40 ROCKY (Rec: 07/08/23 13:39 ROCKY [id number]) Medical Review Prior Functional Status Communication Pt is able to communicate WNL, pt is soft spoken and speaks slowly. Mobility and Gait Prior to recent need for hospitalization, pt walked 3 miles with friends/family. Activities of Daily Living and IADL's Pt was I with BADLs and reading prior to hospitalization Social History Household Members spouse Living Arrangements House Number of Stairs To Enter/Railing? 1 stair to enter Home Environment Standard Height Toilet,Walk in Shower Home Equipment Front Wheel Walker,Bedside Commode,Shower Seat without Backrest M2 OT-IP Current Condition Start: 07/08/23 13:17 Freq: Status: Active Protocol: Document 07/08/23 11:40 ROCKY (Rec: 07/08/23 13:39 ROCKY [id number]) Occupational Therapy Current Condition Current Condition Evaluation Date 07/08/23 Treatment Diagnosis s/p GI bleed Diagnosis Onset Date 07/06/23 Weight Bearing Status Weight Bearing Status Full Weight Bearing M3 OT- IP Subjective and Pain Start: 07/08/23 13:17 Freq: Status: Active Protocol: Document 07/08/23 11:40 ROCKY (Rec: 07/08/23 13:39 ROCKY [id number]) OT- Subjective Occupational Therapy Visit Type Type Initial Evaluation Visit Start Time 11:40 Visit Stop Time 12:55 Notes Split eval, [id number], initially stopped due to pts c /o nausea. Pt agreed to try to eat and have OT return in about 30 minutes. Eval was completed from [id number]. At that time pt's spouse stated that there was a miscommunication and they did not want OT/PT during hospitalization, but that they wanted it upon d/c. OT stayed to answer pt safety discharge related questions for remainder of eval time. Occupational Therapy Visit Comments Patient Comments Pt c/o nausea while EOB. Overall, pt reports not feeling well. Despite this, pt was willing to attempt OT eval. Patient/Caregiver Goals Pt spouse says he wants to get her home, take things slowly, and find out what the new normal is. OT Pain Assessment Pain Present Pain Present Denied Pain M4 OT- IP ADL's Start: 07/08/23 13:17 Freq: Status: Active Protocol: Document 07/08/23 11:40 ROCKY (Rec: 07/08/23 13:39 [facility] [id number]) OT [id number] General Evaluation Diet Level for Self-Feeding liquid Self-Feeding Ability Standby Assistance Comments OT Self-Feeding Comments Pt able to bring cup to her mouth when glass was handed to her. Pt declined all other food while OT was present. Pt requires set up OT ADL-Grooming Comments OT Grooming Comments Pt declined to perform at this time. 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 OT ADL-Oral Care Comments Oral Care Comments Pt declined to perform at this time. 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 OT ADL-Dressing Comments OT Dressing Comments Pt declined to perform at this time. 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 OT ADL-Toileting Comments OT Toileting Comments Pt denied needing to toilet at time of eval. OT ADL-Bathing Comments OT Bathing Comments Pt declined ADLs at time of eval. M5 OT- IP IADL's Start: 07/08/23 13:17 Freq: Status: Active Protocol: Document 07/08/23 11:40 ROCKY (Rec: 07/08/23 13:39 [facility] [id number]) OT-Instrumental Activities of Daily Living Deficits IADL Deficits Identified Deficits Home Safety Awareness Awareness of Need for Assistance at Home Decreased Awareness Ability to Problem Solve Emergency Unable to Problem Solve Situations Medication Management Medication Management Caregiver Provides Supervision Money Management Money Management Caregiver Provides Supervision Meal Preparation Meal Preparation Caregiver Provides Supervision Waste Water Treatment Plant Operator Waste Water Treatment Plant Operator Caregiver Provides Assist Driving Driving Caregiver Provides Assist M6 OT- IP Functional Cognition Start: 07/08/23 13:17 Freq: Status: Active Protocol: Document 07/08/23 11:40 ROCKY (Rec: 07/08/23 13:39 [facility] [id number]) Cognitive Factors Limiting Selfcare Function Cognitive Ability Level of Alertness Drowsy Patient Orientation Name,Age,Month,Year,Place, Situation Attention Span Ability Capable of Focused Attention, Capable of Sustained Attention Ability to Follow Commands Able to Follow One Step Commands,Able to Follow Multi- Step Commands Memory Description No Deficits Noted Safety Awareness No Deficits Noted Problem Solving Ability No deficits Noted OT- Vision and Hearing OT- Hearing Assessment OT- Hearing Assessment WFL OT- Vision Assessment Visual Acuity WFL M7 OT- IP Mobility and Balance Start: 07/08/23 13:17 Freq: Status: Active Protocol: Document 07/08/23 11:40 BLANCHESUE (Rec: 07/08/23 13:39 [facility] [id number]) OT- Bed Mobility Assessment Supine to Sit Supine to Sit Assist Standby Assistance,1 Person Assistance Sit to Supine Sit to Supine Assist Contact Guard Assistance,1 Person Assistance Scooting Scooting to Edge of Bed Standby Assistance,Bedrails Scooting Up and Down in Bed Standby Assistance OT-Transfer Assessment Comments Mobility Comments Pt c/o of nausea after sitting EOB for approximately 2-5 minutes. Pt asked to return to supine due to nausea. Pt agreed to have OT return in about 30 minutes to reattempt, however, on return of OT, pt and spouse both declined having OT evaluation completed . OT- Gait Assessment Comments Gait Ability Comments not assessed per pt refusal due to nausea OT- Balance Assessment Sitting Balance and Reactions Static Sitting Balance Ability Good Dynamic Sitting Balance Ability Fair M8 OT- IP Objective Assessments Start: 07/08/23 13:17 Freq: Status: Active Protocol: Document 07/08/23 11:40 [id number] (Rec: 07/08/23 13:39 [facility] [id number]) OT Gross Range of Motion Upper Extremity Range of Motion Assessment Within Functional Limits OT Strength Upper Extremity Strength Assessment Within Functional Limits OT Sensation Assessment Edema Edema Absent M9 OT- IP Assessment and Plan Start: 07/08/23 13:17 Freq: Status: Active Protocol: Document 07/08/23 11:40 ROCKY (Rec: 07/08/23 13:39 ROCKY [id number]) OT Summary Assessment and Plan Potential Rehabilitation Potential Fair Analytic Complexity at Evaluation Low Summary OT Impairments Balance,Functional Mobility, Self-Feeding,Grooming,Dressing ,Toileting,Bathing,Toilet Transfers,Shower Transfers, Activity Tolerance Progress Towards Goals Slow Progress due to Medical Issues Assessment Summary Pt is a 58 yo F who has been undergoing treatment for stage IV metastatic breast cancer for approximately 5 years. Until about a week ago, pt and family report that she was I with BADL and went on a 3 mile walk. Pt had extreme weakness starting about a week ago and was found to have a GI bleed. Pt was agreeable to participating in OT evaluation. However during evaluation, pt became very nauseated and asked to return to supine. Pt agreed to have OT return in approximately 30 minutes (since she had recently had anti-nausea meds) . When OT returned, pt's spouse was in the room. He told OT that he thought there had been a miscommunication. He said that he and his had not intended for her to have OT/PT while she was in the hospital, but that he had wanted her to have HH therapy. He said that his was not currently up to standing or participating in therapy. OT asked pt if she would like to try to get out of bed, pt declined saying that she did not feel well. OT spent time discussing safe pt transfers, gait belt use, and assisting in problem solving household pt concerns. Pt was left with family present, reclined in bed with all needs met. Per pt and spouse wishes, D/C OT order at this time. Frequency of Treatment Frequency Of Treatment Discharge Treatment Plan Other Treatment Recommendations and Next Per spouse and pt wishes, d/c Treatment Focus OT order Discharge Recommendations OT Discharge Recommendations Home with Assistance,Home Health
[2023-07-08] MEDS: LORazepam 0.5 MG TABLET PO (16:18)
--- NOTE | 2023-07-08 18:47 | PC.NURSE ---
Day shift: Notifed MD Jo of patient's max 2PA to BSC + weakness. ok'ed PT/OT consult. OT attempted to work with patient x 2 - she was either too nausious or too weak. Nausea medications given Q6 hours this shift. Pt's caridad stated they would still like to go home, despite being unable to work with PT/OT since it was like this before we came to the hospital and I would pick her up. came out of the room shortly after stating that pt is feeling very anxious about going home today and doesn't feel ready. Notified MD Jo who ok'ed another night in hospital due to weakness and nausea. Gave patient PO ativan x1 which patient stated helped with nerves and anxiety. Will continue to monitor.
[2023-07-08 20:43] VITALS: BP 119/51; PULSE 101; RESP 16; TEMP 36.3; O2SAT 94
[2023-07-09 04:00] VITALS: BP 120/60; PULSE 72; RESP 17; TEMP 36.6; O2SAT 95
[2023-07-09] MEDS: METOCLOPRAMIDE 10 MG/2 ML INJ 5 MG IV (06:16)
[2023-07-09 08:00] VITALS: BP 112/57; PULSE 90; RESP 16; TEMP 36.6; O2SAT 97
[2023-07-09] MEDS: PANTOPRAZOLE 40 MG VIAL IV (09:04)
[2023-07-09] MEDS: LORazepam 0.5 MG TABLET PO (09:05)
--- NOTE | 2023-07-09 09:49 | PM.DS.1 ---
History of Present Illness History of Present Illness Date Patient Seen: 07/09/23 Time Patient Seen: 09:49 Date of Onset of Symptoms: 07/03/23 Chief complaint: GI bleed Narrative: See admission history and physical dictated by Dr. Chavez Discharge Providers Provider Date of admission: 07/06/23 23:41 Discharge Date: 07/09/23 Primary care physician: ALLA Mauro Consults: 07/06/23 23:45 Consult to General Surgery Routine Comment: Consulting Provider: Ivonne Verdin Reason for consultation: GI bleed Has provider been notified: No 07/07/23 10:26 Consult to Dietitian, Adult Routine Comment: Reason For Exam: malnutrition, cancer pt, order clear ensure. 07/08/23 10:35 Consult to Occupational Therapy Evaluate & Treat Comment: Physician Instructions: Evaluate and treat Consult to Physical Therapy Evaluate & Treat Comment: Physician Instructions: Evaluate and Treat 07/08/23 11:50 Consult to Home Health Routine Comment: Encephalopathy, stage IV breast cancer, GI Bleed Reason For Exam: Set up RN/PT/OT for discharge to home Discharge provider: Maximilian Jo MD Summary Hospital Course Discharge Diagnosis: Please see full discharge summary dictated yesterday. Patient was kept 1 more day due to weakness. Her nausea and vomiting are slightly better at this time. She has taken fluids without issue. No evidence of further bleeding. No abdominal pain and doing well. Patient extremely tired and extremely weak. But feels as if she wants to go home. She was going to be discharged home. See full discharge summary from yesterday Hospital Course: See discharge summary from yesterday. No essential change other than she stayed 1 more day for further hydration and rest. Exam Vital Signs (past 8 hours): - 07/09/23 04:00 07/09/23 08:00 Temperature 97.9 F 97.9 F Pulse Rate 72 90 Respiratory Rate 17 16 Blood Pressure 120/60 112/57 L Pulse Oximetry 95 97 Oxygen Flow Rate 0 Oxygen Delivery Method Room Air Oxygen Flow Rate 0 Narrative Exam Narrative: Alert female in no acute distress Objective Labs 07/08/23 06:28 07/07/23 04:12 COUNTS INCLUDE 234 BEDS AT [facility] Medical History Breast cancer, right (~06/2018) Depression, (~1993) Eczema Chicken pox Surgical History Hx of right mastectomy (08/05/18) Anesthesia Status post tubal ligation (~1995) Family History Brother Age: 80 Parkinson's disease Father Lung cancer Mother Brain cancer Sister No problems noted. Social History household members: spouse Smoking Status: Never smoker alcohol intake: former Discharge Assessment & Plan Assessment and Plan Assessment: Improved Plan of Treatment: Discharge home Discharge Plan Discharge Plan Patient Disposition: Home Discharge orders & Medications Prescriptions: New pantoprazole [address] for susp in packet 40 mg PO DAILY Qty: 30 1RF ondansetron 4 mg tablet,disintegrating 4 mg PO Q4-5H PRN (Reason: nausea and vomiting) Qty: 90 3RF Discontinued ondansetron HCl 4 mg tablet 1 tab PO PRN PRN (Reason: Nausea) Follow up/Referrals: Barbara Jo ARNP [Primary Care Provider] - 2 Weeks (follow up with oncologist as scheduled) Activity Restrictions/Additional Instructions: as tolerated Discharge Health Status Multidrug resistant organism: No MDRO Diet/Activity/Treatments Diet: Diet as Tolerated Skin/Wound/Dressing Care Report to your healthcare provider any signs of infection, such as:: chills, fever, night sweats and increased pain Visit Report/Discharge Packet Instructions: Eating Well While Receiving Chemotherapy, How to Prevent Falls Stand Alone Forms: Patient Portal/API, Stroke Signs & Symptoms Discharge Data Primary Care Provider: Barbara Jo
--- NOTE | 2023-07-09 11:32 | CM.DPC ---
Addendum entered by OLIVIER Santos 07/09/23 15:41: ADD: SW met bedside with pt, spouse, friend and answered questions regarding HH and they confirm they remain agreeable with d/c home today with [facility]. BF Original Note: DCP Discharge Home Per MD, pt discharge cancelled last night due to pt's ongoing nausea/fatigue/weakness and plan is to discharge home today with family support and HH. SW confirmed with RN that HH all set up through [facility] and brochure provided and spouse bedside. Plan: Patient to d/c home via spouse POV today and [facility] to follow. No further SW needs at this time. OLIVIER Santos
--- NOTE | 2023-07-09 15:24 | PC.NURSE ---
Discharge: Pt feels ready to d/c to home. She will follow up as outpt at oncology and PCP office. Spouse is ready to take her home. Reviewed d/c packet and understood. Dr. Matthews here and he gave pt d/c instructions. Port a cath de-accessed, had brisk blood return, IV needle intact. Questions answered. Pt d/c to home via auto w/spouse.
== END 2023-07-09 13:47 | disposition home health service (06) | DRG 377 ==
LOC: ED 23:32 → AC 07-07 01:06
PROVIDERS: Emergency Medicine; Student in an Organized Health Care Education/Training Program; Admitting Provider Family Medicine; Emergency Provider Internal Medicine; PCP Internal Medicine; Referring Provider Orthopaedic Surgery; Visit Provider Family Medicine
DX: K92.2 Gastrointestinal hemorrhage, unspecified (principal); D61.810 Antineoplastic chemotherapy induced pancytopenia; G93.41 Metabolic encephalopathy; C50.911 Malignant neoplasm of unspecified site of right female breast; E86.0 Dehydration; R11.2 Nausea with vomiting, unspecified; R05.9 Cough, unspecified; R41.82 Altered mental status, unspecified; T45.1X5A Adverse effect of antineoplastic and immunosuppressive drugs, initial encounter; Z20.822 Contact with and (suspected) exposure to COVID-19; Z17.0 Estrogen receptor positive status [ER+]
CPT/HCPCS: 36415; 36430; 36600; 70450; 70553; 71045; 80053; 81001; 81003; 82140; 82550; 82805; 83605; 84145; 84484; 85007; 85014; 85018; 85025; 85610; 85730; 86850; 86900; 86901; 87040; 87633; 87635; 93005; 96361; 96365; 96366; 96367; 96374; 96375; 96376; 97165; 97535; 99223; 99232; 99284; 99285; 99291; A9579; C9113; J0696; J1642; J2405; J2765; J3475; P9035

== ENCOUNTER → 2023-07-11 10:46 | Outpatient (CLI) | payer OTHER, SELFPAY ==
[2023-07-07 15:18] VITALS: BMI 20.6
[2023-07-11 11:20] LABS: Ammonia (NH3) 34 umol/L (9-30)
[2023-07-11 11:43] LABS: Add Manual Diff / Slide Review NO; Basophils Absolute Auto 0 /uL (0-100); Basophils Percent Auto 0.6 % (0-2); Eosinophils Absolute Auto 100 /uL (0-450); Eosinophils Percent Auto 2.5 % (2-4); Hematocrit 29.6 % (36-46); Hemoglobin 10.5 g/dL (12.0-16.0); Lymphocytes Absolute Auto 500 /uL (1100-4500); Lymphocytes Percent Auto 23.4 % (25-40); Mean Corpuscular HGB Conc 35.6 % (30-36); Mean Corpuscular Hemoglobin 36.3 PG (26-34); Mean Corpuscular Volume 101.9 fL (80-100); Monocytes Absolute Auto 300 /uL (0-900); Monocytes Percent Auto 13.1 % (3-14); Neutrophils Absolute Auto 1400 /uL (1500-7000); Neutrophils Percent Auto 60.4 % (50-75); Platelet Count 53 X10^3/uL (150-400); Red Blood Cell Count 2.91 X10^6/uL (4.0-5.2); Red Cell Distribution Width 17.3 % (11.6-14.8); White Blood Cell Count 2.3 X10^3/uL (4.5-11.0)
== END ==
PROVIDERS: PCP Internal Medicine; Referring Provider Internal Medicine; Visit Provider Internal Medicine
DX: C79.89 Secondary malignant neoplasm of other specified sites (principal); R79.89 Other specified abnormal findings of blood chemistry; D61.818 Other pancytopenia
CPT/HCPCS: 36415; 82140; 85025

== ENCOUNTER 2023-07-22 10:10 | Emergency (ER) | payer OTHER, SELFPAY ==
[2023-07-07 15:18] VITALS: BMI 20.6
[2023-07-22] VITALS (17 sets, daily range): BP systolic 119–136; BP diastolic 59–82; PULSE 92–105; RESP 15–27; TEMP 36.2; O2SAT 96–100; BMI 16.7
--- NOTE | 2023-07-22 10:32 | ED.GENADULT ---
HPI - General Adult General Chief complaint: Weakness Stated complaint: stool backed up t-12 needs blood tests Time Seen by Provider: 07/22/23 10:11 History of Present Illness HPI narrative: 58-year-old female with history of metabolic encephalopathy, pancytopenia on chemotherapy, thrombocytopenia, stage IV breast cancer, GI bleed presents with constipation and confusion. History clarify from triage. Family at bedside states they are moving towards hospice for patient, as they have stopped pursuing aggressive care for stage IV breast cancer. Last chemotherapy was over 3 weeks ago. She has no longer receiving chemotherapy. Since discharge, she is become gradually more confused and constipated. No red or black in stool, and she has not pooped for probably over 1 week now. Intermittent nausea is present without recent vomiting. No fevers or chills. No trauma. No shortness of breath. No head or neck or chest or back or abdominal or flank pain. However, patient is increasingly altered. Per chart review, she was recently admitted in setting of evidence of upper GI bleed requiring blood transfusion with surgery consult. EGD was not done, preferring to defer until pancytopenia improved. There is report of what appears to be a chronic metabolic encephalopathy in setting of elevated ammonia. She was previously on lactulose. She has not been taking that recently. PPI was started. Related Data Previous Rx's Medication Instructions Recorded ondansetron 4 mg disintegrating 4 mg PO Q4-5H PRN nausea and 07/08/23 tablet vomiting #90 tabs pantoprazole 40 mg granules 40 mg PO DAILY #30 packets 07/08/23 delayed-release for susp in packet lactulose 20 gram oral packet 20 g PO TID #30 ea 07/22/23 lactulose 20 gram/30 mL oral 20 ml PO TID #900 mL 07/22/23 solution Allergies Allergy/AdvReac Type Severity Reaction Status Date / Time latex Allergy Mild Rash Verified 11/30/22 11:33 morphine Allergy Mild Hypotension Verified 11/30/22 11:33 narcotics AdvReac Mild Hypotension Uncoded 11/25/21 11:03 Review of Systems Review of Systems Narrative: Constitutional: no fever, no chills Eyes: no visual disturbance, no discharge Ears, Nose, Mouth, Throat: no rhinorrhea, no sore throat Cardiovascular: no chest pain, no palpitations Respiratory: no cough, no shortness of breath Gastrointestinal: no abdominal pain, no vomiting, no diarrhea, + constipation Genitourinary: no dysuria, no hematuria Musculoskeletal: no back pain, no neck stiffness Skin: no rash, no wound Neurological: no focal weakness, no focal numbness Patient History Medical History Breast cancer, right (~06/2018) Depression, (~1993) Eczema Chicken pox Surgical History Hx of right mastectomy (08/05/18) Anesthesia Status post tubal ligation (~1995) Family History Brother Age: 80 Parkinson's disease Father Lung cancer Mother Brain cancer Sister No problems noted. Social History household members: spouse Smoking Status: Never smoker alcohol intake: former Smoking Status: Never smoker alcohol intake frequency: holidays/special occasions only Substance Use Type: does not use Exam Narrative Exam Narrative: Const: no acute distress, non toxic but chronically ill appearing; confused, able to follow some commands but not answer questions Eyes: PERRLA, EOMI ENT: mucous membranes moist Neck: supple, non-tender Resp: no respiratory distress, clear to auscultation bilaterally Card: regular rate and rhythm, no murmurs Abd: non tender diffusely, no rigidity or rebound or guarding Back: no T or L spine tenderness, no CVA tenderness bilaterally Extrem: no deformities, no swelling bilateral lower extremities; unable to participate in asterixis testing Neuro: alert after verbal stimulation but not responding to qusetions. 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 No rotatory or vertical nystagmus. Normal tone all extremities. Sensation intact to light touch all extremities. No ankle clonus bilaterally. Appears to have intact, nonlateralizing motor strength in all extremities. Coordination appears grossly intact. Skin: no rash, warm and dry Initial Vital Signs Initial Vital Signs: Vital Signs Temperature 97.1 F L 07/22/23 10:15 Pulse Rate 101 H 07/22/23 10:15 Respiratory Rate 16 07/22/23 10:15 Blood Pressure 129/65 07/22/23 10:15 Pulse Oximetry 100 07/22/23 10:15 Oxygen Delivery Method Room Air 07/22/23 10:15 Course Course Course Narrative: I have considered a very broad differential for this patient with history of cancer no longer on treatment presenting with constipation and altered mental status, including but not limited to hepatic encephalopathy, intravascular volume depletion, electrolyte derangements, bowel obstruction, ICH, metastatic disease to brain, medication side effect, hyperglycemia, pneumonia, UTI, among others. Patient is moving towards hospice, however family is comfortable with my obtaining extensive workup here, including EKG, labs, ammonia, chest x-ray, head CT and CT abdomen and pelvis, urinalysis, UDS. I am giving fluids and will closely reassess. EKG NSR without acute ischemia or immediately concerning interval prolongation on my review. Labs: Labs with chronic appearing leukopenia, chronic anemia similar to prior, chronic thrombocytopenia similar to prior without clear current evidence of bleeding. INR within normal limits. Ammonia elevated to 80, increased from prior, which is likely reflective of underlying hepatic encephalopathy. I am awaiting CT then we will consider lactulose rectal enema. CMP with borderline hyponatremia, renal function similar to prior, elevated LFTs worsened from prior without clear abdominal right upper quadrant tenderness currently, with bilirubin also elevated. Ethanol negative. Salicylate and Tylenol levels negative. Viral swab negative. TSH within normal limits. Radiology review of imaging below, which I agree with on my independent review: CXR: FINDINGS: Surgical changes and devices: Left-sided Port-A-Cath is present distal tip projecting over the mid/distal SVC. Lungs and pleura: Lungs are clear. No pleural effusions or pneumothorax. Mediastinum: Mediastinal contours appear normal. Heart size is mildly enlarged. Bones and chest wall: No suspicious bony lesions. Overlying soft tissues appear unremarkable. IMPRESSION: No acute cardiopulmonary abnormality is seen. Dictated by: Tanya Tucker M.D. on 07/22/2023 at 12:07 HCT: FINDINGS: Image quality: Diagnostic. CSF spaces: Basal cisterns are patent. No extra-axial fluid collections. Ventricles are normal in size and shape. Brain: No midline shift. No intracranial masses or hemorrhage. Pollock-white matter interface is normal. Skull and face: Calvarium and visualized facial bones are intact, without suspicious lesions. Sinuses: Visualized sinuses and mastoids are clear. IMPRESSION: 1. No acute intracranial process. Dictated by: Tanya Tucker M.D. on 07/22/2023 at 12:34 CT A/P: FINDINGS: Image quality: Diagnostic. Lower Chest: No significant findings. ABDOMEN: Liver: Multiple hepatic lesions much better appreciated on prior CT with hepatic protocol. However, the target lesions are as follows: Posterior right lobe series 2, image 20, measuring 1.0 x 1.4 cm compared to 1.3 x 1.3 cm. The 2nd lesion within this region in direct approximation is not well seen on current exam and felt to be likely secondary to contrast timing technique compared to prior. 2nd adjacent Anterior left lobe series 2, image 20, 0.7 cm compared to 0.7 cm. Gallbladder: No radiopaque gallstones or wall thickening. Biliary ducts: No biliary dilation. Pancreas: No ductal dilation. Spleen: Size is within normal limits. Adrenal Glands: No adrenal nodules. Kidneys and Ureters: No hydronephrosis. No solid mass. No complex renal cystic lesion which requires follow up. Stomach and Bowel: Normal colonic caliber, without significant wall thickening. Mild scattered stool. No obstruction. Peritoneum: No abnormal intraperitoneal fluid. No free air. Ventral Wall: No significant ventral hernia. Abdominal Nodes: No retroperitoneal or mesenteric adenopathy by size criteria. Vessels: Aorta and inferior vena cava are normal in size. PELVIS: Pelvic Organs: Unremarkable. Bladder: No bladder wall thickening, accounting for underdistention. Pelvic Nodes: No enlarged lymph nodes. Miscellaneous: No inguinal hernias are seen. Bones: Diffuse appearance of sclerotic and lucent lesions throughout the axial and appendicular skeleton relatively stable compared to prior exam consistent metastatic disease. IMPRESSION: Mild stool without significant constipation. No obstruction. Multiple hepatic lesions consistent with metastatic disease similar versus slightly less prominent. While this could represent disease regression, other etiology such as differences in technique compared to prior CT with hepatic protocol should be considered. Unchanged appearance of diffuse osseous metastatic disease. Dictated by: Tanya Tucker M.D. on 07/22/2023 at 12:49 Patient's family strongly wishes to go home. They understand patient has the potential to be critically ill, and that while she is currently stable, she has potential for substantial morbidity or mortality, such as from but not limited to GI bleed, sepsis, brain metastatic disease, among other conditions. They want her to be on hospice and are arranging this with support of our secondary social studies teacher. They are very comfortable with their current level of care and resources at home and do not wish for her to be admitted or receive further treatment here. No other new concerns. Awaiting UA. UA: No bacteria, arguing against infection. UDS with marijuana which could be contributory but is unlikely to be driving this presentation entirely. Patient remains stable, with family comfortable with plan. Enema also given to assist with initial bowel movement. Ultimately, while I suspect this patient's presentation is driven by hepatic encephalopathy, family knows she is at risk for substantial additional illness, morbidity and mortality. Given their strong preference for pursuing hospice care and being home, we are supporting this decision, and I am prescribing lactulose to assist. They understand importance of strict return precautions and follow up, and they can and are welcome to return at any time. They ultimately chose to discontinue Reynolds prior to discharge; I suspect constipation may have contributed to urinary retention, and it is likely she will improve without it, however they understand risk of urinary retention leading to hydronephrosis and renal injury. Repeat exam and vital signs reassuring. Questions answered. Plan reviewed. Patient discharged in stable condition. Orders Ordered: ED Orders 07/22/23 10:35 CT abdomen pelvis w con Stat XR chest 1V Stat EKG-12 Lead Stat 07/22/23 10:44 CT head/brain wo con Stat 07/22/23 11:02 Covid-19 + FLU A/B + RSV - PCR Stat 07/22/23 11:25 Acetaminophen Stat Ammonia (NH3) Stat CBC Auto Diff [Complete Blood Count AUTO DIFF] Stat CMP [Comprehensive Metabolic Panel] Stat Ethanol (ETOH) Stat Prothrombin Time INR Stat Salicylate Stat TSH [Thyroid Stimulating Hormone] Stat Type and Screen Stat 07/22/23 11:51 Blood Culture Stat 07/22/23 13:36 Consult to [facility] [place] [facility] Stat 07/22/23 14:48 Urine Drug Screen, Rapid Stat Urine Microscopic Stat Discontinued Medications Lactulose 200 gm/ Sterile (Water 700 ml) 0 gm OH NOW ONE Stop: 07/22/23 13:22 Last Admin: 07/22/23 14:25 Dose: Not Given Documented By: SPF Heparin Sodium (Porcine) (Heparin 500 Unit/5 Ml Port Flush) 500 unit IV PRN ONE Stop: 07/22/23 16:06 Last Admin: 07/22/23 16:28 Dose: 500 unit Documented By: SPF Sodium Chloride (Normal Saline 0.9%) 1,000 mls @ 1,000 mls/hr IV BOLUS ONE Stop: 07/22/23 11:34 Last Infusion: 07/22/23 13:04 Dose: Infused Documented By: Infusion: 07/22/23 12:25 Dose: 1,000 mls/hr Documented By: Infusion: 07/22/23 12:10 Dose: 0 mls/hr Documented By: Admin: 07/22/23 11:30 Dose: 1,000 mls/hr Documented By: MICHAEL Lactulose (Lactulose 20 Gm/30 Ml Solution) 30 gm PO NOW ONE Stop: 07/22/23 14:01 Last Admin: 07/22/23 14:03 Dose: 30 gm Documented By: MICHAEL Mineral Oil (Mineral Oil 1 Each Enema) 1 each OH NOW ONE Stop: 07/22/23 16:25 Last Admin: 07/22/23 16:28 Dose: 1 each Documented By: MICHAEL Vital Signs Vital signs: Vital Signs - 8 hr 07/22/23 10:15 07/22/23 10:23 07/22/23 10:24 Temperature 97.1 F L Pulse Rate 101 H 104 H 101 H Respiratory Rate 16 17 Blood Pressure 129/65 Pulse Oximetry 100 98 99 Oxygen Delivery Method Room Air 07/22/23 10:24 07/22/23 10:30 07/22/23 10:30 Temperature Pulse Rate 98 H Respiratory Rate 15 Blood Pressure 129/65 124/62 Pulse Oximetry 99 Oxygen Delivery Method 07/22/23 11:00 07/22/23 11:00 07/22/23 11:30 Temperature Pulse Rate 97 H 103 H Respiratory Rate 26 H 26 H Blood Pressure 120/60 Pulse Oximetry 99 Oxygen Delivery Method 07/22/23 11:30 07/22/23 12:00 07/22/23 12:00 Temperature Pulse Rate 97 H Respiratory Rate 24 Blood Pressure 119/78 129/59 L Pulse Oximetry 99 Oxygen Delivery Method Room Air 07/22/23 12:19 07/22/23 12:19 07/22/23 12:30 Temperature Pulse Rate 94 H 92 H Respiratory Rate Blood Pressure 123/60 Pulse Oximetry 97 98 Oxygen Delivery Method Room Air 07/22/23 12:30 07/22/23 13:00 07/22/23 13:00 Temperature Pulse Rate 100 H Respiratory Rate 22 Blood Pressure 121/60 119/65 Pulse Oximetry 99 Oxygen Delivery Method Room Air 07/22/23 13:30 07/22/23 13:30 07/22/23 14:00 Temperature Pulse Rate 103 H Respiratory Rate Blood Pressure 133/82 134/64 Pulse Oximetry 98 Oxygen Delivery Method Room Air 07/22/23 14:00 07/22/23 14:30 07/22/23 14:30 Temperature Pulse Rate 100 H 102 H Respiratory Rate 25 H 22 Blood Pressure 135/63 Pulse Oximetry 97 98 Oxygen Delivery Method Room Air 07/22/23 15:00 07/22/23 15:00 07/22/23 15:30 Temperature Pulse Rate 103 H 105 H Respiratory Rate 19 25 H Blood Pressure 131/63 Pulse Oximetry 97 97 Oxygen Delivery Method Room Air 07/22/23 15:30 07/22/23 16:00 07/22/23 16:00 Temperature Pulse Rate 103 H Respiratory Rate 27 H Blood Pressure 135/63 134/65 Pulse Oximetry 96 Oxygen Delivery Method Room Air 07/22/23 16:30 07/22/23 16:30 Temperature Pulse Rate 103 H Respiratory Rate 24 Blood Pressure 136/64 Pulse Oximetry 96 Oxygen Delivery Method Room Air Medical Decision Making Lab Data 07/22/23 11:25 07/22/23 11:25 Labs: Lab Results 07/22/23 07/22/23 07/22/23 Range/Units 11:02 11:25 14:48 WBC 2.4 L (4.5-11.0) X10^3/uL RBC 3.06 L (4.0-5.2) X10^6/uL Hgb 10.9 L (12.0-16.0) g/dL Hct 30.9 L (36-46) % MCV 101.0 H (80-100) fL MCH 35.7 H (26-34) PG MCHC 35.4 (30-36) % RDW 17.8 H (11.6-14.8) % Plt Count 40 L (150-400) X10^3/uL Neut % (Auto) 60.0 (50-75) % Lymph % (Auto) 22.8 L (25-40) % [place] % (Auto) 15.0 H (3-14) % Eos % (Auto) 1.3 L (2-4) % Baso % (Auto) 0.9 (0-2) % Neut # (Auto) 1400 L (5871-5413) /uL Lymph # (Auto) 500 L (5513-0315) /uL [place] # (Auto) 400 (0-900) /uL Eos # (Auto) 0 (0-450) /uL Baso # (Auto) 0 (0-100) /uL PT 14.4 H (9.4-12.5) SECONDS INR 1.3 (0.9-1.3) Sodium 135 L (137-145) mmol/L Potassium 4.1 (3.4-5.1) mmol/L Chloride 103 (98-107) mmol/L Carbon Dioxide 28 (22-32) mmol/L BUN 25 H (7-17) mg/dL Creatinine 0.77 (0.52-1.04) mg/dL Estimated GFR > 60 (>60) mL/min BUN/Creatinine Ratio 32.5 H (6-22) Glucose 110 (80-110) mg/dL Calcium 9.8 (8.4-10.2) mg/dL Total Bilirubin 1.6 H (0.2-1.3) mg/dL AST 208 H (14-36) IU/L ALT 71 H (<35) IU/L Alkaline Phosphatase 189 H (38-126) U/L Ammonia 80 H (9-30) umol/L Total Protein 6.5 (6.3-8.2) g/dL Albumin 4.0 (3.5-5.0) g/dL Globulin 2.5 (1.7-4.1) g/dL Albumin/Globulin Ratio 1.6 (1.0-2.8) TSH 1.79 (0.47-4.68) uIU/mL Urine RBC 0-1/hpf (0-5/HPF) Urine WBC None seen (0-5/HPF) Ur Squamous Epith Cells None seen (0-5/HPF) Urine Bacteria None seen (None) Ur Culture Indicated? Cult not indicated Vol Urine Centrifuged 10ml (spun) Salicylates < 1.0 (<20) mg/dL U Opiates 300ng/mL cut Negative (Negative) Ur Oxycodone Screen Negative (Negative) Urine Methadone Screen Negative (Negative) Acetaminophen < 10 (10-30) ug/mL Ur Barbiturates Screen Negative (Negative) U Tricyclic Antidepress Negative (Negative) Ur Phencyclidine Scrn Negative (Negative) Ur Amphetamines Screen Negative (Negative) U Methamphetamines Scrn Negative (Negative) Ur MDMA Scrn (Ecstasy) Negative (Negative) U Benzodiazepines Scrn Negative (Negative) Urine Cocaine Screen Negative (Negative) U Marijuana (THC) Screen Positive H (Negative) Urine pH Normal (Normal) Urine Specific [place] Normal (Normal) Ethyl Alcohol < 10 ( - 10) mg/dL Ur Creatinine Normal (Normal) SARS-CoV-2 (PCR) Negative (Negative) Influenza A (RT-PCR) Flu a negative (NEGATIVE) Influenza B (RT-PCR) Flu b negative (NEGATIVE) RSV (PCR) Negative (Negative) Blood Type O Positive Antibody Screen Negative Discharge Plan Departure Patient Disposition: Home Clinical Impression: Encounter for palliative care, Confusion, Increased ammonia level Instructions: Palliative Care for Cancer Activity Restrictions/Additional Instructions: It was a pleasure taking care of you today. It is important to fully read and understand the below. Please ask us if you have any questions. Your family members labs still show low white blood cell count, anemia, low platelets. Her ammonia is very elevated, and I think this could be contributing to her confusion. As discussed, we are giving her lactulose to take at home. You prefer her being home, fully understanding this could lead to injury or . We are helping you arrange hospice. You are welcome to return at any time if you change your mind or need any help. Otherwise, please have her see a doctor as soon as possible to be reassessed. No tests or assessments are perfect, and her condition could private branch exchange service advisor time. If her symptoms change or worsen, and you choose to pursue more aggressive care, it is very important you immediately seek medical care. If you see any new or worsening pain, bleeding, lightheadedness or passing out, shortness of breath, fever, vomiting, confusion, numbness, weakness, or anything else that concerns you, please immediately seek medical care. If you have been prescribed any medications: please read the drug package inserts on how to properly use the medication and any potential side effects. If you had labs (blood tests) or imaging (CT scan or x-rays) done during your visit: please follow up on the results of these with your primary care doctor, as discussed. In addition, please know the results we received today may be preliminary. Our usual practice is to follow up on tests within a few days of a patient's discharge from the Emergency Department and notify you of any changes. These may lead to changes to your treatment plan. However, the best way to obtain and interpret these test results is through your Primary Care Provider. If you need to update your contact information, please stop by the front loader residential driver and alert the Registration personnel before you leave the Emergency Department. Thank you for the opportunity to participate in your healthcare. We are always here and happy to see you in the future. --- PLEASE TAKE THE ATTACHED IMAGING TO YOUR DOCTORS: CXR: FINDINGS: Surgical changes and devices: Left-sided Port-A-Cath is present distal tip projecting over the mid/distal SVC. Lungs and pleura: Lungs are clear. No pleural effusions or pneumothorax. Mediastinum: Mediastinal contours appear normal. Heart size is mildly enlarged. Bones and chest wall: No suspicious bony lesions. Overlying soft tissues appear unremarkable. IMPRESSION: No acute cardiopulmonary abnormality is seen. Dictated by: Tanya Tucker M.D. on 07/22/2023 at 12:07 HCT: FINDINGS: Image quality: Diagnostic. CSF spaces: Basal cisterns are patent. No extra-axial fluid collections. Ventricles are normal in size and shape. Brain: No midline shift. No intracranial masses or hemorrhage. Pollock-white matter interface is normal. Skull and face: Calvarium and visualized facial bones are intact, without suspicious lesions. Sinuses: Visualized sinuses and mastoids are clear. IMPRESSION: 1. No acute intracranial process. Dictated by: Tanya Tucker M.D. on 07/22/2023 at 12:34 CT A/P: FINDINGS: Image quality: Diagnostic. Lower Chest: No significant findings. ABDOMEN: Liver: Multiple hepatic lesions much better appreciated on prior CT with hepatic protocol. However, the target lesions are as follows: Posterior right lobe series 2, image 20, measuring 1.0 x 1.4 cm compared to 1.3 x 1.3 cm. The 2nd lesion within this region in direct approximation is not well seen on current exam and felt to be likely secondary to contrast timing technique compared to prior. 2nd adjacent Anterior left lobe series 2, image 20, 0.7 cm compared to 0.7 cm. Gallbladder: No radiopaque gallstones or wall thickening. Biliary ducts: No biliary dilation. Pancreas: No ductal dilation. Spleen: Size is within normal limits. Adrenal Glands: No adrenal nodules. Kidneys and Ureters: No hydronephrosis. No solid mass. No complex renal cystic lesion which requires follow up. Stomach and Bowel: Normal colonic caliber, without significant wall thickening. Mild scattered stool. No obstruction. Peritoneum: No abnormal intraperitoneal fluid. No free air. Ventral Wall: No significant ventral hernia. Abdominal Nodes: No retroperitoneal or mesenteric adenopathy by size criteria. Vessels: Aorta and inferior vena cava are normal in size. PELVIS: Pelvic Organs: Unremarkable. Bladder: No bladder wall thickening, accounting for underdistention. Pelvic Nodes: No enlarged lymph nodes. Miscellaneous: No inguinal hernias are seen. Bones: Diffuse appearance of sclerotic and lucent lesions throughout the axial and appendicular skeleton relatively stable compared to prior exam consistent metastatic disease. IMPRESSION: Mild stool without significant constipation. No obstruction. Multiple hepatic lesions consistent with metastatic disease similar versus slightly less prominent. While this could represent disease regression, other etiology such as differences in technique compared to prior CT with hepatic protocol should be considered. Unchanged appearance of diffuse osseous metastatic disease. Dictated by: Tanya Tucker M.D. on 07/22/2023 at 12:49 Prescriptions: New lactulose 20 gram packet 20 g PO TID Qty: 30 0RF Rx Instructions: Goal is 2-3 soft stools per day lactulose 20 gram/30 mL solution 20 ml PO TID Qty: 900 0RF No Action pantoprazole [address] for susp in packet 40 mg PO DAILY Qty: 30 1RF ondansetron 4 mg tablet,disintegrating 4 mg PO Q4-5H PRN (Reason: nausea and vomiting) Qty: 90 3RF Referrals: Barbara Jo ARNP [Primary Care Provider] - Stand Alone Forms: Patient Portal/API
--- NOTE | 2023-07-22 10:35 | DI.CT.S_ITS ---
PROCEDURE: CT ABDOMEN PELVIS W CON INDICATIONS: metastatic breast cancer, constipation TECHNIQUE: After the administration of intravenous contrast, axial sections acquired from the lung bases to the pubic symphysis. Coronal and sagittal reformats were performed. For radiation dose reduction, the following was used: automated exposure control, adjustment of mA and/or kV according to patient size. COMPARISON: [facility], CT, CT ABDOMEN PELVIS W CON, 05/07/2023, 11:13. [facility], CT, CT ABDOMEN LIVER PROTOCOL, 06/18/2023, 13:22. FINDINGS: Image quality: Diagnostic. Lower Chest: No significant findings. ABDOMEN: Liver: Multiple hepatic lesions much better appreciated on prior CT with hepatic protocol. However, the target lesions are as follows: Posterior right lobe series 2, image 20, measuring 1.0 x 1.4 cm compared to 1.3 x 1.3 cm. The 2nd lesion within this region in direct approximation is not well seen on current exam and felt to be likely secondary to contrast timing technique compared to prior. 2nd adjacent Anterior left lobe series 2, image 20, 0.7 cm compared to 0.7 cm. Gallbladder: No radiopaque gallstones or wall thickening. Biliary ducts: No biliary dilation. Pancreas: No ductal dilation. Spleen: Size is within normal limits. Adrenal Glands: No adrenal nodules. Kidneys and Ureters: No hydronephrosis. No solid mass. No complex renal cystic lesion which requires follow up. Stomach and Bowel: Normal colonic caliber, without significant wall thickening. Mild scattered stool. No obstruction. Peritoneum: No abnormal intraperitoneal fluid. No free air. Ventral Wall: No significant ventral hernia. Abdominal Nodes: No retroperitoneal or mesenteric adenopathy by size criteria. Vessels: Aorta and inferior vena cava are normal in size. PELVIS: Pelvic Organs: Unremarkable. Bladder: No bladder wall thickening, accounting for underdistention. Pelvic Nodes: No enlarged lymph nodes. Miscellaneous: No inguinal hernias are seen. Bones: Diffuse appearance of sclerotic and lucent lesions throughout the axial and appendicular skeleton relatively stable compared to prior exam consistent metastatic disease. IMPRESSION: Mild stool without significant constipation. No obstruction. Multiple hepatic lesions consistent with metastatic disease similar versus slightly less prominent. While this could represent disease regression, other etiology such as differences in technique compared to prior CT with hepatic protocol should be considered. Unchanged appearance of diffuse osseous metastatic disease. Dictated by: Tanya Tucker M.D. on 07/22/2023 at 12:49 Approved by: Tanya Tucker M.D. on 07/22/2023 at 12:55
--- NOTE | 2023-07-22 10:35 | DI.RAD.S_ITS ---
PROCEDURE: XR CHEST 1V INDICATIONS: cancer, constipation TECHNIQUE: One view of the chest was acquired. COMPARISON: [facility], CR, XR CHEST 1V, 07/06/2023, 19:57. FINDINGS: Surgical changes and devices: Left-sided Port-A-Cath is present distal tip projecting over the mid/distal SVC. Lungs and pleura: Lungs are clear. No pleural effusions or pneumothorax. Mediastinum: Mediastinal contours appear normal. Heart size is mildly enlarged. Bones and chest wall: No suspicious bony lesions. Overlying soft tissues appear unremarkable. IMPRESSION: No acute cardiopulmonary abnormality is seen. Dictated by: Tanya Tucker M.D. on 07/22/2023 at 12:07 Approved by: Tanya Tucker M.D. on 07/22/2023 at 12:08
--- NOTE | 2023-07-22 10:44 | DI.CT.S_ITS ---
PROCEDURE: CT HEAD/BRAIN WO CON INDICATIONS: AMS TECHNIQUE: Noncontrast 4.5 mm thick angled axial sections acquired from the foramen magnum to the vertex, with coronal and sagittal reformats. For radiation dose reduction, the following was used: automated exposure control, adjustment of mA and/or kV according to patient size. COMPARISON: [facility], CT, CT HEAD/BRAIN WO CON, 07/05/2023, 11:50. FINDINGS: Image quality: Diagnostic. CSF spaces: Basal cisterns are patent. No extra-axial fluid collections. Ventricles are normal in size and shape. Brain: No midline shift. No intracranial masses or hemorrhage. Pollock-white matter interface is normal. Skull and face: Calvarium and visualized facial bones are intact, without suspicious lesions. Sinuses: Visualized sinuses and mastoids are clear. IMPRESSION: 1. No acute intracranial process. Dictated by: Tanya Tucker M.D. on 07/22/2023 at 12:34 Approved by: Tanya Tucker M.D. on 07/22/2023 at 12:34
[2023-07-22] MEDS: SODIUM CHLORIDE 0.9% 1,000 ML 1000 ML IV (11:30)
[2023-07-22 11:46] LABS: Add Manual Diff / Slide Review NO; Basophils Absolute Auto 0 /uL (0-100); Basophils Percent Auto 0.9 % (0-2); Eosinophils Absolute Auto 0 /uL (0-450); Eosinophils Percent Auto 1.3 % (2-4); Hematocrit 30.9 % (36-46); Hemoglobin 10.9 g/dL (12.0-16.0); Lymphocytes Absolute Auto 500 /uL (1100-4500); Lymphocytes Percent Auto 22.8 % (25-40); Mean Corpuscular HGB Conc 35.4 % (30-36); Mean Corpuscular Hemoglobin 35.7 PG (26-34); Monocytes Absolute Auto 400 /uL (0-900); Neutrophils Absolute Auto 1400 /uL (1500-7000); Platelet Count 40 X10^3/uL (150-400); Red Blood Cell Count 3.06 X10^6/uL (4.0-5.2); Red Cell Distribution Width 17.8 % (11.6-14.8); White Blood Cell Count 2.4 X10^3/uL (4.5-11.0)
[2023-07-22 11:47] LABS: INR 1.3 (0.9-1.3); Prothrombin Time 14.4 SECONDS (9.4-12.5)
[2023-07-22 11:53] LABS: Alanine Aminotransferase 71 IU/L (<35); Albumin Globulin Ratio 1.6 (1.0-2.8); Alkaline Phosphatase 189 U/L (38-126); Ammonia (NH3) 80 umol/L (9-30); Aspartate Aminotransferase 208 IU/L (14-36); BUN Creatinine Ratio 32.5 (6-22); Bilirubin Total 1.6 mg/dL (0.2-1.3); Blood Urea Nitrogen 25 mg/dL (7-17); Calcium 9.8 mg/dL (8.4-10.2); Carbon Dioxide 28 mmol/L (22-32); Chloride 103 mmol/L (98-107); Estimated Glomerular Filt Rate > 60 mL/min (>60); Globulin 2.5 g/dL (1.7-4.1); Glucose 110 mg/dL (80-110); HEMOLYSIS < 15 (0-50); Potassium 4.1 mmol/L (3.4-5.1); Sodium 135 mmol/L (137-145); Total Protein 6.5 g/dL (6.3-8.2)
[2023-07-22 11:55] LABS: Acetaminophen < 10 ug/mL (10-30); Ethanol (ETOH) < 10 mg/dL; Salicylate < 1.0 mg/dL (<20)
[2023-07-22 12:19] LABS: COVID-19 CEPHEID 4-PLEX PCR Negative (Negative); Influenza A - CEPHEID Flu A NEGATIVE (NEGATIVE); Influenza B - CEPHEID Flu B NEGATIVE (NEGATIVE); Respiratory Syncytial Virus Negative (Negative)
[2023-07-22 12:28] LABS: Thyroid Stimulating Hormone 1.79 uIU/mL (0.47-4.68)
[2023-07-22] MEDS: LACTULOSE 20 GM/30 ML SOLUTION 30 GM PO (14:03)
[2023-07-22 15:09] LABS: UR Morphine/Opiate cutoff 300 Negative (Negative); Ur Creatinine Normal (Normal); Ur Specific Gravity Normal (Normal); Urine Amphetamines Negative (Negative); Urine Barbiturates Negative (Negative); Urine Benzodiazepines Negative (Negative); Urine Cocaine Negative (Negative); Urine MDMA Negative (Negative); Urine Methadone Negative (Negative); Urine Methamphetamines Negative (Negative); Urine Oxycodone Negative (Negative); Urine Phencyclidine Negative (Negative); Urine Tetrahydrocannabinol Positive (Negative); Urine Tricyclic Antidepressant Negative (Negative); Urine pH Normal (Normal)
[2023-07-22 15:14] LABS: RBC Urine 0-1/HPF (0-5/HPF); Urine Volume 10mL (spun); WBC Urine None Seen (0-5/HPF)
[2023-07-22 15:15] LABS: Bacteria Urine None Seen; Culture Indicated Urine Cult Not Indicated; Squamous Epithelial Cell Urine None Seen (0-5/HPF)
--- NOTE | 2023-07-22 15:49 | CM.SWNOTE ---
ED PURIFICATION OPERATOR HELPER Note Patient is 58 y/o female who presents to ED due concern for increased confusion and constipation over the last 12 days. Patient has hx of stage IV breast cancer with mets to bones and liver. It is reported by family that patient's last chemo treatment was on 07/02/23 and the plan is not to pursue further chemo. It is reported that patient's mental status, cognition and level of functioning at home significantly declined since last chemo tx which was a new medication. Patient's PCP is ALLA Mauro with [facility], patient previously saw oncologist Dr. Rupinder Welsh at [facility]. Patient has [employer] insurance. Patient has hx of metabolic encephalopathy, stage IV breast cancer, pancytopenia due to chemo, GI bleed and today dx with increased ammonia level. PURIFICATION OPERATOR HELPER enters room to meet with patient, present in room is patient's spouse Gabriel and patient's friend Olivia. Patient makes eye contact but is not able to engage in conversation. PURIFICATION OPERATOR HELPER speaks with patient's spouse. It is reported that patient is DNR and he is patient's DPOA. Spouse reports that he has been in contact with patient's PCP and they made a hospice referral with [facility]. PURIFICATION OPERATOR HELPER asks about previous [facility] referral and it is reported that they met with [facility] once and put referral on hold due to Hospice referral. Spouse endorses that is able to care for patient at home and there are several friends and family members. Per EMR, patient has 3 adult children. It is reported that prior to patient's last chemo tx patient was able to be independent with ADLs, walk several miles and currently patient is relying on a wheelchair. Spouse endorses concern in patient's limited eating, weight loss and lack of awareness when pt is hungry. It is reported that patient has moments of clarity at times. It is reported that patient has telehealth PCP appt tomorrow and the plan was to discuss with dignity, spouse has concerns that patient is not coherent enough at this time to make that determination. PURIFICATION OPERATOR HELPER encourages spouse to keep PCP appt to discuss recent ED visit with PCP. Spouse endorses that the goal of care is for patient to be at home, spouse is hopeful that patient will regain some of her health and they are in between deciding about HH vs. Hospice. PURIFICATION OPERATOR HELPER discusses Hospice as comfort care and keep patient comfortable while at home. PURIFICATION OPERATOR HELPER calls [facility] for confirmation regarding referral and leaves requesting return call. PURIFICATION OPERATOR HELPER faxes clinicals to [facility]. PURIFICATION OPERATOR HELPER calls PCP office and confirms that Hospice referral was submitted on 07/19/23 and is currently pending. PURIFICATION OPERATOR HELPER calls [facility] regarding patient and gives update regarding patient's POC and moving towards hospice services at this time. PURIFICATION OPERATOR HELPER reviews patient with ED provider and ED provider re-enters room and patient's family endorse preference for patient to return home with rx and hospice services. Plan: patient to d/c to home with family with rx to treat Ammonia levels, [facility] to f/u with family, patient has telehealth PCP appt tomorrow as well. Chaya Williamson, INSULATION SUPERVISOR
[2023-07-22] MEDS: MINERAL OIL 1 EACH ENEMA PR (16:28)
--- NOTE | 2023-07-22 17:10 | PC.NURSE ---
Mineral oil enema administered and pt stayed in bed attempting to hold for 5 minutes. Pt up to BSC with no stool output. Pt spouse refused pt being sent home with cameron. Provider notified and cameron removed. Pt's port de accessed. Spouse aware of concerns for urinary retention and to seek medical care if pt does not void at home. Spouse states It's not what she would want in regards to the cameron.
== END 2023-07-22 17:28 | disposition home or self-care (01) ==
PROVIDERS: Emergency Provider Emergency Medicine; PCP Internal Medicine
DX: C50.919 Malignant neoplasm of unspecified site of unspecified female breast (principal); Z51.5 Encounter for palliative care; R41.0 Disorientation, unspecified; R79.89 Other specified abnormal findings of blood chemistry; Z20.822 Contact with and (suspected) exposure to COVID-19
CPT/HCPCS: 0241U; 36415; 70450; 71045; 74177; 80053; 80305; 80320; 80329; 81015; 82140; 84443; 85025; 85610; 86850; 86900; 86901; 87040; 93005; 96360; 99284; 99285; G0480; J1642; Q9967